=== PATIENT | female | born 1995 | race Caucasian/White ===

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

== ENCOUNTER → 2017-01-13 | Outpatient (CLI) | payer BC ==
[2017-01-13 17:25] LABS: GTGD 50 Grams
== END | disposition home or self-care (01) ==
LOC: C.LAB1850 15:23
PROVIDERS: ATTEND Obstetrics & Gynecology
DX: Z34.02 Encounter for supervision of normal first pregnancy, second trimester (principal); Z3A.00 Weeks of gestation of pregnancy not specified

== ENCOUNTER 2017-02-11 14:48 | Outpatient (CLI) | payer BC ==
[~2017-02-11] VITALS: Ht 157.5 cm; Wt 67.0 kg
[2017-02-11 15:44] VITALS: Ht 157.5 cm; Wt 67.0 kg
[2017-02-11 16:15] LABS: URINE APPEARANCE CLEAR (CLEAR); URINE BILIRUBIN NEG (NEG); URINE COLOR YELLOW; URINE EPITHELIAL CELL AUTO >30 /lpf (0-5); URINE NITRITE NEG (NEG); URINE SPECIFIC GRAVITY 1.009 (1.000-1.030); UROBILINOGEN NEG (NEG); ZZUR CULT IF INDIC CLEAN CATCH NO
[2017-02-11 16:22] LABS: MANUAL MICROSCOPIC REQUIRED? NO; REVIEW REQ? NO
== END 2017-02-11 16:35 | disposition home or self-care (01) ==
LOC: C.LD 14:48 → C.OPB 14:48
PROVIDERS: ATTEND Obstetrics & Gynecology
DX: O26.899 Other specified pregnancy related conditions, unspecified trimester (principal); N89.8 Other specified noninflammatory disorders of vagina; Z3A.00 Weeks of gestation of pregnancy not specified

== ENCOUNTER 2017-03-26 18:02 | Outpatient (CLI) | payer BC ==
[2017-03-26 19:03] LABS: URINE APPEARANCE CLEAR (CLEAR); URINE BILIRUBIN NEG (NEG); URINE COLOR YELLOW; URINE EPITHELIAL CELL AUTO >30 /lpf (0-5); URINE NITRITE NEG (NEG); URINE PH 6.5 (4.5-7.5); URINE SPECIFIC GRAVITY 1.026 (1.000-1.030); UROBILINOGEN NEG (NEG); ZZUR CULT IF INDIC CLEAN CATCH YES
[2017-03-26 19:11] LABS: MANUAL MICROSCOPIC REQUIRED? NO; REVIEW REQ? NO
[2017-03-26] MEDS ORDERED: ACET325T96 PO (19:48)
== END 2017-03-26 19:12 | disposition home or self-care (01) ==
LOC: C.OPB 18:02 → C.LD 18:02 → C.OPB 19:12
PROVIDERS: ATTEND Obstetrics & Gynecology
DX: O26.892 Other specified pregnancy related conditions, second trimester (principal); R10.11 Right upper quadrant pain; Z3A.26 26 weeks gestation of pregnancy

== ENCOUNTER 2017-03-26 19:22 | Emergency (ER) | payer BC ==
[~2017-03-26] VITALS: Ht 160 cm; Wt 69.0 kg
[2017-03-26 19:25] VITALS: TEMP 36.8; Ht 160 cm; Wt 69.0 kg
[2017-03-26] MEDS ORDERED: ALBUT/IPRATROP 3MG/0.5MG NEB 3 ML VIAL INH ONE (19:45)
[2017-03-26] MEDS ORDERED: ACET325T96 PO (19:48)
--- NOTE | 2017-03-26 20:23 | DIAGNOSTIC IMAGING REPORT ---
CHEST 2 VIEWS ROUTINE HISTORY: Cough. Fever. . COMPARISON: Chest 07/04/2016. FINDINGS: The lungs are clear. Cardiac silhouette is normal in size. No pleural effusions. No pneumothorax. IMPRESSION: No acute process. Electronically signed by: Rikki Mendiola M.D. 03/26/2017 8:21 PM Dictated Date/Time: 03/26/2017 8:20 PM
[2017-03-26 20:56] VITALS: BP 108/74; PULSE 114; O2SAT 98
--- NOTE | 2017-03-27 15:50 | EMERGENCY ROOM VISIT NOTE ---
History First contact with patient: 19:31 Chief Complaint: CONGESTION Stated Complaint: CHEST CONGESTION- 26WKS PREG Nursing Triage Summary: Pt c/o congestion and runny nose starting this AM. History of Present Illness The patient is a 21 year old female who presents to the Emergency Room with complaints of cough, wheezing, sinus congestion, and runny nose that is worsened over the past one day. The patient does have a history of asthma, but has not been using her inhaler. She is 26 weeks , and evidently was told by her E LEARNING DESIGNER not to use her inhaler as it is category C in . The patient has not had fever or chills. No distinct chest pain. She did have some abdominal cramping earlier today, and was seen just prior to arrival in the ER by labor and delivery here in the facility. She was felt to be stable from the standpoint. The patient does not have vaginal bleeding. She states that one of her friends has been sick with similar symptoms. She rates her discomfort a 4/10. Review of Systems More than 10 systems were reviewed and otherwise negative with the exception of history of present illness. Past Medical/Surgical History Medical Problems: (1) Abdominal cramping affecting , antepartum (2) Chemosis of right conjunctiva (3) Epigastric abdominal pain (4) Foreign body, eye (5) Influenza B (6) Irritation of right eye (7) ovarian cyst (8) Right otitis media (9) Vaginal bleeding in patient at less than 20 weeks gestation (10) Vaginal discharge during Family History Unknow due to adoption Social History Smoking Status: Never Smoker Alcohol Use: none Drug Use: none Marital Status: single Housing Status: lives with family Occupation Status: student Current/Historical Medications Scheduled Multivit/Min/Iron/Fol Ac/Pren ( Vitamin), 1 TAB PO QAM Scheduled PRN Acetaminophen Tab (Tylenol), 325 MG PO UD PRN for Pain or Fever Physical Exam Vital Signs Date Time Temp Pulse Resp B/P (MAP) Pulse Ox O2 Delivery O2 Flow Rate FiO2 03/26/17 20:56 114 18 108/74 98 03/26/17 19:28 97 Room Air 03/26/17 19:25 36.8 109 18 102/60 97 Room Air Physical Exam VITALS: Vitals are noted on the nurse's note and reviewed by myself. Vital signs stable. GENERAL: Well-developed, well-nourished, white female, who is in no acute distress and resting comfortably. Patient is cooperative with the examination. HEAD: Normocephalic atraumatic. EARS: External ear normal. External auditory canals clear, tympanic membranes pearly toure without erythema or effusion bilaterally. EYES: Pupils equal round and reactive to light and accommodation. Conjunctivae without injection, sclerae without icterus. Extraocular movements intact. NOSE: Patent, turbinates without inflammation or discharge. MOUTH: Mucous membranes moist. Tonsils are not enlarged. Pharynx without erythema, blood, or exudate. Uvula midline. Airway patent. NECK: Supple without nuchal rigidity. No lymphadenopathy. No thyromegaly. Cervical spine is nontender. HEART: Regular rate and rhythm without murmurs gallops or rubs. LUNGS: Scattered wheezing throughout but otherwise clear ABDOMEN: Positive normal bowel sounds x 4. Soft and consistent with Medical Decision & Procedures ER Provider Diagnostic Interpretation: CHEST 2 VIEWS ROUTINE HISTORY: Cough. Fever. . COMPARISON: Chest 07/04/2016. FINDINGS: The lungs are clear. Cardiac silhouette is normal in size. No pleural effusions. No pneumothorax. IMPRESSION: No acute process. Medications Administered Medications (Trade) Dose Ordered Sig/Main Route Start Time Stop Time Status Last Admin Dose Admin Albuterol/ Ipratropium (Duoneb) 3 ml NOW ONCE INH 03/26/17 19:45 03/26/17 19:46 DC 03/26/17 20:09 3 ML ED Course Physical exam and history were performed. Nursing notes, EMR, and Medication List were personally reviewed. Patient appears to have cough, runny nose, and URI symptoms for the past one day. The patient does not appear toxic on examination. She is without fever here in the department. She does have some very mild wheezing, but evidently has a history of asthma. This may be slightly flared up due to her symptoms today. I did elect to perform a chest x-ray and give her a DuoNeb. After the DuoNeb the patient had noted improvement of her symptoms. She did not have persistence of her cough. Her x-ray does not show evidence of acute pulmonary findings such as pneumonia. Overall the patient appears well for discharge home. I suspect her symptoms are viral in nature. She will be treated conservatively, and may use her inhaler for the next few days from home. Patient is to follow with her primary care physician and E LEARNING DESIGNER. She was otherwise invited back ER with any new, worsening, or concerning symptoms. The chart was completed utilizing [employer] Speech Voice Recognition Software. Grammatical errors, random word insertions, pronoun errors, and incomplete sentences are an occasional consequence of this system due to software limitations, ambient noise, and hardware issues. Any formal questions or concerns about the content, text, or information contained within the body of this dictation should be directly addressed to the provider for clarification. . Medical Decision Differential diagnosis: Etiologies such as viral syndrome, otitis, pharyngitis, pneumonia, influenza, meningitis, urinary tract infection, sepsis, bacteremia, as well as others were entertained. Impression Primary Impression: URI, acute Departure Information Dispostion Home / Self-Care Condition FAIR Forms HOME CARE DOCUMENTATION FORM, IMPORTANT VISIT INFORMATION Patient Instructions [facility] Additional Instructions You were seen and evaluated today on an emergency basis only. This is not a substitute for, or an effort to provide, complete comprehensive medical care. It is not possible to recognize and treat all injuries or illnesses in a single emergency department visit. For this reason it is recommended that you followup with your primary care physician next week for ongoing care and evaluation. You are welcome to return to the emergency department anytime with new, worsening, or concerning symptoms.
== END 2017-03-26 20:56 | disposition home or self-care (01) ==
LOC: C.EDB 19:23 → C.EDD 20:56
DX: O99.512 Diseases of the respiratory system complicating pregnancy, second trimester (principal); J06.9 Acute upper respiratory infection, unspecified; J45.909 Unspecified asthma, uncomplicated; Z3A.26 26 weeks gestation of pregnancy

== ENCOUNTER → 2017-04-07 | Outpatient (CLI) | payer BC ==
[~2017-04-07] MED LIST changes: +ACET325T96 PO
[2017-04-07 17:37] LABS: HEMOGLOBIN 11.6 g/dL (12.0-16.0)
== END | disposition home or self-care (01) ==
LOC: C.LAB1850 16:46
PROVIDERS: ATTEND Obstetrics & Gynecology
DX: Z34.03 Encounter for supervision of normal first pregnancy, third trimester (principal)

== ENCOUNTER 2017-04-15 03:01 | Outpatient (CLI) | payer BC ==
[~2017-04-15] VITALS: Ht 160 cm; Wt 72.6 kg
[2017-04-15 04:02] VITALS: Ht 160 cm; Wt 72.6 kg
[2017-04-15 04:03] LABS: BASO % 0.1 %; BASO ABS # 0.02 K/uL (0-0.2); EOS ABS # 0.14 K/uL (0-0.5); HEMATOCRIT 35.6 % (37-47); IG# 0.23 K/uL (0.00-0.02); LYMPH % 14.1 %; LYMPH ABS # 1.96 K/uL (1.2-3.4); MEAN CELL VOLUME 84.8 fL (80-100); MEAN CORPUSCULAR HEMOGLOBIN 28.6 pg (25-34); MEAN PLATELET VOLUME 9.2 fL (7.4-10.4); MONO % 6.2 %; MONO ABS # 0.86 K/uL (0.11-0.59); NEUT ABS # 10.73 K/uL (1.4-6.5); PLATELET COUNT 224 K/uL (130-400); RED CELL DISTRIBUTION WIDTH CV 12.9 % (11.5-14.5); RED CELL DISTRIBUTION WIDTH SD 39.2 fL (36.4-46.3); WHITE BLOOD COUNT 13.94 K/uL (4.8-10.8)
[2017-04-15 04:09] LABS: MEAN CORPUSCULAR HGB CONC 33.7 g/dl (32-36)
== END 2017-04-15 06:34 | disposition home or self-care (01) ==
LOC: C.LD 03:01 → C.OPB 03:01
PROVIDERS: ATTEND Obstetrics & Gynecology
DX: Z34.03 Encounter for supervision of normal first pregnancy, third trimester (principal); Z3A.29 29 weeks gestation of pregnancy; W10.9XXA Fall (on) (from) unspecified stairs and steps, initial encounter

== ENCOUNTER 2017-06-03 16:05 | Outpatient (CLI) | payer BC ==
[~2017-06-03] VITALS: Ht 160 cm; Wt 81.6 kg
[~2017-06-03 16:05] MED LIST changes: -FRCT/ PO
[2017-06-03 17:17] LABS: BASO % 0.3 %; BASO ABS # 0.03 K/uL (0-0.2); EOS % 1.8 %; EOS ABS # 0.21 K/uL (0-0.5); HEMATOCRIT 35.6 % (37-47); HEMOGLOBIN 11.9 g/dL (12.0-16.0); IG# 0.16 K/uL (0.00-0.02); LYMPH % 18.3 %; LYMPH ABS # 2.15 K/uL (1.2-3.4); MEAN CELL VOLUME 84.6 fL (80-100); MEAN CORPUSCULAR HEMOGLOBIN 28.3 pg (25-34); MEAN PLATELET VOLUME 10.1 fL (7.4-10.4); MONO % 5.9 %; MONO ABS # 0.69 K/uL (0.11-0.59); NEUT % 72.3 %; NEUT ABS # 8.52 K/uL (1.4-6.5); PLATELET COUNT 200 K/uL (130-400); RED CELL DISTRIBUTION WIDTH CV 13.5 % (11.5-14.5); RED CELL DISTRIBUTION WIDTH SD 41.2 fL (36.4-46.3); WHITE BLOOD COUNT 11.76 K/uL (4.8-10.8)
[2017-06-03 17:32] LABS: MEAN CORPUSCULAR HGB CONC 33.4 g/dl (32-36)
[2017-06-03 17:46] LABS: ALKALINE PHOSPHATASE 142 U/L (45-117); ALT/SGPT 16 U/L (12-78); AST/SGOT 16 U/L (15-37); BLOOD UREA NITROGEN 6 mg/dl (7-18); CALCIUM 8.8 mg/dl (8.5-10.1); CARBON DIOXIDE 22 mmol/L (21-32); CREATININE 0.55 mg/dl (0.60-1.20); GLUCOSE 77 mg/dl (70-99); POTASSIUM 3.9 mmol/L (3.5-5.1); SODIUM 134 mmol/L (136-145); TOTAL PROTEIN 7.4 gm/dl (6.4-8.2)
[2017-06-03 18:59] VITALS: Ht 160 cm; Wt 81.6 kg
[2017-06-03] MEDS ORDERED: ACETAMINOPHEN/CODEINE 300/30MG TAB PO ONE (19:45)
== END 2017-06-03 20:11 | disposition home or self-care (01) ==
LOC: C.LD 16:05 → C.OPB 16:05
PROVIDERS: ATTEND Obstetrics & Gynecology
DX: O99.89 Other specified diseases and conditions complicating pregnancy, childbirth and the puerperium (principal); R51 Headache; Z3A.36 36 weeks gestation of pregnancy

== ENCOUNTER → 2017-06-03 | Outpatient (CLI) | payer BC ==
[~2017-06-03] MED LIST changes: +ACET-1693 PO; -ACET325T96 PO; +FRCT/ PO
== END | disposition home or self-care (01) ==
LOC: C.LABSPEC 17:34
PROVIDERS: ATTEND Obstetrics & Gynecology

== ENCOUNTER 2017-06-08 18:05 | Inpatient (IN) | payer BC ==
[~2017-06-08] VITALS: Ht 160 cm; Wt 83.2 kg
[2017-06-08 19:01] LABS: BASO % 0.2 %; BASO ABS # 0.02 K/uL (0-0.2); EOS % 1.6 %; EOS ABS # 0.18 K/uL (0-0.5); HEMATOCRIT 33.4 % (37-47); HEMOGLOBIN 11.3 g/dL (12.0-16.0); IG# 0.16 K/uL (0.00-0.02); LYMPH % 19.2 %; LYMPH ABS # 2.22 K/uL (1.2-3.4); MEAN CELL VOLUME 84.1 fL (80-100); MEAN CORPUSCULAR HEMOGLOBIN 28.5 pg (25-34); MEAN CORPUSCULAR HGB CONC 33.8 g/dl (32-36); MEAN PLATELET VOLUME 10.3 fL (7.4-10.4); MONO % 7.8 %; NEUT % 69.8 %; NEUT ABS # 8.09 K/uL (1.4-6.5); PLATELET COUNT 178 K/uL (130-400); RED CELL DISTRIBUTION WIDTH CV 13.9 % (11.5-14.5); RED CELL DISTRIBUTION WIDTH SD 42.3 fL (36.4-46.3); WHITE BLOOD COUNT 11.57 K/uL (4.8-10.8)
[2017-06-08 19:19] LABS: ALBUMIN 2.8 gm/dl (3.4-5.0); ALT/SGPT 18 U/L (12-78); BLOOD UREA NITROGEN 8 mg/dl (7-18); CARBON DIOXIDE 24 mmol/L (21-32); CREATININE 0.62 mg/dl (0.60-1.20); GLUCOSE 83 mg/dl (70-99); POTASSIUM 3.9 mmol/L (3.5-5.1); SODIUM 137 mmol/L (136-145)
[2017-06-08 19:22] LABS: ALKALINE PHOSPHATASE 143 U/L (45-117); AST/SGOT 19 U/L (15-37); TOTAL PROTEIN 7.2 gm/dl (6.4-8.2)
[2017-06-08] MEDS ORDERED: LACTATED RINGER'S 1000ML 1,000 ML IV PRN (20:04)
[2017-06-08] MEDS ORDERED: LACTATED RINGER'S 1000ML 500 ML IV PRN (20:04)
[2017-06-08] MEDS ORDERED: FRCT/ PO (20:09)
[2017-06-08 20:13] VITALS: Ht 160 cm; Wt 83.2 kg
[2017-06-08] MEDS ORDERED: OXYTOCIN 30 UNITS/500ML NSS IV PRN (20:15)
[2017-06-08] MEDS: LACTATED RINGER'S 1000ML 1,000 ML IV SCH (21:05)
[2017-06-09] MEDS: LACTATED RINGER'S 1000ML 1,000 ML IV SCH ×2 (04:40→14:39)
[2017-06-09] MEDS ORDERED: NURSING VERBAL MED ORDER ONE ×2 (05:45)
[2017-06-09 09:27] LABS: INR 0.9 (0.9-1.1); PTT PATIENT 24.3 SECONDS (21.0-31.0)
[2017-06-09] MEDS ORDERED: BUPIVACAINE 0.25% 30 ML VIAL ONE (11:49)
[2017-06-09] MEDS ORDERED: EpHEDrine SULFATE INJ 50 MG/ML AMP ONE (11:49)
[2017-06-09] MEDS ORDERED: FENTANYL CITRATE INJ 50 MCG/1 ML 2 ML VIAL ONE (11:50)
[2017-06-09] MEDS ORDERED: FENTANYL 2MCG/ML ROPIV 1.25MG/ML 100ML BAG EPI ONE (11:50)
[2017-06-09] MEDS ORDERED: LACTATED RINGER'S 1000ML 500 ML IV PRN (12:34)
[2017-06-09] MEDS ORDERED: NALOXONE HCL INJ 1 MG in SODIUM CHLORIDE 0.9% 1000ML 1,000 ML IV PRN ×4 (12:34)
[2017-06-09] MEDS ORDERED: NALOXONE HCL INJ 0.4 MG/1 ML VIAL/CARP IV PRN (12:45)
[2017-06-09] MEDS ORDERED: EpHEDrine SULFATE INJ 50 MG/ML AMP IV PRN (12:45)
[2017-06-09] MEDS ORDERED: PROMETHAZINE HCL INJ 25 MG in SODIUM CHLORIDE 0.9% 50ML 50 ML IV PRN (12:45)
[2017-06-09] MEDS ORDERED: ONDANSETRON INJ 2 MG/ML 2 ML VIAL IV PRN (12:45)
[2017-06-09] MEDS ORDERED: DiphenhydrAMINE HCL 50 MG/ML VIAL IV PRN (12:45)
[2017-06-09] MEDS ORDERED: NALBUPHINE HCL INJ 10 MG/ML AMP IV PRN (12:45)
[2017-06-09] MEDS ORDERED: FENTANYL 2MCG/ML ROPIV 1.25MG/ML 100ML BAG EPI PRN (12:45)
[2017-06-09] MEDS ORDERED: LANOLIN OINT EXT PRN (19:30)
[2017-06-09] MEDS ORDERED: SUPERCREAM 0.870 % 15GM JAR EXT PRN (19:30)
[2017-06-09] MEDS ORDERED: ACETAMINOPHEN/CODEINE 300/30MG TAB PO PRN ×2 (19:30)
[2017-06-09] MEDS ORDERED: BENZOCAINE 20% AER SPR 82.5 GM CAN EXT PRN (19:30)
[2017-06-09] MEDS ORDERED: OXYTOCIN 30 UNITS/500ML NSS IV PRN (19:30)
[2017-06-09] MEDS ORDERED: HYDROCORTISONE ACETATE 25 MG SUPP PR PRN (19:30)
[2017-06-09] MEDS ORDERED: DIPHTHERIA/TETANUS/PERTUSSIS 0.5 ML SYR/VIAL IM. ONE (19:30)
[2017-06-09] MEDS ORDERED: ACETAMINOPHEN 325 MG TAB PO PRN (19:30)
--- NOTE | 2017-06-09 20:47 | DELIVERY SUMMARY ---
DATE OF OPERATION: 06/09/2017 FINDINGS: Viable female with Apgars of 8 and 9, baby delivered over a midline second degree laceration with right periurethral laceration. Cord gases and cord blood samples obtained. Placenta delivered spontaneously. Lacerations repaired with 4-0 Vicryl in routine fashion. ESTIMATED BLOOD LOSS: 300 mL. LABOR NOTE: The patient is a 21-year-old 1, para 0 with an EDC of 06/30/2017, who was admitted at 37 week gestational age for term induction for gestational hypertension. The patient had been diagnosed with gestational hypertension this week with elevated blood pressure of 150/90 with normal preeclamptic labs. Because of the gestational hypertension at term, she was admitted for induction. Prior to the gestational hypertension developing in the third trimester, the patient had had an unremarkable course. Admission physical examination showed the patient with a blood pressure of 140-150/80-90, 2+ pitting edema, the cervix was 1 cm long, thick and high. Preeclamptic labs were within normal limits. blood work showed a blood type of A positive, antibody negative, rubella immune, hepatitis B negative, HIV negative. She had negative third trimester beta strep culture. The patient for cervical ripening had a Madrigal catheter inserted to the cervix which was then insufflated with 30 mL of sterile water. Pitocin was started at a low dose of 1 milliunit for approximately 8 hours before being increased per induction protocol. Approximately 10 hours after cervical Madrigal placement, it was removed, cervix was 3 cm dilated, 50% effaced and -2 station. Delivering physician assumed care for the patient at this point. She developed regular contraction pattern. Artificial rupture of membrane with clear fluid and intrauterine pressure catheter was placed. The patient became uncomfortable. Anesthesia was consulted and an epidural was placed. Over the next 8 hours, the patient progressed to full dilatation and began her second stage. She pushed for approximately 30 minutes delivering the viable female with description as above. Cord was clamped and cut. Cord blood samples obtained. Cord gas samples obtained. Placenta was delivered spontaneously. Inspection of the perineum showed a midline second degree laceration with a second degree right periurethral laceration. Both of these lacerations were repaired with 4-0 Vicryl. Estimated blood loss 300 mL. Sponge and needle count was correct. I attest to the content of the Intraoperative Record and any orders documented therein. Any exception s are noted below.
--- NOTE | 2017-06-09 21:37 | Anesthesia Procedure Note ---
Anesthesia Epidural Removal Nt Date & Time Jun 09, 2017 at 21:37 Vital Signs Pain Intensity: 7.0 Notes Mental Status: alert / awake / arousable, participated in evaluation Nausea / Vomiting: adequately controlled Pain: adequately controlled Airway Patency, RR, SpO2: stable & adequate BP & HR: stable & adequate Hydration State: stable & adequate Neuraxial Anesthesia: was administered Anesthetic Complications: no major complications apparent, pt satisfied with anesthetic care Epidural: removed without complications, with tip intact
[2017-06-09 22:00] VITALS: BP 133/93; PULSE 103; TEMP 36.6
[2017-06-09 23:45] VITALS: BP 142/87; PULSE 48; TEMP 36.8
[2017-06-09] MEDS: IBUPROFEN 600 MG TAB PO PRN (23:56)
[2017-06-10 03:40] VITALS: BP 139/79; PULSE 110; TEMP 36.8; O2SAT 98
[2017-06-10 04:15] VITALS: BP 134/87; PULSE 94; TEMP 36.6
[2017-06-10 06:30] LABS: HEMATOCRIT 30.4 % (37-47); HEMOGLOBIN 10.4 g/dL (12.0-16.0)
--- NOTE | 2017-06-10 06:59 | Progress Note ---
Subjective Jun 10, 2017. Subjective conversation w/ patient, physical exam Ambulation: ambulating normally Voiding: no voiding problems Passing Gas: Yes Diet Tolerance: Regular Diet Lochia: Moderate Feeding Type: Breast Feeding Pain: 3/10, improves with meds Comment: pt assessed at bedside this am; no acute events overnight Review of Systems Constitutional: + chills (on and off, thinks related to room temp), No fever, No sweats, No weight loss, No weakness, No fatigue, No problem reported Respiratory: No cough, No sputum, No wheezing, No shortness of breath, No dyspnea on exertion, No dyspnea at rest, No hemoptysis, No problem reported Cardiac: No chest pain, No orthopnea, No PND, No edema, No claudication, No palpitations, No problem reported Breast: No breast lump, No change in shape, No nipple discharge, No breast pain , No problem reported Abdomen: No pain, No nausea, No vomiting, No diarrhea, No constipation, No GI bleeding, No problem reported Female : + dysuria (improving), + vaginal discharge, No urinary frequency, No hematuria, No incontinence, No abnormal vaginal bleeding, No problem reported no headaches or calf pain reported Objective Vital Signs Date Time Temp Pulse Resp B/P (MAP) Pulse Ox O2 Delivery O2 Flow Rate FiO2 06/10/17 04:15 36.6 94 18 134/87 (103) Room Air 06/09/17 23:45 36.8 48 18 142/87 (105) Room Air 06/09/17 23:45 Room Air 06/09/17 22:00 36.6 103 18 133/93 (106) Room Air 06/09/17 22:00 Room Air Physical Exam General Appearance: WELL-APPEARING, WD/WN, NO APPARENT DISTRESS Respiratory/Chest: chest non-tender, lungs clear, normal breath sounds, no respiratory distress, no accessory muscle use Cardiovascular: regular rate, rhythm, no edema, no murmur Abdomen: normal bowel sounds, non tender, soft Fundus: Firm, Non-Tender, Relation to Umbilicus (2 below) Extremities: normal range of motion, non-tender, normal inspection, no calf tenderness, + pedal edema (1-2+ bilaterally) Laboratory Results Last 24 Hours Test 06/09/17 09:01 06/10/17 05:58 Prothrombin Time 9.4 SECONDS Prothromb Time International Ratio 0.9 Activated Partial Thromboplast Time 24.3 SECONDS Partial Thromboplastin Ratio 0.9 Hemoglobin 10.4 g/dL Hematocrit 30.4 % Medications Current Inpatient Medications Medications (Trade) Dose Ordered Sig/Main Route Start Time Stop Time Status Last Admin Dose Admin Lactated Ringer's 1,000 ml @ 125 mls/hr Q8H IV 06/08/17 20:04 06/10/17 20:03 06/09/17 14:39 125 MLS/HR Lactated Ringer's 1,000 ml @ 999 mls/hr Q1H1M PRN IV 06/08/17 20:04 07/08/17 20:03 Oxytocin (Pitocin IV) 30 units UD PRN IV 06/08/17 20:15 07/08/17 20:14 06/08/17 21:57 30 UNITS Lactated Ringer's 500 ml @ 999 mls/hr Q31M PRN IV 06/08/17 20:04 07/08/17 20:03 Ondansetron HCl (Zofran Inj) 4 mg Q6H PRN IV 06/09/17 12:45 06/10/17 12:44 Oxytocin (Pitocin IV) 30 units UD PRN IV 06/09/17 19:30 07/09/17 19:29 Benzocaine (Dermoplast Aero Spr) 1 appln PRN PRN EXT 06/09/17 19:30 07/09/17 19:29 Cocaine HCl (Supercream 0.870% Cr) BID PRN EXT 06/09/17 19:30 06/23/17 19:29 Hydrocortisone Acetate (Anusol Hc Supp) 25 mg BID PRN NH 06/09/17 19:30 07/09/17 19:29 Lanolin (Lanolin Oint) PRN PRN EXT 06/09/17 19:30 07/09/17 19:29 Prenat Multivit/ [place]/Iron/Folic Ac ( Vitamin Tab) 1 tab DAILY PO 06/10/17 08:00 07/10/17 07:59 Ibuprofen (Motrin Tab) 600 mg Q4H PRN PO 06/09/17 19:30 07/09/17 19:29 06/09/17 23:56 600 MG Acetaminophen (Tylenol Tab) 650 mg Q6H PRN PO 06/09/17 19:30 07/09/17 19:29 Acetaminophen/ Codeine Phosphate (Tylenol w/ Codeine #3 Tab) 1 tab Q4H PRN PO 06/09/17 19:30 07/09/17 19:29 Acetaminophen/ Codeine Phosphate (Tylenol w/ Codeine #3 Tab) 2 tab Q4H PRN PO 06/09/17 19:30 07/09/17 19:29 Bisacodyl (Dulcolax Tab) 5 mg 20 PO 06/10/17 20:00 06/10/17 20:01 Docusate Sodium (coLACE CAP) 100 mg BID PO 06/09/17 20:00 07/09/17 19:59 Ferrous Sulfate (Feosol Tab) 325 mg DAILY PO 06/10/17 08:00 07/10/17 07:59 Assessment and Plan Problem List Medical Problems: (1) 15371 Status: Acute (2) 37670 Status: Acute (3) Chemosis of right conjunctiva Status: Acute (4) Foot fracture, right Status: Acute (5) Foreign body, eye Status: Acute (6) Influenza Status: Acute (7) Irritation of right eye Status: Acute (8) Status: Acute (9) URI, acute Status: Acute (10) Vaginal bleeding Status: Acute (11) Vaginal bleeding in patient at less than 20 weeks gestation Status: Acute (12) Vaginal hematoma Status: Acute (13) Vomiting Status: Acute Post- Day#: 1 Continue Routine Care: 21 yo F , PPD 1 s/p induction with for gestational HTN Patient doing well clinically AVSS Hgb reviewed 11.3--10.4 Blood type A pos, GBS neg, rubella immune Routine care, encourage ambulation, breast feeding, first mom--education on breast feeding Pain control with Rx prn Resident Physician Supervision Note: I interviewed and examined the patient. Discussed with Dr. Horn and agree with findings and plan as documented in the note. Any exceptions or clarifications are listed here: Discussed delivery and finds with patient Documented By: Magan Price Resident Tracking Resident Involvement: Resident Care Provided Care Provided: OB Delivery
[2017-06-10 08:00] VITALS: BP 135/88; PULSE 99; TEMP 36.5
[2017-06-10] MEDS: DOCUSATE SODIUM 100 MG CAP PO SCH ×3 (09:01→19:53)
[2017-06-10] MEDS: FERROUS SULFATE 325 MG TAB PO SCH (09:02)
[2017-06-10] MEDS: PRENATAL VITAMIN TAB PO SCH (09:03)
[2017-06-10] MEDS: IBUPROFEN 600 MG TAB PO PRN ×2 (09:05→15:47)
[2017-06-10 12:08] VITALS: BP 136/91; PULSE 82; TEMP 36.4; O2SAT 99
[2017-06-10 15:40] VITALS: BP 139/79; PULSE 110; TEMP 36.8; O2SAT 98
[2017-06-10] MEDS ORDERED: BISACODYL 5 MG TABEC PO SCH (20:00)
[2017-06-11 00:30] VITALS: BP 126/85; PULSE 106; TEMP 36.7
[2017-06-11] MEDS: IBUPROFEN 600 MG TAB PO PRN ×2 (00:47→08:18)
--- NOTE | 2017-06-11 06:54 | Progress Note ---
Subjective Jun 11, 2017. Subjective conversation w/ patient, physical exam, chart review Ambulation: ambulating normally Voiding: no voiding problems Passing Gas: Yes Diet Tolerance: Regular Diet Lochia: Small Feeding Type: Breast Feeding Pain: much improved compared to yesterday, rated 2/10 Comment: Pt seen and examined at bedside today, no acute events overnight Review of Systems Constitutional: No fever, No chills Respiratory: No cough, No shortness of breath Cardiac: + edema, No chest pain Breast: + breast pain (sore breast from extended breast feeding yesterday) Abdomen: No pain, No nausea, No vomiting Female : + problem reported (dysuria last night but none today) No headache or calf tenderness reported Objective Vital Signs Date Time Temp Pulse Resp B/P (MAP) Pulse Ox O2 Delivery O2 Flow Rate FiO2 06/11/17 00:30 Room Air 06/11/17 00:30 36.7 106 18 126/85 (99) Room Air 06/10/17 15:40 36.8 110 20 139/79 (99) 98 Room Air 06/10/17 15:30 Room Air 06/10/17 12:08 36.4 82 20 136/91 (106) 99 Room Air 06/10/17 08:00 36.5 99 18 135/88 (104) Room Air 06/10/17 07:30 Room Air Physical Exam General Appearance: WELL-APPEARING, WD/WN, NO APPARENT DISTRESS Respiratory/Chest: chest non-tender, lungs clear, normal breath sounds Cardiovascular: regular rate, rhythm, no murmur Abdomen: normal bowel sounds, non tender, soft Fundus: Firm, Non-Tender, Relation to Umbilicus (2 cm below) Extremities: normal range of motion, non-tender, normal inspection, no calf tenderness, + pedal edema (2+ bilaterally) Laboratory Results Last Resulted 06/08/17 18:47 Red Blood Count 3.97, Mean Corpuscular Volume 84.1, Mean Corpuscular Hemoglobin 28.5, Mean Corpuscular Hemoglobin Concent 33.8, Mean Platelet Volume 10.3, Neutrophils (%) (Auto) 69.8, Lymphocytes (%) (Auto) 19.2, Monocytes (%) (Auto) 7.8, Eosinophils (%) (Auto) 1.6, Basophils (%) (Auto) 0.2, Neutrophils # (Auto) 8.09, Lymphocytes # (Auto) 2.22, Monocytes # (Auto) 0.90, Eosinophils # (Auto) 0.18, Basophils # (Auto) 0.02 06/10/17 05:58 Last Resulted 06/08/17 18:47 Medications Current Inpatient Medications Medications (Trade) Dose Ordered Sig/Main Route Start Time Stop Time Status Last Admin Dose Admin Lactated Ringer's 1,000 ml @ 999 mls/hr Q1H1M PRN IV 06/08/17 20:04 07/08/17 20:03 Oxytocin (Pitocin IV) 30 units UD PRN IV 06/08/17 20:15 07/08/17 20:14 06/08/17 21:57 30 UNITS Lactated Ringer's 500 ml @ 999 mls/hr Q31M PRN IV 06/08/17 20:04 07/08/17 20:03 Oxytocin (Pitocin IV) 30 units UD PRN IV 06/09/17 19:30 07/09/17 19:29 Benzocaine (Dermoplast Aero Spr) 1 appln PRN PRN EXT 06/09/17 19:30 07/09/17 19:29 Cocaine HCl (Supercream 0.870% Cr) BID PRN EXT 06/09/17 19:30 06/23/17 19:29 Hydrocortisone Acetate (Anusol Hc Supp) 25 mg BID PRN MT 06/09/17 19:30 07/09/17 19:29 Lanolin (Lanolin Oint) PRN PRN EXT 06/09/17 19:30 07/09/17 19:29 Prenat Multivit/ [place]/Iron/Folic Ac ( Vitamin Tab) 1 tab DAILY PO 06/10/17 08:00 07/10/17 07:59 06/10/17 09:03 1 TAB Ibuprofen (Motrin Tab) 600 mg Q4H PRN PO 06/09/17 19:30 07/09/17 19:29 06/11/17 00:47 600 MG Acetaminophen (Tylenol Tab) 650 mg Q6H PRN PO 06/09/17 19:30 07/09/17 19:29 Acetaminophen/ Codeine Phosphate (Tylenol w/ Codeine #3 Tab) 1 tab Q4H PRN PO 06/09/17 19:30 07/09/17 19:29 3/8/18 00:47 1 TAB Acetaminophen/ Codeine Phosphate (Tylenol w/ Codeine #3 Tab) 2 tab Q4H PRN PO 06/09/17 19:30 07/09/17 19:29 Docusate Sodium (coLACE CAP) 100 mg BID PO 06/09/17 20:00 07/09/17 19:59 06/10/17 09:01 100 MG Ferrous Sulfate (Feosol Tab) 325 mg DAILY PO 06/10/17 08:00 07/10/17 07:59 06/10/17 09:02 325 MG Assessment and Plan Problem List Medical Problems: (1) 81545 Status: Acute (2) 06241 Status: Acute (3) Chemosis of right conjunctiva Status: Acute (4) Foot fracture, right Status: Acute (5) Foreign body, eye Status: Acute (6) Influenza Status: Acute (7) Irritation of right eye Status: Acute (8) Status: Acute (9) URI, acute Status: Acute (10) Vaginal bleeding Status: Acute (11) Vaginal bleeding in patient at less than 20 weeks gestation Status: Acute (12) Vaginal hematoma Status: Acute (13) Vomiting Status: Acute Post- Day#: 2 Continue Routine Care: 21 yo F , PPD 2 s/p Pt doing well clinically, eager to get home Continue routine care Encourage ambulation, breast feeding, first mom education on breast feeding Pain contro with rx prn Discharge instructions reviewed Resident Physician Supervision Note: I was present with Dr. Horn during the history and exam. I discussed the case with the resident and agree with the findings and plan as documented in the note. Any exceptions or clarifications are listed here: PPD#2 doing well. Discharge instructions discussed. Followup 6w office. Documented By: Alma Palumbo Resident Tracking Resident Involvement: Resident Care Provided Care Provided: OB Delivery
--- NOTE | 2017-06-11 06:57 | Discharge Instructions ---
Discharge Instructions Date of Service Jun 11, 2017. Admission Reason for Admission: Blood Pressure Check Discharge Discharge Diagnosis / Problem: s/p Discharge Goals Goal(s): Routine recovery after delivery Medications Continue Dispensed Medications: supercream, dermaplast, tucks, lansinoh Activity Recommendations Activity Limitations: per Instructions/Follow-up section . Instructions / Follow-Up Instructions / Follow-Up ACTIVITY RECOMMENDATIONS: * Gradual return to full activity over the next 2-3 weeks. * No lifting - nothing heavier than baby over the next 2-3 weeks. * Do not engage in vigorous exercise, sexual activity or sports until cleared by your physician. * Do not drive or operate any motorized equipment until cleared by your physician. * You may shower/bathe daily. MEDICATIONS: For discomfort or pain, you may use Acetaminophen (Tylenol), Ibuprofen (Advil), or Naproxen (Aleve) following the package directions. For constipation you may use Colace following the package directions. BREAST CARE: If you are not breast feeding: * Wear a supportive bra 24 hours a day for one to two weeks. * Avoid stimulating your breasts and nipples as much as possible during the first few weeks after delivery. * When taking a shower, have the warm water hit your back, not breasts. * When your breasts feel full, apply ice packs. Usually three to four times a day helps ease the discomfort. * Take a mild pain medication (Tylenol / Motrin) when you are uncomfortable. If breast feeding: * Use breast milk to lubricate nipples. Lansinoh cream may be used for sore nipples. You do not need to remove cream prior to breast feeding. If using a different brand of cream, check the label for directions regarding removal of cream prior to nursing. * Wear a supportive bra. * If having problems with breasts or breast feeding, call a ent consultant or your health care provider. EPISIOTOMY CARE: After delivery, if you have an episiotomy (stitches), the following steps will ease discomfort and aid healing. * For the first 24 hours after delivery, place ice packs next to your episiotomy to help reduce swelling. * After the first 24 hour-period, sitz baths, either portable or in the tub, are suggested. A shower with a shower arm sprayed over the episiotomy may be comforting. * Stacey care should be done after each voiding and bowel movement. Squirt warm water from a plastic bottle over the perineum (region of the body between the anus and urinary opening) and pat dry. * Use Dermoplast to ease discomfort. Shake container. [place] directly over the episiotomy. Place a Tucks on a clean sanitary pad next to your episiotomy. SPECIAL CARE INSTRUCTIONS: When you are discharged from the hospital, it is important for you to follow the instructions listed below: * During the first week at home, you should be able to care for yourself and your baby. In addition, the usual light household activities are encouraged. * Limit your activities to the way you feel. Do not try to clean the house or move furniture. Be sensible. * If you actively engage in sports and have done so up until the time of your delivery, you may resume these activities as soon as you feel able. This may take up to one month or even longer. Use good judgment. * Continue to take your vitamins for at least six weeks after the of your baby. * Your diet need not be limited unless you were on a special diet before your delivery. Breast-feeding mothers need around 2500 calories per day and at least 64-80 ounces of fluid per day (8 to 10 glasses). * You should eat foods from the four major food groups. Crash diets or fad diets are to be avoided. Eating lean meats, fresh fruits and vegetables, low-fat dairy products, high fiber foods and a regular exercise program, will help you get back to your pre- weight without putting your health at risk. * Constipation is sometimes a problem after delivery. Take a mild laxative as needed. If breast feeding, Milk of Magnesia is acceptable to use. You may use a suppository or Fleets enema if no episiotomy. * A daily shower or tub bath is suggested. Be sure to thoroughly and gently dry the perineum. * A bloody vaginal discharge will usually continue until around four weeks post . A small amount of bleeding may continue for as long as six weeks. Vaginal discharge changes from the bright red bleeding after delivery to pink then brownish and finally yellowish-pink before becoming white and disappearing. * Bleeding may increase with activity. Your first period may come in 4-8 weeks. If you are breast feeding, your period may be delayed even longer. * Diaz (sex) can begin whenever both you and your partner feel comfortable and do not have any form of genital infection. It is recommended that you wait at least six weeks for internal and external healing to occur. If you have questions, please talk to your health care practitioner. A condom should be used to prevent infection and . * Foreplay, gentle intercourse and lubrication is very important the first several times to prevent pain. A water-based lubricant such as K-Y jelly or Astroglide may be used. * If you have RH negative blood and your baby is RH positive, you will receive RHOGAM by injection prior to discharge. The nurse will give you a card to keep with you that has the date and place that you received RHOGAM after delivery. * During your care, you had a Rubella screen done to check for the presence of rubella antibodies in your blood. If your test was negative, you will receive a Rubella vaccine prior to discharge. This vaccine may cause a fever, soreness at the injection site and flu-like symptoms. If these symptoms persist, notify your health care practitioner. is not advised for one month after a Rubella vaccine. * Verbalizes understanding of car seat law as reviewed with patient nursing. * Car Seat hand-out given and reviewed with patient by nursing. * Shaken baby information reviewed with patient by nursing. Call you doctor if: * Heavy bleeding (saturating several pads an hour) or passing clots the size of your fist. * A fever >101 degrees F (38.3 degrees C) on two occasions four hours apart and /or chills. * Unusual pain in the pelvic or vaginal areas. * "Baby Blues" lasting longer than two weeks. If you have any questions or concerns, call your health care practitioner at . FOLLOW UP VISIT: * Please call the office at to schedule a 6 week examination. It is important you keep this appointment. It is important for you to make arrangements for either yearly or twice yearly check-ups thereafter. Current Hospital Diet Patient's current hospital diet: Regular OB Diet Discharge Diet Recommended Diet: Regular OB Diet Pending Studies Studies pending at discharge: no Medical Emergencies . Who to Call and When: Medical Emergencies: If at any time you feel your situation is an emergency, please call 911 immediately. . Non-Emergent Contact Non-Emergency issues call your: Calibration Engineer . . "Provider Documentation" section prepared by Oriana Horn. .
[2017-06-11 07:15] VITALS: BP 122/81; PULSE 89; TEMP 36.5; O2SAT 98
[2017-06-11] MEDS: PRENATAL VITAMIN TAB PO SCH (08:18)
[2017-06-11] MEDS: DOCUSATE SODIUM 100 MG CAP PO SCH (08:18)
[2017-06-11] MEDS: FERROUS SULFATE 325 MG TAB PO SCH (08:18)
[2017-06-11 11:15] VITALS: BP_DIAS 81; PULSE 89; TEMP 36.5
== END 2017-06-11 11:15 | disposition home or self-care (01) | DRG 775 ==
LOC: C.LD 18:05 → C.OPB 18:05 → C.LD 20:07 → C.OPB 20:07 → C.OBG 06-09 22:01
PROVIDERS: ADMIT Obstetrics & Gynecology; ATTEND Obstetrics & Gynecology
DX: O13.4 Gestational [pregnancy-induced] hypertension without significant proteinuria, complicating childbirth (principal); O70.1 Second degree perineal laceration during delivery; Z3A.37 37 weeks gestation of pregnancy; Z37.0 Single live birth

== ENCOUNTER → 2017-11-27 | Outpatient (CLI) | payer BC, OTHER ==
[~2017-11-27] MED LIST changes: +FRCT/ PO
[2017-11-27 16:20] LABS: BASO % 0.4 %; BASO ABS # 0.02 K/uL (0-0.2); EOS % 3.4 %; EOS ABS # 0.18 K/uL (0-0.5); HEMATOCRIT 39.3 % (37-47); HEMOGLOBIN 12.7 g/dL (12.0-16.0); LYMPH % 35.2 %; LYMPH ABS # 1.84 K/uL (1.2-3.4); MEAN CELL VOLUME 84.5 fL (80-100); MEAN CORPUSCULAR HEMOGLOBIN 27.3 pg (25-34); MEAN CORPUSCULAR HGB CONC 32.3 g/dl (32-36); MEAN PLATELET VOLUME 9.9 fL (7.4-10.4); MONO % 7.3 %; MONO ABS # 0.38 K/uL (0.11-0.59); NEUT % 53.7 %; NEUT ABS # 2.81 K/uL (1.4-6.5); PLATELET COUNT 262 K/uL (130-400); RED CELL DISTRIBUTION WIDTH SD 43.1 fL (36.4-46.3); RETIC COUNT % 0.8 % (0.5-2.0); WHITE BLOOD COUNT 5.23 K/uL (4.8-10.8)
[2017-11-27 16:49] LABS: ALBUMIN 3.6 gm/dl (3.4-5.0); ALKALINE PHOSPHATASE 32 U/L (45-117); ALT/SGPT 25 U/L (12-78); AST/SGOT 12 U/L (15-37); BLOOD UREA NITROGEN 10 mg/dl (7-18); CALCIUM 8.6 mg/dl (8.5-10.1); CARBON DIOXIDE 24 mmol/L (21-32); CREATININE 0.66 mg/dl (0.60-1.20); GLUCOSE 70 mg/dl (70-99); POTASSIUM 4.3 mmol/L (3.5-5.1); SODIUM 138 mmol/L (136-145); TOTAL PROTEIN 7.6 gm/dl (6.4-8.2); TRANSFERRIN 315 mg/dl (200-360)
== END | disposition home or self-care (01) ==
LOC: C.LAB 13:25
DX: R53.83 Other fatigue (principal); R68.89 Other general symptoms and signs

== ENCOUNTER 2018-12-28 21:57 | Inpatient (IN) ==
[2018-12-28] MEDS ORDERED: SODIUM CHLORIDE 0.9% 1000ML 1,000 ML IV SCH (22:15)
[2018-12-28 22:31] LABS: Appearance Urine Clear (Clear); Bilirubin Urine Negative (Negative); Blood Urine Negative (Negative); Color Urine Yellow; Glucose Urine UA Negative (Negative); Ketones Urine Negative (Negative); Leukocyte Esterase Urine Negative (Negative); Nitrite Urine Negative (Negative); Protein Urine Negative (Negative); Urobilinogen Urine Negative (Negative); pH Urine 6.5 (4.5-7.5)
[2018-12-28 22:31] LABS: Basophils # (auto) 0.01 K/uL (0-0.2); Basophils % (auto) 0.1 %; Eosinophils # (auto) 0.12 K/uL (0-0.5); Eosinophils % (auto) 1.7 %; Hematocrit (blood only) 31.7 % (37-47); Hemoglobin 10.9 g/dL (12.0-16.0); Immature Granulocytes # (auto) 0.02 K/uL (0.00-0.02); Immature Granulocytes % (auto) 0.3 %; Lymphocytes # (auto) 0.91 K/uL (1.2-3.4); Lymphocytes % (auto) 12.7 %; Mean Corpuscular Hgb Conc 34.4 g/dL (32-36); Mean Corpuscular Volume 84.3 fL (80-100); Mean Platelet Volume 8.9 fL (7.4-10.4); Monocytes # (auto) 0.37 K/uL (0.11-0.59); Monocytes % (auto) 5.2 %; Neutrophils # (auto) 5.71 K/uL (1.4-6.5); Platelet Count 160 K/uL (130-400); RDW Coefficient of Variation 12.6 % (11.5-14.5); RDW Standard Deviation 38.9 fL (36.4-46.3); Red Blood Count 3.76 M/uL (4.2-5.4); White Blood Count 7.14 K/uL (4.8-10.8)
[2018-12-28 22:48] LABS: Alanine Aminotransferase 13 U/L (12-78); Albumin Level 3.6 gm/dl (3.4-5.0); Aspartate Aminotransferase 12 U/L (15-37); BUN Creatinine Ratio 10.5 (10-20); Blood Urea Nitrogen 5 mg/dl (7-18); Calcium 8.9 mg/dl (8.5-10.1); Carbon Dioxide 22 mmol/L (21-32); Chloride 106 mmol/L (98-107); Creatinine Clr Calc Pharmacy 180.8 ml/min; Est GFR (African American) > 150.0; Est GFR (Non-African American) 137.5; Glucose 87 mg/dl (70-99); Potassium 3.3 mmol/L (3.5-5.1); Sodium 137 mmol/L (136-145)
[2018-12-28 22:53] LABS: Amphetamines+Metham, Urine Neg (Neg); Barbiturates, Urine Neg (Neg); Benzodiazepine, Urine Neg (Neg); Cocaine, Urine Neg (Neg); MDMA (Ecstacy), Urine Neg (Neg); Methadone, Urine Neg (Neg); Opiate, Urine Neg (Neg); Phencyclidine, Urine Neg (Neg)
[2018-12-28 22:56] LABS: Albumin Globulin Ratio 1.1 (0.9-2); Alkaline Phosphatase 32 U/L (45-117); Bilirubin,Total 0.2 mg/dl (0.2-1); Creatine Kinase 68 U/L (26-192); Globulin 3.3 gm/dl (2.5-4.0); Phosphorus 2.6 mg/dl (2.5-4.9); Total Protein 6.9 gm/dl (6.4-8.2)
[2018-12-29] MEDS ORDERED: ONDANSETRON INJ 2 MG/ML 2 ML VIAL IV STA (00:04)
[2018-12-29] MEDS ORDERED: ACETAMINOPHEN 1,000 MG/100 ML VIAL IV STA (00:04)
[2018-12-29] MEDS ORDERED: SODIUM CHLORIDE 0.9% 1000ML 1,000 ML IV ONE (00:22)
--- NOTE | 2018-12-29 00:29 | Emergency Department Note ---
History of Present Illness General Chief complaint: Seizure Stated complaint: SEIZURE, BACK PAIN, TINGLING IN ARM Time Seen by Provider: 12/28/18 21:59 History of Present Illness Maximum Pain Intensity: 6 This 23 yo presents to the ER complaining of seizure with back pain and abdominal cramping Location: Generalized Quality: Achy Severity: Moderate Duration: Tonight Timing: Patient had a seizure tonight per the family member Context: EMS was summoned as the patient had a possible seizure Modifying factors: better with nothing; worse with nothing Patient states 2 to 3 years ago she had a seizure at a full work-up with unclear etiology. They thought was related to her headache medication. Patient states her heart rates normally 110s 120s. Patient states she went to bed and next thing she knew she felt confused and her boyfriend told her that she had a seizure. Patient complains of a headache and back pain and abdominal cramping. Patient states she did a lot of cleaning today. Patient denies chest pain, dyspnea, vaginal bleeding, fever, chills, alcohol or drug use. She has a history of anemia and gets iron transfusions. Home Medications Home Medications Medication Instructions Recorded Confirmed Type [id number] 1 tab PO DAILY 11/18/18 12/28/18 History ondansetron HCl 4 mg tablet 4 mg PO Q6H PRN #20 tab 11/18/18 12/28/18 Rx acetaminophen [Tylenol] 650 mg PO QID PRN 12/28/18 12/28/18 History Allergies Allergy/AdvReac Type Severity Reaction Status Date / Time No Known Allergies Allergy Verified 12/28/18 22:57 Past Med/Surg History Medical History Adopted Gestational hypertension Varicella vaccine Yeast infection Surgical History S/P wisdom tooth extraction Social History Preferred Language: Montenegrin Communication Ability: Effective 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 Beliefs That Will Affect Care: None marital status: marital status details: Abran Vargas (26) [phone] Current Living Situation: Significant Other Current Living Situation Comment: 2 dogs, cat- pt not changing cat litter current occupational status: unemployed 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 Other Information That Helps Us Care for You: No Feels Safe at Home: Yes Safety Concerns: Feels Safe At This Time Smoking Status: Never smoker Hx Alcohol Use: No Hx Substance Use: No Review of Systems All systems reviewed & are unremarkable except as noted in HPI & below Physical Exam Vital Signs Vital Signs - 24 hr 12/28/18 21:57 12/28/18 23:07 12/29/18 00:33 Temperature 37.2 C Temperature Source Oral Sepsis Recent Fever Within 48 Hours No Sepsis New/Unexplained Change in Mental Status No Sepsis Action Taken by Nursing No Action Required Pulse Rate 135 H Pulse Rate [Apical] 123 H 116 H Respiratory Rate 20 19 25 H Respiratory Depth Normal Blood Pressure 130/74 Blood Pressure [Left Arm] 119/60 130/85 Blood Pressure Mean 92 Blood Pressure Mean [Left Arm] 79 100 Pulse Oximetry 99 98 98 Oxygen Delivery Method Room Air Room Air Room Air 12/29/18 01:06 Temperature 38.9 C H Temperature Source Oral Sepsis Recent Fever Within 48 Hours Sepsis New/Unexplained Change in Mental Status Sepsis Action Taken by Nursing Pulse Rate Pulse Rate [Apical] 134 H Respiratory Rate 28 H Respiratory Depth Blood Pressure Blood Pressure [Left Arm] 121/69 Blood Pressure Mean Blood Pressure Mean [Left Arm] 86 Pulse Oximetry 98 Oxygen Delivery Method Room Air VITALS: Vitals are noted on the nurse's note and reviewed by myself. Vital signs tachycardic. GENERAL: Anxious appearing female, in no acute distress, nondiaphoretic, well- developed well-nourished. SKIN: The skin was without rashes, erythema, edema, or bruising. There is no tenting of the skin. Capillary reflex less than 2 seconds. HEAD: Normocephalic atraumatic. EARS: External auditory canals clear, tympanic membranes pearly toure without erythema or effusion bilaterally. EYES: Pupils equal round and reactive to light and accommodation. Conjunctivae without injection, sclerae without icterus. Extraocular movements intact. NOSE: Patent, turbinates without inflammation or discharge. No sinus tenderness. MOUTH: Mucous membranes moist. Pharynx without erythema or exudate. Uvula midline. Airway patent. Tongue does not deviate. NECK: Supple without nuchal rigidity. No lymphadenopathy. No thyromegaly. Cervical spine is nontender. No JVD. HEART: Regular rate and rhythm without murmurs gallops or rubs. LUNGS: Clear to auscultation bilaterally without wheezes, rales or rhonchi. No retractions or accessory muscle use. ABDOMEN: Positive bowel sounds x 4. Normal tympanic percussion. Soft, minimally tender suprapubic region, without masses or organomegaly. Beckman sign negative. No guarding or rebound tenderness. No CVA tenderness MUSCULOSKELETAL: No muscle atrophy, erythema, or edema noted. No thoracic or lumbar tenderness. NEURO: Patient was alert and oriented to person place and time. Normal sensation to light and sharp touch. No focal neurological deficits. Cranial nerves II through XII grossly intact. No pronator drift. Cerebellar exam intact Course Administered Medications Sodium Chloride (Nss 1000ml) 1,000 mls @ 125 mls/hr IV .Q8H LYNDSEY Stop: 12/29/18 18:44 Last Admin: 12/29/18 03:23 Dose: 125 mls/hr Documented by: [id number] Discontinued Medications Diphenhydramine HCl (Benadryl) 25 mg IV NOW STA Stop: 12/29/18 03:24 Last Admin: 12/29/18 03:33 Dose: 25 mg Documented by: [id number] Sodium Chloride (Nss 1000ml) 1,000 mls @ 999 mls/hr IV .Q1H1M LYNDSEY Stop: 12/28/18 23:15 Last Infusion: 12/29/18 00:19 Dose: 0 mls/hr Documented by: [id number] Admin: 12/28/18 23:08 Dose: 999 mls/hr Documented by: [id number] Acetaminophen (Ofirmev) 1,000 mg in 100 mls @ 400 mls/hr IV NOW STA Stop: 12/29/18 00:18 Last Infusion: 12/29/18 00:33 Dose: 0 mls/hr Documented by: [id number] Admin: 12/29/18 00:17 Dose: 400 mls/hr Documented by: [id number] Sodium Chloride (Nss 1000ml) 1,000 mls @ 999 mls/hr IV .Q1H1M ONE Stop: 12/29/18 01:22 Last Infusion: 12/29/18 01:36 Dose: 0 mls/hr Documented by: [id number] Admin: 12/29/18 00:28 Dose: 999 mls/hr Documented by: [id number] Morphine Sulfate (Morphine Sulfate) 4 mg IV NOW STA Stop: 12/29/18 01:00 Last Admin: 12/29/18 01:11 Dose: 4 mg Documented by: [id number] Ondansetron HCl (Zofran) 4 mg IV NOW STA Stop: 12/29/18 00:05 Last Admin: 12/29/18 00:16 Dose: 4 mg Documented by: [id number] Medical Decision Making Medical Records Attestation: I reviewed the patient's medical records. Home Medications Current Medication List: was personally reviewed by nj Laboratory Data Attestation: I reviewed the patient's lab results. Result diagrams: 12/28/18 22:12/28/18 22: Lab Results 12/28/18 12/28/18 12/28/18 Range/Units 22:18 22:19 22:19 WBC 7.14 (4.8-10.8) K/uL RBC 3.76 L (4.2-5.4) M/uL Hgb 10.9 L (12.0-16.0) g/dL Hct 31.7 L (37-47) % MCV 84.3 (80-100) fL MCH 29.0 (25-34) pg MCHC 34.4 (32-36) g/dL RDW Std Deviation 38.9 (36.4-46.3) fL RDW Coeff of Jorge 12.6 (11.5-14.5) % Plt Count 160 (130-400) K/uL MPV 8.9 (7.4-10.4) fL Immature Gran % (Auto) 0.3 % Neut % (Auto) 80.0 % Lymph % (Auto) 12.7 % [place] % (Auto) 5.2 % Eos % (Auto) 1.7 % Baso % (Auto) 0.1 % Immature Gran # (Auto) 0.02 (0.00-0.02) K/uL Neut # (Auto) 5.71 (1.4-6.5) K/uL Lymph # (Auto) 0.91 L (1.2-3.4) K/uL [place] # (Auto) 0.37 (0.11-0.59) K/uL Eos # (Auto) 0.12 (0-0.5) K/uL Baso # (Auto) 0.01 (0-0.2) K/uL Sodium 137 (136-145) mmol/L Potassium 3.3 L (3.5-5.1) mmol/L Chloride 106 (98-107) mmol/L Carbon Dioxide 22 (21-32) mmol/L Anion Gap 9.0 (3-11) BUN 5 L (7-18) mg/dl Creatinine 0.51 L (0.6-1.2) mg/dl Est Cr Clr Drug Dosing 180.8 ml/min Est GFR ( Amer) > 150.0 Est GFR (Non-Af Amer) 137.5 BUN/Creatinine Ratio 10.5 (10-20) Glucose 87 (70-99) mg/dl Calcium 8.9 (8.5-10.1) mg/dl Phosphorus 2.6 (2.5-4.9) mg/dl Magnesium 2.0 (1.8-2.4) mg/dl Total Bilirubin 0.2 (0.2-1) mg/dl AST 12 L (15-37) U/L ALT 13 (12-78) U/L Alkaline Phosphatase 32 L (45-117) U/L Total Creatine Kinase 68 (26-192) U/L Total Protein 6.9 (6.4-8.2) gm/dl Albumin 3.6 (3.4-5.0) gm/dl Globulin 3.3 (2.5-4.0) gm/dl Albumin/Globulin Ratio 1.1 (0.9-2) Urine Color Yellow Urine Appearance Clear (Clear) Urine pH 6.5 (4.5-7.5) Ur Specific [place]ham 1.010 (1.000-1.030) Urine Protein Negative (Negative) Urine Glucose (UA) Negative (Negative) Urine Ketones Negative (Negative) Urine Blood Negative (Negative) Urine Nitrite Negative (Negative) Urine Bilirubin Negative (Negative) Urine Urobilinogen Negative (Negative) Ur Leukocyte Esterase Negative (Negative) Urine Opiates Screen (Neg) Ur Methadone, Qual (Neg) Urine Barbiturates (Neg) Ur Phencyclidine (PCP) (Neg) U Amphetamin/Meth Scrn (Neg) MDMA (Ecstasy) Screen (Neg) U Benzodiazepines Scrn (Neg) Ur Cocaine Metabolite (Neg) U Marijuana (THC) Screen (Neg) Influenza Type A Ag (Neg) Influenza Type B Ag (Neg) 12/28/18 12/29/18 Range/Units 22:19 01:46 WBC (4.8-10.8) K/uL RBC (4.2-5.4) M/uL Hgb (12.0-16.0) g/dL Hct (37-47) % MCV (80-100) fL MCH (25-34) pg MCHC (32-36) g/dL RDW Std Deviation (36.4-46.3) fL RDW Coeff of Jorge (11.5-14.5) % Plt Count (130-400) K/uL MPV (7.4-10.4) fL Immature Gran % (Auto) % Neut % (Auto) % Lymph % (Auto) % [place] % (Auto) % Eos % (Auto) % Baso % (Auto) % Immature Gran # (Auto) (0.00-0.02) K/uL Neut # (Auto) (1.4-6.5) K/uL Lymph # (Auto) (1.2-3.4) K/uL [place] # (Auto) (0.11-0.59) K/uL Eos # (Auto) (0-0.5) K/uL Baso # (Auto) (0-0.2) K/uL Sodium (136-145) mmol/L Potassium (3.5-5.1) mmol/L Chloride (98-107) mmol/L Carbon Dioxide (21-32) mmol/L Anion Gap (3-11) BUN (7-18) mg/dl Creatinine (0.6-1.2) mg/dl Est Cr Clr Drug Dosing ml/min Est GFR ( Amer) Est GFR (Non-Af Amer) BUN/Creatinine Ratio (10-20) Glucose (70-99) mg/dl Calcium (8.5-10.1) mg/dl Phosphorus (2.5-4.9) mg/dl Magnesium (1.8-2.4) mg/dl Total Bilirubin (0.2-1) mg/dl AST (15-37) U/L ALT (12-78) U/L Alkaline Phosphatase (45-117) U/L Total Creatine Kinase (26-192) U/L Total Protein (6.4-8.2) gm/dl Albumin (3.4-5.0) gm/dl Globulin (2.5-4.0) gm/dl Albumin/Globulin Ratio (0.9-2) Urine Color Urine Appearance (Clear) Urine pH (4.5-7.5) Ur Specific [place] (1.000-1.030) Urine Protein (Negative) Urine Glucose (UA) (Negative) Urine Ketones (Negative) Urine Blood (Negative) Urine Nitrite (Negative) Urine Bilirubin (Negative) Urine Urobilinogen (Negative) Ur Leukocyte Esterase (Negative) Urine Opiates Screen Neg (Neg) Ur Methadone, Qual Neg (Neg) Urine Barbiturates Neg (Neg) Ur Phencyclidine (PCP) Neg (Neg) U Amphetamin/Meth Scrn Neg (Neg) MDMA (Ecstasy) Screen Neg (Neg) U Benzodiazepines Scrn Neg (Neg) Ur Cocaine Metabolite Neg (Neg) U Marijuana (THC) Screen Neg (Neg) Influenza Type A Ag Neg for Influ A (Neg) Influenza Type B Ag Neg for Influ B (Neg) Imaging Data Attestation: I personally reviewed and interpreted this imaging study as follows: MDM Narrative Prior records/ancillary studies reviewed. Patient placed in seizure precautions immediately upon arrival. Nursing notes reviewed. Additional history obtained from family The patient's history was concerning for a possible seizure. Differential diagnosis: Etiologies such as infection, hypoglycemia, electrolyte abnormalities, cardiac sources, intracerebral event, trauma, toxicologic, neurologic, as well as others were entertained. Physical examination: As above. No signs of trauma. ER treatment provided: IV fluids, Tylenol, Zofran On reassessment the patient felt better. Diagnostics interpretation by me: ECG: Normal sinus, normal intervals, no acute ST-T changes. Impression sinus tachycardia interpreted by myself. Patient's heart rate went up to the 150s and repeat EKG was done and shows sinus tach. I think arrhythmia is unlikely. EKG shows normal sinus rhythm with no interval abnormalities such as QT prolongation or WPW. There are no findings to suggest Brugada syndrome. Cardiac monitoring in the emergency department reveals no t achycardic or bradycardic dysrhythmia. Hypertrophic cardiomyopathy was considered but there are no clear historical elements pointing toward this. EKG is not suggestive. The QRS voltage is not extremely large and there are no suggestive Q waves. The labs revealed mild anemia, hypokalemia, stable LFTs. Negative urine. Negative drug screen Imaging studies: CT HEAD: Comparison August 2015 MRI No acute intracranial findings Radiologist: Tre Lebron M.D. OB 2nd TRIMESTER: No priors IUP. EGA by CRL 12w6d. FHR: 191 bpm . Anterior, low-lying placenta. No measurements of cervix provided but cervix appears closed. Right ovary unremarkable. Blood flow seen to the right ovary. Left adnexa is obscured by bowel. Left ovary not visualized. Radiologist: Tre Lebron M.D. Consultation: A consultation was placed with the neurologist, Dr. Dunaway. The case was discussed and diagnostics were reviewed. He recommends EEG and observation to medicine. He does not want to start the patient on antibiotics. He states that the patient has another seizure that we should transfer to a tertiary facility I spoke with Dr. Price from OB about the patient's case and does not believe the seizure is from that and recommends further evaluation.. I consulted medicine and Dr. Chapman will evaluate the patient. Case was reviewed. She will evaluate the patient for possible admission. Exam and history seem to assist with possible seizure. Patient had a seizure before. While in the ER, the patient did spike a fever. Urine is negative. Flu swab was added. Medicine was informed of the fever. She was already given Tylenol. Patient and family agreeable treatment plan of admission. The pt informed about the findings as listed above. All questions were answered and pleased with the treatment. Case reviewed with my attending The chart was completed utilizing [employer] Speech voice recognition software. Grammatical errors, random word insertions, pronoun errors, and incomplete sentences are an occassional consequence of this system due to software limitations, ambient noise, and hardware issues. Any formal questions or concerns about the content, text, or information contained within the body of this dictation should be directly addressed to the physician mobile unit assistant for clarification. Impression & Plan Episode of shaking, Fever Discharge Plan Visit Data *Final* Discharge Date/Time: 12/29/18 02:15 Chief Complaint: Seizure Stated Complaint: SEIZURE, BACK PAIN, TINGLING IN ARM ED Provider: Drew Figueredo ED Midlevel Provider: Olga Sherman Discharge Problem: Episode of shaking, Fever Patient Disposition: Admitted As Inpatient Condition: Good Discharge Instructions Interventions: ED Discharge Assessment Last Done: 12/29/18 02:15
[2018-12-29] MEDS ORDERED: MoRPHine SULFATE 4 MG/ML 1 ML CARP\\VIAL IV STA (00:59)
--- NOTE | 2018-12-29 01:52 | History & Physical Report ---
Date of Service December 29, 2018 Assessment & Plan (1) Observed seizure-like activity: Patient is a 23yo F currently at 13 wks GA, PMH gestational HTN, Anemia, admitted for seizure like activity, tachycardia, and fever. Seizure-like activity -EEG in AM -Neuro consult appreciated -Possibly related to viral illness Fever/tachycardia -Tylenol prn -mIVF x 2L -Will check TSH with AM labs -Consider echo for EF evaluation should tachycardia persist -On review of prev records patient does run an elevated HR of 90-110s GAVIN -Monitor labs -Cont multivitamin -Low threshold to consult OB if any issues suspected with fetus/should any PV bleeding occur, etc -Cont daily multivitamin H/O GestHTN -Pt takes daily ASA for prevention Code: full DVTP: SCDs Dispo: med tele (2) Fever: (3) Iron deficiency anemia: (4) : (5) History of gestational hypertension: History of Present Illness Chief Complaint: Seizure-like activity Primary Care Provider: Jas Vo Jr, DO Patient is a 23yo F currently at 13 wks GA, PMH gestational HTN, Anemia, who presents today after experiencing seizure-like activity witnessed by her partner. Patient notes earlier today she was laboring/cleaning around the house, and felt in her normal state of health when she suddenly felt a sensation that she was getting ill (body aches, head/eyes felt 'off'). She laid down to take a nap, and during her nap her partner noticed a 10-15 second burst of "mouth chomping and upper extremity shaking" which resolved on its own. Patient notes when she woke up she had a severe headache, was coughing/choking, had pain down her lower back, and was confused for several minutes. She did not bite her tongue or become incontinent of urine. She denies vaginal bleeding but does endorse some generalized abdominal discomfort which she states she has been getting once every few days this . Of note, patient has a history of seizures 2-3 years ago, which was attributed to amitriptyline. She states an EEG was performed at that time which was normal. Partner notes that the seizure activity tonight was similar to that which she had at that time. Gets regular iron transfusions for her anemia, lastly 6-8 weeks ago. Notes her resting HR is about 110s. In the ER, she was given tylenol and morphine for her headache and a liter NSS bolus. Her vitals were notable for sinus tachycardia. CT head was negative, and USS was normal. Labs were obtained and revealed H&H of 10.9/31.7, no leukocytosis, K+ of 3.3; normal mag and normal phos. UA clean, UDS neg. After the tylenol, she spiked a temperature in the ER. A flu swab was obtained and was negative. OB was called and this was deemed not obstetric-related. Neurology was called and they recommend an EEG in the morning. Allergies Allergy/AdvReac Type Severity Reaction Status Date / Time No Known Allergies Allergy Verified 12/28/18 22:57 Home Medications Home Medications Medication Instructions Recorded Confirmed Type [id number] oil 1 tab PO DAILY 11/18/18 12/28/18 History ondansetron HCl 4 mg tablet 4 mg PO Q6H PRN #20 tab 11/18/18 12/28/18 Rx acetaminophen [Tylenol] 650 mg PO QID PRN 12/28/18 12/28/18 History Past Med/Surg History Medical History Adopted Gestational hypertension Varicella vaccine Yeast infection Surgical History S/P wisdom tooth extraction Social History Preferred Language: Indonesian Communication Ability: Effective Hotel Engineer Required: No Beliefs That Will Affect Care: None marital status: marital status details: Abran Vargas (28) [phone] Current Living Situation: Significant Other Current Living Situation Comment: 2 dogs, cat- pt not changing cat litter current occupational status: unemployed 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 Other Information That Helps Us Care for You: No Feels Safe at Home: Yes Safety Concerns: Feels Safe At This Time Smoking Status: Never smoker Hx Alcohol Use: No Hx Substance Use: No Review of Systems Review of Systems: All systems reviewed & are unremarkable except as noted in HPI & below Constitutional: + body aches Respiratory: no cough and no dyspnea Cardiovascular: + lightheadedness; no chest pain and no radiating jaw, neck or arm pain Gastrointestinal: + abdominal pain; no nausea and no vomiting Musculoskeletal: + myalgia; no neck pain, no joint pain and no stiffness Integumentary: no rash Neurologic: + seizure-like activity Physical Exam Constitutional: WD/WN, vitals as above cooperative; not ill appearing and not in distress Eyes: PERRL, conjunctivae normal, anicteric sclerae ENMT: external ear and nose normal, oropharynx normal Neck: normal visual inspection Respiratory: normal respiratory effort Cardiovascular: Rate/Rhythm: regular rhythm and + tachycardic Extremities: + edema (trace bilaterally) Gastrointestinal (Abdomen): Inspection/Auscultation: abdomen normal to inspection Percussion/Palpation: + abdomen tender (diffusely with deep palpation) Musculoskeletal: Spine: no pain with cervical ROM and no cervical spinal tenderness Skin: no rashes, warm and dry Neurologic: patellar DTR's 2+ bilat, sensation intact and PERRL, EOMI, accommodation nl, no face palsy, no dysarthria Psychiatric: A+Ox3, euthymic affect Results & Data Vital Signs (Past 12 Hours) Vital Signs Temp Pulse Pulse Resp BP BP Pulse Ox 12/29/18 01:06 102.0 F H 134 H 28 H 121/69 98 12/29/18 00:33 116 H 25 H 130/85 98 12/28/18 23:07 123 H 19 119/60 98 12/28/18 21:57 99.0 F 135 H 20 130/74 99 Laboratory Results 12/29/18 12/28/18 12/28/18 Range/Units 01:46 22:19 22:19 WBC (4.8-10.8) K/uL RBC (4.2-5.4) M/uL Hgb (12.0-16.0) g/dL Hct (37-47) % MCV (80-100) fL MCH (25-34) pg MCHC (32-36) g/dL RDW Std Deviation (36.4-46.3) fL RDW Coeff of Jorge (11.5-14.5) % Plt Count (130-400) K/uL MPV (7.4-10.4) fL Immature Gran % (Auto) % Neut % (Auto) % Lymph % (Auto) % [place] % (Auto) % Eos % (Auto) % Baso % (Auto) % Immature Gran # (Auto) (0.00-0.02) K/uL Neut # (Auto) (1.4-6.5) K/uL Lymph # (Auto) (1.2-3.4) K/uL [place] # (Auto) (0.11-0.59) K/uL Eos # (Auto) (0-0.5) K/uL Baso # (Auto) (0-0.2) K/uL Sodium 137 (136-145) mmol/L Potassium 3.3 L (3.5-5.1) mmol/L Chloride 106 (98-107) mmol/L Carbon Dioxide 22 (21-32) mmol/L Anion Gap 9.0 (3-11) BUN 5 L (7-18) mg/dl Creatinine 0.51 L (0.6-1.2) mg/dl Est Cr Clr Drug Dosing 180.8 ml/min Est GFR ( Amer) > 150.0 Est GFR (Non-Af Amer) 137.5 BUN/Creatinine Ratio 10.5 (10-20) Glucose 87 (70-99) mg/dl Calcium 8.9 (8.5-10.1) mg/dl Phosphorus 2.6 (2.5-4.9) mg/dl Magnesium 2.0 (1.8-2.4) mg/dl Total Bilirubin 0.2 (0.2-1) mg/dl AST 12 L (15-37) U/L ALT 13 (12-78) U/L Alkaline Phosphatase 32 L (45-117) U/L Total Creatine Kinase 68 (26-192) U/L Total Protein 6.9 (6.4-8.2) gm/dl Albumin 3.6 (3.4-5.0) gm/dl Globulin 3.3 (2.5-4.0) gm/dl Albumin/Globulin Ratio 1.1 (0.9-2) Urine Color Urine Appearance (Clear) Urine pH (4.5-7.5) Ur Specific [place] (1.000-1.030) Urine Protein (Negative) Urine Glucose (UA) (Negative) Urine Ketones (Negative) Urine Blood (Negative) Urine Nitrite (Negative) Urine Bilirubin (Negative) Urine Urobilinogen (Negative) Ur Leukocyte Esterase (Negative) Urine Opiates Screen Neg (Neg) Ur Methadone, Qual Neg (Neg) Urine Barbiturates Neg (Neg) Ur Phencyclidine (PCP) Neg (Neg) U Amphetamin/Meth Scrn Neg (Neg) MDMA (Ecstasy) Screen Neg (Neg) U Benzodiazepines Scrn Neg (Neg) Ur Cocaine Metabolite Neg (Neg) U Marijuana (THC) Screen Neg (Neg) Influenza Type A Ag Neg for Influ A (Neg) Influenza Type B Ag Neg for Influ B (Neg) 12/28/18 12/28/18 Range/Units 22:19 22:18 WBC 7.14 (4.8-10.8) K/uL RBC 3.76 L (4.2-5.4) M/uL Hgb 10.9 L (12.0-16.0) g/dL Hct 31.7 L (37-47) % MCV 84.3 (80-100) fL MCH 29.0 (25-34) pg MCHC 34.4 (32-36) g/dL RDW Std Deviation 38.9 (36.4-46.3) fL RDW Coeff of Jorge 12.6 (11.5-14.5) % Plt Count 160 (130-400) K/uL MPV 8.9 (7.4-10.4) fL Immature Gran % (Auto) 0.3 % Neut % (Auto) 80.0 % Lymph % (Auto) 12.7 % [place] % (Auto) 5.2 % Eos % (Auto) 1.7 % Baso % (Auto) 0.1 % Immature Gran # (Auto) 0.02 (0.00-0.02) K/uL Neut # (Auto) 5.71 (1.4-6.5) K/uL Lymph # (Auto) 0.91 L (1.2-3.4) K/uL [place] # (Auto) 0.37 (0.11-0.59) K/uL Eos # (Auto) 0.12 (0-0.5) K/uL Baso # (Auto) 0.01 (0-0.2) K/uL Sodium (136-145) mmol/L Potassium (3.5-5.1) mmol/L Chloride (98-107) mmol/L Carbon Dioxide (21-32) mmol/L Anion Gap (3-11) BUN (7-18) mg/dl Creatinine (0.6-1.2) mg/dl Est Cr Clr Drug Dosing ml/min Est GFR ( Amer) Est GFR (Non-Af Amer) BUN/Creatinine Ratio (10-20) Glucose (70-99) mg/dl Calcium (8.5-10.1) mg/dl Phosphorus (2.5-4.9) mg/dl Magnesium (1.8-2.4) mg/dl Total Bilirubin (0.2-1) mg/dl AST (15-37) U/L ALT (12-78) U/L Alkaline Phosphatase (45-117) U/L Total Creatine Kinase (26-192) U/L Total Protein (6.4-8.2) gm/dl Albumin (3.4-5.0) gm/dl Globulin (2.5-4.0) gm/dl Albumin/Globulin Ratio (0.9-2) Urine Color Yellow Urine Appearance Clear (Clear) Urine pH 6.5 (4.5-7.5) Ur Specific [place] 1.010 (1.000-1.030) Urine Protein Negative (Negative) Urine Glucose (UA) Negative (Negative) Urine Ketones Negative (Negative) Urine Blood Negative (Negative) Urine Nitrite Negative (Negative) Urine Bilirubin Negative (Negative) Urine Urobilinogen Negative (Negative) Ur Leukocyte Esterase Negative (Negative) Urine Opiates Screen (Neg) Ur Methadone, Qual (Neg) Urine Barbiturates (Neg) Ur Phencyclidine (PCP) (Neg) U Amphetamin/Meth Scrn (Neg) MDMA (Ecstasy) Screen (Neg) U Benzodiazepines Scrn (Neg) Ur Cocaine Metabolite (Neg) U Marijuana (THC) Screen (Neg) Influenza Type A Ag (Neg) Influenza Type B Ag (Neg) Code Status & VTE Plan Code Status full VTE Prophylaxis Plan VTE Prophylaxis will be ordered: Yes Supervising Physician Co-Signing Physician Notes Patient seen and examined, chart reviewed, case discussed with Dr. Horn and I agree with her assessment and plan as documented above. Briefly, patient is a at 13 weeks presenting with febrile illness, possible seizure at home witnessed by . On exam she is febrile, tachycardic, mildly anxious in appearance Skin - intact HEENT - NC/AT, PERRL, EOMI, MMM, neck supple, no meningismus Heart - +S1/S2, regular, tachycardic, no m/r/g Lungs - CTA Abd - +BS, soft, NT/ND Ext - no edema Neuro - nonfocal Labs and images reviewed Assessment/Plan: 23yo C female at 13 weeks with febrile illness, possible seizure. Suspect viral illness. Documentation of similar episodes in OB notes from prior delivery when patient has body aches and twitching of her right hand. Do not suspect related complication at this time such as pre- eclampsia as patient is at 13 weeks, LFTs/urine WNL. -Admit to medical floor with telemetry -EEG in AM, Neurology consultation. Patient with history of seizure in the past thought to be secondary to Amitryptyline use. states that episode tonight was similar to her prior seizures - monitoring per protocol -Supportive care with IVF and anti-pyretics -If tachycardia persists would consider additional cardiac workup -Continue daily aspirin PG Care Time/CCT Total # of Minutes Spent Total Time Spent with Patient: Total time spent is greater than 50% in coordination of care (as documented) at patient's floor/unit and/or counseling patient: Resident Activity Tracking Resident Involvement: Resident Care Provided Care Provided: Adult Hospital Medicine
[2018-12-29] MEDS ORDERED: ONDANSETRON INJ 2 MG/ML 2 ML VIAL IV PRN (02:44)
[2018-12-29] MEDS ORDERED: SODIUM CHLORIDE 0.9% 1000ML 1,000 ML IV SCH (02:45)
[2018-12-29] MEDS ORDERED: DiphenhydrAMINE HCL 50 MG/ML VIAL IV STA (03:23)
[2018-12-29] MEDS: ACETAMINOPHEN 325 MG TAB PO PRN ×2 (04:09→18:35)
[2018-12-29] MEDS ORDERED: INFLUENZA VIRUS QUAD VACCINE 0.5 ML SYR IM ONE (05:15)
[2018-12-29] MEDS ORDERED: INFLUENZA ADMINISTRATION CHARGE ONE (05:15)
--- NOTE | 2018-12-29 06:35 | CT Scan Report ---
CT head/brain wo con CLINICAL HISTORY: 23 years-old Female with seizure. Acute seizure TECHNIQUE: Multiple axial CT images of the head were obtained without contrast. A dose lowering tech nique was utilized adhering to the principles of ALARA. CT DOSE: 537.48 mGy.cm COMPARISON: Brain MRI 08/13/2015. FINDINGS: No acute intracranial hemorrhage, midline shift, intracranial mass, hydrocephalus, territorial ischem ia or abnormal extra-axial collection. The calvarium is intact. Enlargement of the adenoid tonsils noted. The paranasal sinuses, mastoid air cells, and middle ear cavities are clear. IMPRESSION: No acute intracranial abnormality. The above report was generated using voice recognition software. It may contain grammatical, syntax o r spelling errors. Electronically signed by: Cyrus Romero M.D. 12/29/2018 6:33 AM
--- NOTE | 2018-12-29 07:01 | Ultrasound Report ---
US OB <= 14 weeks fetus HISTORY: 23 years-old Female pain, sz, 13 weeks pelvic pain with and seizure COMPARISON: None available TECHNIQUE: Multiple real-time sonographic images of the deep pelvic structures were obtained transabd ominally assessing grayscale appearance, color flow and M-mode analysis FINDINGS: Single living intrauterine gestation is noted, crown-rump length of 6.4 cm correlating with estimated gestational age of 12 weeks and 6 days. heart rate measured at 191 bpm. Placenta is anterior a nd low-lying. Cervix is closed. Right ovary appears unremarkable, 3.4 x 1.4 x 1.8 cm with arterial in flow documented. The left ovary is obscured by bowel gas. No significant free pelvic fluid identified . IMPRESSION: 1. Single living intrauterine gestation with estimated gestational age by crown-rump length of 12 wee ks and 6 days. 2. Closed cervix. 3. Low-lying placenta. The above report was generated using voice recognition software. It may contain grammatical, syntax o r spelling errors. Electronically signed by: Cyrus Romero M.D. 12/29/2018 7:00 AM
[2018-12-29 07:26] LABS: Eosinophils # (auto) 0.01 K/uL (0-0.5); Eosinophils % (auto) 0.2 %; Hematocrit (blood only) 30.6 % (37-47); Hemoglobin 10.4 g/dL (12.0-16.0); Immature Granulocytes # (auto) 0.01 K/uL (0.00-0.02); Immature Granulocytes % (auto) 0.2 %; Lymphocytes # (auto) 0.55 K/uL (1.2-3.4); Mean Corpuscular Volume 85.2 fL (80-100); Mean Platelet Volume 8.9 fL (7.4-10.4); Monocytes # (auto) 0.28 K/uL (0.11-0.59); Monocytes % (auto) 4.6 %; Neutrophils # (auto) 5.23 K/uL (1.4-6.5); Platelet Count 148 K/uL (130-400); RDW Coefficient of Variation 12.7 % (11.5-14.5); Red Blood Count 3.59 M/uL (4.2-5.4); White Blood Count 6.08 K/uL (4.8-10.8)
[2018-12-29 07:59] LABS: BUN Creatinine Ratio 7.6 (10-20); Blood Urea Nitrogen 4 mg/dl (7-18); Calcium 8.2 mg/dl (8.5-10.1); Carbon Dioxide 20 mmol/L (21-32); Chloride 109 mmol/L (98-107); Creatinine Clr Calc Pharmacy 155.4 ml/min; Est GFR (African American) > 150.0; Est GFR (Non-African American) 135.7; Glucose 103 mg/dl (70-99); Magnesium 1.8 mg/dl (1.8-2.4); Potassium 2.9 mmol/L (3.5-5.1); Sodium 137 mmol/L (136-145)
[2018-12-29 08:09] LABS: Thyroid Stimulating Hormone 0.306 uIu/ml (0.300-4.500)
[2018-12-29] MEDS ORDERED: MAGNESIUM OXIDE 400 MG TAB PO SCH (09:00)
[2018-12-29] MEDS ORDERED: [UNRECOGNIZED DRUG - OTHER] PO SCH (09:00)
[2018-12-29] MEDS ORDERED: LACTATED RINGER'S 1,000 ML IV ONE (09:50)
[2018-12-29 09:58] LABS: Partial Thromboplastin Time 27.4 Seconds (21.0-31.0); Prothrombin Time 10.4 Seconds (9.0-12.0)
[2018-12-29] MEDS ORDERED: LACTATED RINGER'S 1,000 ML IV SCH (10:00)
[2018-12-29] MEDS: ASPIRIN 81 MG ECTAB PO SCH (10:31)
[2018-12-29] MEDS: POTASSIUM CHLORIDE / WTR 10 MEQ/100 ML PLCT IV SCH ×4 (10:32→13:39)
--- NOTE | 2018-12-29 11:29 | Ultrasound Report ---
BILATERAL LOWER EXTREMITY VENOUS DOPPLER CLINICAL HISTORY: R calf circumf > L, concern DVT. . COMPARISON STUDY: No previous studies for comparison. TECHNIQUE: Sonography of the deep venous system of the bilateral lower extremities was performed. Co mpression and augmentation were evaluated. FINDINGS: The bilateral common femoral, superficial femoral and popliteal veins were compressible. A ugmentation was normal. Flow was shown within the deep calf vessels. IMPRESSION: No evidence of deep venous thrombus within the bilateral lower extremities. Electronically signed by: Raul Dale M.D. 12/29/2018 11:28 AM
--- NOTE | 2018-12-29 11:31 | Ultrasound Report ---
US appendix HISTORY: 23 years-old Female abd pain acute generalized abdominal pain COMPARISON: None available TECHNIQUE: Multiple real-time significant images of the abdominal right lower quadrant were obtained assessing grayscale appearance and color flow FINDINGS: Nonvisualization of the appendix. No free fluid, echogenic fat, hyperemia or hypoperistaltic bowel. N o adenopathy. IMPRESSION: Nonvisualization of the appendix. No secondary signs to suggest acute appendicitis. The above report was generated using voice recognition software. It may contain grammatical, syntax o r spelling errors. Electronically signed by: Cyrus Romero M.D. 12/29/2018 11:30 AM
[2018-12-29] MEDS: MAGNESIUM OXIDE 400 MG TAB PO SCH ×3 (11:33→18:35)
--- NOTE | 2018-12-29 12:24 | Ultrasound Report ---
ULTRASOUND LIMITED CLINICAL HISTORY: Generalized abdominal pain. Assess for heart rate. COMPARISON STUDY: ultrasound dated 12/28/2018. FINDINGS: Real-time, grayscale, and color Doppler sonography of the fetus and gravid uterus is perfor med. There is a single live intrauterine gestation with estimated heart rate of 190 bpm. The crown-ru mp length measures 6.23 cm, corresponding to an estimated age of 12 weeks 4 days. The placenta is ant erior and appears normal. The cervix is closed and measures 4.4 cm in length. The amniotic fluid volu me is grossly normal. IMPRESSION: There is a single live intrauterine gestation as above. Note that this does not constitut e a dedicated anatomic scan. Dictated: 12/29/2018 12:03 PM Transcribed: 12/29/2018 12:06 PM Rita [id number] [email or web address] Electronically signed by: Erik Ojeda M.D. 12/29/2018 12:23 PM
[2018-12-29 12:51] LABS: Lyme Ab IgG w/WB Rflx Negative (Negative); Lyme Ab IgM w/WB Rflx Negative (Negative)
--- NOTE | 2018-12-29 14:02 | Neurology Consultation ---
Date of Consultation December 29, 2018 Assessment & Plan (1) Observed seizure-like activity: Observed, very brief, seizure-like episode occurring during sleep yesterday, occurring in a 23-year-old female who is 13 weeks gestation, followed by brief postictal confusion, no associated tongue bite or incontinence. Patient has a history of similar episodes occurring a few years ago that were felt to be potentially related to a prescription for amitriptyline she had been taking at that time. She has a normal neurological examination, normal EEG, and normal CT of the head. She does have a persistent low-grade fever, tachycardia, and complains of some nonspecific flulike symptoms as well as a persistent headache. Although this patient likely has a lower threshold for seizures, I would not recommend starting an anticonvulsant at this point in time. However, if she were to have another convulsive episode I would recommend a loading dose of Keppra, 1000 mg IV followed by a maintenance dose of 500 mg twice daily. Continue with medical evaluation for occult infection although she may have a nonspecific viral syndrome. She does not have any signs or symptoms suggestive of meningitis or encephalitis. May continue with Tylenol for her headache. History of Present Illness Reason for Consultation: Seizure like activity Requesting Physician: Oriana Horn MD Attending Physician: Tran Blood MD History of Present Illness The patient is a 23-year-old female with a chief complaint of a seizure-like episode that awoke her from sleep last night. Her apparently observed a 10 to 15-second episode of chewing movements and upper extremity shaking which was followed by headache and confusion. There was no associated tongue bite or incontinence. The patient does report that she has been experiencing a fairly persistent headache for several months for which she has been taking Tylenol on a daily basis. She is currently 13 weeks gestation. She also complains of persistent flulike symptoms including fevers, and generalized body aches and pains and a feeling of generalized weakness with difficulty standing up and walking on her own. She denies any associated sensory loss or paresthesias in the limbs. Patient denies any vision loss, diplopia, change in speech or swallowing, or vertigo. Past medical history notable for several similar seizure-like episodes that occurred 2 to 3 years ago that were felt to be potentially related to amitriptyline she was taking at that time. The patient is adopted and is unable to provide any specifics regarding her family history. Allergies Allergy/AdvReac Type Severity Reaction Status Date / Time No Known Allergies Allergy Verified 12/28/18 22:57 Home Medications Home Medications Medication Instructions Recorded Confirmed Type [id number] oil 1 tab PO DAILY 11/18/18 12/28/18 History ondansetron HCl 4 mg tablet 4 mg PO Q6H PRN #20 tab 11/18/18 12/28/18 Rx acetaminophen [Tylenol] 650 mg PO QID PRN 12/28/18 12/28/18 History Patient History Medical History Adopted Gestational hypertension Varicella vaccine Yeast infection Surgical History S/P wisdom tooth extraction Social History Preferred Language: Malay Communication Ability: Effective International Travel Consultant Required: No Beliefs That Will Affect Care: None marital status: marital status details: Abran Vargas (26) [phone] Current Living Situation: Significant Other Current Living Situation Comment: 2 dogs, cat- pt not changing cat litter current occupational status: unemployed 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 Other Information That Helps Us Care for You: No Feels Safe at Home: Yes Safety Concerns: Feels Safe At This Time Smoking Status: Never smoker Hx Alcohol Use: No Hx Substance Use: No Review of Systems Constitutional: as per Subjective / HPI, + fever, + chills and + body aches Eyes: no blind spots and no diplopia Ear, Nose, Mouth, Throat: no ear pain, no tinnitus and no hearing loss Respiratory: no cough and no dyspnea Cardiovascular: no chest pain and no palpitations Gastrointestinal: no nausea and no vomiting Genitourinary: no dysuria and no urinary incontinence Musculoskeletal: + back pain and + body aches Integumentary: no rash and no lesions Neurologic: as per Subjective / HPI, + generalized weakness and + headache(s); no localized weakness, no loss of sensation, no paresthesia, no tremor(s), no abnormal movements, no dizziness, no abnormal speech, no confusion and no memory loss Psychiatric: no depression and no anxiety Hematologic / Lymphatic: no easy bleeding and no easy bruising Physical Exam Physical Exam: The patient is a well-developed, well-nourished adult female. She is alert and fully oriented. Recent and remote memory intact. Attention and concentration normal. Patient exhibits a normal spontaneous speech pattern as well as an age-appropriate fund of knowledge and normal comprehension of vocabulary. Visual brock full to confrontation. Visual acuity normal. Pupils equal round reactive to light and accommodation. Eye movements normal. There is no ptosis, nystagmus, or ophthalmoplegia. Facial sensation intact. There is no facial droop or facial weakness. Hearing intact. Palate elevates to midline. Shoulder shrug intact. Tongue protrudes to midline. Sensation intact to all modalities in all 4 limbs. Deep tendon reflexes are intact and symmetrical for the arms and legs proximally and distally and bilaterally. Achilles tendon reflexes intact bilaterally. Plantar responses downgoing bilaterally. There is no dysdiadochokinesia or dysmetria pwydbq-[id number] or vbwo-[id number] bilaterally. Ophthalmoscopic examination reveals normal-appearing optic disks and posterior segments. No papilledema or hemorrhages. Carotid pulses normal bilaterally, no bruits to auscultation. Gait and station cannot be tested due to patient complaint of generalized weakness. Patient exhibits normal strength proximally and distally for the arms and legs bilaterally. No foot or wrist drop. Muscle tone normal throughout. No atrophy. No abnormal movements observed. No nuchal rigidity. Results & Data Vital Signs (Past 12 Hours) Vital Signs Temp Pulse Pulse Pulse Resp BP BP 12/29/18 12:28 37.6 C H 120 H 18 99/62 L 12/29/18 09:53 120 H 12/29/18 07:48 37.9 C H 129 H 20 100/54 L 12/29/18 05:03 37.9 C H 12/29/18 04:11 38.3 C H 12/29/18 04:02 127 H 12/29/18 03:15 37.3 C 158 H 24 123/79 12/29/18 02:25 36.8 C 127 H 18 99/61 L 12/29/18 02:15 38.2 C H 136 H 14 114/69 Pulse Ox 12/29/18 12:28 98 12/29/18 09:53 12/29/18 07:48 98 12/29/18 05:03 12/29/18 04:11 12/29/18 04:02 12/29/18 03:15 96 12/29/18 02:25 100 12/29/18 02:15 98 Laboratory Results WBC 6.08, hemoglobin 10.4, hematocrit 30.6, platelet count 148, sodium 137, potassium 2.9, BUN 4, creatinine 0.53, glucose 103, calcium 8.2, magnesium 1.8, transaminases normal, TSH 0.306, urine toxicology screen negative, Lyme antibody screen negative Diagnostic Findings A CT of the head reveals no abnormalities. No hydrocephalus, hemorrhage, or other obvious pathologic process. I reviewed the images as well as the radiologist interpretation of this test. An EEG completed this morning reveals a normal 10 Hz background alpha rhythm. No focal slowing or epileptiform abnormalities. Electrocardiogram reveals sinus tachycardia, 143 bpm.
--- NOTE | 2018-12-29 14:06 | Electroencephalogram ---
EEG Procedure Note Date of Service December 29, 2018 Start / End Times Start Time: 6:23 AM End Time: 6:43 AM Referring Physician Oriana Horn MD History Seizure-like episode Home Medication List Home Medications Medication Instructions Recorded Confirmed Type [id number] oil 1 tab PO DAILY 11/18/18 12/28/18 History ondansetron HCl 4 mg tablet 4 mg PO Q6H PRN #20 tab 11/18/18 12/28/18 Rx acetaminophen [Tylenol] 650 mg PO QID PRN 12/28/18 12/28/18 History Inpatient Medication List Acetaminophen (Tylenol) 650 mg PO Q4H PRN PRN Reason: pain/fever Stop: 01/28/19 02:43 Last Admin: 12/29/18 04:09 Dose: 650 mg Documented by: [id number] Aspirin (Ecotrin Ectab) 81 mg PO QAM [facility] Stop: 01/28/19 08:59 Last Admin: 12/29/18 10:31 Dose: 81 mg Documented by: [id number] Lactated Ringer's (Lr) 1,000 mls @ 125 mls/hr IV .Q8H LYNDSEY Stop: 01/28/19 09:59 Last Admin: 12/29/18 11:29 Dose: 125 mls/hr Documented by: [id number] Magnesium Oxide (Mag-Ox) 400 mg PO QAM LYNDSEY Stop: 01/28/19 08:59 Last Admin: 12/29/18 11:28 Dose: Not Given Documented by: [id number] Magnesium Oxide (Mag-Ox) 400 mg PO Q4H LYNDSEY Stop: 12/29/18 18:31 Last Admin: 12/29/18 11:33 Dose: 400 mg Documented by: [id number] Ondansetron HCl (Zofran) 4 mg IV Q6H PRN PRN Reason: Nausea Stop: 01/28/19 02:43 Last Admin: 12/29/18 06:11 Dose: 4 mg Documented by: [id number] Discontinued Medications Diphenhydramine HCl (Benadryl) 25 mg IV NOW STA Stop: 12/29/18 03:24 Last Admin: 12/29/18 03:33 Dose: 25 mg Documented by: [id number] Sodium Chloride (Nss 1000ml) 1,000 mls @ 999 mls/hr IV .Q1H1M LYNDSEY Stop: 12/28/18 23:15 Last Infusion: 12/29/18 00:19 Dose: 0 mls/hr Documented by: [id number] Admin: 12/28/18 23:08 Dose: 999 mls/hr Documented by: [id number] Acetaminophen (Ofirmev) 1,000 mg in 100 mls @ 400 mls/hr IV NOW STA Stop: 12/29/18 00:18 Last Infusion: 12/29/18 00:33 Dose: 0 mls/hr Documented by: [id number] Admin: 12/29/18 00:17 Dose: 400 mls/hr Documented by: [id number] Sodium Chloride (Nss 1000ml) 1,000 mls @ 999 mls/hr IV .Q1H1M ONE Stop: 12/29/18 01:22 Last Infusion: 12/29/18 01:36 Dose: 0 mls/hr Documented by: [id number] Admin: 12/29/18 00:28 Dose: 999 mls/hr Documented by: [id number] Sodium Chloride (Nss 1000ml) 1,000 mls @ 125 mls/hr IV .Q8H LYNDSEY Stop: 12/29/18 18:44 Last Infusion: 12/29/18 11:23 Dose: 0 mls/hr Documented by: [id number] Admin: 12/29/18 03:23 Dose: 125 mls/hr Documented by: [id number] Potassium Chloride (K Kojo / Wtr) 10 meq in 100 mls @ 100 mls/hr IV Q1H LYNDSEY Stop: 12/29/18 13:14 Last Admin: 12/29/18 13:39 Dose: 100 mls/hr Documented by: [id number] Infusion: 12/29/18 13:39 Dose: 0 mls/hr Documented by: [id number] Admin: 12/29/18 12:39 Dose: 100 mls/hr Documented by: [id number] Infusion: 12/29/18 12:32 Dose: 100 mls/hr Documented by: [id number] Admin: 12/29/18 11:32 Dose: 100 mls/hr Documented by: [id number] Infusion: 12/29/18 11:32 Dose: 0 mls/hr Documented by: [id number] Infusion: 12/29/18 10:32 Dose: 0 mls/hr Documented by: [id number] Admin: 12/29/18 10:32 Dose: 100 mls/hr Documented by: [id number] Lactated Ringer's (Lr) 1,000 mls @ 999 mls/hr IV .Q1H1M ONE Stop: 12/29/18 10:50 Last Infusion: 12/29/18 11:33 Dose: 0 mls/hr Documented by: [id number] Admin: 12/29/18 10:32 Dose: 999 mls/hr Documented by: [id number] Morphine Sulfate (Morphine Sulfate) 4 mg IV NOW STA Stop: 12/29/18 01:00 Last Admin: 12/29/18 01:11 Dose: 4 mg Documented by: [id number] Ondansetron HCl (Zofran) 4 mg IV NOW STA Stop: 12/29/18 00:05 Last Admin: 12/29/18 00:16 Dose: 4 mg Documented by: [id number] Description This is a 21 electrode EEG with a single channel dedicated to limited EKG. The electrodes were placed in accordance with the International 10-20 system. There is a well-developed posterior dominant rhythm of 10 Hz which is symmetrically distributed and attenuates with eye opening. There is a normal anterior to posterior organization. Photic stimulation is unremarkable. Hyperventilation is not performed. There is IV drip artifact. There is no focal slowing. No epileptiform abnormalities appreciated. Interpretation This is a normal-appearing awake EEG revealing a normal background alpha rhythm. Clinical Correlation A normal EEG does not completely exclude a diagnosis of epilepsy or seizure disorder. Please see today's neurology consult for further details. [facility] EEG Procedure Codes Indication for Procedure (1) Observed seizure-like activity: Neurology Neurology: [id number] EEG include record awake & drowsy
--- NOTE | 2018-12-29 14:10 | Family Medicine Progress Note ---
Date of Service December 29, 2018 Assessment & Plan (1) Observed seizure-like activity: (2) Iron deficiency anemia: This is a 23-year-old G2, P1 female who presents at 13 weeks gestation with 10 seconds of observed seizure-like activity and fever and who was admitted for seizure-like activity, fever, and abdominal pain. Seizure-like activity 10 seconds, no incontinence/tongue biting. Urology consulted. EEG unremarkable. History of seizure while on amitriptyline, otherwise no seizures since medication discontinued Per neurology would not start antiepileptic medications at this time. If she were to have another observed seizure episode, would start Keppra CThead with no acute findings Abdominal pain with fever No leukocytosis No evidence of appendicitis on ultrasound Coags normal, ultrasound with closed cervix, low placenta, consistent with 12-week 6-day Suspect viral enteritis Zofran for nausea, NSS 125 while poor p.o. 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 Pharmacologic prophylaxis deferred 2/2 . Disposition: Improving clinically, observe overnight (3) Fever: (4) Episode of shaking: (5) History of gestational hypertension: (6) Supervision of normal intrauterine in multigravida: Supervising Physician Co-Signing Physician Notes Resident Physician Supervision Note: I independently interviewed and examined the patient and verified the li history and physical, reviewed labs and image studies, discussed the case with the resident Dr. Smith and agree with the findings and care plan. Subjective Patient is seen at the bedside this morning. She reports she continues to have low right and left sided cramps. She felt lightheaded this morning, and had a headache and fever which improved with Tylenol but returns when the Tylenol wears off. She reports the symptoms started last night, and she has not any illnesses in the past week or upper respiratory symptoms. She reports that she had her seizure episode at around 8 PM last night, and started feeling sick and achy around 7 PM. She had no urinary or bladder incontinence prior to this episode, and her tongue is not sore. Her neck and lower back have hurt since. She is continued to be nauseous throughout her , nausea worsened last night but is improved with Zofran. She is taken day Bryn in the past which does not work for her. She reports her legs have also felt tender throughout her . She reports that she is slightly tachycardic at baseline for her whole life, with her normal heart rate in the low 100s. Her is otherwise been uncomplicated, although she takes a daily aspirin due to her history of gestational hyper. She has been taking a vitamin daily and gets her care at [facility] [address] [employer]. She reports that she has a long-standing history of iron deficiency anemia which has not been responsive to oral iron supplementation in the past. She reports she gets regular IV iron infusions, generally when she is anemic she will get infusion once a week until her hemoglobin rises above 10. Her last IV iron infusion was 2 months ago. Update: Patient is seen and reevaluated in the afternoon. Her abdominal pain has improved, although she is grader tender bilaterally in the lower quadrants and midline. Her calf pain is improved and she is able to walk to the bathroom and flex her hips with mild pain in her abdomen, but greatly improved from prior. Her headache has remitted. She is hungry and not nauseous. No diarrhea or constipation. Review of Systems Review of Systems: review of systems negative except as noted in HPI. Physical Exam Physical Exam: General: A&Ox3. Appears anxious. Skin warm, dry. Cooperative. HEENT: Atraumatic, normocephalic.Pupils equal and reactive to light and accommodation. Extraocular movements intact. No visual field cuts. Visual acuity grossly intact. Neck flexion/extension/rotation/lateral bending causes diffuse achiness through her neck and upper mid back, but no nuchal rigidity is present. No photosensitivity. Pulm: CTAB A&P. -wheezes, -rales, -rhonchi. Symmetrical chest rise. No increase work of breathing. No respiratory distress. Cardiac: RRR, -mrg. Radial pulses intact and symmetrical. Abdominal: Bilateral lower quadrant tenderness, no flank pain, no CVA tenderness. Supraumbilical discomfort on palpation. Mild epigastric tenderness to palpation. Nonrigid. No rebound. Beckman's negative. Obturator sign not present. Extremities: Right calf approximately 1 cm larger than left calf. Mild tenderness in calves bilaterally. No excess warmth in right or left calf. Ankle dorsiflexion/plantarflexion intact with full range of motion and 5/5 strength. Sensation intact in distal extremities without deficit. Results & Data Vital Signs (Past 12 Hours) Vital Signs Temp Pulse Pulse Pulse Resp BP BP 12/29/18 12:28 37.6 C H 120 H 18 99/62 L 12/29/18 09:53 120 H 12/29/18 07:48 37.9 C H 129 H 20 100/54 L 12/29/18 05:03 37.9 C H 12/29/18 04:11 38.3 C H 12/29/18 04:02 127 H 12/29/18 03:15 37.3 C 158 H 24 123/79 12/29/18 02:25 36.8 C 127 H 18 99/61 L 12/29/18 02:15 38.2 C H 136 H 14 114/69 Pulse Ox 12/29/18 12:28 98 12/29/18 09:53 12/29/18 07:48 98 12/29/18 05:03 12/29/18 04:11 12/29/18 04:02 12/29/18 03:15 96 12/29/18 02:25 100 12/29/18 02:15 98 PG Care Time/CCT Total # of Minutes Spent Total Time Spent with Patient: Total time spent is greater than 50% in coordination of care (as documented) at patient's floor/unit and/or counseling patient: Resident Activity Tracking Resident Involvement: Resident Care Provided Care Provided: Adult Hospital Medicine
[2018-12-29 19:06] LABS: Hematocrit (blood only) 31.7 % (37-47); Hemoglobin 10.8 g/dL (12.0-16.0); Mean Corpuscular Hemoglobin 29.2 pg (25-34); Mean Corpuscular Hgb Conc 34.1 g/dL (32-36); Mean Corpuscular Volume 85.7 fL (80-100); Mean Platelet Volume 8.9 fL (7.4-10.4); Platelet Count 143 K/uL (130-400); RDW Standard Deviation 40.9 fL (36.4-46.3); White Blood Count 4.75 K/uL (4.8-10.8)
[2018-12-29 19:37] LABS: Basophils # (auto) 0.01 K/uL (0-0.2); Basophils % (auto) 0.2 %; Eosinophils # (auto) 0.01 K/uL (0-0.5); Eosinophils % (auto) 0.2 %; Immature Granulocytes # (auto) 0.01 K/uL (0.00-0.02); Immature Granulocytes % (auto) 0.2 %; Lymphocytes # (auto) 0.89 K/uL (1.2-3.4); Lymphocytes % (auto) 18.7 %; Monocytes # (auto) 0.44 K/uL (0.11-0.59); Monocytes % (auto) 9.3 %; Neutrophils # (auto) 3.39 K/uL (1.4-6.5); Neutrophils % (auto) 71.4 %
[2018-12-30] MEDS ORDERED: LACTATED RINGER'S 500 ML IV ONE (06:56)
[2018-12-30 07:08] LABS: BUN Creatinine Ratio 8.5 (10-20); Blood Urea Nitrogen 4 mg/dl (7-18); Calcium 8.3 mg/dl (8.5-10.1); Carbon Dioxide 25 mmol/L (21-32); Chloride 107 mmol/L (98-107); Creatinine Clr Calc Pharmacy 187.2 ml/min; Est GFR (African American) > 150.0; Est GFR (Non-African American) 144.3; Glucose 80 mg/dl (70-99); Potassium 3.9 mmol/L (3.5-5.1); Sodium 137 mmol/L (136-145)
[2018-12-30] MEDS: ASPIRIN 81 MG ECTAB PO SCH (08:18)
--- NOTE | 2018-12-30 11:38 | Discharge Summary ---
Date of Service December 30, 2018 Admission HPI Per Admitting Provider Patient is a 23yo F currently at 13 wks GA, PMH gestational HTN, Anemia, who presents today after experiencing seizure-like activity witnessed by her partner. Patient notes earlier today she was laboring/cleaning around the house, and felt in her normal state of health when she suddenly felt a sensation that she was getting ill (body aches, head/eyes felt 'off'). She laid down to take a nap, and during her nap her partner noticed a 10-15 second burst of "mouth chomping and upper extremity shaking" which resolved on its own. Patient notes when she woke up she had a severe headache, was coughing/choking, had pain down her lower back, and was confused for several minutes. She did not bite her tongue or become incontinent of urine. She denies vaginal bleeding but does endorse some generalized abdominal discomfort which she states she has been getting once every few days this . Of note, patient has a history of seizures 2-3 years ago, which was attributed to amitriptyline. She states an EEG was performed at that time which was normal. Partner notes that the seizure activity tonight was similar to that which she had at that time. Gets regular iron transfusions for her anemia, lastly 6-8 weeks ago. Notes her resting HR is about 110s. In the ER, she was given tylenol and morphine for her headache and a liter NSS bolus. Her vitals were notable for sinus tachycardia. CT head was negative, and USS was normal. Labs were obtained and revealed H&H of 10.9/31.7, no leukocytosis, K+ of 3.3; normal mag and normal phos. UA clean, UDS neg. After the tylenol, she spiked a temperature in the ER. A flu swab was obtained and was negative. OB was called and this was deemed not obstetric-related. Neurology was called and they recommend an EEG in the morning. Admission Exam Per Admitting Provider Constitutional: WD/WN, vitals as above cooperative; not ill appearing and not in distress Eyes: PERRL, conjunctivae normal, anicteric sclerae ENMT: external ear and nose normal, oropharynx normal Neck: normal visual inspection Respiratory: normal respiratory effort Cardiovascular: Rate/Rhythm: regular rhythm and + tachycardic Extremities: + edema (trace bilaterally) Gastrointestinal (Abdomen): Inspection/Auscultation: abdomen normal to inspection Percussion/Palpation: + abdomen tender (diffusely with deep palpation) Musculoskeletal: Spine: no pain with cervical ROM and no cervical spinal tenderness Skin: no rashes, warm and dry Neurologic: patellar DTR's 2+ bilat, sensation intact and PERRL, EOMI, accommodation nl, no face palsy, no dysarthria Psychiatric: A+Ox3, euthymic affect Principal Diagnosis Fever Abdominal pain Concern for seizure-like activity Discharge Exam General: A&Ox3. Appears anxious. Skin warm, dry. Cooperative. HEENT: Atraumatic, normocephalic.Pupils equal and reactive to light and accommodation. Extraocular movements intact. No visual field cuts. Visual acuity grossly intact. Neck flexion/extension/rotation/lateral bending causes diffuse achiness through her neck and upper mid back, but no nuchal rigidity is present. No photosensitivity. Pulm: CTAB A&P. -wheezes, -rales, -rhonchi. Symmetrical chest rise. No increase work of breathing. No respiratory distress. Cardiac: RRR, -mrg. Radial pulses intact and symmetrical. Abdominal: Nontender, no flank pain, no CVA tenderness. Nonrigid. No rebound. Beckman's negative. Obturator sign not present. Extremities: Right calf approximately 1 cm larger than left calf. No calf tenderness, warmth, or discoloration. Hip flexion, knee flexion/extension, ankle dorsiflexion/plantar flexion intact with full range of motion and 5/5 strength bilaterally. Discharge Data Allergies Allergy/AdvReac Type Severity Reaction Status Date / Time No Known Allergies Allergy Verified 12/28/18 22:57 Consultations 12/29/18 00:53 ED Decision to Admit Stat 12/29/18 02:44 Consult Neurology Routine Ordered Studies 12/28/18 22:02 CT head/brain wo con Stat 12/28/18 22:03 US OB <= 14 weeks fetus Urgent 12/29/18 08:55 US venous doppler LE BI Routine 12/29/18 10:35 US OB limited Urgent 12/29/18 10:50 US appendix Routine Hospital Course (1) Observed seizure-like activity: Nicol is a 23-year-old G2, P1 female who presented at 13 weeks gestation with 10 seconds episode of seizure-like activity and fever and who was admitted for seizure-like activity, fever, and 1 day of worsening abdominal pain. Seizure-like activity/Possible seizure On admission Nicol and her partner reported that she had about 10 seconds of shaking concerning for seizure-like activity without urinary or bowel incontinence, and without any tongue biting. She had a prior history of seizures while on amitriptyline, but had no seizures prior to starting amitriptyline and no seizures since it was discontinued more than a year ago. Her CT head showed no acute findings. EEG was unremarkable and did not show epileptiform activity. Case was discussed with neurology who did not recommend starting antiepileptic medications at this time. She did not have nuchal rigidity, photosensitivity, Kernig or Brudzinski sign, or other signs of meningismus. Lumbar puncture was not recommended. She did not have any repeat seizure-like activity during admission. If she were to have served seizure in the future, she would be a candidate for Keppra but this was not recommended to be initiated at this time. Abdominal pain with fever On Admission Nicol reported severe bilateral lower quadrant abdominal pain. She was febrile to 38.9 and had a downtrending, but persistent fever curve with Tylenol for 1 day. She was afebrile without Tylenol the next day. ultrasound showed a closed cervix, low placenta, and a fetus consistent with 12- week 6 days of and an intact heartbeat at 190 bpm. Appendix ultrasound was unable to visualize the appendix, but did not show any fat stranding, free fluid, or other signs suggestive of appendicitis. She was treated with Zofran for nausea and aggressive IV fluid maintenance. Coagulation panel was normal. Her pain improved with Tylenol, her nausea improved with Zofran, and she had resolution of her abdominal pain on day of discharge. She also developed respiratory symptoms as noted below on day of discharge, her fever was thought to be possible prodrome of viral respiratory illness. Blood cultures were negative at 24 hours at time of discharge. She did not have a leukocytosis during admission. Calf asymmetry Nicol had a R calf circumference which was 1cm larger than her left and mild calf tenderness on exam on admission. A venous Doppler was obtained, but showed no signs of DVT. Hypokalemia with borderline hypomagnesemia She was treated with oral magnesium repletion and IV potassium repletion, with normalization of her electrolytes. DVT prophylaxis: DVT prophylaxis was maintained with SCDs and early ambulation. Pharmacologic prophylaxis was deferred due to . (2) Fever: (3) Iron deficiency anemia: (4) URI, acute: (5) Supervision of normal intrauterine in multigravida: (6) History of gestational hypertension: (7) Episode of shaking: Total Time Total Time Spent Total Time Spent (In Minutes): 30 Discharge Plan Discharge Items Patient Disposition: Home - Self-Care Reason For Visit: SEIZURE, FEVER Discharge Diagnosis: Viral URI Possible seizure-like activity Condition on Discharge: Good Activity: Resume your previous activity Non-emergency contact: Primary Care Provider and Finishing Manager Call non-emergency contact if: you have any medication questions, your symptoms worsen, your pain is not controlled, your pain is worsening and your pain is concerning for you Follow-up/Referrals: Jas Vo Jr, [Primary Care Provider] - Diet: Regular Addtl Attending Provider Instructions: You are seen in the hospital following potential seizure-like activity and for sudden onset abdominal pain. Your evaluation by neurology and with an EEG did not show any signs of seizure activity. Your blood work, urinalysis, and other lab work did not show evidence of a bacterial infection. An ultrasound of your abdomen showed a normal with an intact heartbeat. You did not have any vaginal bleeding or discharge during admission. Your fevers resolved at time of discharge, and your blood pressure and heart rate were both within normal ranges following IV fluids. A ultrasound of your lower extremities did not show any signs of blood clots. CT scan of your head did not show any abnormalities. An ultrasound did not show any signs of appendicitis. You have not been started on any new medications. Please continue to take your vitamin, and you may continue to take ondansetron as needed for nausea. You should have a follow-up appointment scheduled with your primary care provider, Dr. Vo. An appointment is being scheduled with his office. You should hear from his office regarding this appointment within 24 to 48 hours. If you do not receive a call, or need to cancel/change your appointment, please call his office [phone]. Please call your FACTORER office within 24 hours of returning home to let them know you have been discharged from the hospital. They may wish to schedule a follow-up appointment with you. If you develop any new or worsening symptoms including fever, chills, sweats, worsening pain, worsening nausea/vomiting/inability to tolerate oral intake, chest pain, chest pressure, difficulty breathing, recurrent seizure activity, urinary/bowel incontinence, or other new or concerning symptoms please call your primary care provider, or call 911 for transport to an reevaluation in the emergency department. Pending Studies at Discharge: No Stand-Alone Forms: [facility] Medications and DC Order Prescriptions: Continued [id number] oil 1 tab PO DAILY RF: 0 ondansetron HCl [Zofran] 4 mg tablet 4 mg PO Q6H PRN (Reason: nausea and vomiting) Qty: 20 RF: 3 acetaminophen [Tylenol] 325 mg Tablet 650 mg PO QID PRN (Reason: Pain) RF: 0 Discharge Orders: Discharge Order (Routine); Ordered 12/30/18 Ordered By: Gabriel Smith Admission Data Admit Date/Time: 12/29/18 01:48 Attending Provider: Tran Blood Admit Provider: Oriana Horn Primary Care Provider: Jas Vo Jr Other Providers: Danilo Dunaway ; Gabriel Smith ; Griselda Chapman Other Interventions: Discharge Summary Assessment (RN) Last Done: 12/30/18 12:27 DC Date/Time DO NOT enter until pt leaves facility: 12/30/18 13:06 Supervising Physician Co-Signing Physician Notes Resident Physician Supervision Note: I independently interviewed and examined the patient and verified the li history and physical, reviewed labs and image studies, discussed the case with the resident Dr. Smith and agree with the findings and care plan. Resident Activity Tracking Resident Involvement: Resident Care Provided Care Provided: Adult Hospital Medicine
== END 2018-12-30 13:06 | disposition home or self-care (01) | DRG 832 ==
LOC: ED 21:57 → 2N 12-29 01:48 → SUATTDRO 12-29 01:48 → 2N 12-29 02:15

== ENCOUNTER 2019-05-09 04:26 | Inpatient (IN) ==
[2019-05-09] MEDS ORDERED: SODIUM CHLORIDE 0.9% 1000ML 1,000 ML IV ONE (04:41)
[2019-05-09 04:59] LABS: Hematocrit (blood only) 34.8 % (37-47); Hemoglobin 11.7 g/dL (12.0-16.0); Mean Corpuscular Hemoglobin 29.2 pg (25-34); Mean Corpuscular Hgb Conc 33.6 g/dL (32-36); Mean Corpuscular Volume 86.8 fL (80-100); Mean Platelet Volume 9.1 fL (7.4-10.4); Platelet Count 186 K/uL (130-400); RDW Coefficient of Variation 12.6 % (11.5-14.5); RDW Standard Deviation 40.5 fL (36.4-46.3); Red Blood Count 4.01 M/uL (4.2-5.4); White Blood Count 11.24 K/uL (4.8-10.8)
--- NOTE | 2019-05-09 04:59 | Emergency Department Note ---
History of Present Illness General Chief complaint: Seizure Stated complaint: SEIZURE, History of Present Illness Maximum Pain Intensity: 5 This 23-year-old 31-week female presents to the ER complaining of seizure-like activity Location: Generalized Quality: Aching Severity: Moderate Duration: Tonight Timing: Tonight Context: noticed his was having a seizure and brought her in Modifying factors: better with nothing; worse with nothing Patient was seen last year for similar episode. No clear etiology for possible seizure-like activity. states that she had generalized shaking for over a minute and then was postictal. Patient did have a fever last night. She took Tylenol just before coming here. She did receive the flu vaccine. This is her second . She is on aspirin for history of gestational hypertension. Patient complains of body aches with fever and chills. Patient denies chest pain, dyspnea, abdominal pain, vaginal itching or discharge, vaginal bleeding, neck stiffness, headache. Patient was not incontinent. Home Medications Home Medications Medication Instructions Recorded Confirmed Type aspirin 81 mg tablet,delayed 81 mg PO QAM 02/14/19 05/09/19 History release PNV [id number]-ferrous fumarate-FA 1 tab PO QAM 03/21/19 05/09/19 History [] Allergies Allergy/AdvReac Type Severity Reaction Status Date / Time No Known Allergies Allergy Verified 05/09/19 04:37 Past Med/Surg History Medical History 24 weeks gestation of 36 weeks gestation of Abdominal cramping affecting , antepartum Adopted Gestational hypertension Gestational hypertension Irregular menstrual cycle Ovarian cyst with 36 completed weeks gestation URI, acute (Inactive) Varicella vaccine Yeast infection Surgical History S/P wisdom tooth extraction Family History Other No significant family history Social History Preferred Language: Portuguese Communication Ability: Effective 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 Beliefs That Will Affect Care: None marital status: marital status details: Abran Vargas (26) [phone] Current Living Situation: Spouse and Family Current Living Situation Comment: 2 dogs, cat- pt not changing cat litter current occupational status: unemployed 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 Other Information That Helps Us Care for You: No Feels Safe at Home: Yes Safety Concerns: Feels Safe At This Time Smoking Status: Unknown if ever smoked Hx Alcohol Use: No Hx Substance Use: No Review of Systems A total of 10 systems reviewed and were otherwise negative Physical Exam Vital Signs Vital Signs - 24 hr 05/09/19 04:27 05/09/19 04:55 05/09/19 05:28 Temperature 37.8 C H Temperature Source Oral Pulse Rate 173 H Pulse Rate [Finger] 108 H 120 H Respiratory Rate 24 20 20 Respiratory Effort / Characteristics Non-Labored Spontaneous Respiratory Depth Normal Blood Pressure 102/61 Blood Pressure [Right Arm] 125/72 126/79 Blood Pressure Mean 74 Blood Pressure Mean [Right Arm] 89 94 Pulse Oximetry 97 98 97 Oxygen Delivery Method Room Air Room Air Sepsis Recent Fever Within 48 Hours Yes Sepsis Action Taken by Nursing No Action Required 05/09/19 05:49 05/09/19 06:21 05/09/19 07:21 Temperature 36.9 C Temperature Source Oral Pulse Rate Pulse Rate [Finger] 102 H 110 H 107 H Respiratory Rate 20 20 16 Respiratory Effort / Characteristics Non-Labored Respiratory Depth Normal Blood Pressure Blood Pressure [Right Arm] 117/77 117/71 123/80 Blood Pressure Mean Blood Pressure Mean [Right Arm] 90 86 94 Pulse Oximetry 97 98 98 Oxygen Delivery Method Room Air Room Air Sepsis Recent Fever Within 48 Hours Sepsis Action Taken by Nursing 05/09/19 09:11 05/09/19 09:58 05/09/19 10:17 Temperature Temperature Source Pulse Rate 116 H 125 H Pulse Rate [Finger] 106 H Respiratory Rate 16 18 Respiratory Effort / Characteristics Respiratory Depth Blood Pressure 127/85 118/67 Blood Pressure [Right Arm] 132/65 Blood Pressure Mean Blood Pressure Mean [Right Arm] 87 Pulse Oximetry 99 96 Oxygen Delivery Method Room Air Sepsis Recent Fever Within 48 Hours Sepsis Action Taken by Nursing 05/09/19 10:23 05/09/19 10:50 05/09/19 11:00 Temperature 38.0 C H 38.0 C H Temperature Source Pulse Rate 125 H 125 H Pulse Rate [Finger] Respiratory Rate 18 Respiratory Effort / Characteristics Respiratory Depth Blood Pressure 111/53 L 118/67 Blood Pressure [Right Arm] Blood Pressure Mean Blood Pressure Mean [Right Arm] Pulse Oximetry Oxygen Delivery Method Sepsis Recent Fever Within 48 Hours Sepsis Action Taken by Nursing VITALS: Vitals are noted on the nurse's note and reviewed by myself. Vital signs tachycardic and febrile. GENERAL: Pleasant anxious appearing female, in no acute distress, nondiaphoretic, well-developed well-nourished. SKIN: The skin was without rashes, erythema, edema, or bruising. There is no tenting of the skin. Capillary reflex less than 2 seconds. HEAD: Normocephalic atraumatic. EARS: External auditory canals clear, tympanic membranes pearly toure without erythema or effusion bilaterally. EYES: Pupils equal round and reactive to light and accommodation. Conjunctivae without injection, sclerae without icterus. Extraocular movements intact. NOSE: Patent, turbinates without inflammation or discharge. MOUTH: Mucous membranes mildly dry pharynx without erythema or exudate. Uvula midline. Airway patent. Tongue does not deviate. NECK: Supple without nuchal rigidity. No lymphadenopathy. No thyromegaly. Cervical spine is nontender. No JVD. HEART: Tachycardic rate and rhythm LUNGS: Clear to auscultation bilaterally without wheezes, rales or rhonchi. No retractions or accessory muscle use. ABDOMEN: Positive bowel sounds x 4. Normal tympanic percussion. Soft, 31 weeks , nontender, without masses or organomegaly. Beckman sign negative. No guarding or rebound tenderness. No CVA tenderness MUSCULOSKELETAL: No muscle atrophy, erythema, or edema noted. NEURO: Patient was alert and oriented to person place and time. Normal sensation to light and sharp touch. No focal neurological deficits. Course Administered Medications Acetaminophen (Tylenol) 650 mg PO Q4H PRN PRN Reason: Pain or Fever Stop: 06/08/19 13:06 Last Admin: 05/09/19 19:50 Dose: 650 mg Documented by: [id number] Aspirin (Ecotrin Ectab) [facility] Stop: 06/08/19 13:59 Last Admin: 05/09/19 15:32 Dose: 81 mg Documented by: [id number] Ceftriaxone Sodium 1,000 mg/ (Dextrose) 50 mls @ 100 mls/hr IV DAILY@1200 LYNDSEY; Protocol Stop: 05/14/19 12:29 Last Infusion: 02/03/20 15:32 Dose: 0 mls/hr Documented by: [id number] Admin: 05/09/19 14:54 Dose: 100 mls/hr Documented by: [id number] Levetiracetam (Keppra) 500 mg PO BID LYNDSEY Stop: 06/08/19 20:59 Last Admin: 05/09/19 20:50 Dose: 500 mg Documented by: [id number] Prenat Multivit/Thayer/Iron/Folic Ac ( Vitamin) 1 tab PO QAM LYNDSEY Stop: 06/08/19 13:59 Last Admin: 05/09/19 15:32 Dose: 1 tab Documented by: [id number] Discontinued Medications Acetaminophen (Tylenol) Confirm Administered Dose 650 mg .ROUTE .STK-MED ONE Stop: 05/09/19 11:17 Last Admin: 05/09/19 11:23 Dose: 650 mg Documented by: [id number] Sodium Chloride (Nss 1000ml) 1,000 mls @ 999 mls/hr IV .Q1H1M ONE Stop: 05/09/19 05:41 Last Infusion: 05/09/19 05:46 Dose: 0 mls/hr Documented by: [id number] Admin: 05/09/19 04:45 Dose: 999 mls/hr Documented by: [id number] Levetiracetam 1,000 mg/ (Dextrose) 110 mls @ 440 mls/hr IV NOW STA Stop: 05/09/19 06:03 Last Infusion: 05/09/19 06:21 Dose: 0 mls/hr Documented by: [id number] Admin: 05/09/19 06:05 Dose: 440 mls/hr Documented by: [id number] Medical Decision Making Medical Records Attestation: I reviewed the patient's medical records. Home Medications Current Medication List: was personally reviewed by me Laboratory Data Attestation: I reviewed the patient's lab results. Result diagrams: 05/09/19 04:40 05/09/19 04:40 Lab Results 05/09/19 05/09/19 05/09/19 Range/Units 04:40 04:40 04:40 WBC 11.24 H (4.8-10.8) K/uL RBC 4.01 L (4.2-5.4) M/uL Hgb 11.7 L (12.0-16.0) g/dL Hct 34.8 L (37-47) % MCV 86.8 (80-100) fL MCH 29.2 (25-34) pg MCHC 33.6 (32-36) g/dL RDW Std Deviation 40.5 (36.4-46.3) fL RDW Coeff of Jorge 12.6 (11.5-14.5) % Plt Count 186 (130-400) K/uL MPV 9.1 (7.4-10.4) fL Immature Gran % (Auto) 2.0 % Neut % (Auto) 86.5 % Lymph % (Auto) 6.5 % [place] % (Auto) 4.4 % Eos % (Auto) 0.4 % Baso % (Auto) 0.2 % Immature Gran # (Auto) 0.23 H (0.00-0.02) K/uL Neut # (Auto) 9.71 H (1.4-6.5) K/uL Lymph # (Auto) 0.73 L (1.2-3.4) K/uL [place] # (Auto) 0.50 (0.11-0.59) K/uL Eos # (Auto) 0.05 (0-0.5) K/uL Baso # (Auto) 0.02 (0-0.2) K/uL Sodium 136 (136-145) mmol/L Potassium 3.6 (3.5-5.1) mmol/L Chloride 106 (98-107) mmol/L Carbon Dioxide 22 (21-32) mmol/L Anion Gap 8.0 (3-11) BUN 6 L (7-18) mg/dl Creatinine 0.46 L (0.6-1.2) mg/dl Est Cr Clr Drug Dosing Not Reportable Est GFR ( Amer) > 150.0 Est GFR (Non-Af Amer) 142.2 BUN/Creatinine Ratio 12.0 (10-20) Glucose 87 (70-99) mg/dl Lactate 0.9 (0.4-2.0) mmol/L Calcium 8.6 (8.5-10.1) mg/dl Magnesium 1.8 (1.8-2.4) mg/dl Total Bilirubin 0.4 (0.2-1) mg/dl AST 16 (15-37) U/L ALT 19 (12-78) U/L Alkaline Phosphatase 73 (45-117) U/L Troponin I < 0.015 (0-0.045) ng/ml Total Protein 7.1 (6.4-8.2) gm/dl Albumin 3.0 L (3.4-5.0) gm/dl Globulin 4.1 H (2.5-4.0) gm/dl Albumin/Globulin Ratio 0.7 L (0.9-2) TSH 0.443 (0.300-4.500) uIu/ml Urine Color Urine Appearance (Clear) Urine pH (4.5-7.5) Ur Specific [place] (1.000-1.030) Urine Protein (Negative) Urine Glucose (UA) (Negative) Urine Ketones (Negative) Urine Blood (Negative) Urine Nitrite (Negative) Urine Bilirubin (Negative) Urine Urobilinogen (Negative) Ur Leukocyte Esterase (Negative) Urine WBC (Auto) (0-5) /hpf Urine RBC (Auto) (0-4) /hpf U Hyaline Cast (Auto) (0-5) /lpf U Epithel Cells (Auto) (0-5) /lpf Urine Bacteria (Auto) (Negative) Influenza Type A (PCR) (Neg) Influenza Type B (PCR) (Neg) 05/09/19 05/09/19 Range/Units 04:50 05:20 WBC (4.8-10.8) K/uL RBC (4.2-5.4) M/uL Hgb (12.0-16.0) g/dL Hct (37-47) % MCV (80-100) fL MCH (25-34) pg MCHC (32-36) g/dL RDW Std Deviation (36.4-46.3) fL RDW Coeff of Jorge (11.5-14.5) % Plt Count (130-400) K/uL MPV (7.4-10.4) fL Immature Gran % (Auto) % Neut % (Auto) % Lymph % (Auto) % [place] % (Auto) % Eos % (Auto) % Baso % (Auto) % Immature Gran # (Auto) (0.00-0.02) K/uL Neut # (Auto) (1.4-6.5) K/uL Lymph # (Auto) (1.2-3.4) K/uL [place] # (Auto) (0.11-0.59) K/uL Eos # (Auto) (0-0.5) K/uL Baso # (Auto) (0-0.2) K/uL Sodium (136-145) mmol/L Potassium (3.5-5.1) mmol/L Chloride (98-107) mmol/L Carbon Dioxide (21-32) mmol/L Anion Gap (3-11) BUN (7-18) mg/dl Creatinine (0.6-1.2) mg/dl Est Cr Clr Drug Dosing Est GFR ( Amer) Est GFR (Non-Af Amer) BUN/Creatinine Ratio (10-20) Glucose (70-99) mg/dl Lactate (0.4-2.0) mmol/L Calcium (8.5-10.1) mg/dl Magnesium (1.8-2.4) mg/dl Total Bilirubin (0.2-1) mg/dl AST (15-37) U/L ALT (12-78) U/L Alkaline Phosphatase (45-117) U/L Troponin I (0-0.045) ng/ml Total Protein (6.4-8.2) gm/dl Albumin (3.4-5.0) gm/dl Globulin (2.5-4.0) gm/dl Albumin/Globulin Ratio (0.9-2) TSH (0.300-4.500) uIu/ml Urine Color Yellow Urine Appearance Clear (Clear) Urine pH 7.0 (4.5-7.5) Ur Specific [place] 1.009 (1.000-1.030) Urine Protein Negative (Negative) Urine Glucose (UA) Negative (Negative) Urine Ketones Negative (Negative) Urine Blood Negative (Negative) Urine Nitrite Negative (Negative) Urine Bilirubin Negative (Negative) Urine Urobilinogen Negative (Negative) Ur Leukocyte Esterase 2+ H (Negative) Urine WBC (Auto) 10-30 H (0-5) /hpf Urine RBC (Auto) 0-4 (0-4) /hpf U Hyaline Cast (Auto) 0 (0-5) /lpf U Epithel Cells (Auto) >30 H (0-5) /lpf Urine Bacteria (Auto) 1+ H (Negative) Influenza Type A (PCR) Neg for Influ A (Neg) Influenza Type B (PCR) Neg for Influ B (Neg) Imaging Data Attestation: I personally reviewed and interpreted this imaging study as follows: MDM Narrative Prior records/ancillary studies reviewed. Patient placed in seizure precautions immediately upon arrival. Nursing notes reviewed. Additional history obtained from family The patient's history was concerning for a possible seizure. Differential diagnosis: Etiologies such as infection, hypoglycemia, electrolyte abnormalities, cardiac sources, intracerebral event, trauma, toxicologic, neurologic, as well as others were entertained. Physical examination: As above. No signs of trauma. ER treatment provided: An order was placed for continuous cardiac monitoring. The monitor shows a rate of 70-1 20 with a normal sinus rhythm. IV fluids, Keppra On reassessment the patient felt better. Diagnostics interpretation by me: ECG: Ordered for seizure EKG: Normal sinus, occasional PAC, no acute ST-T changes, rate of 111. Impression sinus tachycardia interpreted by myself I think arrhythmia is unlikely. EKG shows normal sinus rhythm with no interval abnormalities such as QT prolongation or WPW. There are no findings to suggest Brugada syndrome. Cardiac monitoring in the emergency department reveals no tachycardic or bradycardic dysrhythmia. Hypertrophic cardiomyopathy was considered but there are no clear historical elements pointing toward this. EKG is not suggestive. The QRS voltage is not extremely large and there are no suggestive Q waves. The labs revealed mild leukocytosis, mild anemia, normal platelets, normal LFTs, negative urine Consultation: A consultation was placed with the neurologist, Dr. Beavers. The case was discussed and diagnostics were reviewed. She recommends MRI and MRV of the brain without and loading dose of Keppra. She recommends medical admission I spoke to Dr. Abad and will evaluate the patient for admission. Case was discussed. Exam and history seem consistent with possible seizure. Medicine and neurology were consulted. Patient is agreeable to treatment plan of admission. Seizure form is filled out and patient was informed that she cannot drive until cleared by neurology in the state. The patient was counseled not to drive until cleared in follow-up and seizure precautions given. I gave my usual and customary discussion regarding these issues. 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 The pt informed about the findings as listed above. All questions were answered and pleased with the treatment. s, pronoun errors, and incomplete sentences are an occassional consequence of this system due to software limitations, ambient noise, and hardware issues. Any formal questions or concerns about the content, text, or information contained within the body of this dictation should be directly addressed to the physician product development assistant for clarification. Impression & Plan Observed seizure-like activity Discharge Plan Visit Data *Final* Discharge Date/Time: 05/09/19 09:58 Chief Complaint: Seizure Stated Complaint: SEIZURE, ED Provider: Adriana Márquez ED Midlevel Provider: Fabi Murillo Discharge Problem: Observed seizure-like activity Patient Disposition: Admitted As Inpatient Condition: Good Discharge Instructions Interventions: ED Discharge Assessment Last Done: 05/09/19 09:58
[2019-05-09 05:17] LABS: Alanine Aminotransferase 19 U/L (12-78); Aspartate Aminotransferase 16 U/L (15-37); Blood Urea Nitrogen 6 mg/dl (7-18); Calcium 8.6 mg/dl (8.5-10.1); Carbon Dioxide 22 mmol/L (21-32); Chloride 106 mmol/L (98-107); Est GFR (African American) > 150.0; Est GFR (Non-African American) 142.2; Glucose 87 mg/dl (70-99); Magnesium 1.8 mg/dl (1.8-2.4); Potassium 3.6 mmol/L (3.5-5.1); Sodium 136 mmol/L (136-145)
[2019-05-09 05:28] LABS: Albumin Globulin Ratio 0.7 (0.9-2); Alkaline Phosphatase 73 U/L (45-117); Bilirubin,Total 0.4 mg/dl (0.2-1); Globulin 4.1 gm/dl (2.5-4.0); Thyroid Stimulating Hormone 0.443 uIu/ml (0.300-4.500); Total Protein 7.1 gm/dl (6.4-8.2); Troponin I < 0.015 ng/ml (0-0.045)
[2019-05-09 05:31] LABS: Basophils # (auto) 0.02 K/uL (0-0.2); Basophils % (auto) 0.2 %; Eosinophils # (auto) 0.05 K/uL (0-0.5); Eosinophils % (auto) 0.4 %; Immature Granulocytes # (auto) 0.23 K/uL (0.00-0.02); Lymphocytes # (auto) 0.73 K/uL (1.2-3.4); Lymphocytes % (auto) 6.5 %; Monocytes % (auto) 4.4 %; Neutrophils # (auto) 9.71 K/uL (1.4-6.5); Neutrophils % (auto) 86.5 %
[2019-05-09 05:42] LABS: Appearance Urine Clear (Clear); Bacteria Urine Automated 1+ (Negative); Bilirubin Urine Negative (Negative); Blood Urine Negative (Negative); Cast Urine Automated 0 /lpf (0-5); Color Urine Yellow; Epithelial Cell Urine Auto >30 /lpf (0-5); Glucose Urine UA Negative (Negative); Ketones Urine Negative (Negative); Leukocyte Esterase Urine 2+ (Negative); Nitrite Urine Negative (Negative); Protein Urine Negative (Negative); RBC Urine Automated 0-4 /hpf (0-4); Specific Gravity Urine 1.009 (1.000-1.030); Urobilinogen Urine Negative (Negative)
[2019-05-09 05:44] LABS: Influenza A virus by PCR Neg for Influ A (Neg); Influenza B virus by PCR Neg for Influ B (Neg)
--- NOTE | 2019-05-09 07:00 | Magnetic Resonance Report ---
MR venography head wo con CLINICAL HISTORY: 23 years-old Female presenting with seizure. TECHNIQUE: MR venography (angiography) of the head was performed without the use of intravenous contr ast using 3-D [id number] technique. 3-D volumetric and/or maximum intensity projection (MIP) imag es were subsequently reconstructed for review. IV contrast: None. COMPARISON: Noncontrast CT head from 12/28/2018 and noncontrast MR brain from 08/13/2015. FINDINGS: Localizer images: Unremarkable. Superior sagittal sinus with normal flow related enhancement. No flow related enhancement in the righ t transverse and sigmoid sinus as well as the jugular bulb. There is trace if any appreciable flow re lated enhancement in the left transverse sinus, however, the left transverse sinus, left sigmoid sinu s, and left jugular bulb are congenitally diminutive as evidenced on prior CT head and prior MRI brai n. There is no T1 hyperintensity of the left transverse sinus to further suggest the presence of thro mbosis.. The left sigmoid sinus and left jugular bulb demonstrate some degree of flow related enhance ment. Grossly patent internal cerebral veins including the deep cerebral veins, basal veins of Jeffry, a nd vein of Asael. Straight sinus also patent. IMPRESSION: 1. 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 T his may in part account for the trace if any appreciable flow related enhancement in the left transve rse sinus. However, if there is a high clinical concern for dural venous sinus thrombosis, contrast-e nhanced CTV head is recommended as thrombosis cannot be excluded. The report will be called/faxed according to standard departmental protocol. ACT 112: Negative or not required by law. Electronically signed by: Gabriel Dorado M.D. 05/09/2019 6:59 AM
--- NOTE | 2019-05-09 07:15 | Magnetic Resonance Report ---
MRI OF THE BRAIN WITHOUT IV CONTRAST CLINICAL HISTORY: Seizure. COMPARISON STUDY: CT of the brain dated 12/28/2018. MRI of the brain dated 08/13/2015. TECHNIQUE: MRI of the brain was performed utilizing various T1 and T2-weighted sequences in the axial , sagittal, and coronal planes. IV contrast was not administered for this examination. FINDINGS: Brain parenchyma: The brain parenchyma is normal in appearance. There is no hemorrhage or mass effect . There is no restricted diffusion to suggest acute ischemia. Pantoja-white matter differentiation is pr eserved. No extra-axial fluid collection is seen. The cerebellar tonsils are normal in configuration. The hippocampi are normal and symmetric. Ventricles, sulci, and cisterns: Normal in configuration. Pituitary and sella: Unremarkable. Intracranial vasculature: Normal flow voids are maintained at the skull base. Orbits: The bony orbits are grossly intact. Orbital contents are normal in appearance. Sinuses and mastoids: There is trace mucosal thickening and a tiny retention cyst in the right maxill geovanni antrum. Trace mucosal thickening is also seen in the left frontal sinus and the ethmoid sinuses. The mastoid air cells are clear. Calvarium: Unremarkable. Cervical cord: Partially visualized cervical spinal cord is normal in morphology and signal intensity . Soft tissues: Prominence of the tonsils and adenoids is similar to previous. IMPRESSION: 1. No acute intracranial abnormality. 2. Prominence of the tonsils and adenoids is similar to previous. Correlation with direct visualizati on is recommended. ACT 112: Negative or not required by law. Electronically signed by: Erik Ojeda M.D. 05/09/2019 7:14 AM
--- NOTE | 2019-05-09 08:12 | Emergency Department Note ---
ED Visit Note This patient's case was signed out to me by Sendy Sherman PA-C at the end of her shift. At this time Sendy had already spoke with DIRECTOR EDUCATION as well as Dr. Dolly Maria neurology about the patient. Dr. Beavers recommended that the patient obtain MRI and MRA of the brain since she is 31 weeks . These were pending at the time I took over the patient's care. Medicine had already been consulted for admission. Dr. Farah came to evaluate the patient. She felt that the patient had hypertension and that she needed monitoring and that she should be admitted by [facility] EDUC[facility]. I reviewed the patient's MRA and MRI. MRI revealed no acute intracranial abnormality. MRA revealed a congenital diminutive left transverse and sigmoid dural venous sinus but they did not diagnose a dural venous sinus thrombosis. Radiology recommended if there was high clinical concern to obtain a CTV head for further evaluation. This information was relayed to medicine as well as [facility]. I consulted Dr. Bangura, DIRECTOR EDUCATION since Dr. Farah felt the patient should be admitted to [facility] for heart monitoring. She stated that when she evaluated the patient the patient was having contractions. Dr. Bangura was in agreement to accept the patient in [facility] for heart monitoring and further evaluation. The patient will then be admitted to medicine by Dr. Farah. DIAGNOSIS: Seizure-like activity /contractions TREATMENT PLAN: Patient is going to [facility] for monitoring and then will be admitted to medicine by Dr. Farah and neurology will be consulted. .
--- NOTE | 2019-05-09 09:02 | History & Physical Report ---
Date of Service May 09, 2019 Assessment & Plan (1) Observed seizure-like activity: Admit to Med/Surge on tele Seizure protocol Consult neurology Consult OBGYN Check labs daily CBC, CMP DVT ppx SCD-s and Teds Full code Present on Admission?: Yes (2) History of gestational hypertension: Continue monitoring BP Q4 hr. NST- monitoring per OBGYN Continue ASA 81 mg daily PO r/o labor per OBGYN Follow preeclampsia labs daily. Will monitor urine proteins Present on Admission?: Yes (3) Urinary tract infection affecting care of mother in second trimester, antepartum: Started empiraically Ceftriaxone 1 g IV daily Continue following Ucx and treat per sensitivity. Present on Admission?: Yes (4) Iron deficiency anemia: Continue PNV Monitor H/H. 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 Per the episode lasted for less then 1 min.He describes it as he whole body was shaking and she did not lose he urine or stool. Pt was not aware of the event. She reports a lots of abdominal pain, describing it as contractions that are irregular but occurred every 10 to 15 min since this morning.Contractions lasts about 2 min each.Pt denies leakage of fluids and vaginal bleeding or PEREZ. Pt reports borderline blood pressure , fatigue, nausea, swelling of the extremities. Pt last visit was with Dr. Perry on 04/28/2019 and since then she gained approximately 3 lbs.Her past medical history is significant for being on Topamax for seizure 4-5 years ago and then she was taken off of it. She did not have seizure like activity for 4-5 years. The last seizure like activity was in 12/2018 and she was observed in the hospital for it. Her EEG:There is a well-developed posterior dominant rhythm of 10 Hz which is symmetrically distributed and attenuates with eye opening. There is a normal anterior to posterior organization. Photic stimulation is unremarkable. Hyperventilation is not performed. There is IV drip artifact. There is no focal slowing. No epileptiform abnormalities appreciated.Interpretation:This is a normal-appearing awake EEG revealing a normal background alpha rhythm.Clinical Correlation:A normal EEG does not completely exclude a diagnosis of epilepsy or seizure disorder.Last night the admitting physician discussed the case with neurologist Dr.Kathleen Maria neurologist she recommended MRV of the brain which is grossly normal. 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 Dr. Maria did not recommend further CTV investigation since there is unlikely dural venous sinus thrombosis. Pt reports felling blue lately, being irritable and crying often. She denies any substance abuse. She is and looking forward to the expectant baby. She asked for help with her mood swings. She denies suicidal or homicidal ideations or plans. We discussed case with Dr. Perri LIANG and she did not feel that pt seizure activity is related this time to gestational HTN or preeclampsia. She recommended to admit pt to medicine for further management of the seizure like activity. Pt was given Keppra 1000 mg x 1. Labs are reviewed: WBC 11.24, Hgb 11.7, Hct 34.8, Plt 186, Na 136, K 3.6, BUN 6, Cr 0.46, GFR 142, Glu 82, Lactate 0.9, Ca 8.6, ASR 16, ALT 19,Alb 3. Urine positive for Leucocyte esterase and 10-30 WBC.The decision was made to [facility] on tele for seizure like activity and urinary tract infection. Allergies Allergy/AdvReac Type Severity Reaction Status Date / Time No Known Allergies Allergy Verified 05/09/19 04:37 Home Medications Home Medications Medication Instructions Recorded Confirmed Type aspirin 81 mg tablet,delayed 81 mg PO QAM 02/14/19 05/09/19 History release PNV cmb#95-ferrous fumarate-FA 1 tab PO QAM 03/21/19 05/09/19 History [] Past Med/Surg History Medical History 24 weeks gestation of 36 weeks gestation of Abdominal cramping affecting , antepartum Adopted Gestational hypertension Gestational hypertension Irregular menstrual cycle Ovarian cyst with 36 completed weeks gestation URI, acute (Inactive) Varicella vaccine Yeast infection Surgical History S/P wisdom tooth extraction Family History Other No significant family history Social History Preferred Language: [place] Communication Ability: Effective 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 Beliefs That Will Affect Care: None marital status: marital status details: Abran Vargas (26) [phone] Current Living Situation: Spouse and Family Current Living Situation Comment: 2 dogs, cat- pt not changing cat litter current occupational status: unemployed 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 Other Information That Helps Us Care for You: No Feels Safe at Home: Yes Safety Concerns: Feels Safe At This Time Smoking Status: Never smoker Do You Dip or Chew Tobacco: No ; Second Hand Exposure: No ; Tobacco Cessation Education Requested by Patient: No Hx Alcohol Use: No Hx Substance Use: No Review of Systems Review of Systems: All systems reviewed & are unremarkable except as noted in HPI & below Physical Exam Constitutional: WD/WN, vitals as above well developed Eyes: PERRL, conjunctivae normal, anicteric sclerae ENMT: external ear and nose normal, oropharynx normal Neck: trachea midline, no thyromegaly Respiratory: normal respiratory effort, lungs clear to auscultation Cardiovascular: Rate/Rhythm: + tachycardic Heart Sounds: normal S1 and normal S2 Vessels: dorsalis pedis pulses present Extremities: + pedal edema Gastrointestinal (Abdomen): normal bowel sounds, soft, nontender, no hepatosplenomegaly Musculoskeletal: no cyanosis or clubbing, extremities motor strength 5/5 Skin: no rashes, warm and dry Psychiatric: A+Ox3, euthymic affect Genitourinary: no vaginal lesions, no adnexal mass Manual OB Exam: + cervical dilation (LTC) OB Exam Monitor Tracing: + external FHT monitor used (reactive, no UCs seen) Lymphatic: no cervical or axillary lymphadenopathy Results & Data Vital Signs (Past 12 Hours) Vital Signs Temp Pulse Pulse Resp BP BP Pulse Ox 05/09/19 07:21 107 H 16 123/80 98 05/09/19 06:21 110 H 20 117/71 98 05/09/19 05:49 36.9 C 102 H 20 117/77 97 05/09/19 05:28 120 H 20 126/79 97 05/09/19 04:55 108 H 20 125/72 98 05/09/19 04:27 37.8 C H 173 H 24 102/61 97 Code Status & VTE Plan Code Status Full Code VTE Prophylaxis Plan VTE Prophylaxis will be ordered: Yes PG Care Time/CCT Total # of Minutes Spent Total Time Spent with Patient: Total time spent is greater than 50% in coordi nation of care (as documented) at patient's floor/unit and/or counseling patient: Coding Level of Care Code 79355 Initial Inpt Care Lvl 3 Diagnoses Observed seizure-like activity R56.9 History of gestational hypertension Z87.59 Urinary tract infection affecting care of mother in second trimester, antepartum O23.42 Iron deficiency anemia D50.9 ASCUS with positive high risk HPV cervical R87.610; R87.810 Depression affecting in second trimester, antepartum O99.342; F32.9
--- NOTE | 2019-05-09 11:09 | OB/GYN Consultation ---
Date of Consultation May 09, 2019 Assessment & Plan (1) History of gestational hypertension: From an obstetrical standpoint I do not believe the seizure is related to preeclampsia or eclampsia specifically her labs are all normal. The patient's blood pressure is completely normal as well. I reviewed all of her labs and her liver enzymes platelet count and creatinine are all normal I am unsure of the cause of her seizures at this stage we will obviously follow closely to ensure blood pressures are in the normal range will recommend daily nonstress tests and heart rate checks every shift Again at this stage I do not think it is related to preeclampsia or eclampsia but obviously will continue to follow along as this unfolds History of Present Illness Attending Physician: Claribel Steward MD, FACOG History of Present Illness Asked to consult on patient is at 31 weeks and 4 days this is her second she did have a prior complicated by preeclampsia without severe features. The patient is known to have a seizure early on in the apparently this happened around 12 weeks and was unwitnessed and recently last night she was found by her significant other to be shaking and he had thought she had had a seizure. The patiently is not seizing now and is oriented x3 she does not have a severe headache she does have a mild headache she has no visual scotomata and she has no right upper quadrant pain Her blood pressures in the office have been in normal range as they are at this time as well. Patient reports 4 years ago the patient also had a seizure she believes it was related to her medication Allergies Allergy/AdvReac Type Severity Reaction Status Date / Time No Known Allergies Allergy Verified 05/09/19 04:37 Home Medications Home Medications Medication Instructions Recorded Confirmed Type aspirin 81 mg tablet,delayed 81 mg PO QAM 02/14/19 05/09/19 History release PNV cmb#95-ferrous fumarate-FA 1 tab PO QAM 03/21/19 05/09/19 History [] Patient History Medical History 24 weeks gestation of 36 weeks gestation of Abdominal cramping affecting , antepartum Adopted Gestational hypertension Gestational hypertension Irregular menstrual cycle Ovarian cyst with 36 completed weeks gestation URI, acute (Inactive) Varicella vaccine Yeast infection Surgical History S/P wisdom tooth extraction Family History Other No significant family history Social History Preferred Language: Cameroonian Communication Ability: Effective 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 Beliefs That Will Affect Care: None marital status: marital status details: Abran Vargas (26) [phone] Current Living Situation: Spouse and Family Current Living Situation Comment: 2 dogs, cat- pt not changing cat litter current occupational status: unemployed 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 Other Information That Helps Us Care for You: No Feels Safe at Home: Yes Safety Concerns: Feels Safe At This Time Smoking Status: Never smoker Do You Dip or Chew Tobacco: No ; Second Hand Exposure: No ; Tobacco Cessation Education Requested by Patient: No Hx Alcohol Use: No Hx Substance Use: No Physical Exam Genitourinary: Manual OB Exam: + cervical dilation (LTC) OB Exam Monitor Tracing: + external FHT monitor used (reactive, no UCs seen) Results & Data Vital Signs (Past 12 Hours) Vital Signs Temp Pulse Pulse Resp BP BP Pulse Ox 05/09/19 10:50 125 H 111/53 L 05/09/19 10:17 125 H 118/67 05/09/19 09:58 116 H 18 127/85 96 05/09/19 09:11 106 H 16 132/65 99 05/09/19 07:21 107 H 16 123/80 98 05/09/19 06:21 110 H 20 117/71 98 05/09/19 05:49 98.4 F 102 H 20 117/77 97 05/09/19 05:28 120 H 20 126/79 97 05/09/19 04:55 108 H 20 125/72 98 05/09/19 04:27 100.0 F H 173 H 24 102/61 97 PG Care Time/CCT Total # of Minutes Spent Total Time Spent with Patient: Total time spent is greater than 50% in coordination of care (as documented) at patient's floor/unit and/or counseling patient: Coding Level of Care Code 94667 Inpt Consult Level 2 Diagnoses History of gestational hypertension Z87.59
[2019-05-09] MEDS ORDERED: ACETAMINOPHEN 325 MG TAB PO PRN (11:11)
[2019-05-09] MEDS ORDERED: ACETAMINOPHEN 325 MG TAB ONE (11:16)
--- NOTE | 2019-05-09 12:46 | Electrocardiogram Report ---
Test Reason : Blood Pressure : / mmHG Vent. Rate : 111 BPM Atrial Rate : 111 BPM P-R Int : 124 ms QRS Dur : 076 ms QT Int : 330 ms P-R-T Axes : 075 080 054 degrees QTc Int : 448 ms Poor data quality, interpretation may be adversely affected Sinus tachycardia with Premature atrial complexes Otherwise normal ECG When compared with ECG of 29-DEC-2018 00:45, Premature atrial complexes are now Present ST no longer depressed in Inferior leads T wave inversion no longer evident in Inferior leads Confirmed by Pranay Contreras ([id number]) on 05/09/2019 12:45:50 PM Referred By: REFERRED SELF Confirmed By:Pranay Contreras
[2019-05-09] MEDS ORDERED: MAGNESIUM HYDROXIDE SUSP 30 ML UDC PO PRN (13:07)
[2019-05-09] MEDS ORDERED: ALUMINUM/MAGNESIUM SUSP 30 ML UDC PO PRN (13:07)
[2019-05-09] MEDS: cefTRIAXone SODIUM 1,000 MG in DEXTROSE 5% 50 ML IV SCH (14:54)
[2019-05-09] MEDS: PRENATAL VITAMIN 1 TAB PO SCH (15:32)
[2019-05-09] MEDS: ASPIRIN 81 MG ECTAB PO SCH (15:32)
--- NOTE | 2019-05-09 15:50 | Neurology Consultation ---
Date of Consultation May 09, 2019 Assessment & Plan (1) Seizure disorder during : 1. continue keppra 500 mg BID for now 2. EEG- pending read 3. after would recommend MRI brain with and without 4. sed rate should be added to labs 5. UTI-started on antibiotics 6. OB follow up as scheduled 7. medical management per primary team follow up with neurology 4-6 weeks after discharge Dolly Gamboa PAC schedule (2) : as above (3) Depression affecting in second trimester, antepartum: as above Supervising Physician Co-Signing Physician Notes I have seen and discussed above patient with Dr Dolly Maria, neurology. Pt seen and examined. HX of several nocturnal sz 4 years ago while on amitriptyline. No AC prescribed. In Dec pt approx 13 weeks had a nocturnal sz associated with febrile illness. CT head EEG nml, pt not tx. This am while asleep had GTC sz activity lasting 1-2 min with post-ictal confusion. Pt has hx of headaches and candelario have been fairly persistent for several wks. Lightheadedness with standing. No visual disturbance. Pt not overtly hypertensive, no proteinuria.Pt has been ill with flu-like sx. Her child is ill with same. Exam notable for no nuchal rigidity, no papilledema, nml brock, motility, facial symm. Full strength, mildly brisk reflexes toes downgoing. Nocturnal genl sz. with prior hx, possibly decreased threshold related to febrile illness. MRV shows diminuative L sigmoid sinus, jugular bulb and transverse sinus. I assume this is congenital as pt has had prior sz x 4 years and no signs of venous sinus thrombosis. P. continue Keppra 500 mg bid, monitoring for -induced htn. MRI brain with contrast sometime electively in next few months. Will follow with you. MD Rhonda History of Present Illness Reason for Consultation: seizure Requesting Physician: Kristal Matthew MD Attending Physician: Kristal Matthew MD History of Present Illness Nicol is a 23 year old female who is at 32 weeks with some gestational HTN, ASCUS ULISSES 1 s/p colposcopy 02/2019, induced labor for gestational HTN at 37 weeks in who was brought to the ER by her after he witnessed her having seizure like activity this morning. The episode lasted for less then 1 min. Her whole body was shaking and she did not lose he urine or stool. She reports a lots of abdominal pain, describing it as contractions that are irregular but occurred every 10 to 15 min since this morning. Contractions lasts about 2 min each. She has borderline blood pressure , fatigue, nausea, swelling of the extremities. She had an appointment with Dr. Perry on 04/28/2019 and since then she gained approximately 3 lbs. S The last seizure event was 12/2018 and she was observed in the hospital for it. She has no history of seizure as a child but she was adopted and does not know much about her mother other than she was an IV drug user. She has had some depression during this . Her first was induced at 37 weeks due to preeclampsia and then had a hemorrhage which she bleed for 4-6 weeks. She was told this should be her last due to the high risk. denies CP, SOB, abdominal pain, one sided weakness, numbness, tingling, N, V, loss of bowel or bladder. Allergies Allergy/AdvReac Type Severity Reaction Status Date / Time No Known Allergies Allergy Verified 05/09/19 04:37 Home Medications Home Medications Medication Instructions Recorded Confirmed Type aspirin 81 mg tablet,delayed 81 mg PO QAM 02/14/19 05/09/19 History release PNV cmb#95-ferrous fumarate-FA 1 tab PO QAM 03/21/19 05/09/19 History [] Patient History Medical History 24 weeks gestation of 36 weeks gestation of Abdominal cramping affecting , antepartum Adopted Gestational hypertension Gestational hypertension Irregular menstrual cycle Ovarian cyst with 36 completed weeks gestation URI, acute (Inactive) Varicella vaccine Yeast infection Surgical History S/P wisdom tooth extraction Family History Other No significant family history Social History Preferred Language: Slovak Communication Ability: Effective 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 Beliefs That Will Affect Care: None marital status: marital status details: Abran Vargas (26) [phone] Current Living Situation: Spouse and Family Current Living Situation Comment: 2 dogs, cat- pt not changing cat litter current occupational status: unemployed 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 Other Information That Helps Us Care for You: No Feels Safe at Home: Yes Safety Concerns: Feels Safe At This Time Smoking Status: Unknown if ever smoked Hx Alcohol Use: No Hx Substance Use: No Results & Data Vital Signs (Past 12 Hours) Vital Signs Temp Pulse Pulse Resp BP BP Pulse Ox 05/09/19 15:28 112 H 05/09/19 11:00 38.0 C H 125 H 18 118/67 05/09/19 10:50 125 H 111/53 L 05/09/19 10:23 38.0 C H 05/09/19 10:17 125 H 118/67 05/09/19 09:58 116 H 18 127/85 96 05/09/19 09:11 106 H 16 132/65 99 05/09/19 07:21 107 H 16 123/80 98 05/09/19 06:21 110 H 20 117/71 98 05/09/19 05:49 36.9 C 102 H 20 117/77 97 05/09/19 05:28 120 H 20 126/79 97 05/09/19 04:55 108 H 20 125/72 98 05/09/19 04:27 37.8 C H 173 H 24 102/61 97 Laboratory Results Abnormal lab results 05/09/19 05/09/19 05/09/19 Range/Units 04:40 04:40 05:20 WBC 11.24 H (4.8-10.8) K/uL RBC 4.01 L (4.2-5.4) M/uL Hgb 11.7 L (12.0-16.0) g/dL Hct 34.8 L (37-47) % Immature Gran # (Auto) 0.23 H (0.00-0.02) K/uL Neut # (Auto) 9.71 H (1.4-6.5) K/uL Lymph # (Auto) 0.73 L (1.2-3.4) K/uL BUN 6 L (7-18) mg/dl Creatinine 0.46 L (0.6-1.2) mg/dl Albumin 3.0 L (3.4-5.0) gm/dl Globulin 4.1 H (2.5-4.0) gm/dl Albumin/Globulin Ratio 0.7 L (0.9-2) Ur Leukocyte Esterase 2+ H (Negative) Urine WBC (Auto) 10-30 H (0-5) /hpf U Epithel Cells (Auto) >30 H (0-5) /lpf Urine Bacteria (Auto) 1+ H (Negative) Diagnostic Findings MRV brain- Congenitally diminutive left transverse and sigmoid dural venous sinuses and left jugular bulb. This may in part account for the trace if any appreciable flow related enhancement in the left transverse sinus. However, if there is a high clinical concern for dural venous sinus thrombosis, contrast- enhanced CTV head is recommended as thrombosis cannot be excluded. MRI brain- No acute intracranial abnormality. Prominence of the tonsils and adenoids is similar to previous. Correlation with direct visualization is recommended.
--- NOTE | 2019-05-09 18:50 | Electroencephalogram ---
EEG Procedure Note Date of Service May 09, 2019 Start / End Times Start Time: 151 End Time: 221 Referring Physician Dolly Maria MD History Seizure during Home Medication List Home Medications Medication Instructions Recorded Confirmed Type aspirin 81 mg tablet,delayed 81 mg PO QAM 02/14/19 05/09/19 History release PNV cmb#95-ferrous fumarate-FA 1 tab PO QAM 03/21/19 05/09/19 History [] Inpatient Medication List Aspirin (Ecotrin Ectab) 81 mg PO QAM [facility] Stop: 06/08/19 13:59 Last Admin: 05/09/19 15:32 Dose: 81 mg Documented by: [id number] Ceftriaxone Sodium 1,000 mg/ (Dextrose) 50 mls @ 100 mls/hr IV DAILY@1200 LYNDSEY; Protocol Stop: 05/14/19 12:29 Last Infusion: 05/09/19 15:32 Dose: 0 mls/hr Documented by: [id number] Admin: 05/09/19 14:54 Dose: 100 mls/hr Documented by: [id number] Prenat Multivit/[place]/Iron/Folic Ac ( Vitamin) 1 tab PO QAM [facility] Stop: 06/08/19 13:59 Last Admin: 05/09/19 15:32 Dose: 1 tab Documented by: [id number] Discontinued Medications Acetaminophen (Tylenol) Confirm Administered Dose 650 mg .ROUTE .STK-MED ONE Stop: 05/09/19 11:17 Last Admin: 05/09/19 11:23 Dose: 650 mg Documented by: [id number] Sodium Chloride (Nss 1000ml) 1,000 mls @ 999 mls/hr IV .Q1H1M ONE Stop: 05/09/19 05:41 Last Infusion: 05/09/19 05:46 Dose: 0 mls/hr Documented by: [id number] Admin: 05/09/19 04:45 Dose: 999 mls/hr Documented by: [id number] Levetiracetam 1,000 mg/ (Dextrose) 110 mls @ 440 mls/hr IV NOW STA Stop: 05/09/19 06:03 Last Infusion: 05/09/19 06:21 Dose: 0 mls/hr Documented by: [id number] Admin: 05/09/19 06:05 Dose: 440 mls/hr Documented by: [id number] Description This is a 21 electrode EEG with a single channel dedicated to limited EKG. The electrodes were placed in accordance with the International 10-20 system.This EEG was done at the bedside recording is of reasonable technical quality but unfortunately video analysis of patient behavior movement was not obtained. Photic stimulation was performed. Drowsiness and light sleep were not recorded Findings conditions there is evidence for a prominent amount of generalized beta activity extending from the frontal to the central regions and occasionally posteriorly. Alpha rhythm is present posteriorly is up to 10 to 11 Hz maximum frequency is up to 20 V in amplitude and is bilaterally symmetrical. Relatively low amplitude mid upper frequency theta activity is seen in the central regions Photic stimulation provokes no significant abnormalities No time during the waking tracing is evidence for potentially epileptogenic activity Interpretation This EEG is essentially normal with the exception of slightly excessive amounts of theta activity which is nonspecific but occasionally could be associated with benzodiazepine use, thyrotoxicosis etc. of importance is the fact there is no evidence for ongoing focal or generalized encephalopathic changes no evidence for ongoing or potential epileptogenic activity Clinical Correlation This EEG is essentially normal with exception of excessive amounts of beta activity which is nonspecific and does not show evidence for encephalopathy or for potential epileptogenic activity but the absence of the latter does not exclude an underlying seizure disorder Gary Resendez MD
[2019-05-09] MEDS: ACETAMINOPHEN 325 MG TAB PO PRN (19:50)
[2019-05-09] MEDS: levETIRAcetam 500 MG TAB PO SCH (20:50)
[2019-05-09] MEDS ORDERED: SODIUM CHLORIDE 0.9% 1000ML 500 ML IV ONE (23:20)
[2019-05-10 07:07] LABS: Hematocrit (blood only) 33.2 % (37-47); Hemoglobin 11.4 g/dL (12.0-16.0); Mean Corpuscular Hemoglobin 29.4 pg (25-34); Mean Corpuscular Hgb Conc 34.3 g/dL (32-36); Mean Corpuscular Volume 85.6 fL (80-100); Mean Platelet Volume 8.9 fL (7.4-10.4); Platelet Count 190 K/uL (130-400); RDW Standard Deviation 40.6 fL (36.4-46.3); Red Blood Count 3.88 M/uL (4.2-5.4); White Blood Count 7.21 K/uL (4.8-10.8)
[2019-05-10 07:33] LABS: Basophils # (auto) 0.02 K/uL (0-0.2); Basophils % (auto) 0.3 %; Eosinophils # (auto) 0.07 K/uL (0-0.5); Immature Granulocytes % (auto) 2.8 %; Lymphocytes # (auto) 0.82 K/uL (1.2-3.4); Lymphocytes % (auto) 11.4 %; Monocytes # (auto) 0.52 K/uL (0.11-0.59); Monocytes % (auto) 7.2 %; Neutrophils # (auto) 5.58 K/uL (1.4-6.5); Neutrophils % (auto) 77.3 %
[2019-05-10 07:34] LABS: Alanine Aminotransferase 20 U/L (12-78); Albumin Level 2.7 gm/dl (3.4-5.0); Aspartate Aminotransferase 22 U/L (15-37); BUN Creatinine Ratio 11.2 (10-20); Blood Urea Nitrogen 5 mg/dl (7-18); Calcium 8.1 mg/dl (8.5-10.1); Carbon Dioxide 24 mmol/L (21-32); Chloride 106 mmol/L (98-107); Creatinine Clr Calc Pharmacy 188.1 ml/min; Est GFR (African American) > 150.0; Est GFR (Non-African American) 142.2; Glucose 82 mg/dl (70-99); Potassium 3.2 mmol/L (3.5-5.1); Sodium 136 mmol/L (136-145)
[2019-05-10 07:37] LABS: Albumin Globulin Ratio 0.7 (0.9-2); Alkaline Phosphatase 75 U/L (45-117); Bilirubin,Total 0.3 mg/dl (0.2-1); Globulin 4.1 gm/dl (2.5-4.0); Total Protein 6.8 gm/dl (6.4-8.2)
--- NOTE | 2019-05-10 07:39 | Obstetrical Progress Note ---
Date of Service May 10, 2019 Subjective patient has not had anymore seuzure like activity she states. labs and bp still normal no evidence of preeclampsia or eclampsia daily nst daily Results & Data Vital Signs (Past 12 Hours) Vital Signs Temp Pulse Pulse Resp BP Pulse Ox 05/10/19 04:13 98.6 F 100 H 18 99/62 L 93 05/10/19 00:36 96/62 L 05/10/19 00:00 108 H 05/09/19 23:33 98.4 F 108 H 16 89/54 L 96 05/09/19 19:47 99.0 F 132 H 18 115/73 97 PG Care Time/CCT Total # of Minutes Spent Total Time Spent with Patient: Total time spent is greater than 50% in coordination of care (as documented) at patient's floor/unit and/or counseling patient: Coding Level of Care Code 26832 Subseq Hosp Care Lvl 2
[2019-05-10] MEDS: ACETAMINOPHEN 325 MG TAB PO PRN ×2 (07:45→20:03)
[2019-05-10] MEDS: ONDANSETRON INJ 2 MG/ML 2 ML VIAL IV PRN (08:41)
--- NOTE | 2019-05-10 09:06 | Hospitalist Progress Note ---
Date of Service May 10, 2019 Assessment & Plan (1) Seizure disorder during : Continue admit to Med/Surge on tele Seizure protocol Appreciate neurology recommendations Continue keppra 500 mg BID for now EEG- no seizure focus after would recommend MRI brain with and without Added sed rate Follow-up with [facility] neurology Cornelia Ibarra MD who specializes in womens neurology Appreciate TRUST VAULT CUSTODIAN recommendations: No preeclampsia Appreciate psych recommendations: Patient is not recommended SSRI/S and RI to be initiated this time during the and because it can lower seizure threshold. Patient is agreeable for outpatient psychiatric evaluation and to further e valuate the role of medication. Patient will sign AMAN for her TRUST VAULT CUSTODIAN to provide coordination of care about these referrals are being made. Patient is safe to be discharged home denying active suicidal ideation hallucination or other signs of acute psychosis. There was no indication for inpatient psych admission this time Check labs daily CBC, CMP, ESR DVT ppx SCD-s and Teds Full code Present on Admission?: Yes (2) History of gestational hypertension: Continue monitoring BP Q4 hr. NST- monitoring per OBGYN Continue ASA 81 mg daily PO TRUST VAULT CUSTODIAN ruled out labor and preeclampsia (3) Urinary tract infection affecting care of mother in second trimester, antepartum: Continue empirically Ceftriaxone 1 g IV daily Continue following Ucx and treat per sensitivity. (4) Iron deficiency anemia: Continue PNV Monitor H/H. 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 No seizures overnight. Patient is stable. Patient reports feeling much better today. She denies vaginal bleeding or pooling. She reported regular kicks, no contractions. Patient denies fever, chills, chest pain, shortness of breath, abdominal pain, frequency, urgency. Review of Systems Review of Systems: All systems reviewed & are unremarkable except as noted in HPI & below Physical Exam Constitutional: WD/WN, vitals as above well developed Eyes: PERRL, conjunctivae normal, anicteric sclerae ENMT: external ear and nose normal, oropharynx normal Neck: trachea midline, no thyromegaly Respiratory: normal respiratory effort, lungs clear to auscultation Cardiovascular: Rate/Rhythm: + tachycardic Heart Sounds: normal S1 and normal S2 Vessels: dorsalis pedis pulses present Extremities: + pedal edema Gastrointestinal (Abdomen): normal bowel sounds, soft, nontender, no hepatosplenomegaly Abdomen for 32 weeks gestation height. Musculoskeletal: no cyanosis or clubbing, extremities motor strength 5/5 Skin: no rashes, warm and dry Psychiatric: A+Ox3, euthymic affect Orientation: alert, oriented x 3 and cooperative (and pleasant ) Apperance: appropriately dressed, appropriately groomed and appeared stated age Eye Contact: good eye contact Motor Behavior: no abnormal motor movements (observed while laying in bed) Speech: normal rate/rhythm/volume of speech Affect: euthymic affect (bright, interactive); + mood not congruent with affect (admits to "putting on a face" to hide depression/anxiety) Mood: + depressed mood and + anxious mood Thought Process: goal directed thought process, linear/logical thought process, clear/coherent thought process and thought association intact Thought Content: reality based without delusions; no hopelessness and no worthlessness Suicidal Thoughts: denies suicidal thoughts, denies suicidal plan and denies suicidal intent Homicidal Thoughts: denies homicidal thoughts Hallucinations: no auditory hallucinations and no visual hallucinations Cognition: remote memory grossly intact, attention grossly intact and language grossly intact Estimated Intelligence: consistent with education level Insight: + fair insight Judgement: + fair judgement Genitourinary: no vaginal lesions, no adnexal mass Manual OB Exam: + cervical dilation (LTC) OB Exam Monitor Tracing: + external FHT monitor used (reactive, no UCs seen) Lymphatic: no cervical or axillary lymphadenopathy Results & Data ([facility]) Vital Signs (Past 12 Hours) Vital Signs Temp Pulse Pulse Resp BP Pulse Ox 05/10/19 08:29 94 H 05/10/19 07:52 36.8 C 101 H 18 105/70 97 05/10/19 04:13 37 C 100 H 18 99/62 L 93 05/10/19 00:36 96/62 L 05/10/19 00:00 108 H 05/09/19 23:33 36.9 C 108 H 16 89/54 L 96 PG Care Time/CCT Total # of Minutes Spent Total Time Spent with Patient: Total time spent is greater than 50% in coordination of care (as documented) at patient's floor/unit and/or counseling patient: Coding Level of Care Code 20183 Subseq Hosp Care Lvl 3 Diagnoses Seizure disorder during O99.350; G40.909 History of gestational hypertension Z87.59 Urinary tract infection affecting care of mother in second trimester, antepartum O23.42 Iron deficiency anemia D50.9 ASCUS with positive high risk HPV cervical R87.610; R87.810 Depression affecting in second trimester, antepartum O99.342; F32.9 Z34.90
[2019-05-10] MEDS: levETIRAcetam 500 MG TAB PO SCH ×2 (09:14→20:03)
[2019-05-10] MEDS: ASPIRIN 81 MG ECTAB PO SCH (09:14)
[2019-05-10] MEDS: PRENATAL VITAMIN 1 TAB PO SCH (09:14)
[2019-05-10] MEDS: cefTRIAXone SODIUM 1,000 MG in DEXTROSE 5% 50 ML IV SCH (11:47)
--- NOTE | 2019-05-10 11:50 | Psychiatric Consultation ---
Date of Consultation May 10, 2019 Impression / Recommendations Impression Dr. Amarilis Locke was directly involved in review and discussion of the patient's case and participated in medical decision making regarding treatment recommendations. RECOMMENDATIONS: 05/10/2019 - Given recent seizure and added element of patient being 31-week , it is not recommended that SSRI/SNRI be initiated at this time. Antidepressant medications are associated with risk of lowering seizure threshold, therefore would suggest avoiding medication initiation until patient is more stable and further removed from seizure event. - Pt is agreeable with referral for outpatient psychiatric evaluation to further evaluate the role of medications; she is planning to consider her willingness for therapy further - Will ask patient to sign AMAN for her DESKIDDING MACHINE OPERATOR to provide coordination of care while these referrals are being made - Pt is able to contract for safety, is denying active SI, A/V hallucinations, or other acute psychosis - no indication for inpatient psychiat gillian admission at this time Risk Factors Assessment Do You Have Access To A Gun?: No Psych History Identifying Data 23-year-old female admitted medically on 05/09/2019 after experiencing seizure- like activity at home. Patient is currently 31 weeks with her second child. Patient has a history of intermittent seizures, most recently experiencing similar symptoms in 12/2018. Psychiatric consultation was requested to evaluate for "depression" and patient's reports of anxiety. Chief Complaint "Sickness-carlin, I'm feeling a lot better; mood-carlin not so much." History of Present Illness Nicol Vargas is a 23-year-old female admitted medically on 05/09/2019 after presenting to the ED for seizure-like activity. Patient has currently 31 weeks with her second child. It is reported that the episode was observed by the patient's , and lasted less than one minute. Pt admits to intermittent episodes of seizure activity, last occurring in 12/2018. Psych iatric consultation was requested to evaluate patient for "depression" with additional reports of anxiety symptoms. Pt is cooperative with psychiatric evaluation. She admits to worsening mood for the past week, stating "I was feeling really depressed. I had never had that before, ever." Pt states that she noticed increased tendency to isolate and was experiencing increased stress and "anger." She states that she was also experiencing crying spells which are unusual as well. Pt states that she had thoughts to "scratch myself", which are new as she denies history of self-harm behaviors or urges. Pt denies a specific trigger for these emotions, and denies history of mood changes during her first . She denies history of being on psychotropic medications, though does admit to participating in 3 therapy sessions about one year ago "for anger issues" (history of "punching lantigua and breaking things when I get upset"). Pt feels that therapy was not helpful for her, but also indicates that she was quickly able to learn other techniques to manage her frustration in a more productive way. She admits to a more significant history of anxiety, stating "I can't go anywhere by myself. I won't walk into the grocery store or the gas station if it is just me." Pt states that if she is forced into these situations she will "get super nervous, start like chewing my nails off." She admits the anxiety is reduced if she is accompanied by a support. Pt admits this level of anxiety is not new - "I've been that way probably since I moved out of my parents house when I was 20." Otherwise, she denies significant racing thoughts or worries under general circumstances. Pt denies history of psychiatric hospitalizations or suicide attempts. She denies suicidal ideation, but does admit to thoughts in the last week of "what did I do to deserve this?" She states that she receives support from her and a close female friend and she is able to verbalize an appropriate safety plan during our conversation. Pt is unsure if she is interested in outpatient therapy, but is agreeable with referral for further evaluation for possible medication management. We reviewed risk of lowering seizure threshold with initiation of an SSRI/SNRI, and patient was advised to consider medications once she has demonstrated stability for a period of time with regard to the seizure history. Pt was understanding of the concern presented, and admitted she would prefer to hold off on medications until she is further evaluated on an outpatient basis. She was agreeable with signing an AMAN for her DESKIDDING MACHINE OPERATOR office to allow for coordination of care while these services are being arranged. Pt denied other needs or concerns from our service at this time. Pt did complete a PHQ-9 Depression Screen - scoring a 14/27 indicating "minor depression" or "dysthymia." Highlighted concerns from the screening included difficulty falling/staying asleep, over eating, and trouble concentrating. Pt rated question #9 a 0/3 - indicating no suicidal ideation. Past Psychiatric History Previous Psych History: Reports history of therapy (3 sessions) in 2018/2018 for "anger issues", did not feel it was overly helpful. Pt denies formal psychiatric diagnoses or history of medication trials. Previous Psych Admissions: Denies Do You Have Access To A Gun?: No History of Previous Suicide Attempt: No Past Medication Trials: None Allergies Allergy/AdvReac Type Severity Reaction Status Date / Time No Known Allergies Allergy Verified 05/09/19 04:37 Home Medications Home Medications Medication Instructions Recorded Confirmed Type aspirin 81 mg tablet,delayed 81 mg PO QAM 02/14/19 05/09/19 History release PNV cmb#[id number]-ferrous fumarate-FA 1 tab PO QAM 03/21/19 05/09/19 History [] Family History Specific family history is unknown as patient is adopted. Substance Abuse History Pt denies all substance use; toxicology screen not preformed in the ED. Personal History Living Arrangements: Home (with ) Highest Grade Completed Comment: Pt states she was home schooled Employment Status: Unemployed Marital Status: (to Abran) Number Of Children: 1 daughter, almost 2 years old; 31-weeks with second child Beliefs That Will Affect Care: None History of Legal Problems: Denies Psychological Trauma History Comment: Denies Patient History Medical History 24 weeks gestation of 36 weeks gestation of Abdominal cramping affecting , antepartum Adopted Gestational hypertension Gestational hypertension Irregular menstrual cycle Ovarian cyst with 36 completed weeks gestation URI, acute (Inactive) Varicella vaccine Yeast infection Surgical History S/P wisdom tooth extraction Family History Other No significant family history Social History Preferred Language: Kinyarwanda Communication Ability: Effective Design Release Engineer Required: No Beliefs That Will Affect Care: None marital status: marital status details: Abran Vargas (26) [phone] Current Living Situation: Spouse and Family Current Living Situation Comment: 2 dogs, cat- pt not changing cat litter current occupational status: unemployed 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 Other Information That Helps Us Care for You: No Feels Safe at Home: Yes Safety Concerns: Feels Safe At This Time Smoking Status: Unknown if ever smoked Hx Alcohol Use: No Hx Substance Use: No Physical Exam Psychiatric: Orientation: alert, oriented x 3 and cooperative (and pleasant ) Apperance: appropriately dressed, appropriately groomed and appeared stated age Eye Contact: good eye contact Motor Behavior: no abnormal motor movements (observed while laying in bed) Speech: normal rate/rhythm/volume of speech Affect: euthymic affect (bright, interactive); + mood not congruent with affect (admits to "putting on a face" to hide depression/anxiety) Mood: + depressed mood and + anxious mood Thought Process: goal directed thought process, linear/logical thought process, clear/coherent thought process and thought association intact Thought Content: reality based without delusions; no hopelessness and no worthlessness Suicidal Thoughts: denies suicidal thoughts, denies suicidal plan and denies suicidal intent Admits to thoughts of "what did I do to deserve this?" but denies true active or passive suicidal ideation Homicidal Thoughts: denies homicidal thoughts Hallucinations: no auditory hallucinations and no visual hallucinations Cognition: remote memory grossly intact, attention grossly intact and language grossly intact Estimated Intelligence: consistent with education level Insight: + fair insight Judgement: + fair judgement Vital Signs (Past 24 Hours): Last Vital Signs Temp 36.8 C 05/10/19 07:52 Pulse 94 H 05/10/19 08:29 Resp 18 05/10/19 07:52 BP 105/70 05/10/19 07:52 Pulse Ox 97 05/10/19 07:52 Review of Systems Constitutional: denied Cardiovascular: denied Respiratory: denied Gastrointestinal: denied Neurological: denied Psychiatric: denies symptoms other than stated above Total of at least 10 systems reviewed, pertinent positives as above and in HPI. Results & Data (PSY) Medications Administered Acetaminophen (Tylenol) 650 mg PO Q4H PRN PRN Reason: Pain or Fever Stop: 06/08/19 13:06 Last Admin: 05/10/19 07:45 Dose: 650 mg Documented by: [id number] Admin: 05/09/19 19:50 Dose: 650 mg Documented by: [id number] Aspirin (Ecotrin Ectab) 81 mg PO QAM [facility] Stop: 06/08/19 13:59 Last Admin: 05/10/19 09:14 Dose: 81 mg Documented by: [id number] Admin: 05/09/19 15:32 Dose: 81 mg Documented by: [id number] Ceftriaxone Sodium 1,000 mg/ (Dextrose) 50 mls @ 100 mls/hr IV DAILY@1200 LYNDSEY; Protocol Stop: 05/14/19 12:29 Last Admin: 05/10/19 11:47 Dose: 100 mls/hr Documented by: [id number] Infusion: 05/09/19 15:32 Dose: 0 mls/hr Documented by: [id number] Admin: 05/09/19 14:54 Dose: 100 mls/hr Documented by: [id number] Levetiracetam (Keppra) 500 mg PO BID [facility] Stop: 06/08/19 20:59 Last Admin: 05/10/19 09:14 Dose: 500 mg Documented by: [id number] Admin: 05/09/19 20:50 Dose: 500 mg Documented by: [id number] Ondansetron HCl (Zofran) 4 mg IV Q6H PRN PRN Reason: Nausea Stop: 06/08/19 13:06 Last Admin: 05/10/19 08:41 Dose: 4 mg Documented by: [id number] Prenat Multivit/[place]/Iron/Folic Ac ( Vitamin) [facility] [place] [place] Stop: 06/08/19 13:59 Last Admin: 05/10/19 09:14 Dose: 1 tab Documented by: [id number] Admin: 05/09/19 15:32 Dose: 1 tab Documented by: [id number] Coding Level of Care Code 39276 [facility] Intl Hosp Care Lvl 2
[2019-05-10] MEDS ORDERED: POTASSIUM CHLORIDE 20 MEQ TABCR PO STA (13:20)
--- NOTE | 2019-05-10 17:17 | Neurology Progress Note ---
Date of Service May 10, 2019 Assessment & Plan (1) Seizure disorder during : 1. continue keppra 500 mg BID for now 2. EEG- no seizure focus 3. after would recommend MRI brain with and without 4. sed rate should be added to labs 5. UTI-started on antibiotics 6. OB follow up as scheduled 7. medical management per primary team after discharge should see [facility] neurology Cornelia Ibarra MD who specializes in womens neurology (2) : as above (3) Depression affecting in second trimester, antepartum: as above Supervising Physician Co-Signing Physician Notes I have seen and discussed above patient with Dr Dolly Maria, neurology. No further sz. pt reports lightheadedness with standing. Exam notable for no facial asym. Full strength no drift, nml cerebellar function. Rec checking orthostatic bp. Continue Keppra, would check level after 1 week to ensure therapeutic level. Rec PT to assess gait Subjective Nicol is a 23 year old female who is at 32 weeks with some gestational HTN, ASCUS ULISSES 1 s/p colposcopy 02/2019, induced labor for gestational HTN at 37 weeks in who was brought to the ER by her after he witnessed her having seizure like activity this morning. The episode lasted for less then 1 min. Her whole body was shaking and she did not lose he urine or stool. She reports a lots of abdominal pain, describing it as contractions that are irregular but occurred every 10 to 15 min since this morning. Contractions lasts about 2 min each. She has borderline blood pressure , fatigue, nausea, swelling of the extremities. She had an appointment with Dr. Perry on 04/28/2019 and since then she gained approximately 3 lbs. S The last seizure event was 12/2018 and she was observed in the hospital for it. She has no history of seizure as a child but she was adopted and does not know much about her mother other than she was an IV drug user. She has had some depression during this . Her first was induced at 37 weeks due to preeclampsia and then had a hemorrhage which she bleed for 4-6 weeks. She was told this should be her last due to the high risk. Today she was up getting a shower but her was helping her and she still fells very unsteady on her feet. She is not eating well and nutrition is adding supplements to her diet. She had diarrhea the past 2 days likely for antibiotic therapy and is now on probiotics. She still has the head in the back of her head but she has only used tylenol once today. She did have night sweats last night and a low grade fever. denies CP, SOB, abdominal pain, one sided weakness, numbness, tingling, N, V, loss of bowel or bladder. Physical Exam Physical Exam: Gen: alert NAD lungs normal respiratory effort CV RRR Results & Data Vital Signs (Past 12 Hours) Vital Signs Temp Pulse Pulse Resp BP Pulse Ox 05/10/19 15:34 104 H 05/10/19 15:00 110 H 20 105/70 98 05/10/19 12:35 18 05/10/19 11:54 36.4 C L 93 H 18 108/70 97 05/10/19 08:29 94 H 05/10/19 07:52 36.8 C 101 H 18 105/70 97 Laboratory Results Abnormal lab results 05/10/19 05/10/19 05/10/19 Range/Units 06:51 06:51 06:51 RBC 3.88 L (4.2-5.4) M/uL Hgb 11.4 L (12.0-16.0) g/dL Hct 33.2 L (37-47) % Immature Gran # (Auto) 0.20 H (0.00-0.02) K/uL Lymph # (Auto) 0.82 L (1.2-3.4) K/uL ESR 72 H (0-21) mm/hr Potassium 3.2 L (3.5-5.1) mmol/L BUN 5 L (7-18) mg/dl Creatinine 0.46 L (0.6-1.2) mg/dl Calcium 8.1 L (8.5-10.1) mg/dl Albumin 2.7 L (3.4-5.0) gm/dl Globulin 4.1 H (2.5-4.0) gm/dl Albumin/Globulin Ratio 0.7 L (0.9-2) Diagnostic Findings EEG- This EEG is essentially normal with exception of excessive amounts of beta activity which is nonspecific and does not show evidence for encephalopathy or for potential epileptogenic activity but the absence of the latter does not exclude an underlying seizure disorder
[2019-05-10] MEDS: LACTOBACILLUS ACIDOPHILUS (FLORANEX) TAB PO SCH (18:36)
[2019-05-10] MEDS ORDERED: LORazepam 1 MG/2 ML VIAL IV PRN (22:18)
--- NOTE | 2019-05-11 07:26 | Obstetrical Progress Note ---
Date of Service May 11, 2019 Assessment & Plan (1) Supervision of normal intrauterine in multigravida: - no seizure activity noted - NST's reactive - patient seen by psych for possible depression - pt declines depression medications - will continue to follw from OB standpoint Subjective 23o ; EDC 07/07/19 at 31 6/7 weeks GA, admitted to hospital service with seizure activity. PIH evaluation negative with BP 90/60 and normal labs. Pt states she is feeling better, no further seizure activity. Physical Exam Constitutional: WD/WN, vitals as above Cardiovascular: Extremities: no calf tenderness Gastrointestinal (Abdomen): Gravid: (+) FHT's, no palpable ctx's Results & Data Vital Signs (Past 12 Hours) Vital Signs Temp Pulse Pulse Resp BP Pulse Ox 05/11/19 07:16 97.5 F L 102 H 20 101/67 99 05/11/19 04:00 97.9 F 94 H 18 91/60 L 97 05/11/19 01:20 88 05/10/19 23:00 98.2 F 93 H 18 96/50 L 95 PG Care Time/CCT Total # of Minutes Spent Total Time Spent with Patient: Total time spent is greater than 50% in coordination of care (as documented) at patient's floor/unit and/or counseling patient: Coding Level of Care Code 03305 Subseq Hosp Care Lvl 1 Diagnoses Supervision of normal intrauterine in multigravida Z34.80
--- NOTE | 2019-05-11 07:29 | Hospitalist Progress Note ---
Date of Service May 11, 2019 Assessment & Plan (1) Seizure disorder during : Continue admit to Med/Surge on tele Seizure protocol Appreciate neurology recommendations Continue keppra 500 mg BID for now EEG- no seizure focus after would recommend MRI brain with and without Sedimentation rate elevated to 72, and repeated 59. Trended down. Follow-up with [facility] neurology Cornelia Ibarra MD who specializes in women's neurology Appreciate DIRECTOR GLOBAL recommendations: No preeclampsia Appreciate psych recommendations: Patient is not recommended SSRI/S and RI to be initiated this time during the and because it can lower seizure threshold. Patient is agreeable for outpatient psychiatric evaluation and to further evaluate the role of medication. Patient will sign AMAN for her DIRECTOR GLOBAL to provide coordination of care about these referrals are being made. Patient is safe to be discharged home denying active suicidal ideation hallucination or other signs of acute psychosis. There was no indication for inpatient psych admission this time Check labs daily CBC, CMP. Appreciate physical therapy recommendations: The physical therapy recommended discharge to acute rehab unless 24/7 family support is available. They determined that patient has orthostatic vitals, mobility defect, secondary to decreased static/dynamic standing balance. Require safety supervision during sit and standing transfer and use of AIR W and CGA during limited gait trial. Patient does not appear to be safe to return home without 24 /7 supervision. If patient discharged directly to her home her parents home recommended home-based physical therapy to a certain safety within the home environment. In the intervening 3-5 times a week inpatient physical therapy appears indicated to optimize safety ability. Patient also needs to purchase RW. Patient referred to [facility]. Also call patient adopted mother Estella in [phone] home number, and cell [phone] spoke to her about coming back to [place] as soon as possible to take care of Nicol and her toddler. She stated that she will try her best and call me back. Patient was agreeable with his [id number] staying in their house and watching over Nicol and toddler. DVT ppx SCD-s and Teds Full code (2) History of gestational hypertension: Continue monitoring BP Q4 hr. NST- monitoring per OBGYN Continue ASA 81 mg daily PO DIRECTOR GLOBAL ruled out labor and preeclampsia (3) Urinary tract infection affecting care of mother in second trimester, antepartum: Completed therapy with ceftriaxone IV for uncomplicated urinary tract infection. Continue following Ucx and treat per sensitivity. (4) Iron deficiency anemia: Continue PNV Monitor H/H. 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 No acute event overnight. Patient is afebrile. She reports no seizure since admission. Nonstress test is reactive and reassuring per DIRECTOR GLOBAL consult. Patient had this morning PT evaluation and community ambassador felt that patient is very unsafe to be discharged home due to her gait unsteadiness and risk of fall. Patient stated that she has toddler to take care off at home and her is working full-time as she herself feels unsteady on her feet. Her parents are in [place] and other family will be available always to assist her. Patient lives in a two-story dwelling with 2 entry steps and 16 steps in between the levels. The physical therapy recommended discharge to acute rehab unless 24/7 family support is available. They determined that patient has orthostatic vitals, mobility defect, secondary to decreased static/dynamic standing balance. Require safety supervision during sit and standing transfer and use of AIR W and CGA during limited gait trial. Patient does not appear to be safe to return home without 24 /7 supervision. If patient discharged directly to her home her parents home recommended home-based physical therapy to a certain safety within the home environment. In the intervening 3-5 times a week inpatient physical therapy appears indicated to optimize safety ability. Patient also needs to purchase RW. Review of Systems Review of Systems: All systems reviewed & are unremarkable except as noted in HPI & below Physical Exam Constitutional: WD/WN, vitals as above well developed Eyes: PERRL, conjunctivae normal, anicteric sclerae ENMT: external ear and nose normal, oropharynx normal Neck: trachea midline, no thyromegaly Respiratory: normal respiratory effort, lungs clear to auscultation Cardiovascular: Rate/Rhythm: + tachycardic Heart Sounds: normal S1 and normal S2 Vessels: dorsalis pedis pulses present Extremities: + pedal edema Gastrointestinal (Abdomen): normal bowel sounds, soft, nontender, no hepatosplenomegaly Musculoskeletal: no cyanosis or clubbing, extremities motor strength 5/5 Skin: no rashes, warm and dry Psychiatric: A+Ox3, euthymic affect Orientation: alert, oriented x 3 and cooperative (and pleasant ) Apperance: appropriately dressed, appropriately groomed and appeared stated age Eye Contact: good eye contact Motor Behavior: no abnormal motor movements (observed while laying in bed) Speech: normal rate/rhythm/volume of speech Affect: euthymic affect (bright, interactive); + mood not congruent with affect (admits to "putting on a face" to hide depression/anxiety) Mood: + depressed mood and + anxious mood Thought Process: goal directed thought process, linear/logical thought process, clear/coherent thought process and thought association intact Thought Content: reality based without delusions; no hopelessness and no worthlessness Suicidal Thoughts: denies suicidal thoughts, denies suicidal plan and denies suicidal intent Homicidal Thoughts: denies homicidal thoughts Hallucinations: no auditory hallucinations and no visual hallucinations Cognition: remote memory grossly intact, attention grossly intact and language grossly intact Estimated Intelligence: consistent with education level Insight: + fair insight Judgement: + fair judgement Genitourinary: no vaginal lesions, no adnexal mass Manual OB Exam: + cervical dilation (LTC) OB Exam Monitor Tracing: + external FHT monitor used (reactive, no UCs seen) Lymphatic: no cervical or axillary lymphadenopathy Results & Data ([facility]) Vital Signs (Past 12 Hours) Vital Signs Temp Pulse Pulse Resp BP Pulse Ox 05/11/19 07:16 36.4 C L 102 H 20 101/67 99 05/11/19 04:00 36.6 C 94 H 18 91/60 L 97 05/11/19 01:20 88 05/10/19 23:00 36.8 C 93 H 18 96/50 L 95 PG Care Time/CCT Total # of Minutes Spent Total Time Spent with Patient: Total time spent is greater than 50% in coordination of care (as documented) at patient's floor/unit and/or counseling patient: Coding Level of Care Code 97018 Subseq Hosp Care Lvl 3 Diagnoses Seizure disorder during O99.350; G40.909 History of gestational hypertension Z87.59 Urinary tract infection affecting care of mother in second trimester, antepartum O23.42 Iron deficiency anemia D50.9 ASCUS with positive high risk HPV cervical R87.610; R87.810 Depression affecting in second trimester, antepartum O99.342; F32.9 Z34.90
[2019-05-11 07:48] LABS: Basophils # (auto) 0.01 K/uL (0-0.2); Basophils % (auto) 0.2 %; Eosinophils # (auto) 0.11 K/uL (0-0.5); Eosinophils % (auto) 1.9 %; Hematocrit (blood only) 33.9 % (37-47); Hemoglobin 11.4 g/dL (12.0-16.0); Immature Granulocytes # (auto) 0.22 K/uL (0.00-0.02); Immature Granulocytes % (auto) 3.7 %; Lymphocytes # (auto) 1.24 K/uL (1.2-3.4); Lymphocytes % (auto) 21.1 %; Mean Corpuscular Hemoglobin 29.5 pg (25-34); Mean Corpuscular Hgb Conc 33.6 g/dL (32-36); Mean Corpuscular Volume 87.8 fL (80-100); Monocytes # (auto) 0.54 K/uL (0.11-0.59); Monocytes % (auto) 9.2 %; Neutrophils # (auto) 3.77 K/uL (1.4-6.5); Neutrophils % (auto) 63.9 %; Platelet Count 162 K/uL (130-400); RDW Coefficient of Variation 13.1 % (11.5-14.5); RDW Standard Deviation 42.1 fL (36.4-46.3); Red Blood Count 3.86 M/uL (4.2-5.4); White Blood Count 5.89 K/uL (4.8-10.8)
[2019-05-11 08:36] LABS: Alanine Aminotransferase 20 U/L (12-78); Albumin Globulin Ratio 0.7 (0.9-2); Albumin Level 2.6 gm/dl (3.4-5.0); Alkaline Phosphatase 73 U/L (45-117); Aspartate Aminotransferase 28 U/L (15-37); BUN Creatinine Ratio 12.3 (10-20); Bilirubin,Total 0.2 mg/dl (0.2-1); Blood Urea Nitrogen 5 mg/dl (7-18); Calcium 8.8 mg/dl (8.5-10.1); Carbon Dioxide 23 mmol/L (21-32); Chloride 108 mmol/L (98-107); Creatinine Clr Calc Pharmacy 211.1 ml/min; Est GFR (African American) > 150.0; Est GFR (Non-African American) 147.7; Glucose 79 mg/dl (70-99); Potassium 3.9 mmol/L (3.5-5.1); Sodium 136 mmol/L (136-145); Total Protein 6.6 gm/dl (6.4-8.2)
[2019-05-11] MEDS: ONDANSETRON INJ 2 MG/ML 2 ML VIAL IV PRN (08:36)
[2019-05-11] MEDS: LACTOBACILLUS ACIDOPHILUS (FLORANEX) TAB PO SCH ×3 (09:20→17:29)
[2019-05-11] MEDS: ASPIRIN 81 MG ECTAB PO SCH (09:20)
[2019-05-11] MEDS: levETIRAcetam 500 MG TAB PO SCH ×2 (09:20→20:41)
[2019-05-11] MEDS: PRENATAL VITAMIN 1 TAB PO SCH (09:21)
[2019-05-11] MEDS: ACETAMINOPHEN 325 MG TAB PO PRN ×2 (10:18→21:17)
[2019-05-11] MEDS: cefTRIAXone SODIUM 1,000 MG in DEXTROSE 5% 50 ML IV SCH (12:16)
--- NOTE | 2019-05-11 15:50 | Communication Note ---
Date of Service: May 11, 2019 NST at 0900 this morning reactive.
--- NOTE | 2019-05-11 17:11 | Neurology Progress Note ---
Date of Service May 11, 2019 Assessment & Plan (1) Seizure disorder during : 1. continue keppra 500 mg BID for now 2. EEG- no seizure focus 3. after would recommend MRI brain with and without 4. sed rate should be added to labs 5. UTI-started on antibiotics 6. OB follow up as scheduled 7. medical management per primary team after discharge should see [facility] neurology Cornelia Ibarra MD who specializes in womens neurology will sign off for now will be available as needed (2) : as above (3) Depression affecting in second trimester, antepartum: as above Supervising Physician Co-Signing Physician Notes I have seen and discussed above patient with Dr Dolly Maria, neurology No further sz. Still feels lightheaded with standing> P rises 40 points with stand. Pt still feels unsteady on feet. No numbness, back pain.Exam in bed, full strength,nml reflexes, no sensory abn, no trucnk level FNF and HS neg.With gait testing pt gets lightheaded. Gait mildly wide-based Imp Sz, cont Keppra, check level in 1 week. Lightheadedness, likely orthostatic MD Rhonda Subjective Nicol is a 23 year old female who is at 32 weeks with some gestational HTN, ASCUS ULISSES 1 s/p colposcopy 02/2019, induced labor for gestational HTN at 37 weeks in who was brought to the ER by her after he witnessed her having seizure like activity this morning. The episode lasted for less then 1 min. Her whole body was shaking and she did not lose he urine or stool. She reports a lots of abdominal pain, describing it as contractions that are irregular but occurred every 10 to 15 min since this morning. Contractions lasts about 2 min each. She has borderline blood pressure , fatigue, nausea, swelling of the extremities. She had an appointment with Dr. Perry on 04/28/2019 and since then she gained approximately 3 lbs. S The last seizure event was 12/2018 and she was observed in the hospital for it. She has no history of seizure as a child but she was adopted and does not know much about her mother other than she was an IV drug user. She has had some depression during this . Her first was induced at 37 weeks due to preeclampsia and then had a hemorrhage which she bleed for 4-6 weeks. She was told this should be her last due to the high risk. Today she has been walking with phyical therapy today with a walker but still requiring assistance and was only walking to the door of the room and back. denies CP, SOB, abdominal pain, one sided weakness, numbness tingling, N, V, still not eating well. Physical Exam Physical Exam: Gen: alert NAD lungs normal respiratory effort CV RRR moving in bed without assistance strength bilaterally equal Results & Data Vital Signs (Past 12 Hours) Vital Signs Temp Pulse Pulse Resp BP Pulse Ox 05/11/19 15:32 36.6 C 98 H 20 136/75 98 05/11/19 15:21 98 H 05/11/19 09:27 106 H 05/11/19 07:16 36.4 C L 102 H 20 101/67 99
[2019-05-12] MEDS: ACETAMINOPHEN 325 MG TAB PO PRN ×2 (07:42→15:46)
[2019-05-12] MEDS: LACTOBACILLUS ACIDOPHILUS (FLORANEX) TAB PO SCH ×3 (07:43→16:01)
[2019-05-12] MEDS: levETIRAcetam 500 MG TAB PO SCH ×2 (07:43→20:58)
[2019-05-12] MEDS: ASPIRIN 81 MG ECTAB PO SCH (07:43)
[2019-05-12] MEDS: PRENATAL VITAMIN 1 TAB PO SCH (07:43)
[2019-05-12 08:28] LABS: Alanine Aminotransferase 25 U/L (12-78); Albumin Level 2.6 gm/dl (3.4-5.0); Aspartate Aminotransferase 31 U/L (15-37); BUN Creatinine Ratio 13.9 (10-20); Blood Urea Nitrogen 6 mg/dl (7-18); Calcium 8.6 mg/dl (8.5-10.1); Carbon Dioxide 24 mmol/L (21-32); Chloride 109 mmol/L (98-107); Creatinine Clr Calc Pharmacy 205.9 ml/min; Est GFR (African American) > 150.0; Est GFR (Non-African American) 146.5; Glucose 79 mg/dl (70-99); Potassium 3.9 mmol/L (3.5-5.1); Sodium 138 mmol/L (136-145)
[2019-05-12 08:31] LABS: Albumin Globulin Ratio 0.7 (0.9-2); Alkaline Phosphatase 72 U/L (45-117); Bilirubin,Total 0.2 mg/dl (0.2-1); Globulin 3.8 gm/dl (2.5-4.0); Total Protein 6.4 gm/dl (6.4-8.2)
[2019-05-12 08:42] LABS: Basophils # (auto) 0.02 K/uL (0-0.2); Basophils % (auto) 0.3 %; Eosinophils # (auto) 0.11 K/uL (0-0.5); Eosinophils % (auto) 1.8 %; Hematocrit (blood only) 33.5 % (37-47); Hemoglobin 11.2 g/dL (12.0-16.0); Immature Granulocytes # (auto) 0.11 K/uL (0.00-0.02); Immature Granulocytes % (auto) 1.8 %; Lymphocytes % (auto) 26.8 %; Mean Corpuscular Hemoglobin 29.4 pg (25-34); Mean Corpuscular Hgb Conc 33.4 g/dL (32-36); Mean Corpuscular Volume 87.9 fL (80-100); Mean Platelet Volume 9.5 fL (7.4-10.4); Monocytes # (auto) 0.67 K/uL (0.11-0.59); Monocytes % (auto) 11.2 %; Neutrophils # (auto) 3.46 K/uL (1.4-6.5); Neutrophils % (auto) 58.1 %; Platelet Count 182 K/uL (130-400); RDW Coefficient of Variation 13.2 % (11.5-14.5); RDW Standard Deviation 42.7 fL (36.4-46.3); Red Blood Count 3.81 M/uL (4.2-5.4); White Blood Count 5.97 K/uL (4.8-10.8)
[2019-05-12] MEDS: ONDANSETRON INJ 2 MG/ML 2 ML VIAL IV PRN (09:08)
[2019-05-12 14:23] LABS: Folate (Folic Acid) 8.54 ng/ml (>5.38)
--- NOTE | 2019-05-12 14:26 | Obstetrical Progress Note ---
Date of Service May 12, 2019 Assessment & Plan (1) Supervision of normal intrauterine in multigravida: (2) Observed seizure-like activity: pt made aware that i have not been made aware of her diagnosis or need for delivery at 36wks due to diagnosis. we will await further input from her primary service. as far as tubal ligation, i reviewed failure, ectopic , permanence, irreversibility, regret as risks. she would need to sign MA tubal papers prior to 30d before delivery. she is also made aware that not all providers here perform pp tubal so discussed interval tubal as well. if ultimately a decision is made for earlier delivery , she will need to be offered betamethasone. again will need to await communication directly from her neurologist in regards to their dx subsequent to which as her ob providers will need to discuss plan of care. Subjective went to visit with patient to let her know i saw her normal nst today. there were about 8 people in room visiting her. i told her that her nst was normal. she proceeded to tell me that she was going to be delivered at 36wks because her doctors feel her seizures are due to the . she asks about tubal ligation . she does have a form of government insurance. she does not want further childbearing due to her current complications. she did not report ob complaints. Physical Exam Genitourinary: OB Exam Monitor Tracing: + category I (NST reactive. ) Results & Data Vital Signs (Past 12 Hours) Vital Signs Temp Pulse Pulse Resp BP Pulse Ox 05/12/19 08:00 97.3 F L 83 88 18 109/67 98 05/12/19 02:59 98.1 F 99 H 18 109/68 96 PG Care Time/CCT Total # of Minutes Spent Total Time Spent with Patient: Total time spent is greater than 50% in coordination of care (as documented) at patient's floor/unit and/or counseling patient: Coding Level of Care Code None Diagnoses Supervision of normal intrauterine in multigravida Z34.80 Observed seizure-like activity R56.9
--- NOTE | 2019-05-12 15:28 | Billing Data ---
Date of Service May 12, 2019 Coding Level of Care Code 36248 Subseq Hosp Care Lvl 2 Comment NST billing, dx 32wks gestation and observed seizure like activity
--- NOTE | 2019-05-12 15:59 | Hospitalist Progress Note ---
Date of Service May 12, 2019 Assessment & Plan (1) Seizure disorder during : Continue admit to Med/Surge on tele Seizure protocol Appreciate neurology recommendations Continue keppra 500 mg BID for now EEG- no seizure focus after would recommend MRI brain with and without Sedimentation rate elevated to 72, and repeated 59. Trended down. Follow-up with [facility] neurology Cornelia Ibarra MD who specializes in women's neurology Appreciate PIT TANNER recommendations: No preeclampsia Appreciate psych recommendations: Patient is not recommended SSRI/S and RI to be initiated this time during the and because it can lower seizure threshold. Patient is agreeable for outpatient psychiatric evaluation and to further evaluate the role of medication. Patient will sign AMAN for her PIT TANNER to provide coordination of care about these referrals are being made. Patient is safe to be discharged home denying active suicidal ideation hallucination or other signs of acute psychosis. There was no indication for inpatient psych admission this time Check labs daily CBC, CMP. Appreciate physical therapy recommendations: PT/OT recommended discharge to acute rehab unless 24/7 family support is available. They determined that patient has orthostatic vitals, mobility d efect, secondary to decreased static/dynamic standing balance. Require safety supervision during sit and standing transfer and use of AIR W and CGA during limited gait trial. Patient does not appear to be safe to return home without 24 /7 supervision. If patient discharged directly to her home her parents home recommended home-based physical therapy to a certain safety within the home environment. In the intervening 3-5 times a week inpatient physical therapy appears indicated to optimize safety ability. Patient also needs to purchase RW. Patient referred to [facility]. Also call patient adopted mother [facility] in [phone] home number, and cell [phone] spoke to her about coming back to [place] as soon as possible to take care of Nicol and her toddler. Mother will be available on 05/22 to stay with pt 24/7. Patient was agreeable with his [id number] staying in their house and watching over Nicol and toddler. DVT ppx SCD-s and Teds Full code (2) History of gestational hypertension: Continue monitoring BP Q4 hr. NST- monitoring neg Continue ASA 81 mg daily PO PIT TANNER ruled out labor and preeclampsia (3) Urinary tract infection affecting care of mother in second trimester, antepartum: ceftriaxone IV for UTI Continue following Ucx and treat per sensitivity. (4) Iron deficiency anemia: Continue PNV Monitor H/H. (5) ASCUS with positive high risk HPV cervical: Follow up as per ASCUS high risk HPV managed per OBGYN (6) Depression affecting in second trimester, antepartum: as above (7) : as above Subjective Pt states she is still off balance with ambulation. She had an episode of n/v this AM. She states that she had issues with this early in her , but not since about 12 weeks. She has no appetite. She feels she is fatiguing far more easily than prior. Per , pt had a "fainting spell" last night in which she sudden stopped talking, dropped her water, and urinated on herself. He said there was no seizure activity and this only lasted about 5 seconds. Pt states her mother will be home from [place] on 05/22, but until that time there is no possibility of 24/7 care. Pt denies fever, SOB, chest pain, abd pain, n/v/c/d, LE pain or swelling. She states the baby is at the same level of activity he has been recently. Review of Systems Review of Systems: Pertinent positives and negatives reviewed in HPI--all others negative Physical Exam Constitutional: WD/WN, vitals as above Eyes: normal visual brock by confrontation and + anicteric sclerae Neck: normal visual inspection and trachea midline Respiratory: normal respiratory effort, lungs clear to auscultation Cardiovascular: Rate/Rhythm: regular rate and regular rhythm Gastrointestinal (Abdomen): Inspection/Auscultation: + abdomen distended (c/w ) Percussion/Palpation: abdomen soft; abdomen nontender Musculoskeletal: Head/Neck/Chest: normocephalic and head atraumatic negative for edema, peripheral pulses intact Skin: no rashes, warm and dry Neurologic: awake; not confused Speech / Cognition: normal speech Psychiatric: A+Ox3, euthymic affect Results & Data ([facility]) Vital Signs (Past 12 Hours) Vital Signs Temp Pulse Pulse Resp BP Pulse Ox 05/12/19 15:50 36.7 C 107 H 20 115/70 96 05/12/19 08:00 36.3 C L 83 88 18 109/67 98 PG Care Time/CCT Total # of Minutes Spent Total Time Spent with Patient: Total time spent is greater than 50% in coordination of care (as documented) at patient's floor/unit and/or counseling patient: Coding Level of Care Code 18110 Subseq Hosp Care Lvl 3 Diagnoses Seizure disorder during O99.350; G40.909 History of gestational hypertension Z87.59 Urinary tract infection affecting care of mother in second trimester, antepartum O23.42 Iron deficiency anemia D50.9 ASCUS with positive high risk HPV cervical R87.610; R87.810 Depression affecting in second trimester, antepartum O99.342; F32.9 Z34.90
--- NOTE | 2019-05-12 20:24 | Progress Note ---
DATE: 05/12/2019 SUBJECTIVE: I am seeing the patient in followup of several nocturnal seizures, which occurred while lying in bed. The patient has a history of seizure late in 2018 and several years ago. Keppra was started. Reviewing hospitalist note indicates that the said the patient had a brief spell while standing where she suddenly stopped talking, dropped her water and urinated on herself, no seizure activity, lasted 5 seconds. I had been in the room earlier this evening and they did not tell me about this episode, although I suspect it was more syncopal or presyncopal than seizure. The patient says she is doing well. She is a little bit irritable on the Keppra. Unclear if that is new. She still feels highly off balance with walking. She has been able to eat and drink some more. I had obtained some labs including B12, folate, thyroid function, which were normal. A thiamine level was ordered. OBJECTIVE: Exam reveals her to be awake and alert. Affect appropriate. There is normal extraocular motility, facial symmetry. There is symmetric strength, normal reflexes. Downgoing toes. [id number]-[id number] and [id number] are normal. There is intact vibration sense in all 4 extremities. I did not attempt to ambulate the patient. IMPRESSION AND PLAN: This patient has a history of seizure several years ago, one seizure in December and several nocturnal seizures in the last several days prior to admission. Although EEG is normal, we have elected to treat with anticonvulsants. MRI of the brain unremarkable. 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 The patient will need to be monitored for irritability, which can occur on Keppra. I believe her difficulty with gait stems from significant orthostasis. I see no evidence on her sitting exam of any disorder of strengths, any disorder of pyramidal, extrapyramidal, cerebellar, or sensory exam. A thiamine level will be drawn in the morning. We will sign off at present. The patient has a preexisting appointment with [facility] on 05/22 per the patient. They have seen her in the hospital in the past and that is not unreasonable followup given that one of their providers specializes in women's neurology. We will sign off at present.
[2019-05-13] MEDS: ONDANSETRON INJ 2 MG/ML 2 ML VIAL IV PRN ×2 (04:28→13:34)
[2019-05-13] MEDS: ACETAMINOPHEN 325 MG TAB PO PRN (05:35)
[2019-05-13 07:12] LABS: Basophils # (auto) 0.02 K/uL (0-0.2); Basophils % (auto) 0.2 %; Eosinophils # (auto) 0.12 K/uL (0-0.5); Eosinophils % (auto) 1.1 %; Hematocrit (blood only) 32.8 % (37-47); Hemoglobin 11.1 g/dL (12.0-16.0); Immature Granulocytes # (auto) 0.08 K/uL (0.00-0.02); Immature Granulocytes % (auto) 0.7 %; Lymphocytes # (auto) 1.67 K/uL (1.2-3.4); Lymphocytes % (auto) 15.6 %; Mean Corpuscular Hemoglobin 29.2 pg (25-34); Mean Corpuscular Hgb Conc 33.8 g/dL (32-36); Mean Corpuscular Volume 86.3 fL (80-100); Mean Platelet Volume 8.7 fL (7.4-10.4); Monocytes # (auto) 0.65 K/uL (0.11-0.59); Monocytes % (auto) 6.1 %; Neutrophils # (auto) 8.15 K/uL (1.4-6.5); Neutrophils % (auto) 76.3 %; Platelet Count 188 K/uL (130-400); RDW Standard Deviation 41.3 fL (36.4-46.3); White Blood Count 10.69 K/uL (4.8-10.8)
[2019-05-13 07:44] LABS: Alanine Aminotransferase 29 U/L (12-78); Albumin Level 2.6 gm/dl (3.4-5.0); Aspartate Aminotransferase 31 U/L (15-37); BUN Creatinine Ratio 12.1 (10-20); Blood Urea Nitrogen 5 mg/dl (7-18); Calcium 8.5 mg/dl (8.5-10.1); Carbon Dioxide 24 mmol/L (21-32); Chloride 109 mmol/L (98-107); Creatinine Clr Calc Pharmacy 207.4 ml/min; Est GFR (African American) > 150.0; Est GFR (Non-African American) 146.5; Glucose 77 mg/dl (70-99); Potassium 3.7 mmol/L (3.5-5.1); Sodium 138 mmol/L (136-145)
[2019-05-13 07:47] LABS: Albumin Globulin Ratio 0.7 (0.9-2); Alkaline Phosphatase 71 U/L (45-117); Bilirubin,Total 0.3 mg/dl (0.2-1); Globulin 3.9 gm/dl (2.5-4.0); Total Protein 6.5 gm/dl (6.4-8.2)
[2019-05-13] MEDS: LACTOBACILLUS ACIDOPHILUS (FLORANEX) TAB PO SCH ×3 (07:51→16:37)
[2019-05-13] MEDS: PRENATAL VITAMIN 1 TAB PO SCH (07:51)
[2019-05-13] MEDS: levETIRAcetam 500 MG TAB PO SCH (07:51)
[2019-05-13] MEDS: ASPIRIN 81 MG ECTAB PO SCH (07:51)
--- NOTE | 2019-05-13 08:42 | Internal Medicine Consult Note ---
Date of Consultation May 13, 2019 Assessment & Plan (1) Encounter for rehabilitation evaluation: Her seizure history and treatment is well within our expertise. Regarding her ; it is unusual to have a gravid patient. It appears that no particular additional treatment or care is required at this time for her . I am comfortable regarding the potential medical complications of and will be vigilant for them. Given the close availability of appropriate OB care, I do not see her current status a contraindication for transfer to our rehab hospital [facility] in [place]. History of Present Illness Reason for Consultation: Patient recommend for rehab care. Several medical issues triggered a more intensive evaluation of her situation before safe tr [facility]. Attending Physician: Grace Chen DO History of Present Illness She is in her third trimester of . The baby is due in July. She has an underlying seizure disorder. Neurology complete evaluation noted and current Rx tolerated. As a result of her seizures and current status she finds herself weak and unstable. Some element of orthostatic hypotension noted. No complications from the current noted. Allergies Allergy/AdvReac Type Severity Reaction Status Date / Time No Known Allergies Allergy Verified 05/09/19 04:37 Home Medications Home Medications Medication Instructions Recorded Confirmed Type aspirin 81 mg tablet,delayed 81 mg PO QAM 02/14/19 05/09/19 History release PNV cmb#95-ferrous fumarate-FA 1 tab PO QAM 03/21/19 05/09/19 History [] Patient History Medical History 24 weeks gestation of 36 weeks gestation of Abdominal cramping affecting , antepartum Adopted Gestational hypertension Gestational hypertension Irregular menstrual cycle Ovarian cyst with 36 completed weeks gestation URI, acute (Inactive) Varicella vaccine Yeast infection Surgical History S/P wisdom tooth extraction Family History Other No significant family history Social History Preferred Language: Angolan Communication Ability: Effective Architectural Model Maker Required: No Beliefs That Will Affect Care: None marital status: marital status details: Abran Vargas (26) [phone] Current Living Situation: Spouse and Family Current Living Situation Comment: 2 dogs, cat- pt not changing cat litter current occupational status: unemployed 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 Physical Exam Physical Exam: no acute distress HEENT--no target Cardio--compensated Pulmonary--comfortable GI--no acute target Musculo--no new issues Neuro--awake/alert/interactive/appropriate Results & Data Vital Signs (Past 12 Hours) Vital Signs Temp Pulse Pulse Resp BP Pulse Ox 05/13/19 07:20 36.6 C 87 16 100/65 98 05/13/19 04:16 36.5 C 88 18 119/64 98 05/13/19 00:57 87 05/12/19 23:10 36.4 C L 75 16 111/71 97
--- NOTE | 2019-05-13 15:28 | Hospitalist Progress Note ---
Date of Service May 13, 2019 Assessment & Plan (1) Seizure disorder during : Continue admit to Med/Surge on tele Seizure protocol Appreciate neurology recommendations Continue keppra 500 mg BID for now--?? seizure activity on 05/13 with new reported sx c/w possible keppra side effects Neuro to be called for repeat eval EEG- no seizure focus after would recommend MRI brain with and without Sedimentation rate elevated to 72, and repeated 59. Trended down. Follow-up with [facility] neurology Cornelia Ibarra MD who specializes in women's neurology Appreciate BATCH HEAT TREAT OPERATOR recommendations: No preeclampsia Appreciate psych recommendations: Patient is not recommended SSRI/S and RI to be initiated this time during the and because it can lower seizure threshold. Patient is agreeable for outpatient psychiatric evaluation and to further evaluate the role of medication. Patient will sign AMAN for her BATCH HEAT TREAT OPERATOR to provide coordination of care about these referrals are being made. Patient is safe to be discharged home denying active suicidal ideation hallucination or other signs of acute psychosis. There was no indication for inpatient psych admission this time Check labs daily CBC, CMP. Appreciate physical therapy recommendations: PT/OT recommended discharge to acute rehab unless 24/ family support is available. They determined that patient has orthostatic vitals, mobility defect, secondary to decreased static/dynamic standing balance. Require safety supervision during sit and standing transfer and use of AIR W and CGA during limited gait trial. Patient does not appear to be safe to return home without 24 / supervision. If patient discharged directly to her home her parents home recommended home-based physical therapy to a certain safety within the home environment. In the intervening 3-5 times a week inpatient physical therapy appears indicated to optimize safety ability. Patient also needs to purchase RW. Patient referred to [facility]. Also call patient adopted mother Estella in [phone] home number, and cell [phone] spoke to her about coming back to [place] as soon as possible to take care of Nicol and her toddler. Mother will be available on 05/22 to stay with pt 24/7. Patient was agreeable with his [id number] staying in their house and watching over Nicol and toddler. DVT ppx SCD-s and Teds Full code (2) History of gestational hypertension: Continue monitoring BP Q4 hr. NST- monitoring neg Continue ASA 81 mg daily PO BATCH HEAT TREAT OPERATOR ruled out labor and preeclampsia (3) Urinary tract infection affecting care of mother in second trimester, antepartum: ceftriaxone IV for UTI Continue following Ucx and treat per sensitivity. (4) Iron deficiency anemia: Continue PNV Monitor H/H. 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 Her had left for work and this was unwitnessed. She states she woke at 4a with n -> emesis x1. She was given zofran and had another episode of emesis x1 after that. She continued to feel unwell and could not fall back to sleep. She does not remember falling asleep, but states she woke up feeling very achy and with a stiff neck and headache and could tell that she had bit her tongue. No bleeding noted. She states that this how she felt on Thursday with her seizure. No abn monitor strips per nursing. As the day has progressed, she notes that she is feeling increasingly irritable. She is seeing black dots in her periphery, which is also new today. She also has tingling in her feet. She continues to feel off balance with ambulation. Appetite is still poor, but she did tolerate PO today Pt states she has felt like she has a yeast infection over the last several days. She states that she has had them in the past and this is similar. She has used monistat with good results. Pt also notes that she had sudden appearance of R AC redness and itching. She states that she does not generally have sensitivity to fabrics or changes in detergents, soaps, etc. Pt denies fever, SOB, chest pain, abd pain, c/d, LE pain or swelling. She states the baby is at the same level of activity he has been recently. Review of Systems Review of Systems: Pertinent positives and negatives reviewed in HPI--all others negative Physical Exam Constitutional: WD/WN, vitals as above Eyes: normal visual brock by confrontation and + anicteric sclerae Neck: normal visual inspection and trachea midline Respiratory: normal respiratory effort, lungs clear to auscultation Cardiovascular: Rate/Rhythm: regular rate and regular rhythm Gastrointestinal (Abdomen): Inspection/Auscultation: + abdomen distended (c/w ) Percussion/Palpation: abdomen soft; abdomen nontender Musculoskeletal: Head/Neck/Chest: normocephalic and head atraumatic Skin: + rash (R AC with slightly raised, red rash c/w contact dermatitis) Trauma: no evidence of skin trauma Neurologic: awake; not confused Speech / Cognition: normal speech Psychiatric: A+Ox3, euthymic affect Results & Data ([facility]) Vital Signs (Past 12 Hours) Vital Signs Temp Pulse Pulse Resp BP Pulse Ox 05/13/19 15:07 105 H 05/13/19 14:46 16 05/13/19 11:43 36.8 C 99 H 16 103/66 97 05/13/19 07:20 36.6 C 87 16 100/65 98 05/13/19 04:16 36.5 C 88 18 119/64 98 PG Care Time/CCT Total # of Minutes Spent Total Time Spent with Patient: Total time spent is greater than 50% in coordination of care (as documented) at patient's floor/unit and/or counseling patient: Coding Level of Care Code 53256 Subseq Hosp Care Lvl 3 Diagnoses Seizure disorder during O99.350; G40.909 History of gestational hypertension Z87.59 Urinary tract infection affecting care of mother in second trimester, antepartum O23.42 Iron deficiency anemia D50.9 ASCUS with positive high risk HPV cervical R87.610; R87.810 Depression affecting in second trimester, antepartum O99.342; F32.9 Z34.90 Vaginal yeast infection B37.3 Rash R21
[2019-05-13] MEDS ORDERED: levETIRAcetam 500 MG TAB PO ONE (16:00)
--- NOTE | 2019-05-13 16:17 | Communication Note ---
Date of Service: May 13, 2019 Nicol had another seizure this morning preceded by malaise headache and then manifested by generalized clonic activity and some lacerations of her buccal mucosa but with very little post ictal state or least a minor when compared to her prior event this past Thursday She continues to have some dystaxia and is difficult to tell whether this is the effects of the seizure that she had which was apparently fairly dramatic with a more protracted post ictal state or whether Keppra may be contributing to this although the dose is very low at 500 mg twice a day On exam she is really quite pleasant cooperative alert almost jovial at times I really do not see much on motor examination other than very minor unsteadiness of gait which is pretty nonspecific But normal her imaging studies have been normal but she has harmed herself during these events so I am suspicious that they are indeed truly epileptic rather than nonconvulsive and in this setting I think we are obligated to treat until proven otherwise particularly in the setting of in the third trimester We did converse with Dr. Ibarra who will be assuming her care and she is rec ommended that we move the Keppra up to 750 mg twice a day which was my impulse and that we start Lamictal very slowly at 25 mg daily and increase it by 25 mg increments every week On that I recommended she be held here for another day until she is again seizure-free and then if stable to be [facility] therapy for gait training etc. after that her care will be assumed by Dr. Ibarra of the [facility] neurology group I will make a visit with her tomorrow at some point in the day Gary Resendez MD
[2019-05-13] MEDS: DiphenhydrAMINE 2%/ZINC 0.1% CREAM 28GM TUBE EXT PRN ×2 (16:38→23:32)
--- NOTE | 2019-05-13 17:03 | Obstetrical Progress Note ---
Date of Service May 13, 2019 Subjective Visited with patient earlier this afternoon, but was called to a delivery and unable to document until now. Nonstress test was reactive. I discussed these results with patient - baby is looking good. She was tearful during my visit, telling me that she had another seizure this morning, unwitnessed. She has been recommended to go to rehabilitation, maybe tomorrow, as she has unsteady gait. She feels like this is a result of Keppra side effects. She tells me that she believes the seizures are all related to the , and that "my body just does not tolerate being ." Results & Data Vital Signs (Past 12 Hours) Vital Signs Temp Pulse Pulse Resp BP Pulse Ox 05/13/19 15:45 36.8 C 97 H 16 109/72 97 05/13/19 15:07 105 H 05/13/19 14:46 16 05/13/19 11:43 36.8 C 99 H 16 103/66 97 05/13/19 07:20 36.6 C 87 16 100/65 98 PG Care Time/CCT Total # of Minutes Spent Total Time Spent with Patient: Total time spent is greater than 50% in coordination of care (as documented) at patient's floor/unit and/or counseling patient: Coding
--- NOTE | 2019-05-13 17:28 | Obstetrical Progress Note ---
Date of Service May 13, 2019 Subjective Visited with patient earlier this afternoon, but was called to a delivery and unable to document until now. Nonstress test was reactive. I discussed these results with patient - baby is looking good. She was tearful during my visit, telling me that she had another seizure this morning, unwitnessed. She has been recommended to go to rehabilitation, maybe tomorrow, as she has unsteady gait. She feels like this is a result of Keppra side effects. She tells me that she believes the seizures are all related to the , and that "my body just does not tolerate being ." She had been told by another doctor that she would probably need to be delivered at 34 or 36 weeks, but she was not told why. I discussed that a decision about early delivery would likely come from maternal medicine subspecialist, but that I do not see indications to seek early delivery at this time. I think this may have been a discussion that she had upon initial presentation to the hospital, prior to workup ruling out preeclampsia. It seems that there is not a clear diagnosis at this point in time beyond seizure disorder, as her imaging has been normal. She has been reporting yeast infection, as she often gets yeast infections after antibiotics. She has Monistat 7 ordered by primary team, I agree that this is a good idea and is safe in . Recommend that if she is unable to ambulate, use EPC cuffs while in bed. She asked me about ambulation vs bedrest - and from an obstetric standpoint ambulation would be preferable (i.e. there is no obstetric need for bedrest), but we also discussed her safety in light of the recent seizure activity and gait disturbance - would not recommend ambulation without assistance and would only suggest this if ok with primary team and neurology. In the meantime, she is agreeable to EPC cuffs to reduce clot risk. I discussed with her that we will continue to follow along with her care as consult during her hospital stay. Plan is to continue nonstress test daily. Once she is discharged, if she goes to a rehab facility, she will need to be seen in our office every 2 weeks until 36w and then weekly thereafter. Results & Data Vital Signs (Past 12 Hours) Vital Signs Temp Pulse Pulse Resp BP Pulse Ox 05/13/19 15:45 36.8 C 97 H 16 109/72 97 05/13/19 15:07 105 H 05/13/19 14:46 16 05/13/19 11:43 36.8 C 99 H 16 103/66 97 05/13/19 07:20 36.6 C 87 16 100/65 98 PG Care Time/CCT Total # of Minutes Spent Total Time Spent with Patient: Total time spent is greater than 50% in coordination of care (as documented) at patient's floor/unit and/or counseling patient: Coding Level of Care Code 19972 Inpt Consult Level 1
[2019-05-13] MEDS ORDERED: MICONAZOLE NITRATE-7 (100 MG EA SUPP) BOX PV SCH (21:00)
[2019-05-13] MEDS: levETIRAcetam 250 MG TAB PO SCH (21:27)
[2019-05-14] MEDS: ONDANSETRON INJ 2 MG/ML 2 ML VIAL IV PRN (06:00)
[2019-05-14] MEDS: PRENATAL VITAMIN 1 TAB PO SCH (08:28)
[2019-05-14] MEDS: LACTOBACILLUS ACIDOPHILUS (FLORANEX) TAB PO SCH ×2 (08:28→11:07)
[2019-05-14] MEDS: ASPIRIN 81 MG ECTAB PO SCH (08:29)
[2019-05-14] MEDS: levETIRAcetam 250 MG TAB PO SCH (08:30)
[2019-05-14] MEDS: DiphenhydrAMINE 2%/ZINC 0.1% CREAM 28GM TUBE EXT PRN (08:31)
[2019-05-14 08:36] LABS: Hematocrit (blood only) 33.3 % (37-47); Mean Corpuscular Hemoglobin 28.9 pg (25-34); Mean Corpuscular Volume 87.4 fL (80-100); Mean Platelet Volume 8.9 fL (7.4-10.4); Platelet Count 171 K/uL (130-400); RDW Coefficient of Variation 12.9 % (11.5-14.5); RDW Standard Deviation 41.7 fL (36.4-46.3); Red Blood Count 3.81 M/uL (4.2-5.4); White Blood Count 10.15 K/uL (4.8-10.8)
[2019-05-14] MEDS ORDERED: lamoTRIgine 25 MG TAB PO SCH (09:00)
[2019-05-14 09:07] LABS: Alanine Aminotransferase 25 U/L (12-78); Albumin Level 2.7 gm/dl (3.4-5.0); Aspartate Aminotransferase 21 U/L (15-37); BUN Creatinine Ratio 11.7 (10-20); Blood Urea Nitrogen 5 mg/dl (7-18); Calcium 8.6 mg/dl (8.5-10.1); Carbon Dioxide 24 mmol/L (21-32); Chloride 108 mmol/L (98-107); Est GFR (African American) > 150.0; Est GFR (Non-African American) 144.3; Glucose 95 mg/dl (70-99); Potassium 3.4 mmol/L (3.5-5.1); Sodium 137 mmol/L (136-145)
[2019-05-14 09:09] LABS: Albumin Globulin Ratio 0.7 (0.9-2); Alkaline Phosphatase 77 U/L (45-117); Bilirubin,Total 0.3 mg/dl (0.2-1); Globulin 3.9 gm/dl (2.5-4.0); Total Protein 6.6 gm/dl (6.4-8.2)
[2019-05-14 09:12] LABS: Basophils # (auto) 0.02 K/uL (0-0.2); Basophils % (auto) 0.2 %; Immature Granulocytes # (auto) 0.09 K/uL (0.00-0.02); Immature Granulocytes % (auto) 0.9 %; Lymphocytes # (auto) 1.98 K/uL (1.2-3.4); Lymphocytes % (auto) 19.5 %; Monocytes # (auto) 0.58 K/uL (0.11-0.59); Monocytes % (auto) 5.7 %; Neutrophils # (auto) 7.28 K/uL (1.4-6.5); Neutrophils % (auto) 71.7 %
--- NOTE | 2019-05-14 11:14 | Discharge Summary ---
Date of Service May 14, 2019 Admission HPI Per Admitting Provider The patient is 23 y/o female at 31 w 4/d and with PMhx of gestational HTN, ASCUS ULISSES 1 s/p colposcopy 02/2019, induced labor for gestational HTN at 37 weeks in who was brought to the ER by her after he witnessed her having seizure like activity this morning. Per the episode lasted for less then 1 min.He describes it as he whole body was shaking and she did not lose he urine or stool. Pt was not aware of the event. She reports a lots of abdominal pain, describing it as contractions that are irregular but occurred every 10 to 15 min since this morning.Contractions lasts about 2 min each.Pt denies leakage of fluids and vaginal bleeding or PEREZ. Pt reports borderline blood pressure , fatigue, nausea, swelling of the extremities. Pt last visit was with Dr. Perry on 04/28/2019 and since then she gained approximately 3 lbs.Her past medical history is significant for being on Topamax for seizure 4-5 years ago and then she was taken off of it. She did not have seizure like activity for 4-5 years. The last seizure like activity was in 12/2018 and she was observed in the hospital for it. Her EEG:There is a well-developed posterior dominant rhythm of 10 Hz which is symmetrically distributed and attenuates with eye opening. There is a normal anterior to posterior organization. Photic stimulation is unremarkable. Hyperventilation is not performed. There is IV drip artifact. There is no focal slowing. No epileptiform abnormalities appreciated.Interpretation:This is a normal-appearing awake EEG revealing a normal background alpha rhythm.Clinical Correlation:A normal EEG does not completely exclude a diagnosis of epilepsy or seizure disorder.Last night the admitting physician discussed the case with neurologist Dr.Kathleen Maria neurologist she recommended MRV of the brain which is grossly normal. 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 Dr. Maria did not recommend further CTV investigation since there is unlikely dural venous sinus thrombosis. Pt reports felling blue lately, being irritable and crying often. She denies any substance abuse. She is and looking forward to the expectant baby. She asked for help with her mood swings. She denies suicidal or homicidal ideations or plans. We discussed case with Dr. Perri LIANG and she did not feel that pt seizure activity is related this time to gestational HTN or preeclampsia. She recommended to admit pt to medicine for further management of the seizure like activity. Pt was given Keppra 1000 mg x 1. Labs are reviewed: WBC 11.24, Hgb 11.7, Hct 34.8, Plt 186, Na 136, K 3.6, BUN 6, Cr 0.46, GFR 142, Glu 82, Lactate 0.9, Ca 8.6, ASR 16, ALT 19,Alb 3. Urine positive for Leucocyte esterase and 10-30 WBC.The decision was made to admit pt to [facility] on tele for seizure like activity and urinary tract infection. Principal Diagnosis Pt has had no new seizure activity since yesterday medical referral coordinator. She feels overall better today. She ate better. She feels less irritable. The black spots in her peripheral vision are less today. No n/v. Pt denies fever, SOB, chest pain, abd pain, c/d, LE pain or swelling. Baby has been active. She continues to have vaginal irritation c/w her usual yeast infections. She has only had one dose of monistat thus far and states she generally does not have relief with the first dose only. Discharge Exam Constitutional WD/WN, vitals as above Eyes normal visual brock by confrontation and + anicteric sclerae Neck normal visual inspection and trachea midline Respiratory normal respiratory effort, lungs clear to auscultation Cardiovascular Rate/Rhythm: regular rate and regular rhythm Gastrointestinal (Abdomen) Inspection/Auscultation: + abdomen distended (c/w ) Percussion/Palpation: abdomen soft; abdomen nontender Musculoskeletal Head/Neck/Chest: normocephalic and head atraumatic Skin no rashes, warm and dry + rash (R AC with slightly raised, red rash c/w contact dermatitis) Trauma: no evidence of skin trauma Neurologic awake; not confused Speech / Cognition: normal speech Psychiatric A+Ox3, euthymic affect Discharge Data Allergies Allergy/AdvReac Type Severity Reaction Status Date / Time No Known Allergies Allergy Verified 05/09/19 04:37 Consultations 05/09/19 05:55 ED Decision to Admit Stat 05/09/19 13:07 Consult Neurology Routine Consult Obstetrics Routine Consult Psychiatry Routine Ordered Studies 05/09/19 05:48 MR brain wo con Stat 05/09/19 05:54 MR venography head wo con Stat Hospital Course (1) Seizure disorder during : Appreciate neurology recommendations Reported breakthrough seizure on keppra 500 mg BID on 27 early AM -> keppra 750mg BID + lamictal 25mg QD with no overnight seizure activity EEG- no seizure focus No hx of seizures prior to this week Recs for MRI brain with and without contrast after delivery Sedimentation rate elevated to 72, and repeated 59 Follow-up with [facility] neurology Cornelia Ibarra MD who specializes in women's neurology Appreciate PHARMACY COORDINATOR recommendations: No preeclampsia Appreciate psych recommendations: Patient is not recommended SSRI/S and RI to be initiated this time during the and because it can lower seizure threshold. Patient is agreeable for outpatient psychiatric evaluation and to further evaluate the role of medication. Patient will sign AMAN for her PHARMACY COORDINATOR to provide coordination of care about these referrals are being made. Patient is safe to be discharged home denying active suicidal ideation hallucination or other signs of acute psychosis. There was no indication for inpatient psych admission this time Appreciate physical therapy recommendations: PT/OT recommended discharge to acute rehab unless 24/7 family support is availab le. They determined that patient has orthostatic vitals, mobility defect, secondary to decreased static/dynamic standing balance. Requires safety supervision during sit and standing transfer and use of AIR W and CGA during limited gait trial. Patient does not appear to be safe to return home without 24 /7 supervision. If patient discharged directly to her home her parents home recommended home-based physical therapy to a certain safety within the home environment. In the intervening 3-5 times a week inpatient physical therapy appears indicated to optimize safety ability. Patient also needs to purchase RW. Patient referred to [facility]. Also call patient adopted mother Estella in [phone] home number, and cell [phone] spoke to her about coming back to [place] as soon as possible to take care of Nicol and her toddler. Mother will be available on 05/22 to stay with pt 24/7. Patient was agreeable with his [id number] staying in their house and watching over Nicol and toddler. (2) History of gestational hypertension: NST- monitoring neg Continue ASA 81 mg daily PO PHARMACY COORDINATOR ruled out labor and preeclampsia Plans for Q2week f/u, change to Q1week at 36 weeks (3) Urinary tract infection affecting care of mother in second trimester, antepartum: Concern on admission and started on ceftriaxone IV for UTI Urine cx neg, abx d/c (4) Iron deficiency anemia: Continue PNV Hb 11.1 (5) ASCUS with positive high risk HPV cervical: Follow up as per ASCUS high risk HPV managed per OBGYN (6) Depression affecting in second trimester, antepartum: as above (7) : as above (8) Vaginal yeast infection: hx of same with good resolution using monistat, started 05/13 (9) Rash: benadryl cream c/w contact dermatitis Total Time Total Time Spent Total Time Spent (In Minutes): >30 Total Time Includes: Examination of the Patient, Discharge Planning, Medication Reconciliation, Communication With Other Providers and Other Discharge Plan Discharge Items Patient Disposition: Transfer Inpatient Rehab Fac Reason For Visit: SEIZURE LIKE ACTIVITY Discharge Diagnosis: Seizure Condition on Discharge: Good Activity: As commented below Activity Comment: As instructed upon leaving rehab facility Non-emergency contact: Care Nurse Rn and Neurologist Call non-emergency contact if: you have any medication questions and your symptoms worsen Follow-up/Referrals: Magan Price Jr, MD, FACOG [Physician] - 05/12/19 10:40 am (Please, follow up at [facility] OB & INSTRUMENT CALIBRATOR Office on May 12 at 10:40 am. *If you need to change this appointment, call the office at [phone].) Cornelia Ibarra MD [Physician] - 05/18/19 9:45 am (Please, follow up at [facility] Neurology Office with Dr. Ibarra on ThursdayMay 18 at 9:45 am. *The office is located at [address] in [place]. If you need to change this appointment, call the office at [phone].) Jas Vo Jr, DO [Primary Care Provider] - Diet: Regular Addtl Attending Provider Instructions: You should be seen by your PHARMACY COORDINATOR every 2 weeks until 36 weeks and at that point they will see you weekly Addtl Rail Equipment Operator Provider Instructions: Patient will need a visit in the ob office at around 34 weeks which is around 2/20 . Have asked the patient to call the office on Thursday to arrange. Have counseled the patient about labor precautions, movement counts as needed. Call the office at [phone] Hernandez Pending Studies at Discharge: No Stand-Alone Forms: My [facility] Skilled Items Patient informed of condition?: Yes DNR: No Discharge Level of Care: Acute rehab Communicable Disease: No Discharge Prognosis: Improving Lines: None Urinary Catheter: No Medications and DC Order Prescriptions: New levetiracetam [Keppra] 250 mg Tablet 750 mg PO BID Qty: 60 RF: 0 miconazole nitrate [Miconazole 7] 100 mg Suppository 1 supp vaginal HS Qty: 6 RF: 0 lamotrigine [Lamictal] 25 mg Tablet 25 mg PO QAM Qty: 30 RF: 0 Lactobacillus acidoph-L.bulgar [Floranex] 1 million cell Tablet 4 tab PO TIDM 30 Days Qty: 120 RF: 0 Continued aspirin [Adult Low Dose Aspirin] 81 mg tablet,delayed release (DR/EC) 81 mg PO QAM RF: 0 PNV cmb#[id number]-ferrous fumarate-FA [] 28 mg iron- 800 mcg Tablet 1 tab PO QAM RF: 0 Discharge Orders: Discharge Order (Routine); Ordered 05/14/19 Ordered By: Grace Chen Admission Data Admit Date/Time: 05/09/19 13:07 Attending Provider: Grace Chen Admit Provider: Kristal Matthew Primary Care Provider: Jas oV Jr Other Providers: Keanu Abad ; Dolly Maria ; Claribel Steward ; Aleida Reyes ; [facility] Other Interventions: Discharge Summary Assessment (RN) Last Done: 05/14/19 11:19 PSY Interdisciplinary Discharge Planning Last Done: 05/12/19 14:32 DC Date/Time DO NOT enter until pt leaves facility: 05/14/19 12:28 Coding Level of Care Code D/C Day Management >30 mins Diagnoses Seizure disorder during O99.350; G40.909 History of gestational hypertension Z87.59 Urinary tract infection affecting care of mother in second trimester, antepartum O23.42 Iron deficiency anemia D50.9 ASCUS with positive high risk HPV cervical R87.610; R87.810 Depression affecting in second trimester, antepartum O99.342; F32.9 Z34.90 Vaginal yeast infection B37.3 Rash R21
--- NOTE | 2019-05-14 11:40 | Communication Note ---
Date of Service: May 14, 2019 I saw Nicol today and she looks well although this morning apparently while trying to ambulate to the bathroom using a walker she was significantly dysta xic. In bed however she has normal eye movements clear speech no titubation of the head or hands no cerebellar tremor and no issues on [id number]-en-racs testing this seems to be a selective issue for gait not clear as to its causation but hopefully will little time following her last seizure and some rehabilitation she will get to her neuro baseline I hate to attribute this to the Keppra but historically unfortunately the symptoms started as soon as we gave her the Keppra but also in the post seizure state so there may be a mixed picture and she certainly not sedated or demonstrating any other manifestations of Keppra toxicity Dr. Ibarra who will be assuming her care has recommended that she start slowly up on the Lamictal 25 mg a day for a week then twice a day and will be seeing her in follow-up after she is released from [facility] where she apparently is going today. Until the Lamictal level gets reasonable and she demonstrates tolerance of the drug we are going to keep her on the Keppra 750 mg twice a day unless she clearly develops more significant side effects At this point then she has been free of any seizure activity for 24 hours has had a loading dose of Keppra is now on her next dose increment of 750 twice a day which theoretically should be sufficient and I think it is safe for her to be transferred to [facility]. We can always be consulted by telephone if she has another seizure-like event down after or alternatively she can be sent back to our emergency room reloaded with Keppra and either admitted for observation or sent back to [facility] depending on everyone's comfort level Gary Resendez MD
--- NOTE | 2019-05-14 11:44 | Obstetrical Progress Note ---
Date of Service May 14, 2019 Assessment & Plan (1) Seizure disorder during : Plan for transfer to rehab facility. f/u in 2 weeks in the office. Discussed poncho precautions and movement counts if needed. Management of seizures per neuro. Again, do not believe the seizures are consistent with preeclampsia given normal pressures and labs under observation. Currently no identified reason for an early delivery at 36 weeks. (2) History of gestational hypertension: Should continue low dose asa until delivery for prevention. Subjective Patient feels well today. Notes she is being transferred to rehab facility. Is not tearful today. Notes good fm. no lof/vb. no contractions. Had reactive nst just a bit ago that I reviewed. Notes she has started lamictal in addition to her Keppra. She notes they are going to try to wean off Keppa if possible as she feels she is having alot of side effects from it. Physical Exam Constitutional: WD/WN, vitals as above Gastrointestinal (Abdomen): soft, gravid, nt Psychiatric: A+Ox3, euthymic affect Genitourinary: reactive nst, no contractions. Results & Data Vital Signs (Past 12 Hours) Vital Signs Temp Pulse Pulse Resp BP Pulse Ox 05/14/19 11:19 36.5 C 89 16 103/66 98 05/14/19 07:27 36.5 C 89 16 103/66 98 05/14/19 07:20 79 05/14/19 05:01 36.5 C 100 H 18 103/65 97 05/14/19 00:53 86 PG Care Time/CCT Total # of Minutes Spent Total Time Spent with Patient: Total time spent is greater than 50% in coordination of care (as documented) at patient's floor/unit and/or counseling patient: Coding Level of Care Code 39721 Inpt Consult Level 1 Diagnoses Seizure disorder during O99.350; G40.909 History of gestational hypertension Z87.59
[2019-05-28] MEDS ORDERED: lamoTRIgine 25 MG TAB PO SCH (21:00)
== END 2019-05-14 12:28 | DRG 833 ==
LOC: ED 04:26 → 2W 09:58 → EDSTATUS 10:16 → 4S2 10:16 → 2W 13:07 → SUATTDRO 13:07 → EDSTATUS 13:10

== ENCOUNTER 2019-06-28 17:08 | Inpatient (IN) ==
[2019-06-28] MEDS ORDERED: OXYTOCIN 30 UNITS/500 ML BAG IV PRN ×2 (18:16→18:29)
[2019-06-28 18:33] LABS: Basophils # (auto) 0.01 K/uL (0-0.2); Basophils % (auto) 0.1 %; Eosinophils # (auto) 0.03 K/uL (0-0.5); Eosinophils % (auto) 0.3 %; Hematocrit (blood only) 34.6 % (37-47); Hemoglobin 11.6 g/dL (12.0-16.0); Immature Granulocytes # (auto) 0.17 K/uL (0.00-0.02); Immature Granulocytes % (auto) 1.5 %; Lymphocytes # (auto) 1.76 K/uL (1.2-3.4); Lymphocytes % (auto) 15.9 %; Mean Corpuscular Hemoglobin 29.5 pg (25-34); Mean Platelet Volume 10.9 fL (7.4-10.4); Monocytes # (auto) 0.79 K/uL (0.11-0.59); Monocytes % (auto) 7.2 %; Neutrophils # (auto) 8.28 K/uL (1.4-6.5); Platelet Count 139 K/uL (130-400); RDW Coefficient of Variation 13.5 % (11.5-14.5); RDW Standard Deviation 43.3 fL (36.4-46.3); Red Blood Count 3.93 M/uL (4.2-5.4); White Blood Count 11.04 K/uL (4.8-10.8)
[2019-06-28 18:43] LABS: Mean Corpuscular Hgb Conc 33.5 g/dL (32-36)
--- NOTE | 2019-06-28 18:49 | History & Physical Report ---
Date of Service June 28, 2019 Assessment & Plan (1) Observed seizure-like activity: 23yo at 38.5 weeks GA. gHTN. No s/s of severe PIH. Discussed gHTN an recommendation for delivery after 37 weeks. Patient agreeable to IOL. 1. Fetus: Cat 1 2: Labor: Will start induction with oxytocin and will AROM at next check. 3. Vitals: Mild range BPs. 4. GBS: Resulted as group A strep positive. It is not clear if this is a typo so will plan for presumptive positive and will treat. 5. Seizure disorder: PLAN ([facility] - DR REDDY): have lamictal level checked (trough level) 24-48 hours . If therapeutic, discontinue keppra and continue lamictal at that dose. If subtherapeutic, will continue with uptitration as already planned and continue keppra 750mg bid. If supratherapeutic, will need dose decreased and recommend inpatient neurology consult (I am happy to come see her inpatient on the labor fabian). (2) Supervision of normal intrauterine in multigravida: (3) Gestational HTN: History of Present Illness Primary Care Provider: Jas Vo Jr, DO 23yo at 38.5 weeks GA. Presents for LOF and contractions. Denies VB. Good FM. Patient was noted to have elevated mild range BPs on admission with mild range BP in clinic last week. Patient meets criteria for gHTN. Denies PIH symptoms. complicated by Seizure disorder an is on Lamictal/Keppra. Patient is seen by neurology. Prior complicated by gHTN. Allergies Allergy/AdvReac Type Severity Reaction Status Date / Time No Known Allergies Allergy Verified 06/23/19 07:21 Home Medications Home Medications Medication Instructions Recorded Confirmed Type aspirin 81 mg tablet,delayed 81 mg PO QAM 02/14/19 06/28/19 History release PNV cmb#95-ferrous fumarate-FA 1 tab PO QAM 03/21/19 06/28/19 History [] levetiracetam 250 mg tablet 750 mg PO BID 30 Days #180 tab 06/17/19 06/28/19 Rx lamotrigine [Lamictal] 75 mg PO QAM 06/28/19 06/28/19 History lamotrigine [Lamictal] 100 mg PO QPM 06/28/19 06/28/19 History magnesium 400 mg PO DAILY 06/28/19 06/28/19 History Patient History Social History Preferred Language: Japanese Communication Ability: Effective Dental Hygiene Teacher Required: No Beliefs That Will Affect Care: None marital status: marital status details: Abran Vargas (26) [phone] Current Living Situation: Parent Current Living Situation Comment: has to live with parents due to seizure disorder at this time. 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 Feels Safe at Home: Yes Safety Concerns: Feels Safe At This Time Smoking Status: Never smoker Second Hand Exposure: No ; Hx Alcohol Use: No Hx Substance Use: No Physical Exam Gastrointestinal (Abdomen): Percussion/Palpation: abdomen soft; abdomen nontender, no guarding and abdomen not rigid Neurologic: 3+ DTRs bilateral LE Genitourinary: OB Exam Abdomen: + vertex Manual OB Exam: + cervical dilation 2 cm, + cervical effacement 50%, + station -2 and + amniotic fluid (Intact) OB Exam Monitor Tracing: + external FHT monitor used, + external uterine monitor used, + category I and + normal FHT variability; no category III, no early decelerations present, no late decelerations present and no variable decelerations Results & Data Vital Signs (Past 12 Hours) Vital Signs Temp Pulse Resp BP 06/28/19 18:10 93 H 128/93 06/28/19 17:57 93 H 134/80 06/28/19 17:51 100 H 141/97 H 06/28/19 17:14 36.9 C 91 H 16 143/86 H 06/28/19 17:11 36.9 C 18 Coding Level of Care Code None Diagnoses Observed seizure-like activity R56.9 Supervision of normal intrauterine in multigravida Z34.80 Gestational HTN O13.9
[2019-06-28] MEDS: LACTATED RINGER'S 1,000 ML IV PRN (18:58)
[2019-06-28] MEDS ORDERED: PENICILLIN G POTASSIUM 6 MU in DEXTROSE 5% 250 ML IV ONE (19:00)
[2019-06-28 19:01] LABS: Alanine Aminotransferase 22 U/L (12-78); Aspartate Aminotransferase 19 U/L (15-37); Creatinine Clr Calc Pharmacy 163.2 ml/min; Est GFR (African American) > 150.0; Est GFR (Non-African American) 134.9
[2019-06-28 19:41] LABS: Creatinine Urine Random 22.5 mg/dl; Protein Creatinine Ratio Urine 0.3 (0-0.2)
[2019-06-28] MEDS: levETIRAcetam 250 MG TAB PO SCH (21:03)
[2019-06-28] MEDS: lamoTRIgine 100 MG TAB PO SCH (21:03)
[2019-06-28] MEDS: PENICILLIN G POTASSIUM 3 MU in DEXTROSE 5% 100 ML IV PRN (23:26)
[2019-06-28] MEDS ORDERED: Nursing to Pharmacy Communication ONE (23:58)
--- NOTE | 2019-06-29 00:04 | Labor Progress Brief Note ---
Date of Service June 29, 2019 Subjective Reason For Note: Routine Evaluation Assessment & Plan (1) Observed seizure-like activity: 23yo at 38.5 weeks GA. gHTN. No s/s of severe PIH. Discussed gHTN an recommendation for delivery after 37 weeks. Patient agreeable to IOL. 1. Fetus: Cat 1 2: Labor: Continue oxytocin and will AROM at next check. 3. Vitals: Mild range BPs. 4. GBS: Resulted as group A strep positive. It is not clear if this is a typo so will plan for presumptive positive and will treat. 5. Seizure disorder: PLAN ([facility] - DR REDDY): have lamictal level checked (trough level) 24-48 hours . If therapeutic, discontinue keppra and continue lamictal at that dose. If subtherapeutic, will continue with uptitration as already planned and continue keppra 750mg bid. If supratherapeutic, will need dose decreased and recommend inpatient neurology consult (I am happy to come see her inpatient on the labor fabian). (2) Supervision of normal intrauterine in multigravida: (3) Gestational HTN: Physical Exam Genitourinary: OB Exam Abdomen: + vertex Manual OB Exam: + cervical dilation 2 cm, + cervical effacement 50%, + station -2 and + amniotic fluid (SROM) clear OB Exam Monitor Tracing: + external FHT monitor used, + external uterine monitor used, + category I and + normal FHT variability Results & Data Vital Signs (Past 12 Hours) Vital Signs Temp Pulse Resp BP 06/28/19 23:34 90 123/76 06/28/19 23:03 36.8 C 86 18 131/79 06/28/19 22:35 88 113/69 06/28/19 22:06 86 16 131/82 06/28/19 22:00 36.8 C 06/28/19 21:34 90 18 113/63 06/28/19 20:52 102 H 138/63 06/28/19 20:21 91 H 118/71 06/28/19 20:20 18 06/28/19 20:08 100 H 119/71 06/28/19 19:53 96 H 122/81 06/28/19 19:37 88 134/78 03/24/20 19:08 36.9 C 99 H 18 127/85 06/28/19 18:52 103 H 151/69 H 06/28/19 18:37 97 H 133/73 06/28/19 18:10 93 H 128/93 06/28/19 17:57 93 H 134/80 06/28/19 17:51 100 H 141/97 H 06/28/19 17:14 36.9 C 91 H 16 143/86 H 06/28/19 17:11 36.9 C 18 Coding Level of Care Code None Diagnoses Observed seizure-like activity R56.9 Supervision of normal intrauterine in multigravida Z34.80 Gestational HTN O13.9
[2019-06-29] MEDS ORDERED: BUPIVACAINE 0.25% 30 ML VIAL ONE (00:43)
[2019-06-29] MEDS ORDERED: ePHEDrine sulfate 50 MG/ML AMP ONE (00:43)
[2019-06-29] MEDS ORDERED: fentaNYL citrate 100 MCG/2 ML VIAL ONE (00:44)
[2019-06-29] MEDS ORDERED: fentaNYL 2MCG/ML ROPIV 1.25MG/ML 100 ML BAG EPI ONE (00:44)
[2019-06-29] MEDS ORDERED: NALOXONE HCL 1 MG in SODIUM CHLORIDE 0.9% 1000ML 1,000 ML IV PRN (00:58)
[2019-06-29] MEDS ORDERED: fentaNYL 2MCG/ML ROPIV 1.25MG/ML 100 ML BAG EPI PRN (00:58)
[2019-06-29] MEDS ORDERED: DiphenhydrAMINE HCL 50 MG/ML VIAL IV PRN (00:58)
[2019-06-29] MEDS ORDERED: ePHEDrine sulfate 50 MG/ML AMP IV PRN (00:58)
[2019-06-29] MEDS ORDERED: NALOXONE HCL 0.4 MG/1 ML VIAL/CARP IV PRN (00:58)
[2019-06-29] MEDS ORDERED: ONDANSETRON INJ 2 MG/ML 2 ML VIAL IV PRN (00:58)
[2019-06-29] MEDS ORDERED: NALBUPHINE HCL INJ 10 MG/ML AMP IV PRN (00:58)
--- NOTE | 2019-06-29 01:04 | Anesthesiology Consultation ---
Date of Service June 29, 2019 Assessment & Plan Chart Review Chart Review: Patient NOT seen in Pre Admission Testing and Acceptable Risk for Labor Epidural Consults Requested none ASA ASA3 Proposed Anesthesia Anesthesia Type: Labor Epidural and CSE Risk / Benefits Reviewed With: PT / POA / Parent / Guardian, Accepts Plan and Informed Consent Obtained History Height/Weight Height: 5 ft 2 in Weight: 81.647 kg Allergies Allergy/AdvReac Type Severity Reaction Status Date / Time No Known Allergies Allergy Verified 06/23/19 07:21 Medications Home Medications Medication Instructions Recorded Confirmed Last Taken aspirin 81 mg tablet,delayed 81 mg PO QAM 02/14/19 06/28/19 06/28/19 09:30 release PNV cmb#95-ferrous fumarate-FA 1 tab PO QAM 03/21/19 06/28/19 06/28/19 09:30 [] levetiracetam 250 mg tablet 750 mg PO BID 30 Days #180 tab 06/17/19 06/28/19 06/28/19 09:30 lamotrigine [Lamictal] 75 mg PO QAM 06/28/19 06/28/19 06/28/19 09:30 lamotrigine [Lamictal] 100 mg PO QPM 06/28/19 06/28/19 06/27/19 20:00 magnesium 400 mg PO DAILY 06/28/19 06/28/19 06/28/19 09:30 Active Medications Generic Name Dose Route Start Last Admin Trade Name Freq PRN Reason Stop Dose Admin Lactated Ringer's 1,000 mls @ 125 mls/hr 06/28/19 18:16 06/29/19 00:40 Lr IV 06/30/19 18:15 999 mls/hr .Q8H PRN Infusion L&D Protocol Protocol Oxytocin 30 units in 500 mls @ 20 mls/hr 06/28/19 18:29 06/29/19 00:17 Pitocin IV 06/30/19 18:28 1.2 units/hr .Q24H PRN 20 mls/hr Labor Induction/Augmentation Titration Protocol 1.2 UNITS/HR Penicillin G Potassium 3 mu/ 106 mls @ 100 mls/hr 06/28/19 18:49 06/29/19 00:40 Dextrose IV 07/08/19 18:48 Infused Q4H PRN Infusion Give until delivery Lamotrigine 100 mg 06/28/19 21:00 06/28/19 21:03 Lamictal PO 07/28/19 20:59 100 mg QPM LYNDSEY Administration Levetiracetam 750 mg 06/28/19 21:00 06/28/19 21:03 Keppra PO 07/28/19 20:59 750 mg BID LYNDSEY Administration NPO Date Last Intake of Fluids: 06/29/19 Time Last Intake of Fluids: 00:30 Date Last Intake of Solids: 06/28/19 Time Last Intake of Solids: 15:00 Past Medical History Medical History 24 weeks gestation of 36 weeks gestation of Abdominal cramping affecting , antepartum 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 Last seizure at 30 weeks. Was hospitalized for 1 week and went to rehab afterward URI, acute (Inactive) Urinary tract infection affecting care of mother in second trimester, antepartum Varicella vaccine Yeast infection Exercise / Class Metabolic Activity II 4-5 Yardwork/Stairs/Walk up hill Past Family History Family History Other No significant family history Past Surgical History Surgical History History of colposcopy ULISSES 1 S/P wisdom tooth extraction Past Anesthesia History No Hx of Anesthesia Complications and No Family Hx of Anesthesia Complications History of PONV No Hx of PONV and No Hx of Motion Sickness Social History Smoking Status: Never smoker Hx Alcohol Use: No Hx Substance Use: No substance use type: does not use Review of Systems no chest pain or sob Physical Exam Vital Signs Last Vital Signs Temp 36.8 C 06/28/19 23:03 Pulse 100 H 06/29/19 01:02 Resp 18 06/28/19 23:03 BP 123/73 06/29/19 00:32 Pulse Ox 99 06/29/19 01:02 ENMT Mouth: no TMJ abnormality Thyromental Distance: > or= 3.5 Finger Breadths Mallampati Class: II Neck normal visual inspection Respiratory normal respiratory effort Auscultation: lungs clear to auscultation bilaterally Cardiovascular Rate/Rhythm: regular rate and regular rhythm Musculoskeletal Spine: normal cervical ROM Neurologic moves all extremities Psychiatric Orientation: alert and oriented x 3 Testing Laboratory Results 06/28/19 18:15 06/28/19 18:15 Blood Type Cancelled 06/28/19 18:57 Antibody Screen Cancelled 06/28/19 18:57
[2019-06-29] MEDS: LACTATED RINGER'S 1,000 ML IV PRN (01:27)
[2019-06-29] MEDS: PENICILLIN G POTASSIUM 3 MU in DEXTROSE 5% 100 ML IV PRN (03:20)
[2019-06-29] MEDS ORDERED: bisacodyL 10 MG SUPP PR PRN (04:50)
[2019-06-29] MEDS ORDERED: DIPHTHERIA/TETANUS/PERTUSSIS 0.5 ML SYR/VIAL IM ONE (04:50)
[2019-06-29] MEDS ORDERED: SUPERCREAM 0.870% 15 GM JAR EXT PRN (04:50)
[2019-06-29] MEDS ORDERED: OXYTOCIN 30 UNITS/500 ML BAG IV PRN (04:50)
[2019-06-29] MEDS ORDERED: HYDROCORTISONE ACETATE 25 MG SUPP PR PRN (04:50)
[2019-06-29] MEDS ORDERED: BENZOCAINE 20% AER SPR 82.5 GM CAN EXT PRN (04:50)
[2019-06-29] MEDS ORDERED: ACETAMINOPHEN 325 MG TAB PO PRN (04:50)
--- NOTE | 2019-06-29 06:56 | Delivery Summary ---
DATE OF OPERATION: 06/28/2019 PROCEDURE: Normal spontaneous vaginal delivery first degree and periurethral laceration repair. SURGEON: Jordy De Oliveira MD PREOPERATIVE DIAGNOSES: 1. Single intrauterine at 38 weeks 6 days gestational age. 2. Gestational hypertension. 3. Seizure disorder. POSTOPERATIVE DIAGNOSES: 1. Single intrauterine at 38 weeks 6 days gestational age. 2. Gestational hypertension. 3. Seizure disorder. 4. Status post delivery. ESTIMATED BLOOD LOSS: 200 mL. DRAINS: None. FLUIDS: Continuous lactated ringer. URINE OUTPUT: Not measured. COMPLICATIONS: None. FINDINGS: Viable male infant with weight pending, Apgars of 8 and 9 at 1 and 5 minutes respectively. DESCRIPTION OF PROCEDURE: The patient progressed to 10 cm dilated, 100% effaced, +2 station, pushed over intact perineum with epidural anesthesia and delivered a viable male infant, weight and Apgars as noted above. The patient pushed over 1 contraction for delivery of the head, body, and shoulders quickly followed. Head of the delivered in CLARIBEL position, rest to left transverse. No nuchal cord was noted. Body and shoulders quickly followed. was noted to be vigorous soon after delivery and 1-minute delayed cord clamping was initiated. Cord was then double clamped and cut. Baby remained on maternal abdomen as it was noted to be vigorous. Attention was then turned to deliver the placenta, which was delivered intact, 3-vessel cord, gentle cord traction. On inspection of perineum, vagina, and cervix, there was noted to be a first degree perineal and a right periurethral laceration repair. The perineal laceration repaired with 3-0 Vicryl in a traditional crown stitch. The periurethral laceration was repaired with 3-0 Vicryl interrupted stitch. Needle, sponge and instrument counts were correct at the completion of the case with mother and stable in the immediate post-delivery. I attest to the content of the Intraoperative Record and any orders documented therein. Any exception s are noted below.
[2019-06-29] MEDS: PRENATAL VITAMIN 1 TAB PO SCH (08:28)
[2019-06-29] MEDS: MAGNESIUM OXIDE 400 MG TAB PO SCH (08:28)
[2019-06-29] MEDS: levETIRAcetam 250 MG TAB PO SCH ×2 (08:28→21:05)
[2019-06-29] MEDS: DOCUSATE SODIUM 100 MG CAP PO SCH ×2 (08:28→21:06)
--- NOTE | 2019-06-29 08:28 | Anesthesia Procedure Note ---
Date of Service June 29, 2019 Anesthesia Post Epidural Note Vital Signs Vital Signs: Temp Pulse Resp BP Pulse Ox 37.0 C 103 H 20 121/62 94 06/29/19 07:05 06/29/19 07:50 06/29/19 07:05 06/29/19 07:50 06/29/19 05:07 Notes Mental Status: alert / awake / arousable and participated in evaluation Nausea / Vomiting: adequately controlled Pain: adequately controlled Airway Patency, RR, SpO2: stable & adequate BP & HR: stable & adequate Hydration State: stable & adequate Neuraxial Anesthesia: was administered and sensory block is resolving Anesthetic Complications: no major complications apparent Epidural: Removed without complications and With tip intact
[2019-06-29] MEDS ORDERED: lamoTRIgine 25 MG TAB PO SCH (09:00)
[2019-06-29] MEDS: IBUPROFEN 600 MG TAB PO PRN ×2 (18:10→23:11)
[2019-06-29] MEDS: lamoTRIgine 100 MG TAB PO SCH (21:05)
[2019-06-30 06:47] LABS: Hematocrit (blood only) 29.2 % (37-47); Hemoglobin 9.6 g/dL (12.0-16.0)
--- NOTE | 2019-06-30 07:08 | Obstetrical Progress Note ---
Date of Service June 30, 2019 Assessment & Plan (1) Seizure disorder during : PPD#1 Neuro consult for management of seizure meds. Cont current care Subjective Ambulation: ambulating normally Voiding: no voiding problems Passing Gas:: Yes Diet Tolerance:: regular diet Lochia:: Small Current Pain Level(1-10): 0 Physical Exam Constitutional WD/WN, vitals as above Respiratory normal respiratory effort, lungs clear to auscultation Cardiovascular RRR, no murmur, no edema Gastrointestinal (Abdomen) normal bowel sounds, soft, nontender, no hepatosplenomegaly Results & Data Vital Signs (Past 12 Hours) Vital Signs Temp Pulse Resp BP Pulse Ox 06/30/19 03:25 99.0 F 152 H 18 123/78 06/29/19 23:05 98.2 F 118 H 16 132/78 06/29/19 19:50 98.4 F 115 H 16 124/79 98
--- NOTE | 2019-06-30 08:13 | Neurology Consultation ---
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, account for trace flow L transverse sinus CT head 12/28/18: negative EEG 12/29/18: normal-appearing awake EEG revealing a normal background alpha rhyth Currently on Keppra 750mg BID and Lamictal 75mg QAM and Lamictal 100mg QPM Will continue Keppra 750mg BID and switch to Lamictal 100mg BID Lamital Level Pending Plan: if lamictal level therapeutic will decrease keppra dose to 500mg BID x 1 week then 250mg BID x 1 week then stop and continue Lamictal 100mg BID; if level subtherapeutic will uptitrate Lamictal to 150mg BID and continue Keppra 750mg BID; if level supratherapeutic will down titrate Lamictal depending on level Follow up with neurology in 4-[address] Ibarra's note: plan for [facility] EMU evaluation for spell classification to determine if she will need medications Migraine headaches w/ot aura Continue magnesium 400mg daily Tylenol as needed for headaches History of Anemia Pt mildly tachycardic Hgb this AM 9.6 down from 11.6 on 06/27 Likely secondary to intrapartum hemorrhage Continue iron supplement Gestational hypertension - improved BP wnl this AM (3) History of gestational hypertension: (4) Status post normal vaginal delivery: Supervising Physician Co-Signing Physician Notes I have reviewed and completely agree with the written neurologic history and physical examination, as well as the impression and plan of of the resident Gem Soto MD. I have personally discussed the past and current medical history with the patient, as well as performed a complete neurologic examination on the patient at bedside. Is a 23-year-old followed by Dr. Ibarra for epilepsy and migraines. She had multiple seizures throughout her most recently May 09. She was put on Keppra and later Lamictal and currently takes Keppra 750 milligrams twice a day as well as Lamictal 75 milligrams in the morning and 100 milligrams at night. She has had no seizures since May 09. She believes that Keppra gives her some side effects but she tolerates Lamictal well. May 09, an EEG was unremarkable during the wakeful state. MRI of the brain and MRV were largely unremarkable as well. Patient has a past medical history of some seizures while on amitriptyline back in 2016. An MRI an EEG at that time was unremarkable also. Recently, her seizures have been during sleep. She will get stiffening of the arms, her eyes and head will roll back, and she might bite the inside of her cheek. She is unresponsive for 15 to 60 seconds and afterwards has a headache. Patient gets migraine headaches in the past. Prior to getting they wer e almost every day. She has tried and failed topiramate and amitriptyline. Recently during her she has been doing very well. Patient delivered her 2nd child June 27 and has done well. She has had no seizures or headache. A Lamictal level from this morning is pending. Blood pressure had been elevated during but is 123/78 this morning. She has some mild anemia. On neurologic examination, she is right handed and is awake and alert with normal speech and mentation. She has no confusion and is fully oriented. Extraocular eye muscles are intact without nystagmus. There is no facial droop. Tongue is midline. Pupils are 4 millimeters bilaterally and reactive to light. Neck is supple. Coordination is normal in the arms and there is no drift or ataxia. There are no tremors or abnormal involuntary movements. Motor strength is 5/5 in all major muscle groups in arms and legs both proximally distally with good tone. Reflexes are 1/4 in all 4 limbs. Gait is narrow based and stable with good turns. Sensory examination is normal limbs bilaterally. Impression: 1. Epilepsy controlled with current doses of levetiracetam and lamotrigine. 2. Migraine headaches, currently controlled. 3. Two days with some mild anemia. Recommendations: 1. Lamotrigine 100 milligrams twice daily. Lamotrigine level from this morning is pending (but that is on a dose of 75 milligrams in the morning and 100 milligrams at night). 2. Continue levetiracetam 750 milligrams twice daily for now. 3. Follow-up with Dr. Ibarra including making recommendations after Lamictal level comes back. See Dr. Soto's Impression/plan for furhter details. Kofi Hastings MD History of Present Illness Reason for Consultation: Seizure Disorder During Requesting Physician: Dr. Steward Attending Physician: Dr. Hastings History of Present Illness 23yoF with hx of seizure disorder, migraine headaches without aura, gestational HTN, iron deficiency anemia, recent child day 2 (). Neurology consulted for management of seizure medications. History of possible seizure like activity 2-3 years ago while patient was on amitriptyline for sleep and headaches. It was attributed to being on amitriptyline. Diagnosed with seizure disorder during most recent following first seizure episode in 12/2018 at 13 wks gestation. She had a brief 15-20 sec episode during her sleep evidenced by her as chewing movements and upper extremity shaking followed by postictal confusion and headache. Dr. Dunaway evaluated pt following seizure episode and thought possibly viral given pt also had fever, tachycardia, flu like symptoms and headache and she was not started on medications. Her EEG and CT head were reassuring. She subsequently had another longer episode at 30 wks gestation in 05/2019 also occurred during her sleep. She was noted to have bite cheek, stiffness in her arms and headache. The episode lasted for about a minute. She had gait disturbance afterwards as she had difficulty moving her lower extremities especially her left lower extremity which improved s/p 1 week of rehab. She had a normal MRI and was st arted on Lamictal in addition to Keppra by Dr. Ibarra. She was induced at 38.5wks gestation due to trace proteinuria and gestational HTN (BP noted to be in 140s/90s). No concern for pre-eclampsia. Pt had reassuring lab work. This AM pt reports no further seizure episodes since 30 weeks gestation. She feels well aside from persistent tachycardia which she has had during her as well and post mild abdominal cramps, and low back pain s/p epidural. Her bleeding is mild. She denied any headache, dizziness, weakness, chest pain, shortness of breath even on exertion, nausea, vomiting. Her baby is healthy. She is ready to be discharged home today from OB stand point. Fhx: Pt was adopted. Per Dr. Ibarra's note: mother with hx of IVDA during ; biological sister also has seizures Allergies Allergy/AdvReac Type Severity Reaction Status Date / Time No Known Allergies Allergy Verified 06/23/19 07:21 Home Medications Home Medications Medication Instructions Recorded Confirmed Type aspirin 81 mg tablet,delayed 81 mg PO QAM 02/14/19 06/28/19 History release PNV cmb#95-ferrous fumarate-FA 1 tab PO QAM 03/21/19 06/28/19 History [] levetiracetam 250 mg tablet 750 mg PO BID 30 Days #180 tab 06/17/19 06/28/19 Rx lamotrigine [Lamictal] 75 mg PO QAM 06/28/19 06/28/19 History lamotrigine [Lamictal] 100 mg PO QPM 06/28/19 06/28/19 History magnesium 400 mg PO DAILY 06/28/19 06/28/19 History lamotrigine 100 mg PO BID #60 tab 06/30/19 Rx Patient History Medical History 24 weeks gestation of 36 weeks gestation of Abdominal cramping affecting , antepartum Adopted ASCUS with positive high risk HPV Gestational hypertension Gestational hypertension Irregular menstrual cycle Ovarian cyst with 36 completed weeks gestation Seizure seizures began at 13 weeks of and has had several through . Last seizure at 30 weeks. 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 Feels Safe at Home: Yes Smoking Status: Never smoker Second Hand Exposure: No ; Hx Alcohol Use: No Hx Substance Use: No Review of Systems Review of Systems: As per HPI Physical Exam Physical Exam: General: In NAD Neuro: A&O x 4, CN 2-12 intact, strength 5/5 bilateral upper and lower extremities, sensation intact bilateral upper and lower extremities, DTR bilateral knees 2+, gait normal Pulm: CTAB equal breath sounds bilaterally CV: RRR, no m/r/g Abdomen:+BS, no TTP in all quadrants LE: no LE edema, no calf TTP Results & Data Vital Signs (Past 12 Hours) Vital Signs Temp Pulse Resp BP 06/30/19 03:25 37.2 C 152 H 18 123/78 06/29/19 23:05 36.8 C 118 H 16 132/78 Laboratory Results Abnormal lab results 06/30/19 Range/Units 06:32 Hgb 9.6 L (12.0-16.0) g/dL Hct 29.2 L (37-47) % Resident Activity Tracking Resident Involvement: Resident Care Provided Care Provided: Adult Hospital Medicine
[2019-06-30] MEDS: MAGNESIUM OXIDE 400 MG TAB PO SCH (08:25)
[2019-06-30] MEDS: levETIRAcetam 250 MG TAB PO SCH (08:25)
[2019-06-30] MEDS: DOCUSATE SODIUM 100 MG CAP PO SCH (08:25)
[2019-06-30] MEDS: PRENATAL VITAMIN 1 TAB PO SCH (08:25)
[2019-06-30] MEDS ORDERED: lamoTRIgine 100 MG TAB PO SCH (09:15)
--- NOTE | 2019-06-30 09:56 | Obstetrical Progress Note ---
Date of Service June 30, 2019 Assessment & Plan (1) Status post normal vaginal delivery: Doing well. Would like d/c this evening. d/c instructions reviewed. (2) Seizure disorder during : lamictal 100mg bid, keppra 750mg bid, neuro will f/u on levels drawn today. Has f/u appt with kasia. Subjective Ambulation: ambulating normally Voiding: no voiding problems Passing Gas:: Yes Diet Tolerance:: regular diet Lochia:: Small Feeding Type:: breast feeding feeling great, has seen neurology and plan in place. Physical Exam Constitutional WD/WN, vitals as above Psychiatric A+Ox3, euthymic affect Results & Data Vital Signs (Past 12 Hours) Vital Signs Temp Pulse Resp BP 06/30/19 03:25 37.2 C 152 H 18 123/78 06/29/19 23:05 36.8 C 118 H 16 132/78
[2019-06-30] MEDS: IBUPROFEN 600 MG TAB PO PRN (13:38)
[2019-06-30] MEDS ORDERED: bisacodyL 5 MG TABEC PO SCH (20:00)
== END 2019-06-30 19:10 | disposition home or self-care (01) | DRG 806 ==
LOC: OPB 17:08 → 4S1 17:10 → 4S2 06-29 09:02

== ENCOUNTER 2020-07-15 18:53 | Inpatient (IN) ==
[2020-07-15] MEDS ORDERED: LORazepam 1 MG/2 ML VIAL IV STA ×2 (19:03→20:41)
[2020-07-15] MEDS ORDERED: LORazepam 2 MG/4 ML VIAL ONE (19:06)
[2020-07-15 19:15] LABS: Basophils # (auto) 0.03 K/uL (0-0.2); Basophils % (auto) 0.3 %; Eosinophils # (auto) 0.45 K/uL (0-0.5); Eosinophils % (auto) 5.2 %; Hematocrit (blood only) 40.1 % (37-47); Immature Granulocytes # (auto) 0.03 K/uL (0.00-0.02); Immature Granulocytes % (auto) 0.3 %; Lymphocytes # (auto) 2.51 K/uL (1.2-3.4); Lymphocytes % (auto) 28.9 %; Mean Corpuscular Hemoglobin 28.6 pg (25-34); Mean Corpuscular Hgb Conc 32.4 g/dL (32-36); Mean Corpuscular Volume 88.1 fL (80-100); Mean Platelet Volume 8.7 fL (7.4-10.4); Monocytes # (auto) 0.53 K/uL (0.11-0.59); Monocytes % (auto) 6.1 %; Neutrophils # (auto) 5.15 K/uL (1.4-6.5); Neutrophils % (auto) 59.2 %; Platelet Count 228 K/uL (130-400); RDW Coefficient of Variation 12.6 % (11.5-14.5); RDW Standard Deviation 40.4 fL (36.4-46.3); Red Blood Count 4.55 M/uL (4.2-5.4)
[2020-07-15] MEDS ORDERED: SODIUM CHLORIDE 0.9% 1000ML 1,000 ML IV SCH (19:15)
[2020-07-15 19:22] LABS: iSTAT Creatinine 0.8 mg/dl (0.6-1.3); iSTAT Hemoglobin 13.3 g/dl (12.0-16.0); iSTAT Ionized Calcium 1.25 mmol/l (1.12-1.32); iSTAT Potassium 4.1 mmol/L (3.3-5.0)
[2020-07-15] MEDS ORDERED: ACETAMINOPHEN 1,000 MG/100 ML VIAL IV STA (19:26)
--- NOTE | 2020-07-15 19:32 | CT Scan Report ---
CT OF THE HEAD WITHOUT CONTRAST CLINICAL HISTORY: fall, seizure COMPARISON STUDY: Head CT July 11, 2020. CT DOSE: 537.48 mGy.cm TECHNIQUE: Helical axial images of the head were obtained without IV contrast. Automated exposure con trol was utilized for the study. A dose lowering technique was utilized adhering to the principles o f ALARA. FINDINGS: No acute intracranial hemorrhage, midline shift or mass effect is present. The ventricular system is unremarkable. The basal cisterns are patent. No extra-axial collections are present. There are no findings to suggest acute dural sinus thrombosis or acute territorial infarct. No significant calvarial abnormalities are present. Visualized portions of the sinuses and mastoid air cells are liliana ar. IMPRESSION: 1. No acute intracranial findings. 2. No calvarial fracture. ACT 112: Negative or not required by law. Electronically signed by: Raul Dale M.D. 07/15/2020 7:30 PM
--- NOTE | 2020-07-15 19:33 | CT Scan Report ---
CT OF THE CERVICAL SPINE WITHOUT CONTRAST CLINICAL HISTORY: fall COMPARISON STUDY: CT of the cervical spine March 09, 2020. TECHNIQUE: Helical axial images of the cervical spine were obtained without IV contrast. Sagittal a nd coronal reconstructions were viewed. Automated exposure control was utilized for the study. A do se lowering technique was utilized adhering to the principles of ALARA. FINDINGS: Straightening of the normal cervical lordosis is again noted. Vertebral body heights are ma intained. No acute cervical spine fracture or subluxation is present. There is no prevertebral edema. Facet joints are intact. IMPRESSION: No acute cervical spine fracture or subluxation. ACT 112: Negative or not required by law. Electronically signed by: Raul Dale M.D. 07/15/2020 7:32 PM
[2020-07-15 19:35] LABS: Albumin Level 4.3 gm/dl (3.4-5.0); BUN Creatinine Ratio 17.6 (10-20); Calcium 9.3 mg/dl (8.5-10.1); Creatinine Clr Calc Pharmacy 124.2 ml/min; Est GFR (African American) 129.1; Est GFR (Non-African American) 111.3; Magnesium 2.3 mg/dl (1.8-2.4); Pregnancy Test, Serum Negative (Negative)
[2020-07-15 19:38] LABS: Albumin Globulin Ratio 1.2 (0.9-2); Bilirubin,Total 0.2 mg/dl (0.2-1); Globulin 3.6 gm/dl (2.5-4.0); Total Protein 7.9 gm/dl (6.4-8.2)
[2020-07-15 19:55] LABS: Appearance Urine Clear (Clear); Bilirubin Urine Negative (Negative); Blood Urine Negative (Negative); Color Urine Yellow; Glucose Urine UA Negative (Negative); Ketones Urine Negative (Negative); Leukocyte Esterase Urine Negative (Negative); Nitrite Urine Negative (Negative); Protein Urine Negative (Negative); Specific Gravity Urine 1.012 (1.000-1.030); Urobilinogen Urine Negative (Negative); pH Urine 7.5 (4.5-7.5)
[2020-07-15 20:15] LABS: Amphetamines+Metham, Urine Neg (Neg); Barbiturates, Urine Neg (Neg); Benzodiazepine, Urine Neg (Neg); Cocaine, Urine Neg (Neg); MDMA (Ecstacy), Urine Neg (Neg); Methadone, Urine Neg (Neg); Opiate, Urine Neg (Neg); Phencyclidine, Urine Neg (Neg)
[2020-07-15] MEDS ORDERED: KETOROLAC TROMETHAMINE 15 MG/ML VIAL IV ONE (20:29)
[2020-07-15] MEDS ORDERED: lamoTRIgine 100 MG TAB PO ONE (20:30)
--- NOTE | 2020-07-15 20:30 | Emergency Department Note ---
ED Provider Note Provider: Maxx Ibarra MD DATE OF SERVICE: 07/15/2020 CHIEF COMPLAINT: Seizures, fall HISTORY OF PRESENT ILLNESS: Patient is a 24-year-old female past medical history including iron deficiency anemia, migraines, and seizure disorder presenting with her today after a seizure event earlier today. Evidently as they were arriving in the ER parking lot patient stood to get out of the vehicle and had a brief generalized seizure event and fell to the ground striking her head. Immediately brought to room A1. Patient somewhat tense but no rhythmic shaking appreciated and she is nonverbal initially. After approximately a minute the patient does open her eyes and make eye contact but does not speak initially. Patient's provides majority of the history stating this afternoon about an hour prior to arrival patient had a brief less than 5-minute generalized seizure event. They were on their way here for further evaluation when the second event happened in the parking lot. Reports over the past week there is been several different events at home. Was seen in the emergency department this past for similar and discharged home. Patient reportedly has been taking her Lamictal. states he gave the patient little bit of her as needed Ativan last night when she had a spell and this helped with things. He also states the patient only takes her Abilify and Zoloft nightly. Patient later awakes here in the ER and has no recollection of what happened. She is unsure where she is at and thinks it is 2016. She does not know who her is aware that she has children. Does not remember recent visit here to the ER or other recent events. Patient was able to ambulate to the bedside commode however and was complaining of some head and neck and upper back discomfort. Patient has been does state that the patient seems to be having more episodes when there is increased stress and there is some stress at home with their 2 young children. REVIEW OF SYSTEMS: A total of 10 review of systems was obtained and negative except as stated above in the HPI. PAST MEDICAL HISTORY: As noted above MEDICATIONS: Reviewed home medications with the patient's , this currently includes Lamictal which states that the patient has been taking. SOCIAL HISTORY: lives at home with and 2 children. PHYSICAL EXAM: GENERAL: Patient with eyes closed lying on the stretcher not responding to verbal or painful stimuli initially. Head: normocephalic and atraumatic without any bleeding appreciated or significant swelling EYES: No injection, discharge or icterus. PERRL without significant gaze deviation appreciated. NECK: Trachea midline. Supple. ENT: Mucous membranes pink and moist. LUNGS: Airway patent. No retractions. Breath sounds clear HEART: Regular rate and rhythm. No chest wall tenderness ABDOMEN: Soft and non-tender, without guarding or rebound SKIN: Acyanotic, warm, dry, without rashes EXTREMITIES: Without swelling, tenderness or deformity NEUROLOGICAL: Initially her unresponsive to verbal or painful stimuli. No clonus appreciated. Later patient awakes follows commands and moves all extremities. Does have limitations regarding recent memory and thinks it is 2016. EK bpm sinus tachycardia. No PVC or PAC. No acute ST segment elevation or depression. QTC 455. CONTINUOUS CARDIAC MONITORING: was ordered and showed a heart rate of 80s to 110s bpm in normal sinus rhythm and sinus tachycardia GCS initially 3 but very quickly becomes 15. Patient's laboratory studies and imaging reviewed. Differential includes Infection, dehydration, metabolic abnormality, hypo/hyperglycemia, electrolyte disturbance, anemia, hypoxia, cardiac sources, intracerebral event, toxicologic, neurologic, as well as other pathologies. IMPRESSION/MEDICAL DECISION MAKING: Patient Etelvina presents possible seizure-like activity with a fall. CT head and cervical spine completed without acute traumatic injury noted. Chest x-ray without significant finding. Given some Ativan here although unclear if this was truly seizures no gaze preference or tonic-clonic motion noted. She quickly awakens and does not seem to have much of a postictal fatigue although si gnificant memory issues/amnesia presents itself. Evidently some history of this. Basic labs are complete without significant cytosis or electrolyte abnormality noted. No hypoglycemia. Negative . No evidence of UTI. Prior Covid in March recent positive test last week but negative Covid testing today. Patient does not appear meningitic and again is afebrile. Discussed with neurology on-call. They recommended additional dose of Lamictal for total of 600mg this evening and resuming [address] Hastings did not recommend additional AED be started. Patient's states she has had bad reactions to Keppra before and states they would not want this medication again. Given the multiple episodes, fall, and the current memory issues, neurology was in agreement the patient's not safe to go home. Patient had several brief episodes of blank stares here and I did give her a little bit additional Ativan. Patient complained of some pain in her head and was given some Tylenol and Toradol here as well as some pain in the upper back region. Doubt significant acute traumatic injury and chest x-ray without acute thoracic injury appreciated. Again was able to stand and utilize the bedside commode while here and was inquiring about food. Patient still not remembering her who is at bedside. Lamotrigine send out level pending. DIAGNOSIS: Fall, observed seizure-like activity, amnesia DISPOSITION: Hospitalist will evaluate Patient was agreeable with this plan. Impression & Plan Fall, Observed seizure-like activity, Amnesia Past Med/Surg History Medical History (Updated 07/16/20 @ 01:47 by Maxx Ibarra M.D.) Anemia CURRENT IRON TRANSFUSIONS Borderline high blood pressure PT REPORTS BLOOD PRESSURE RUNS ON HIGHER SIDE/NO MEDS Exercise-induced asthma Gestational hypertension HX OF History of anesthesia reaction WITH WISDOM TEETH: AGE 13-14 YR - HIGH FEVER AND VOMITING AFTER - NO FURTHER DETAILS, UNKNOWN FAMILY HX - PT ADOPTED Rapid heart beat PT REPORTS HEART RATE RUNS ON HIGHER SIDE / NO MEDS Seizure disorder during seizures began at 13 weeks of and had several through . Last seizure at 30 weeks. Was hospitalized for 1 week and went to rehab afterward for loss of movement on L side, ambulatory dysfunction. Brain MRI showed no evidence of CVA, symptoms of unknown etiology. Stable on lamictal. Surgical History History of colposcopy ULISSES 1 S/P wisdom tooth extraction Family History Other Adopted Family history unknown Social History Smoking Status: Never smoker Second Hand Exposure: No; Do You Dip or Chew Tobacco: No; Tobacco Cessation Education Requested by Patient: No Hx Alcohol Use: No Hx Substance Use: No Preferred Language: Mosotho Communication Ability: Effective Aboriginal Ceremonial Celebrant Required: No Beliefs That Will Affect Care: None marital status: marital status details: Abran Vargas (26) [phone] Current Living Situation: Other Current Living Situation Comment: has to live with parents due to seizure disorder at this time. 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 How many Children do You have: 1 Other Information That Helps Us Care for You: No Feels Safe at Home: Yes Assistive Devices: None Results & Data (ED) Vital Signs Vital Signs - 24 hr 07/15/20 18:56 07/15/20 19:00 07/15/20 19:01 Temperature Source Oral Pulse Rate 120 H 115 H 113 H Pulse Rate from SpO2 Sensor 118 H 113 H Pulse Rhythm Regular Pulse Strength Normal Respiratory Rate 18 Respiratory Effort / Characteristics Non-Labored Spontaneous Respiratory Depth Normal Respiratory Pattern Regular Blood Pressure 141/70 H 141/70 H Blood Pressure Mean 93 93 Blood Pressure Position Lying Pulse Oximetry 100 100 98 Oxygen Delivery Method Room Air Sepsis Recent Fever Within 48 Hours No Sepsis New/Unexplained Change in Mental Status No Sepsis Action Taken by Nursing No Action Required 07/15/20 19:22 07/15/20 19:30 07/15/20 20:00 Temperature Source Pulse Rate 83 85 95 H Pulse Rate from SpO2 Sensor 83 85 95 H Pulse Rhythm Pulse Strength Respiratory Rate 20 20 20 Respiratory Effort / Characteristics Respiratory Depth Respiratory Pattern Blood Pressure 142/74 H 138/77 120/75 Blood Pressure Mean 96 97 90 Blood Pressure Position Pulse Oximetry 97 97 98 Oxygen Delivery Method Sepsis Recent Fever Within 48 Hours Sepsis New/Unexplained Change in Mental Status Sepsis Action Taken by Nursing 07/15/20 20:15 07/15/20 20:30 07/15/20 20:45 Temperature Source Pulse Rate 95 H 92 H 100 H Pulse Rate from SpO2 Sensor 97 H 92 H 100 H Pulse Rhythm Pulse Strength Respiratory Rate 22 20 20 Respiratory Effort / Characteristics Respiratory Depth Respiratory Pattern Blood Pressure 137/79 133/81 132/85 Blood Pressure Mean 98 98 100 Blood Pressure Position Pulse Oximetry 98 96 97 Oxygen Delivery Method Sepsis Recent Fever Within 48 Hours Sepsis New/Unexplained Change in Mental Status Sepsis Action Taken by Nursing 07/15/20 21:00 07/15/20 21:15 07/15/20 21:30 Temperature Source Pulse Rate 88 98 H 94 H Pulse Rate from SpO2 Sensor 89 94 H Pulse Rhythm Pulse Strength Respiratory Rate 20 22 14 Respiratory Effort / Characteristics Respiratory Depth Respiratory Pattern Blood Pressure 131/80 124/77 Blood Pressure Mean 97 92 Blood Pressure Position Pulse Oximetry 96 96 Oxygen Delivery Method Sepsis Recent Fever Within 48 Hours Sepsis New/Unexplained Change in Mental Status Sepsis Action Taken by Nursing 07/15/20 21:34 07/15/20 22:00 07/15/20 22:30 Temperature Source Pulse Rate 102 H 87 89 Pulse Rate from SpO2 Sensor 102 H 89 89 Pulse Rhythm Pulse Strength Respiratory Rate 24 22 19 Respiratory Effort / Characteristics Respiratory Depth Respiratory Pattern Blood Pressure 123/84 122/76 116/68 Blood Pressure Mean 97 91 84 Blood Pressure Position Pulse Oximetry 97 98 97 Oxygen Delivery Method Sepsis Recent Fever Within 48 Hours Sepsis New/Unexplained Change in Mental Status Sepsis Action Taken by Nursing Laboratory Data Result diagrams: 07/15/20 19:00 07/15/20 19:00 Lab Results 07/15/20 07/15/20 07/15/20 Range/Units 19:00 19:00 19:00 WBC 8.70 (4.8-10.8) K/uL RBC 4.55 (4.2-5.4) M/uL Hgb 13.0 (12.0-16.0) g/dL POC Hgb (12.0-16.0) g/dl Hct 40.1 (37-47) % POC Hct (37-47) % MCV 88.1 (80-100) fL MCH 28.6 (25-34) pg MCHC 32.4 (32-36) g/dL RDW Std Deviation 40.4 (36.4-46.3) fL RDW Coeff of Jorge 12.6 (11.5-14.5) % Plt Count 228 (130-400) K/uL MPV 8.7 (7.4-10.4) fL Immature Gran % (Auto) 0.3 % Neut % (Auto) 59.2 % Lymph % (Auto) 28.9 % [place] % (Auto) 6.1 % Eos % (Auto) 5.2 % Baso % (Auto) 0.3 % Neut # (Auto) 5.15 (1.4-6.5) K/uL Lymph # (Auto) 2.51 (1.2-3.4) K/uL [place] # (Auto) 0.53 (0.11-0.59) K/uL Eos # (Auto) 0.45 (0-0.5) K/uL Baso # (Auto) 0.03 (0-0.2) K/uL Immature Gran # (Auto) 0.03 H (0.00-0.02) K/uL POC Sodium (135-144) mmol/L Sodium 139 (136-145) mmol/L POC Potassium (3.3-5.0) mmol/L Potassium 4.0 (3.5-5.1) mmol/L POC Chloride (101-112) mmol/L Chloride 104 (98-107) mmol/L Carbon Dioxide 30 (21-32) mmol/L POC Total CO2 (24-31) mmol/L Anion Gap 5.0 (3-11) POC Anion Gap (16-25) mmol/L POC BUN (7-18) mg/dl BUN 13 (7-18) mg/dl Creatinine 0.76 (0.6-1.2) mg/dl POC Creatinine (0.6-1.3) mg/dl Est Cr Clr Drug Dosing 124.2 ml/min Est GFR ( Amer) 129.1 Est GFR (Non-Af Amer) 111.3 BUN/Creatinine Ratio 17.6 (10-20) Glucose 95 (70-99) mg/dl POC Glucose (other) (70-99) mg/dl Lactate (0.4-2.0) mmol/L Calcium 9.3 (8.5-10.1) mg/dl POC Ioniz Calcium Kaur (1.12-1.32) mmol/l Magnesium 2.3 (1.8-2.4) mg/dl Total Bilirubin 0.2 (0.2-1) mg/dl AST 16 (15-37) U/L ALT 41 (12-78) U/L Alkaline Phosphatase 60 (45-117) U/L Total Protein 7.9 (6.4-8.2) gm/dl Albumin 4.3 (3.4-5.0) gm/dl Globulin 3.6 (2.5-4.0) gm/dl Albumin/Globulin Ratio 1.2 (0.9-2) Prolactin 11.27 ng/ml HCG, Qual (Negative) Urine Color Urine Appearance (Clear) Urine pH (4.5-7.5) Ur Specific [place] (1.000-1.030) Urine Protein (Negative) Urine Glucose (UA) (Negative) Urine Ketones (Negative) Urine Blood (Negative) Urine Nitrite (Negative) Urine Bilirubin (Negative) Urine Urobilinogen (Negative) Ur Leukocyte Esterase (Negative) Urine Opiates Screen (Neg) Ur Methadone, Qual (Neg) Urine Barbiturates (Neg) Ur Phencyclidine (PCP) (Neg) U Amphetamin/Meth Scrn (Neg) MDMA (Ecstasy) Screen (Neg) U Benzodiazepines Scrn (Neg) Ur Cocaine Metabolite (Neg) U Marijuana (THC) Screen (Neg) COVID-19 Eval Order SARS-CoV-2 (PCR) (Negative) Influenza Type A (PCR) (Neg) Influenza Type B (PCR) (Neg) RSV (RT-PCR) (Neg) 07/15/20 07/15/20 07/15/20 Range/Units 19:00 19:09 19:50 WBC (4.8-10.8) K/uL RBC (4.2-5.4) M/uL Hgb (12.0-16.0) g/dL POC Hgb 13.3 (12.0-16.0) g/dl Hct (37-47) % POC Hct 39 (37-47) % MCV (80-100) fL MCH (25-34) pg MCHC (32-36) g/dL RDW Std Deviation (36.4-46.3) fL RDW Coeff of Jorge (11.5-14.5) % Plt Count (130-400) K/uL MPV (7.4-10.4) fL Immature Gran % (Auto) % Neut % (Auto) % Lymph % (Auto) % [place] % (Auto) % Eos % (Auto) % Baso % (Auto) % Neut # (Auto) (1.4-6.5) K/uL Lymph # (Auto) (1.2-3.4) K/uL [place] # (Auto) (0.11-0.59) K/uL Eos # (Auto) (0-0.5) K/uL Baso # (Auto) (0-0.2) K/uL Immature Gran # (Auto) (0.00-0.02) K/uL POC Sodium 138 (135-144) mmol/L Sodium (136-145) mmol/L POC Potassium 4.1 (3.3-5.0) mmol/L Potassium (3.5-5.1) mmol/L POC Chloride 100 L (101-112) mmol/L Chloride (98-107) mmol/L Carbon Dioxide (21-32) mmol/L POC Total CO2 31 (24-31) mmol/L Anion Gap (3-11) POC Anion Gap 13.0 L (16-25) mmol/L POC BUN 13 (7-18) mg/dl BUN (7-18) mg/dl Creatinine (0.6-1.2) mg/dl POC Creatinine 0.8 (0.6-1.3) mg/dl Est Cr Clr Drug Dosing ml/min Est GFR ( Amer) Est GFR (Non-Af Amer) BUN/Creatinine Ratio (10-20) Glucose (70-99) mg/dl POC Glucose (other) 96 (70-99) mg/dl Lactate (0.4-2.0) mmol/L Calcium (8.5-10.1) mg/dl POC Ioniz Calcium Kaur 1.25 (1.12-1.32) mmol/l Magnesium (1.8-2.4) mg/dl Total Bilirubin (0.2-1) mg/dl AST (15-37) U/L ALT (12-78) U/L Alkaline Phosphatase (45-117) U/L Total Protein (6.4-8.2) gm/dl Albumin (3.4-5.0) gm/dl Globulin (2.5-4.0) gm/dl Albumin/Globulin Ratio (0.9-2) Prolactin ng/ml HCG, Qual Negative (Negative) Urine Color Yellow Urine Appearance Clear (Clear) Urine pH 7.5 (4.5-7.5) Ur Specific [place] 1.012 (1.000-1.030) Urine Protein Negative (Negative) Urine Glucose (UA) Negative (Negative) Urine Ketones Negative (Negative) Urine Blood Negative (Negative) Urine Nitrite Negative (Negative) Urine Bilirubin Negative (Negative) Urine Urobilinogen Negative (Negative) Ur Leukocyte Esterase Negative (Negative) Urine Opiates Screen (Neg) Ur Methadone, Qual (Neg) Urine Barbiturates (Neg) Ur Phencyclidine (PCP) (Neg) U Amphetamin/Meth Scrn (Neg) MDMA (Ecstasy) Screen (Neg) U Benzodiazepines Scrn (Neg) Ur Cocaine Metabolite (Neg) U Marijuana (THC) Screen (Neg) COVID-19 Eval Order SARS-CoV-2 (PCR) (Negative) Influenza Type A (PCR) (Neg) Influenza Type B (PCR) (Neg) RSV (RT-PCR) (Neg) 07/15/20 07/15/20 07/15/20 Range/Units 19:50 20:45 20:45 WBC (4.8-10.8) K/uL RBC (4.2-5.4) M/uL Hgb (12.0-16.0) g/dL POC Hgb (12.0-16.0) g/dl Hct (37-47) % POC Hct (37-47) % MCV (80-100) fL MCH (25-34) pg MCHC (32-36) g/dL RDW Std Deviation (36.4-46.3) fL RDW Coeff of Jorge (11.5-14.5) % Plt Count (130-400) K/uL MPV (7.4-10.4) fL Immature Gran % (Auto) % Neut % (Auto) % Lymph % (Auto) % [place] % (Auto) % Eos % (Auto) % Baso % (Auto) % Neut # (Auto) (1.4-6.5) K/uL Lymph # (Auto) (1.2-3.4) K/uL [place] # (Auto) (0.11-0.59) K/uL Eos # (Auto) (0-0.5) K/uL Baso # (Auto) (0-0.2) K/uL Immature Gran # (Auto) (0.00-0.02) K/uL POC Sodium (135-144) mmol/L Sodium (136-145) mmol/L POC Potassium (3.3-5.0) mmol/L Potassium (3.5-5.1) mmol/L POC Chloride (101-112) mmol/L Chloride (98-107) mmol/L Carbon Dioxide (21-32) mmol/L POC Total CO2 (24-31) mmol/L Anion Gap (3-11) POC Anion Gap (16-25) mmol/L POC BUN (7-18) mg/dl BUN (7-18) mg/dl Creatinine (0.6-1.2) mg/dl POC Creatinine (0.6-1.3) mg/dl Est Cr Clr Drug Dosing ml/min Est GFR ( Amer) Est GFR (Non-Af Amer) BUN/Creatinine Ratio (10-20) Glucose (70-99) mg/dl POC Glucose (other) (70-99) mg/dl Lactate (0.4-2.0) mmol/L Calcium (8.5-10.1) mg/dl POC Ioniz Calcium Kaur (1.12-1.32) mmol/l Magnesium (1.8-2.4) mg/dl Total Bilirubin (0.2-1) mg/dl AST (15-37) U/L ALT (12-78) U/L Alkaline Phosphatase (45-117) U/L Total Protein (6.4-8.2) gm/dl Albumin (3.4-5.0) gm/dl Globulin (2.5-4.0) gm/dl Albumin/Globulin Ratio (0.9-2) Prolactin ng/ml HCG, Qual (Negative) Urine Color Urine Appearance (Clear) Urine pH (4.5-7.5) Ur Specific [place] (1.000-1.030) Urine Protein (Negative) Urine Glucose (UA) (Negative) Urine Ketones (Negative) Urine Blood (Negative) Urine Nitrite (Negative) Urine Bilirubin (Negative) Urine Urobilinogen (Negative) Ur Leukocyte Esterase (Negative) Urine Opiates Screen Neg (Neg) Ur Methadone, Qual Neg (Neg) Urine Barbiturates Neg (Neg) Ur Phencyclidine (PCP) Neg (Neg) U Amphetamin/Meth Scrn Neg (Neg) MDMA (Ecstasy) Screen Neg (Neg) U Benzodiazepines Scrn Neg (Neg) Ur Cocaine Metabolite Neg (Neg) U Marijuana (THC) Screen Neg (Neg) COVID-19 Eval Order CovFluRsv at [facility] SARS-CoV-2 (PCR) NEGATIVE (Negative) Influenza Type A (PCR) Negative (Neg) Influenza Type B (PCR) Negative (Neg) RSV (RT-PCR) Negative (Neg) 07/15/20 Range/Units 20:55 WBC (4.8-10.8) K/uL RBC (4.2-5.4) M/uL Hgb (12.0-16.0) g/dL POC Hgb (12.0-16.0) g/dl Hct (37-47) % POC Hct (37-47) % MCV (80-100) fL MCH (25-34) pg MCHC (32-36) g/dL RDW Std Deviation (36.4-46.3) fL RDW Coeff of Jorge (11.5-14.5) % Plt Count (130-400) K/uL MPV (7.4-10.4) fL Immature Gran % (Auto) % Neut % (Auto) % Lymph % (Auto) % [place] % (Auto) % Eos % (Auto) % Baso % (Auto) % Neut # (Auto) (1.4-6.5) K/uL Lymph # (Auto) (1.2-3.4) K/uL [place] # (Auto) (0.11-0.59) K/uL Eos # (Auto) (0-0.5) K/uL Baso # (Auto) (0-0.2) K/uL Immature Gran # (Auto) (0.00-0.02) K/uL POC Sodium (135-144) mmol/L Sodium (136-145) mmol/L POC Potassium (3.3-5.0) mmol/L Potassium (3.5-5.1) mmol/L POC Chloride (101-112) mmol/L Chloride (98-107) mmol/L Carbon Dioxide (21-32) mmol/L POC Total CO2 (24-31) mmol/L Anion Gap (3-11) POC Anion Gap (16-25) mmol/L POC BUN (7-18) mg/dl BUN (7-18) mg/dl Creatinine (0.6-1.2) mg/dl POC Creatinine (0.6-1.3) mg/dl Est Cr Clr Drug Dosing ml/min Est GFR ( Amer) Est GFR (Non-Af Amer) BUN/Creatinine Ratio (10-20) Glucose (70-99) mg/dl POC Glucose (other) (70-99) mg/dl Lactate 0.9 (0.4-2.0) mmol/L Calcium (8.5-10.1) mg/dl POC Ioniz Calcium Kaur (1.12-1.32) mmol/l Magnesium (1.8-2.4) mg/dl Total Bilirubin (0.2-1) mg/dl AST (15-37) U/L ALT (12-78) U/L Alkaline Phosphatase (45-117) U/L Total Protein (6.4-8.2) gm/dl Albumin (3.4-5.0) gm/dl Globulin (2.5-4.0) gm/dl Albumin/Globulin Ratio (0.9-2) Prolactin ng/ml HCG, Qual (Negative) Urine Color Urine Appearance (Clear) Urine pH (4.5-7.5) Ur Specific [place] (1.000-1.030) Urine Protein (Negative) Urine Glucose (UA) (Negative) Urine Ketones (Negative) Urine Blood (Negative) Urine Nitrite (Negative) Urine Bilirubin (Negative) Urine Urobilinogen (Negative) Ur Leukocyte Esterase (Negative) Urine Opiates Screen (Neg) Ur Methadone, Qual (Neg) Urine Barbiturates (Neg) Ur Phencyclidine (PCP) (Neg) U Amphetamin/Meth Scrn (Neg) MDMA (Ecstasy) Screen (Neg) U Benzodiazepines Scrn (Neg) Ur Cocaine Metabolite (Neg) U Marijuana (THC) Screen (Neg) COVID-19 Eval Order SARS-CoV-2 (PCR) (Negative) Influenza Type A (PCR) (Neg) Influenza Type B (PCR) (Neg) RSV (RT-PCR) (Neg) Administered Medications Discontinued Medications Sodium Chloride (Nss 1000ml) 1,000 mls @ 999 mls/hr IV .[id number] Stop: 07/15/20 20:15 Last Infusion: 07/15/20 19:45 Dose: 0 mls/hr Documented by: [id number] Admin: 07/15/20 19:06 Dose: 999 mls/hr Documented by: [id number] Lorazepam (Ativan) 1 mg in 2 mls @ 2 mls/min IV NOW STA Stop: 07/15/20 19:04 Last Admin: 07/15/20 19:08 Dose: 2 mls/min Documented by: [id number] Acetaminophen (Ofirmev) 1,000 mg in 100 mls @ 400 mls/hr IV NOW STA Stop: 07/15/20 19:40 Last Infusion: 07/15/20 19:44 Dose: 0 mls/hr Documented by: [id number] Admin: 07/15/20 19:32 Dose: 400 mls/hr Documented by: [id number] Lorazepam (Ativan) 1 mg in 2 mls @ 2 mls/min IV NOW STA Stop: 07/15/20 20:42 Last Admin: 07/15/20 20:44 Dose: 2 mls/min Documented by: [id number] Ketorolac Tromethamine (Ketorolac Tromethamine 15 Mg/Ml Vial) 10 mg IV NOW ONE Stop: 07/15/20 20:30 Last Admin: 07/15/20 20:55 Dose: 10 mg Documented by: [id number] Lamotrigine (Lamotrigine 100 Mg Tab) 600 mg PO ONCE ONE Stop: 07/15/20 20:31 Last Admin: 07/15/20 21:01 Dose: 600 mg Documented by: [id number] Lorazepam (Lorazepam 2 Mg/4 Ml Vial) Confirm Administered Dose 2 mg .ROUTE .STK- MED ONE Stop: 07/15/20 19:07 Last Admin: 07/15/20 19:29 Dose: Not Given Documented by: [id number] Imaging Data Radiologist's Impression: Head CT 07/15/20 19:03 CT OF THE HEAD WITHOUT CONTRAST CLINICAL HISTORY: fall, seizure COMPARISON STUDY: Head CT July 11, 2020. CT DOSE: 537.48 mGy.cm TECHNIQUE: Helical axial images of the head were obtained without IV contrast. Automated exposure control was utilized for the study. A dose lowering technique was utilized adhering to the principles of ALARA. FINDINGS: No acute intracranial hemorrhage, midline shift or mass effect is present. The ventricular system is unremarkable. The basal cisterns are patent. No extra-axial collections are present. There are no findings to suggest acute dural sinus thrombosis or acute territorial infarct. No significant calvarial ab normalities are present. Visualized portions of the sinuses and mastoid air cells are clear. IMPRESSION: 1. No acute intracranial findings. 2. No calvarial fracture. ACT 112: Negative or not required by law. Electronically signed by: Raul Dale M.D. 07/15/2020 7:[address] 07/15/20 19:14 CT OF THE CERVICAL SPINE WITHOUT CONTRAST CLINICAL HISTORY: fall COMPARISON STUDY: CT of the cervical spine March 09, 2020. TECHNIQUE: Helical axial images of the cervical spine were obtained without IV contrast. Sagittal and coronal reconstructions were viewed. Automated exposure control was utilized for the study. A dose lowering technique was utilized adhering to the principles of ALARA. FINDINGS: Straightening of the normal cervical lordosis is again noted. Vertebral body heights are maintained. No acute cervical spine fracture or subluxation is present. There is no prevertebral edema. Facet joints are intact. IMPRESSION: No acute cervical spine fracture or subluxation. ACT 112: Negative or not required by law. Electronically signed by: Raul Dale M.D. 07/15/2020 7:32 PM Discharge Plan Visit Data Chief Complaint: Unresponsive Stated Complaint: SEIZURES-FELL ED Provider: Maxx Ibarra Discharge Problem: Fall, Observed seizure-like activity, Amnesia Patient Disposition: Admitted As Inpatient Discharge Instructions Interventions: ED Discharge Assessment Last Done: 07/16/20 00:12 Discharge Problem: Fall Qualifiers: Encounter type: initial encounter Qualified Code(s): W19.XXXA - Unspecified fall, initial encounter
[2020-07-15 21:45] LABS: Influenza A virus by PCR Negative (Neg); Influenza B virus by PCR Negative (Neg); RSV by PCR Negative (Neg); SARS CoV2 RNA(COVID-19) InHosp NEGATIVE (Negative)
--- NOTE | 2020-07-15 22:56 | History & Physical Report ---
Date of Service July 15, 2020 Assessment & Plan Admission and Anticipated Discharge Date Admission Date: 24 yo F w/ pMHx. of gestational HTN, migraine with aura, depression, and COVID-19 infection in March, and Epilepsy with worsening of seizure like activity since potentially associated with decreased medication compliance prior to this; no signs of infection or other precipitating events with negative Tox. screen and no significant electrolyte abnormalities. - admit to med/surg tele - EEG ordered routine - Neurology consulted (Dr. Ibarra) - obtain records from Neurology at [facility] - HIM request routine ordered - f/u pending Lamotrigine level - Ativan 1 mg IV PRN for seizure Q10M up to 5mg available - Continue Lamotrigine at home dose, consider increasing dose vs. restarting Keppra Fall, likely 2/2 event - with no acute finding on CT head and neck - continue to monitor Migraine w/o aura; increased frequency - home Sumatriptan available Depression - continue home Abilify and Sertraline Anemia H&H stable at 13&40 - continue to monitor w/ AM CBC Patient endorses palpitations, unclear cause - monitor on tele COVID-19 infection in March with + test on 07/12 (potentially false +) and negative test today - has been vaccinated - NTD DVT: ambulation Diet: regular Code: full History of Present Illness Chief Complaint: increased seizure like activity Primary Care Provider: Jas Vo Jr, Nicol Vargas is here with her for increased seizure like activity since 07/12. She developed seizures in 2019 her first seizure was with her second child. She was not able to remember the recent or prior events/episodes so her provided the history. Her Neurologist is Dr. Ibarra, She was seen in April with the plan to decrease her dose of Keppra and for evaluation at [facility] through [facility] at EMU. Per she was stopped on Keppra and just on Lamotrigine since April and was not having any seizure like activity. Then on she came to the ER after she fainted. She woke up and then she was found again on her back and had seizure like activity including while on the ambulance. She was slow to come back and was not able to remember anything from the event. Thursday she had generalized seizure like activity in bed, went back to sleep and was "fine" the next day. Today she was at their parents house when she had 1-1.5 minutes of unresponsiveness. They decided to come to the hospital to get evaluated. They were in the parking lot of the ER when she had an unwitnessed fall while getting out of the car and was found on her back. It is not clear if she hit her head. There have been no recent changes in her medications over the last few weeks, but prior to she had been forgetting to take her morning dose of her Lamotrigine. ED course: given Ativan 1mg X2 and 2mg given Lamotrigine 600 mg Social: no tobacco use no ETOH use no recreational drug use Allergies Allergy/AdvReac Type Severity Reaction Status Date / Time PAIN MEDICINES AdvReac Unknown "I FLIP Uncoded 07/15/20 20:00 OUT, ANXIOUS AND CRYING" Home Medications Medication Instructions Recorded Confirmed Type Iron Transfusions 1 dose UD PRN 09/07/19 07/15/20 History aripiprazole 20 mg PO HS 03/09/20 07/15/20 History albuterol sulfate 2 puff INHALATION QID PRN 03/14/20 07/15/20 History lorazepam [Ativan] 0.5 - 1 mg PO Q6 PRN 03/14/20 07/15/20 History lamotrigine 150 mg tablet 300 mg PO BID 30 Days #120 tab 04/12/20 07/15/20 Rx sumatriptan succinate 25 mg tablet See Rx Instructions PO .COMPLEX #8 04/12/20 07/15/20 Rx tab sertraline 100 mg PO DAILY 07/11/20 07/15/20 History Past Med/Surg History Medical History (Updated 07/17/20 @ 12:14 by Minoo Bolanos MD) Anemia CURRENT IRON TRANSFUSIONS Borderline high blood pressure PT REPORTS BLOOD PRESSURE RUNS ON HIGHER SIDE/NO MEDS Exercise-induced asthma Gestational hypertension HX OF History of anesthesia reaction WITH WISDOM TEETH: AGE 13-14 YR - HIGH FEVER AND VOMITING AFTER - NO FURTHER DETAILS, UNKNOWN FAMILY HX - PT ADOPTED Rapid heart beat PT REPORTS HEART RATE RUNS ON HIGHER SIDE / NO MEDS Seizure disorder during seizures began at 13 weeks of and had several through . Last seizure at 30 weeks. Was hospitalized for 1 week and went to rehab afterward for loss of movement on L side, ambulatory dysfunction. Brain MRI showed no evidence of CVA, symptoms of unknown etiology. Stable on lamictal. 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 How many Children do You have: 1 Other Information That Helps Us Care for You: No Feels Safe at Home: Yes Assistive Devices: None Review of Systems Review of Systems: Constitutional: denies fevers, weight change admits nausea Head: admits LOC, worsening headaches, confusion and vision changes (admits difficulty reading) neurologic: denies focal weakness ENT: admits stuffiness (relates to seasonal allergies) denies sneezing, sore throat Cardiac: denies chest pain, admits palpitations Pulm.: denies cough, shortness of breath GI: denies diarrhea, constipation, abdominal pain Gu: denies urinary pain, increased frequency Physical Exam Constitutional: lying in bed, with bag in front of her, occasionally yawning Eyes: PERRL, conjunctivae normal, anicteric sclerae ENMT: external ear and nose normal, oropharynx normal Neck: normal visual inspection Respiratory: normal respiratory effort, lungs clear to auscultation Cardiovascular: RRR, no murmur, no edema Gastrointestinal (Abdomen): normal bowel sounds, slightly tender to palpation in the left upper and lower quadrant soft, no masses appreciated Musculoskeletal: Tender to palpation of the occiput, with no bruising or hematoma appreciated tender to palpation of the right paraspinal muscles, no pain on cervical spinal process Skin: no rashes, warm and dry Neurologic: + confused Speech / Cognition: normal speech Motor/Sensory: no tremor no facial palsy poor tracking able to hear better in R>L otherwise CN intact Psychiatric: Orientation: alert Eye Contact: + fair eye contact Affect: + depressed affect Thought Process: linear/logical thought process Results & Data Results & Data ([facility]) Vital Signs (Past 12 Hours) Vital Signs Pulse Resp BP Pulse Ox 07/15/20 21:34 102 H 24 123/84 97 07/15/20 21:30 94 H 14 96 07/15/20 21:15 98 H 22 124/77 07/15/20 21:00 88 20 131/80 96 07/15/20 20:45 100 H 20 132/85 97 07/15/20 20:30 92 H 20 133/81 96 07/15/20 20:15 95 H 22 137/79 98 07/15/20 20:00 95 H 20 120/75 98 07/15/20 19:30 85 20 138/77 97 07/15/20 19:22 83 20 142/74 H 97 07/15/20 19:01 113 H 98 07/15/20 19:00 115 H 18 141/70 H 100 07/15/20 18:56 120 H 141/70 H 100 CBC Results Results Complete Blood Count Results: RBC 4.58 M/uL (4.2-5.4) 07/16/20 WBC 7.70 K/uL (4.8-10.8) 07/16/20 Hgb 13.2 g/dL (12.0-16.0) 07/16/20 Hct 40.5 % (37-47) 07/16/20 Plt Count 208 K/uL (130-400) 07/16/20 Chemistry (BMP) Results BMP Results: Sodium 140 mmol/L (136-145) 07/17/20 Potassium 3.7 mmol/L (3.5-5.1) 07/17/20 Chloride 109 mmol/L (98-107) H 07/17/20 BUN 8 mg/dl (7-18) 07/17/20 Creatinine 0.64 mg/dl (0.6-1.2) 07/17/20 Glucose 110 mg/dl (70-99) H 07/17/20 Supervising Physician Co-Signing Physician Notes Attending addendum: I have physically seen this patient, have supervised the medical residents activities, and agree with the H&P unless as otherwise noted. Assessment and Plan: Seizure-like activity- Plan overnight per neurology Dr. Hastings covering for her neurologist Dr. Ibarra is to increase lamotrigine. EEG in a.m. MRI brain in a.m. Obtain [facility] neurology records Follow on med surge telemetry for possible arrhythmia as cause Depression- Continue home dosing of Abilify and sertraline No suggestion of serotonin syndrome Remaining orders and notations as noted Resident Activity Tracking Resident Involvement: Resident Care Provided Care Provided: Adult Hospital Medicine
[2020-07-16] MEDS ORDERED: POLYETHYLENE (MIRALAX) 17 GM PACK PO PRN (00:41)
[2020-07-16] MEDS ORDERED: SUMAtriptan succinate 25 MG TAB PO PRN (00:41)
[2020-07-16] MEDS ORDERED: ALBUTEROL HFA 8 GM INHALER INH PRN (00:41)
[2020-07-16] MEDS ORDERED: ONDANSETRON INJ 2 MG/ML 2 ML VIAL IV PRN (00:41)
[2020-07-16] MEDS ORDERED: SERTRALINE HCL 100 MG TABLET PO SCH ×2 (01:25→09:00)
[2020-07-16] MEDS: LORazepam 1 MG/2 ML VIAL IV PRN (05:33)
[2020-07-16] MEDS: ACETAMINOPHEN 325 MG TAB PO PRN ×3 (05:46→14:33)
[2020-07-16] MEDS: ARIPiprazole 10 MG TAB PO SCH (05:47)
[2020-07-16] MEDS ORDERED: Nursing to Pharmacy Communication SCH (06:00)
[2020-07-16] MEDS ORDERED: VANCOMYCIN CONSULT ACTIVE PRN (06:28)
[2020-07-16] MEDS ORDERED: cefTRIAXone SODIUM 2,000 MG in DEXTROSE 5% 50 ML IV SCH (06:30)
[2020-07-16] MEDS ORDERED: VANCOMYCIN HCL 1,250 MG in SODIUM CHLORIDE 0.9% 500 ML IV SCH (06:30)
[2020-07-16] MEDS ORDERED: VANCOMYCIN HCL 2,250 MG in SODIUM CHLORIDE 0.9% 500 ML IV STA (06:41)
[2020-07-16] MEDS ORDERED: CYCLOBENZAPRINE HCL 10 MG TAB PO STA ×2 (06:57→23:48)
[2020-07-16] MEDS ORDERED: CYCLOBENZAPRINE HCL 10 MG TAB PO ONE (07:00)
[2020-07-16] MEDS: DEXTROSE 5% IV SCH ×2 (07:13→13:54)
[2020-07-16] MEDS: ACYCLOVIR SOD IV SCH ×2 (07:13→13:54)
[2020-07-16] MEDS: dexAMETHasone 10 MG in SYRINGE 0 ML IV SCH ×2 (07:14→12:35)
--- NOTE | 2020-07-16 07:34 | XRay Report ---
XR chest 1V portable HISTORY: fall, seizure COMPARISON: Chest 03/09/2020. FINDINGS: The lungs are clear. Cardiac silhouette is normal in size. No pleural effusions. No pneumot horax. IMPRESSION: No acute process. ACT 112: Negative or not required by law. Electronically signed by: Rikki Mendiola M.D. 07/16/2020 7:33 AM
[2020-07-16] MEDS: lamoTRIgine 100 MG TAB PO SCH (08:31)
[2020-07-16 09:48] LABS: Basophils # (auto) 0.01 K/uL (0-0.2); Basophils % (auto) 0.1 %; Eosinophils # (auto) 0.22 K/uL (0-0.5); Eosinophils % (auto) 2.9 %; Hematocrit (blood only) 40.5 % (37-47); Hemoglobin 13.2 g/dL (12.0-16.0); Immature Granulocytes # (auto) 0.03 K/uL (0.00-0.02); Immature Granulocytes % (auto) 0.4 %; Lymphocytes # (auto) 1.14 K/uL (1.2-3.4); Lymphocytes % (auto) 14.8 %; Mean Corpuscular Hemoglobin 28.8 pg (25-34); Mean Corpuscular Hgb Conc 32.6 g/dL (32-36); Mean Corpuscular Volume 88.4 fL (80-100); Mean Platelet Volume 8.9 fL (7.4-10.4); Monocytes # (auto) 0.11 K/uL (0.11-0.59); Monocytes % (auto) 1.4 %; Neutrophils # (auto) 6.19 K/uL (1.4-6.5); Neutrophils % (auto) 80.4 %; Platelet Count 208 K/uL (130-400); RDW Coefficient of Variation 12.6 % (11.5-14.5); RDW Standard Deviation 40.1 fL (36.4-46.3); Red Blood Count 4.58 M/uL (4.2-5.4)
--- NOTE | 2020-07-16 10:10 | Pharmacy Report ---
Pharmacy Abx Initial Consult - Date of Service July 16, 2020 - Pharmacy Dosing Scope Date of Consult: 07/16/20 Consultation requested by: Dr. Montejo Pharmacy is consulted to initiate vancomycin IV dosing therapy, order appropriate labs and adjust drug dose/frequency. - Subjective The patient is a 24 year old F admitted on 07/15/20 22:44. - Objective Height: 5 ft 3 in Weight: 87.3 kg Vital Signs (Past 12hrs): Vital Signs Temp Pulse Pulse Resp BP BP Pulse Ox 07/16/20 09:38 104 H 07/16/20 08:26 36.4 C L 115 H 16 123/77 95 07/16/20 00:00 90 19 105/53 L 96 07/15/20 23:00 90 19 128/65 96 07/15/20 22:30 89 19 116/68 97 07/15/20 22:00 88 22 122/76 98 Lab Results (24hrs): Laboratory Tests (24 Hours) 07/16/20 07/15/20 07/15/20 09:39 19:00 19:00 WBC 7.70 8.70 Neut # (Auto) 6.19 5.15 Creatinine 0.76 Est Cr Clr Drug Dosing 124.2 Micro Results: 07/16/20 09:39 Aerobic Blood Culture - Pending Blood Anaerobic Blood Culture - Pending - Assessment & Plan Assessment 24 year old F ordered empiric vancomycin, ceftriaxone, and acyclovir for concern for bacterial meningitis. Patient has significantly neurologic history, including migraine with aura and epilepsy (recent worsening of seizure activity). Renal function intact, no overt leukocytosis, and patient afebrile. LP ordered, blood cultures ordered and pending. Empiric broad spectrum antibiotics appropriate at this time. Plan Vancomycin IV * Loading dose: 2250 mg (25 mg/kg) * Maintenance dose: 1500 mg IV (17 mg/kg) every 8 hours * Goal trough level for meningitis : 15 to 20 mcg/mL * Trough level ordered for 07/17/20 (prior to steady state in light of aggressive dosing) Ceftriaxone IV * 2 g IV q12h appropriate at this time given concern for meningitis Acyclovir IV * 525 mg (10 mg/kg based on IBW) IV q8h - appropriate Pharmacy will continue to follow and will adjust dose/frequency as necessary. Thank you.
[2020-07-16 10:32] LABS: Calcium 8.4 mg/dl (8.5-10.1); Creatinine Clr Calc Pharmacy 123.3 ml/min; Est GFR (African American) 131.1; Est GFR (Non-African American) 113.1; Potassium 4.1 mmol/L (3.5-5.1)
--- NOTE | 2020-07-16 11:48 | Fluoroscopy Report ---
FLUOROSCOPICALLY GUIDED LUMBAR PUNCTURE CLINICAL HISTORY: meningeal signs FLUOROSCOPY TIME: 0.3 minutes NUMBER OF FLUOROSCOPIC IMAGES: 2 PROCEDURE: The procedure, risks and benefits were discussed with the patient including the risk of s kelsi headache, bleeding and infection. The patient agreed to the procedure and informed written cons ent was obtained. The procedure was performed by Dr. Dale following a timeout. The right L4-L5 i nterlaminar space was targeted. Skin overlying the space was prepped and draped in sterile fashion an d local anesthesia was achieved with 1% lidocaine. Under intermittent fluoroscopic guidance, a 5 inch , 22-gauge spinal needle was directed into the thecal sac with immediate return of clear cerebrospina l fluid. A total of 8 cc of CSF was collected in 4 vials and sent to the laboratory as ordered. The n eedle was removed. The patient tolerated the procedure well and no immediate complications were evide nt. IMPRESSION: Successful fluoroscopically guided lumbar puncture with collection of 8 cc of clear cereb rospinal fluid which was sent to the laboratory for analysis as ordered. ACT 112: Negative or not required by law. Electronically signed by: Raul Dale M.D. 07/16/2020 11:46 AM
[2020-07-16 12:02] LABS: Appearance CSF Clear; CSF Count Tube # 3; CSF Xanthrochromic No xanthochromia; Color CSF Colorless; Red Blood Cell CSF (A) 0 /uL (0-); Red Blood Cell CSF (B) 0 /uL (0-); White Blood Cell CSF (B) 0 /uL (0-5)
[2020-07-16 12:03] LABS: White Blood Cell CSF (A) 0 /uL (0-5)
[2020-07-16 12:06] LABS: CSF Chemistry Tube # 1
[2020-07-16 12:08] LABS: CSF Glucose 61 mg/dl (40-70); Total Protein CSF 78.8 mg/dl (15-45)
--- NOTE | 2020-07-16 12:37 | Medical Student Progress Note ---
Date of Service July 16, 2020 Assessment & Plan (1) Epilepsy: Pt with pmhx of seizures, migraine with aura, iron deficiency anemia, depression, and Covid positive status in presenting with progressive seizure-like episodes with 2 distinct characteristics with new memory loss/amnesia. She had 2 within 24hrs period since last . No tongue biting, bowel/urinary incontinence, and afebrile. 1. Seizure-like episodes - 07/15 CT head with no intracranial findings - 07/16 labs: Lamcital level 3.7. U/A unremarkable. - Pt reports new memory loss after seizures suspect it is related..... - continue lamotrigine 300mg BID and lorazepam 1mg in 2ml PRN - oonsult neurology 2. Meningitic symptoms - Overnight, pt reports back and neck pain - need to r/o meningitis. Given empiric vancomycin, ceftriaxone, acyclovir, and dexamethasone - LP this AM, waiting results. - ordered HSV and Lyme PCR - awaiting blood culture - awaiting CSF culture and stain 3. Falls - 2 falls within 5 days. Had one last and one Thursday, both where she fell on her back. - b/l hip, back, and neck pain. Suspect MSK etiology given response to Tylenol and cyclobenzaprine and that in history, it was mentioned that pt typically has neck pain after seizure-like episodes. - 07/15 CT Cspine showing no fracture. - continue Tylenol 650mg PO 4. Migraine with aura - reports PEREZ with no photophobia, phonophobia, or N/V. Does have suboccipital tenderness - continue sumatriptan 25mg 5. Depression - continue home med of sertraline 100mg daily and apriprazole 20mg 6. Iron Deficiency Anemia - Hgb 13.2, MCV 88.4 (2) Fall: Encounter type: initial encounter Qualified Code(s): W19.XXXA - Unspecified fall, initial encounter (3) Amnesia: (4) Iron deficiency anemia: (5) Migraine without aura and responsive to treatment: Admission and Anticipated Discharge Date Admission Date: July 15, 2020 Supervising Attestation I personally examined the patient and verified all li points of history and exam, discussed case, and agree with decision making with Berta Goddard MS4 Subjective Pt with pmhx of seizures with 2 overnight seizure-like episodes, one at 00:00 with eye fixation and blank stare and another at 5:30 with full body shakes. Both lasted <5mins. No tongue biting or no bowel/bladder incontinence. She does drool during episodes. Previously, patient has had two types of seizures, one where she "faints" and one where she gets full body shakes. Last seizure-like episode was in April, none since then. They visited [facility] in April and had provoked seizure testing. They recommended that she be taken off Keppra and continue Lamcital. believes that stress contributory as she doesn't handle stress well. She is stay at home with 2 kids, age 1 and 3 years old. Lost one grandparent 1 month ago. She is always tired and needs 10-12hrs and can take a nap anytime. They were in [place] last week to buy a boat. Last when she had her first seizure-like episode, they were fishing that day. reports that pt's memory is 7 years behind. She is unable to recognize him, but occasionally will remember their kids. He reports that last night she had a dream that was an actual memory about their chickens. Today pt reports PEREZ with no photophobia or phonophobia, N/V. She has mid-sternal pain related to sternal rubs given overnight. Given Tylenol with relief. No chest pain. Pt has had 2 falls since last both where she fell on her back. She reports neck, hip, and back pain. She typically gets neck pain after a seizure-like episode. Review of Systems Constitutional: + body aches; no fever and no chills Respiratory: no cough, no dyspnea and no wheezing Cardiovascular: no chest pain Gastrointestinal: no abdominal pain Genitourinary: no dysuria Musculoskeletal: + back pain and + neck pain; no muscle weakness Integumentary: no rash Neurologic: + headache(s) Physical Exam Constitutional: cooperative Respiratory: normal respiratory effort, lungs clear to auscultation Cardiovascular: RRR, no murmur, no edema Skin: no rashes, warm and dry Neurologic: moves all extremities and awake (able to follow command) Speech / Cognition: normal speech Motor/Sensory: no tremor and no pronator drift Cranial Nerves: PERRL, normal accommodation and EOM intact bilaterally (dif ficulty tracking as she would occasionally close her eyes) Coordination: + abnormal [id number] test (missed nose 8/10 times bilaterally) and + abnormal rapid alternating movements (progressively worsen with more repitition); normal [id number] test Psychiatric: Orientation: alert; + not oriented to person, + not oriented to place (Scanned room for clues (white board and )) and + not oriented to time (Believe it is 2016.) She is nonchalant about memory loss. When b/l knee flexed in supine position, neck pain that was worse with R knee. Results & Data ([facility]) Vital Signs (Past 12 Hours) Vital Signs Temp Pulse Pulse Resp BP Pulse Ox 07/16/20 11:49 37.4 C 100 H 16 106/66 96 07/16/20 10:53 36.3 C L 88 16 111/77 93 07/16/20 10:20 36.4 C L 87 16 104/68 96 07/16/20 09:53 36.7 C 80 18 126/79 92 07/16/20 09:38 104 H 07/16/20 08:26 36.4 C L 115 H 16 123/77 95 Laboratory Results Abnormal lab results 07/15/20 07/15/20 07/16/20 Range/Units 19:00 19:09 01:00 Lymph # (Auto) (1.2-3.4) K/uL Immature Gran # (Auto) 0.03 H (0.00-0.02) K/uL POC Chloride 100 L (101-112) mmol/L Chloride (98-107) mmol/L POC Anion Gap 13.0 L (16-25) mmol/L Glucose (70-99) mg/dl POC Glucose 116 H (70-99) mg/dl Calcium (8.5-10.1) mg/dl CSF Total Protein (15-45) mg/dl 07/16/20 07/16/20 07/16/20 Range/Units 05:28 09:39 09:39 Lymph # (Auto) 1.14 L (1.2-3.4) K/uL Immature Gran # (Auto) 0.03 H (0.00-0.02) K/uL POC Chloride (101-112) mmol/L Chloride 109 H (98-107) mmol/L POC Anion Gap (16-25) mmol/L Glucose 135 H (70-99) mg/dl POC Glucose 103 H (70-99) mg/dl Calcium 8.4 L (8.5-10.1) mg/dl CSF Total Protein (15-45) mg/dl 07/16/20 Range/Units 11:27 Lymph # (Auto) (1.2-3.4) K/uL Immature Gran # (Auto) (0.00-0.02) K/uL POC Chloride (101-112) mmol/L Chloride (98-107) mmol/L POC Anion Gap (16-25) mmol/L Glucose (70-99) mg/dl POC Glucose (70-99) mg/dl Calcium (8.5-10.1) mg/dl CSF Total Protein 78.8 H (15-45) mg/dl
--- NOTE | 2020-07-16 13:02 | Hospitalist Progress Note ---
Date of Service July 16, 2020 Assessment & Plan (1) Epilepsy: 24 yo F with hx seizures during , multiple recent falls and seizure-like activity. 1. Seizure activity - possible discontinuation of keppra in April by [facility] neurology - lamictal 300 bid continued, loaded with lamictal 600 once given concern for skipping/missing doses. - EEG, neuro consult ordered - Lamictal level low at 3.9 on 07/12, repeated today - has had falls and head injuries in relation to seizure like activ ity/lightheadedness recently - CT head and neck negative for acute injury - memory clearly impaired, nonfocal but abnormal neuro exam. possibly secondary to postictal state vs. postconcussive disorder - ativan 1mg IV PRN for seizures lasting >2 min - seizure precautions 2. Concern for meningitis - started on acyclovir, ceftriaxone, vancomycin empirically, as well as dexamethasone 6 mg - LP ordered today: clear, colorless, increased protein, normal glucose, 3 cells, lyme antibodies pending, HSV PCR pending - urine tox pending 3. Migraines - sumatriptan 25 mg PO PRN for migraines 4. Mood Disorder? - unsure of diagnosis - on aripiprazole 20 QHS and sertraline 100 mg PO per home regimen DVT ppx: low risk, up ad mervin FEN/GI: regular diet Code Status: Full Code Dispo: Awaiting neuro consult/workup for treatment changes. Likely home at discharge. (2) Amnesia: (3) Fall: (4) Seizure disorder during : (5) Observed seizure-like activity: Admission and Anticipated Discharge Date Admission Date: July 15, 2020 Supervising Physician Co-Signing Physician Notes I personally examined the patient and verified all li points of history and exam, discussed case, and agree with decision making with Dr Bolanos. Still having memory loss. Remember some things but not others. Has to look at her arm tattoo to remember the names of her children, then is able to remember the ages. Notes that she likes being a mom because she knows they need her. She has social anxiety, although she notes that she feels safe when at home with her kids and safe with her . Had an episode lasting about a minute earlier, had about 5 minutes of postevent confusion. notes a lot of the time she can feel them coming on. Vitals noted, in general she is awake and alert pleasant no distress. Has a somewhat odd affect seeming to be easily confused by fairly simple topics, while other times able to converse fairly freely on certain topics. No distress. HEENT normocephalic atraumatic mucous membranes moist. Breathing unlabored no accessory muscle use good effort. Skin shows no rashes no pallor or icterus. Neuro shows no focal deficits. Seizure-like activityquestion nonepileptiform/psychogenic? Triggered by stress, has social anxiety and bipolar, has had more "conventional" panic attacks in the past, her pattern of memory loss seems incongruent with neurologic syndromes I am familiar with. Ongoing med management, supportive care. Would likely benefit from psychiatry and psychology for ongoing care as an outpatient, and we will try to facilitate this. Currently with her memory loss she does not appear to be safe at home. Otherwise as above. Subjective 24 yo F with hx seizures and medication noncompliance admitted for recurrent seizures. Overnight events: acute complaint of neck and low back pain, night resident concerned for Meningitis based on presentation, started on empiric antibiotics and steroids. This morning complaining of ongoing headache. Denies phono or photophobia. + Neck pain, + hip pain. Pain with flexion of neck, flexion of legs to chest. Diagnosed with seizures in 2019, started on lamotrigine and keppra. states that she was seen at [facility] in April and taken off Keppra at that time. May not have been taking the lamictal on schedule. Review of Systems Review of Systems: All systems reviewed & are unremarkable except as noted in Subjective Physical Exam Physical Exam: Constitutional: pleasant appearing female in bed Eyes: pupils equal and reactive bilaterally, no scleral icterus, EOMI Cardiac: RRR, no murmurs, gallops or rubs. Normal S1, S2 Pulm: CTA BL, no wheezes, rhonchi, crackles or rubs, moving air well throughout both lungs Neuro: - reflexes: 3+ hyperreflexic at knees bilaterally - inattention with ocular H exam - sensation intact in C5 - T1 and L4 - S1 dermatomes - strength 5/5 R > 4/5 L in lower and upper extremities - Cerebellar testing: normal heel to liu, difficulty with finger to nose, - Positive Kernig's and Brudinzski's test - Memory: unable to remember that month 4 is july, unable to recall name (read off arm band), able to recall at bedside, remembered his name with some prompting from him, improper recollection of living situation (doesn't remember kids or moving out of parents' house) Psych: juvenile affect Results & Data Results & Data ([facility]) Vital Signs (Past 12 Hours) Vital Signs Temp Pulse Pulse Resp BP Pulse Ox 07/16/20 11:49 37.4 C 100 H 16 106/66 96 07/16/20 10:53 36.3 C L 88 16 111/77 93 07/16/20 10:20 36.4 C L 87 16 104/68 96 07/16/20 09:53 36.7 C 80 18 126/79 92 07/16/20 09:38 104 H 07/16/20 08:26 36.4 C L 115 H 16 123/77 95 Laboratory Results WBC 7.70 K/uL (4.8-10.8) 07/16/20 09:39 RBC 4.58 M/uL (4.2-5.4) 07/16/20 09:39 Hgb 13.2 g/dL (12.0-16.0) 07/16/20 09:39 POC Hgb 13.3 g/dl (12.0-16.0) 07/15/20 19:09 Hct 40.5 % (37-47) 07/16/20 09:39 POC Hct 39 % (37-47) 07/15/20 19:09 MCV 88.4 fL (80-100) 07/16/20 09:39 MCH 28.8 pg (25-34) 07/16/20 09:39 MCHC 32.6 g/dL (32-36) 07/16/20 09:39 RDW Std Deviation 40.1 fL (36.4-46.3) 07/16/20 09:39 RDW Coeff of Jorge 12.6 % (11.5-14.5) 07/16/20 09:39 Plt Count 208 K/uL (130-400) 07/16/20 09:39 MPV 8.9 fL (7.4-10.4) 07/16/20 09:39 Immature Gran % (Auto) 0.4 % 07/16/20 09:39 Neut % (Auto) 80.4 % 07/16/20 09:39 Lymph % (Auto) 14.8 % 07/16/20 09:39 [place] % (Auto) 1.4 % 07/16/20 09:39 Eos % (Auto) 2.9 % 07/16/20 09:39 Baso % (Auto) 0.1 % 07/16/20 09:39 Neut # (Auto) 6.19 K/uL (1.4-6.5) 07/16/20 09:39 Lymph # (Auto) 1.14 K/uL (1.2-3.4) L 07/16/20 09:39 [place] # (Auto) 0.11 K/uL (0.11-0.59) 07/16/20 09:39 Eos # (Auto) 0.22 K/uL (0-0.5) 07/16/20 09:39 Baso # (Auto) 0.01 K/uL (0-0.2) 07/16/20 09:39 Immature Gran # (Auto) 0.03 K/uL (0.00-0.02) H 07/16/20 09:39 POC Sodium 138 mmol/L (135-144) 07/15/20 19:09 Sodium 139 mmol/L (136-145) 07/16/20 09:39 POC Potassium 4.1 mmol/L (3.3-5.0) 07/15/20 19:09 Potassium 4.1 mmol/L (3.5-5.1) 07/16/20 09:39 POC Chloride 100 mmol/L (101-112) L 07/15/20 19:09 Chloride 109 mmol/L (98-107) H 07/16/20 09:39 Carbon Dioxide 26 mmol/L (21-32) 07/16/20 09:39 POC Total CO2 31 mmol/L (24-31) 07/15/20 19:09 Anion Gap 5.0 (3-11) 07/16/20 09:39 POC Anion Gap 13.0 mmol/L (16-25) L 07/15/20 19:09 POC BUN 13 mg/dl (7-18) 07/15/20 19:09 BUN 10 mg/dl (7-18) 07/16/20 09:39 Creatinine 0.75 mg/dl (0.6-1.2) 07/16/20 09:39 POC Creatinine 0.8 mg/dl (0.6-1.3) 07/15/20 19:09 Est Cr Clr Drug Dosing 123.3 ml/min 07/16/20 09:39 Est GFR ( Amer) 131.1 07/16/20 09:39 Est GFR (Non-Af Amer) 113.1 07/16/20 09:39 BUN/Creatinine Ratio 13.0 (10-20) 07/16/20 09:39 Glucose 135 mg/dl (70-99) H 07/16/20 09:39 POC Glucose 103 mg/dl (70-99) H 07/16/20 05:28 POC Glucose (other) 96 mg/dl (70-99) 07/15/20 19:09 Lactate 0.9 mmol/L (0.4-2.0) 07/15/20 20:55 Calcium 8.4 mg/dl (8.5-10.1) L 07/16/20 09:39 POC Ioniz Calcium Kaur 1.25 mmol/l (1.12-1.32) 07/15/20 19:09 Magnesium 2.3 mg/dl (1.8-2.4) 07/15/20 19:00 Total Bilirubin 0.2 mg/dl (0.2-1) 07/15/20 19:00 AST 16 U/L (15-37) 07/15/20 19:00 ALT 41 U/L (12-78) 07/15/20 19:00 Alkaline Phosphatase 60 U/L (45-117) 07/15/20 19:00 Total Protein 7.9 gm/dl (6.4-8.2) 07/15/20 19:00 Albumin 4.3 gm/dl (3.4-5.0) 07/15/20 19:00 Globulin 3.6 gm/dl (2.5-4.0) 07/15/20 19:00 Albumin/Globulin Ratio 1.2 (0.9-2) 07/15/20 19:00 Prolactin 11.27 ng/ml 07/15/20 19:00 HCG, Qual Negative (Negative) 07/15/20 19:00 Urine Color Yellow 07/15/20 19:50 Urine Appearance Clear (Clear) 07/15/20 19:50 Urine pH 7.5 (4.5-7.5) 07/15/20 19:50 Ur Specific [place] 1.012 (1.000-1.030) 07/15/20 19:50 Urine Protein Negative (Negative) 07/15/20 19:50 Urine Glucose (UA) Negative (Negative) 07/15/20 19:50 Urine Ketones Negative (Negative) 07/15/20 19:50 Urine Blood Negative (Negative) 07/15/20 19:50 Urine Nitrite Negative (Negative) 07/15/20 19:50 Urine Bilirubin Negative (Negative) 07/15/20 19:50 Urine Urobilinogen Negative (Negative) 07/15/20 19:50 Ur Leukocyte Esterase Negative (Negative) 07/15/20 19:50 Fluid Comment 07/16/20 11:27 CSF Appearance Clear 07/16/20 11:27 CSF Color Colorless 07/16/20 11:27 Xanthrochromic No xanthochromia 07/16/20 11:27 CSF WBC 0 /uL (0-5) 07/16/20 11:27 CSF RBC 0 /uL (0-) 07/16/20 11:27 CSF Cell Count Tube # 3 07/16/20 11:27 CSF Chemistry Tube # 1 07/16/20 11:27 CSF Glucose 61 mg/dl (40-70) 07/16/20 11:27 CSF Total Protein 78.8 mg/dl (15-45) H 07/16/20 11:27 Urine Opiates Screen Neg (Neg) 07/15/20 19:50 Ur Methadone, Qual Neg (Neg) 07/15/20 19:50 Urine Barbiturates Neg (Neg) 07/15/20 19:50 Ur Phencyclidine (PCP) Neg (Neg) 07/15/20 19:50 U Amphetamin/Meth Scrn Neg (Neg) 07/15/20 19:50 MDMA (Ecstasy) Screen Neg (Neg) 07/15/20 19:50 U Benzodiazepines Scrn Neg (Neg) 07/15/20 19:50 Ur Cocaine Metabolite Neg (Neg) 07/15/20 19:50 U Marijuana (THC) Screen Neg (Neg) 07/15/20 19:50 COVID-19 Eval Order CovFluRsv at [facility] 07/15/20 20:45 SARS-CoV-2 (PCR) NEGATIVE (Negative) 07/15/20 20:45 Influenza Type A (PCR) Negative (Neg) 07/15/20 20:45 Influenza Type B (PCR) Negative (Neg) 07/15/20 20:45 RSV (RT-PCR) Negative (Neg) 07/15/20 20:45 CT Head wo con : negative Cervical Spine CT wo con: negative CXR: negative Resident Activity Tracking Resident Involvement: Resident Care Provided Care Provided: Adult Hospital Medicine (1) Fall Encounter type: initial encounter Qualified Code(s): W19.XXXA - Unspecified fall, initial encounter
[2020-07-16] MEDS ORDERED: VANCOMYCIN HCL 1,500 MG in SODIUM CHLORIDE 0.9% 500 ML IV SCH (15:00)
--- NOTE | 2020-07-16 16:14 | Neurology Consultation ---
Date of Consultation July 16, 2020 Assessment & Plan (1) Amnesia: (2) COVID-19: (3) Observed seizure-like activity: Nciol Vargas is a 24 yo woman with PMH of depression, h/o gHTN in prior , iron deficiency anemia, abnormal PAP, COVID x2 (most recent positive test on 07/12/20) and h/o seizures in the past who presents to [facility] after having 2 syncopal events with last event a/w GLF on presentation to the ED. # Observed seizure like activity: reports being seen in the EMU and told that she does not have an epileptic tendency, so keppra stopped. Kept on lamictal/ativan by PCP for mood - agree with AMAN from [facility] EMU for EMU summary - would also request records from Dr Vo about psychiatric medication changes - would continue lamictal 300mg bid for now for mood - EEG pending - would stop all antibiotics as CSF not c/f infection at all - would consider obtaining a TTE given recurrent syncope in setting of tachycardia # Migraine headaches: reports that this is one of her biggest issues currently - would give IVFs, Mg 1g q12h IV, toradol/zofran q8h scheduled x 3 doses - would restart home PO magnesium 400mg daily tomorrow AM for migraine prevention - can have a steroid cycle breaker on discharge to help with headaches (methylpred taper x6 days) vs zyprexa 2.5mg nightly x 5 days - she already has f/u with me in 2 weeks where we can discuss headaches further if still having them Thank you for this interesting consult. Plan of care discussed with primary team. Please call or text of questions. (4) Migraine without aura and responsive to treatment: History of Present Illness Attending Physician: Wilbert Sprague, DO History of Present Illness Nicol Vargas is a 24 yo woman with PMH of depression, h/o gHTN in prior , iron deficiency anemia, abnormal PAP, COVID x2 (most recent positive test on 07/12/20) and h/o seizures in the past who presents to [facility] after having 2 syncopal events with last event a/w GLF on presentation to the ED. In the ED, she was afebrile, BP 141/70, HR 120, RR 18, satting 100% on room air. Labs notable for WBC 8.7, hemoglobin 13, platelets 220, sodium 139, potassium 4, creatinine 0.76, glucose 95, calcium 9.3, LFTs within normal, prolactin 11.27 (within normal for age), UA no infection, hCG negative, lactate 0.9, UDS negative, repeat Covid negative. She was given Ativan 4 mg, Lamictal 600 mg, Tylenol and Toradol for headache, as well as IV fluids admitted for further work-up. Imaging was independently reviewed. CTH no hemorrhage or hypodensity. Blood culture NGTD. CSF Gram stain negative. Had LP performed today showed 0 WBC, 0 RBC, glucose 61, elevated protein 78.8 with viral PCR is pending. History obtained from . He reports that on , they were out fishing, then on her way home and fainted. LoC for a few seconds. This was followed by another fainting episode with no return to consciousness. He notes that she had 2 shaking events around the time that ambulance was called. Was given something for possible seizures and taken to local hospital. He notes that she has not remembered things well since then. Had a small seizure like event on Thursday, no events on Thursday and then another event of fainting fainting a/w generalized shaking yesterday (Thursday, 07/15). He reports that she had another event of fainting a/w shaking when they arrived here at [facility]. He reports that she was forgetting to take the morning doses several times last week. No recent infections or other medication changes. He does note that she has been having more migrainous type headaches recently and will use imitrex or tylenol as needed. Lamictal level low at 3.7 last week when checked. He notes that she went to the EMU at [facility] in 04/2020 and was noted to have no seizure tendency. Was taken off keppra and kept on lamictal (unclear if for mood or not as no notes currently available). He notes that her mood and fainting episodes actually improved after stopping the keppra. He reports that she has not had any fainting episodes since April 2020 in the EMU until last week. He does note that she had several minor fainting episodes while in the EMU that were captured. He notes that Dr Vo increased her lamictal for mood awhile ago. Not recently using the ativan much. He does endorse increased stress recently with 3 and 5 yo (notes that these events happen more frequently when she is stressed). She reports that she is having a lot of headaches, feels really tired, and that her heart is racing. Notes that she has been having nausea, responds to zofran well. Also concerned about memory issues that she is having, including forgetting names of her family. Seizure history: She currently has 1 type of spell (described in detail below). Her current medications include: lamictal 150mg bid. She has previously tried: topamax (for headaches, not currently on taking), keppra 750mg bid (stopped in EMU) Most recent EEG (05/09/2019): normal awake EEG (also had another one previously in the setting of the amitriptyline) Prior MRI brain: MRI/MRV from 05/09/2019, unremarkable (independently reviewed), no tumor, Chiari or hippocampal asymmetry noted. Prior EMU stay: No Seizure risk factors: Endorses: biological sister also has seizures (was just induced for gestational HTN at 35 wks), mother used IVDA during Denies: Not sure if , NICU stay, IEP or intellectual disability as a child, history of meningitis or encephalitis, recurrent TBI with loss of consciousness, history of febrile seizures, history of stroke or brain malformation, congenital epilepsy syndrome, history of drug or alcohol abuse Seizure description: 1) "seizures": Description: always from sleep, reports that she has stiffening of her arms, eyes rolled back, head tilted back, reports biting her cheek. Feels pain in neck after events and like she can't move around properly. Previous one lasted on 15-20seconds, more recent ones were about 1 minute in duration. No clear loss of bowel or bladder. Frequency: 3 total since this started (one in 12/2018, 2 in 05/2019) Any recent changes: no recent illnesses, fevers Triggers: no clear triggers Allergies Allergy/AdvReac Type Severity Reaction Status Date / Time PAIN MEDICINES AdvReac Unknown "I FLIP Uncoded 07/15/20 20:00 OUT, ANXIOUS AND CRYING" Home Medications Medication Instructions Recorded Confirmed Type Iron Transfusions 1 dose UD PRN 09/07/19 07/15/20 History aripiprazole 20 mg PO HS 12/04/20 04/11/21 History albuterol sulfate 2 puff INHALATION QID PRN 03/14/20 07/15/20 History lorazepam [Ativan] 0.5 - 1 mg PO Q6 PRN 03/14/20 07/15/20 History lamotrigine 150 mg tablet 300 mg PO BID 30 Days #120 tab 04/12/20 07/15/20 Rx sumatriptan succinate 25 mg tablet See Rx Instructions PO .COMPLEX #8 04/12/20 07/15/20 Rx tab sertraline 100 mg PO DAILY 07/11/20 07/15/20 History Patient History Medical History Anemia CURRENT IRON TRANSFUSIONS Borderline high blood pressure PT REPORTS BLOOD PRESSURE RUNS ON HIGHER SIDE/NO MEDS Exercise-induced asthma Gestational hypertension HX OF History of anesthesia reaction WITH WISDOM TEETH: AGE 13-14 YR - HIGH FEVER AND VOMITING AFTER - NO FURTHER DETAILS, UNKNOWN FAMILY HX - PT ADOPTED Rapid heart beat PT REPORTS HEART RATE RUNS ON HIGHER SIDE / NO MEDS Seizure disorder during seizures began at 13 weeks of and had several through . Last seizure at 30 weeks. Was hospitalized for 1 week and went to rehab afterward for loss of movement on L side, ambulatory dysfunction. Brain MRI showed no evidence of CVA, symptoms of unknown etiology. Stable on lamictal. Surgical History History of colposcopy ULISSES 1 S/P wisdom tooth extraction Family History Other Adopted Family history unknown Social History Smoking Status: Never smoker Second Hand Exposure: No; Do You Dip or Chew Tobacco: No; Tobacco Cessation Education Requested by Patient: No Hx Alcohol Use: No Hx Substance Use: No Preferred Language: Faroese Communication Ability: Effective Marketing Reporting Analyst Required: No Beliefs That Will Affect Care: None marital status: marital status details: Abran Vargas (26) [phone] Current Living Situation: Other Current Living Situation Comment: has to live with parents due to seizure disorder at this time. 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 Exam (Neuro) Physical Exam: General Exam: GEN: NAD, sitting in bed CV: tachycardic PULM: Nonlabored respirations on room air. Neuro Exam: MS: Awake and Alert. Oriented to person, place, and date. Speech fluent and appropriate without dysarthria or paraphasic errors. Language intact including naming, comprehension, repetition. Cognition and memory grossly intact. Attention intact. No neglect. CN: Hearing intact to conversation. MOTOR: All extremities antigravity Results & Data ([facility]) Vital Signs (Past 12 Hours) Vital Signs Temp Pulse Pulse Resp BP Pulse Ox 07/16/20 16:00 36.7 C 112 H 16 100/50 L 97 07/16/20 14:25 36.6 C 132 H 20 127/61 95 07/16/20 11:49 37.4 C 100 H 16 106/66 96 07/16/20 10:53 36.3 C L 88 16 111/77 93 07/16/20 10:20 36.4 C L 87 16 104/68 96 07/16/20 09:53 36.7 C 80 18 126/79 92 07/16/20 09:38 104 H 07/16/20 08:26 36.4 C L 115 H 16 123/77 95 PG Care Time/CCT Total # of Minutes Spent Total Time Spent with Patient: Total time spent is greater than 50% in coordination of care (as documented) at patient's floor/unit and/or counseling patient: 60 Coding Level of Care Code 63887 Inpt Consult Level 5 Diagnoses Amnesia R41.3 COVID-19 U07.1 Observed seizure-like activity R56.9 Migraine without aura and responsive to treatment G43.009
[2020-07-16] MEDS ORDERED: ONDANSETRON INJ 2 MG/ML 2 ML VIAL IV SCH (17:01)
[2020-07-16] MEDS ORDERED: SODIUM CHLORIDE 0.45 % 1,000 ML IV SCH (17:15)
[2020-07-16] MEDS: KETOROLAC TROMETHAMINE 15 MG/ML VIAL IV SCH (17:34)
[2020-07-16] MEDS: MAGNESIUM SULFATE / D5W 1 GM/100 ML BAG IV SCH (18:14)
--- NOTE | 2020-07-16 20:08 | Billing Data ---
Date of Service July 16, 2020 Coding Level of Care Code 99057 Subseq Hosp Care Lvl 3
[2020-07-16] MEDS ORDERED: LORazepam 1 MG TAB PO ONE (20:26)
--- NOTE | 2020-07-16 20:32 | Communication Note ---
Date of Service: July 16, 2020 Subjective: Nursing notified that patient was lactating and had questions. I went and evaluated the patient and she was anxious and had a headache. Patient continues to have trouble with senior care memory. Objective: She was tachycardic into the 130's, sweating and having trouble staying still or carrying on a conversation. - increased tone and hyper reflexive on exam A/P: Concern for Serotonin syndrome given patient is on Sumatriptan and Zofran. - PO Ativan ordered - continue to monitor , likely due to increased dose of Lamotrigine - discussed using warm compress due to uncomfortable engorged feeling
[2020-07-16] MEDS ORDERED: ARIPiprazole 10 MG TAB PO SCH (21:00)
[2020-07-16 23:16] LABS: Influenza A virus by PCR Negative (Neg); Influenza B virus by PCR Negative (Neg); RSV by PCR Negative (Neg); SARS CoV2 RNA(COVID-19) InHosp NEGATIVE (Negative)
[2020-07-17] MEDS: lamoTRIgine 100 MG TAB PO SCH ×3 (00:15→19:49)
[2020-07-17] MEDS: ACETAMINOPHEN 325 MG TAB PO PRN ×2 (00:15→22:32)
[2020-07-17] MEDS: ARIPiprazole 10 MG TAB PO SCH ×2 (00:15→19:48)
[2020-07-17] MEDS: LORazepam 1 MG/2 ML VIAL IV PRN ×2 (00:15→07:30)
[2020-07-17] MEDS: MELATONIN 3 MG TAB PO PRN ×2 (00:15→22:31)
[2020-07-17] MEDS: SERTRALINE HCL 100 MG TABLET PO SCH ×2 (00:15→20:24)
[2020-07-17] MEDS: KETOROLAC TROMETHAMINE 15 MG/ML VIAL IV SCH ×3 (01:41→16:30)
--- NOTE | 2020-07-17 05:34 | Electrocardiogram Report ---
Test Reason : Blood Pressure : / mmHG Vent. Rate : 116 BPM Atrial Rate : 116 BPM P-R Int : 144 ms QRS Dur : 076 ms QT Int : 328 ms P-R-T Axes : 068 069 042 degrees QTc Int : 455 ms Sinus tachycardia Otherwise normal ECG When compared with ECG of 11-JUL-2020 21:12, No significant change was found Confirmed by Chito Jackson ([id number]) on 07/18/2020 6:02:26 AM Referred By: REFERRED SELF Confirmed By:Chito Jackson
[2020-07-17] MEDS: MAGNESIUM SULFATE / D5W 1 GM/100 ML BAG IV SCH (06:29)
[2020-07-17] MEDS ORDERED: VANCOMYCIN TROUGH ONE (06:30)
--- NOTE | 2020-07-17 06:48 | Ultrasound Report ---
BILATERAL LOWER EXTREMITY VENOUS DOPPLER HISTORY: Acute pain and swelling of the lower extremities leg pain, tachycardia COMPARISON STUDY: Duplex venous Doppler study 12/29/2018. FINDINGS: Study is limited secondary to seizure like activity during the exam. There is normal compre ssibility, flow, and augmentation within the bilateral lower extremity deep venous systems. IMPRESSION: No DVT within the right or left lower extremity. ACT 112: Negative or not required by law. Electronically signed by: Cyrus Romero M.D. 07/17/2020 6:46 AM
--- NOTE | 2020-07-17 07:19 | Electrocardiogram Report ---
Test Reason : Blood Pressure : / mmHG Vent. Rate : 137 BPM Atrial Rate : 137 BPM P-R Int : 138 ms QRS Dur : 074 ms QT Int : 276 ms P-R-T Axes : 064 056 034 degrees QTc Int : 416 ms Sinus tachycardia Otherwise normal ECG When compared with ECG of 16-JUL-2020 05:31, No significant change was found Confirmed by Chiot Jackson ([id number]) on 07/18/2020 6:14:22 AM Referred By: REFERRED SELF Confirmed By:Chito Jackson
--- NOTE | 2020-07-17 07:21 | Electrocardiogram Report ---
Test Reason : Blood Pressure : / mmHG Vent. Rate : 123 BPM Atrial Rate : 123 BPM P-R Int : 150 ms QRS Dur : 080 ms QT Int : 312 ms P-R-T Axes : 060 059 037 degrees QTc Int : 446 ms Sinus tachycardia Nonspecific ST abnormality When compared with ECG of 11-JUL-2020 21:12, No significant change was found Confirmed by Chito Jackson ([id number]) on 07/17/2020 5:34:12 AM Also confirmed by Chito Jackson ([id number]), multimedia editor Gerald Edwards ([id number]) on 07/17/2020 7:19:33 AM Also confirmed by Chito Jackson ([id number]), multimedia editor Gerald Edwards ([id number]) on 07/17/2020 7:21:32 AM Referred By: REFERRED SELF Confirmed By:Chito Jackson
[2020-07-17 08:55] LABS: Albumin Level 3.7 gm/dl (3.4-5.0); BUN Creatinine Ratio 11.8 (10-20); Calcium 8.5 mg/dl (8.5-10.1); Creatinine Clr Calc Pharmacy 144.4 ml/min; Est GFR (African American) 146.8; Est GFR (Non-African American) 126.7; Potassium 3.7 mmol/L (3.5-5.1)
[2020-07-17 08:57] LABS: Albumin Globulin Ratio 1.3 (0.9-2); Bilirubin,Total 0.1 mg/dl (0.2-1); Globulin 2.9 gm/dl (2.5-4.0); Total Protein 6.6 gm/dl (6.4-8.2)
--- NOTE | 2020-07-17 09:59 | Medical Student Progress Note ---
Date of Service July 17, 2020 Assessment & Plan (1) Epilepsy: Pt with pmhx of seizures, migraine with aura, iron deficiency anemia, depression, and Covid positive status in presenting with progressive seizure-like episodes with new memory loss/amnesia. No tongue biting, bowel/urinary incontinence, and afebrile. 1. Seizure-like episodes - Suspect neurology vs psych etiology. DDx include postconcussion syndrome, psychogenic nonepileptic seizure, and conversion disorder - 07/15 CT head with no intracranial findings - 07/16 labs: Lamcital level 3.7. U/A unremarkable. - 07/18 MRI brain showing no intracranial abnormality - per neurology, continue lamotrigine 300mg BID. Tonight try olanzapine to help with PEREZ and sleep - Obtain records from [facility] to verify changes in medication from April 2. Migraine headaches - reports HAwith no photophobia, phonophobia, or N/V. Does have suboccipital tenderness - continue topiramate 25mg - refer above to neurology recommendation 5. Sinus Tachycardia - 07/17 EKG showing sinus tachycardia. HR increase to 160-170s when she has a seizure-like spell. Suspect related to pain from PEREZ and anxiety 3. Falls - 2 falls within 5 days. Had one last and one Thursday, both where she fell on her back. - b/l hip, back, and neck pain. Suspect MSK etiology given response to Tylenol and cyclobenzaprine and that in history, it was mentioned that pt typically has neck pain after seizure-like episodes. - 07/15 CT Cspine showing no fracture. - continue Tylenol 650mg PO 3. Meningitic symptoms, ruled out - Previously pt reports back and neck pain - HSV and Lyme PCR pending - Blood culture negative - CSF culture clear with only elevation in protein of 78.8 and stain with no growth. - Stopped vancomycin, ceftriaxone, acyclovir, and dexamethasone 6.Depression - continue home med of sertraline 100mg daily and apriprazole 20mg 7. Iron Deficiency Anemia - Hgb 13.2, MCV 88.4 (2) Fall: Encounter type: initial encounter Qualified Code(s): W19.XXXA - Unspecified fall, initial encounter (3) Amnesia: (4) Iron deficiency anemia: (5) Migraine without aura and responsive to treatment: Admission and Anticipated Discharge Date Admission Date: July 15, 2020 Supervising Attestation I personally examined the patient and verified all li points of history and exam, discussed case, and agree with decision making with Berta Goddard MS4 Subjective Overnight, pt was tachycardic in HR 170-180s with SOB and was rocking back and forth. reports multiple episode of fainting. Reports b/l PEREZ that starts in occipital and radiates over frontal head. Mid-sternal chest soreness which she correlates with sternal rubs that she received the nights before. She reports seeing bugs that are always there. She express desire to walk and get out of bed. In the afternoon, we received a nurse alert that pt was yelling that her head hurt. On arrival to room, pt was found sitting in the middle of bed with blanket over her head crying yelling that her head hurts. She had woken up from a nap when she felt a sharp pain radiating from occipital to frontal head. She wouldn't let anyone touch her head due to pain. Her HR was 150-160s and was diaphoretic. She reports that she is unable to tolerate Benadryl and that it wouldn't help with pain. First gave her Haloperidol 5mg and then Ativan 2mg. She fell asleep right afterwards and got bedside EKG showing sinus tachycardia. Her HR was 100-110s. Review of Systems Constitutional: no fever and no chills Cardiovascular: + chest pain and + palpitations Gastrointestinal: + nausea; no abdominal pain and no vomiting Neurologic: + headache(s) and + memory loss Psychiatric: + visual hallucinations (see bugs) Results & Data ([facility]) Vital Signs (Past 12 Hours) Vital Signs Temp Pulse Pulse Resp BP Pulse Ox 07/17/20 09:21 113 H 07/17/20 08:06 37 C 120 H 18 103/67 96 07/17/20 03:00 36.9 C 100 H 16 111/51 L 96 07/17/20 01:39 126 H 07/16/20 23:18 36.6 C 115 H 20 98/55 L 95
--- NOTE | 2020-07-17 09:59 | Hospitalist Progress Note ---
Date of Service July 17, 2020 Assessment & Plan (1) Epilepsy: 24 yo F with hx seizures during , multiple recent falls and seizure-like activity. 1. Seizure activity - possible discontinuation of keppra in April by [facility] neurology - lamictal 300 bid continued, loaded with lamictal 600 once given concern for skipping/missing doses. - EEG pending - appreciate neuro recommendations to continue lamictal for mood control - appears to be less likely intrinsic seizure disorder, MRI pending 2. Conversion Disorder - memory clearly impaired, nonfocal but abnormal neuro exam. possibly secondary to postconcussive disorder/conversion - LP normal but with increased protein, unlikely meningitic - urine tox negative 3. Hx bipolar disorder - per - aripiprazole 20 mg QHS, 100 mg Sertraline continued - avoid serotonergic agents - psychiatric consult placed, appreciate support in setting of "bugs and spiders" in visual field 3. Migraines - sumatriptan 25 mg PO PRN for migraines DVT ppx: low risk, up ad mervin FEN/GI: regular diet Code Status: Full Code Dispo: ongoing treatment and management (2) Amnesia: (3) Fall: (4) Seizure disorder during : (5) Observed seizure-like activity: (6) Conversion disorder: (7) Bipolar 2 disorder: Admission and Anticipated Discharge Date Admission Date: July 15, 2020 Supervising Physician Co-Signing Physician Notes I personally examined the patient and verified all li points of history and exam, discussed case, and agree with decision making with Dr Bolanos. Having an episode, rocking and screaming - haldol/ativan - callmed. EKG sinus tach no delta waves/etc. updated to the best of my ability. Vitals noted, in general she is as above, sinus tachycardia, rocking back and forth in bed and screamingthe notes that is fairly characteristic of her episodes at home although may be a bit worse, then she gets in a tripod-like position bringing her head into the bed, he notes that she does this quite a bit too, and then eventually the medications take effect and she falls asleep resting more peacefully. Seizure-like activityquestion nonepileptiform/psychogenic? Triggered by stress, has social anxiety and bipolar, has had more "conventional" panic attacks in the past, her pattern of memory loss seems incongruent with neurologic syndromes I am familiar with. Ongoing med management, supportive care. Will ask for psychiatric consult. Appreciate ongoing assistance with neurology, trying to get records from [facility] as well. Otherwise as above. Subjective still having memory problems this morning. describing bugs and spiders seen in periphery of visual field. Significant head pain causing screaming and crying, heart rate 170s-180s at the time. Required 5 mg haldol and 2 mg ativan with myself and multiple nurses at bedside for sedation and control of anxiety attack. Review of Systems Eyes: + photophobia Respiratory: no dyspnea and no pain on inspiration Cardiovascular: + palpitations; no chest pain and no edema Gastrointestinal: no abdominal pain, no nausea and no vomiting Neurologic: + headache(s) Physical Exam Physical Exam: Constitutional: agitated female in pain, covering head with pillow Eyes: pupils equal and reactive bilaterally, no scleral icterus, EOMI Cardiac: RRR, no murmurs, gallops or rubs. Normal S1, S2 Pulm: CTA BL, no wheezes, rhonchi, crackles or rubs, moving air well throughout both lungs Neuro: - reflexes: 3+ hyperreflexic at knees bilaterally - inattention with ocular H exam - sensation intact in C5 - T1 and L4 - S1 dermatomes - strength 5/5 R > 4/5 L in lower and upper extremities - Cerebellar testing: normal heel to liu, difficulty with finger to nose Psych: juvenile affect Results & Data Results & Data ([facility]) Vital Signs (Past 12 Hours) Vital Signs Temp Pulse Pulse Resp BP Pulse Ox 07/17/20 09:21 113 H 07/17/20 08:06 37 C 120 H 18 103/67 96 07/17/20 03:00 36.9 C 100 H 16 111/51 L 96 07/17/20 01:39 126 H 07/16/20 23:18 36.6 C 115 H 20 98/55 L 95 Resident Activity Tracking Resident Involvement: Resident Care Provided Care Provided: Adult Hospital Medicine (1) Fall Encounter type: initial encounter Qualified Code(s): W19.XXXA - Unspecified fall, initial encounter
[2020-07-17] MEDS ORDERED: METOPROLOL TARTRATE 1 MG/ML VIAL IV STA (10:23)
[2020-07-17] MEDS ORDERED: METOPROLOL TARTRATE 1 MG/ML VIAL IV ONE (10:24)
[2020-07-17] MEDS ORDERED: diphenhydrAMINE 50 MG/ML VIAL ONE (10:46)
[2020-07-17] MEDS ORDERED: HALOPERIDOL LACTATE 5 MG/ML 1 ML VIAL ONE (10:49)
[2020-07-17] MEDS ORDERED: HALOPERIDOL LACTATE 5 MG/ML 1 ML VIAL IV STA (10:52)
[2020-07-17] MEDS ORDERED: LORazepam 2 MG/4 ML VIAL ONE (10:57)
[2020-07-17] MEDS ORDERED: LORazepam 2 MG/4 ML VIAL IV STA (10:59)
[2020-07-17] MEDS ORDERED: HALOPERIDOL LACTATE 5 MG/ML 1 ML VIAL IM STA (11:02)
--- NOTE | 2020-07-17 11:26 | Psychiatric Consultation ---
Date of Consultation July 17, 2020 Impression / Recommendations Impression Dr. [Amarilis Locke] was directly involved in review and discussion of the patient's case and participated in medical decision making regarding treatment recommendations. RECOMMENDATIONS: 07/17/20 - Psychiatric consultation requested by our hospitalist team to evaluate patient for reported history of bipolar disorder, visual hallucinations, and pseudoseizures. Pt seen on our consult service in 05/2019 due to concern for depression (third trimester of ). No medications initiated at that time due to newly diagnosed seizure disorder - outpatient psychiatric treatment was recommended. - Patient was unable to participate in interview, so collateral was obtained from the patient's . Records indicate patient is currently prescribed aripiprazole 20mg and sertraline 100mg - followed by her PCP. states she had been diagnosed with bipolar disorder by her PCP, but there had been no recent acute concerns related to the patient's mood or anxiety. Would recommend continuing these medications at home dosage as medical work-up continues. - Would be very hesitant to dismiss this patient's symptoms as conversion disorder/PNES without thorough medical work-up. There are numerous symptoms that are not consistent with conversion disorder (amnesia, events not triggered by acute stress) and additional reports of recent head injuries and history of epilepsy are concerning. - Psychogenic nonepileptic seizures are a diagnosis of exclusion - given the patient's complex presentation, would very strongly suggest that a thorough medical work-up be completed to investigate patient's symptoms prior to assigning this diagnosis. Additionally, visually hallucinations are most often associated with an organic etiology, as opposed to a primary psychiatric condition. - Although a diagnosis of conversion disorder/PNES cannot be ruled out, it would require consistent long-term outpatient psychiatric follow-up with therapy and medication management to assist with reduction of anxiety and effective coping strategies. Regardless of this diagnosis, it does seem that patient could benefit from psychiatry and therapy referrals for ongoing outpatient follow-up. - Please reach out to our service with any additional questions or updates. We will continue to follow patient's case and offer support as appropriate. Psych History Identifying Data 24-year-old female admitted medically on 07/15/20 after presenting to the ED due to increased seizure-like activity. Psychiatric consultation was requested to evaluate patient with concern for possible pseudoseizures, visual hallucinations, and reported history of bipolar disorder diagnosis. History of Present Illness Nicol Vargas is a 24-year-old female admitted medically on 07/15/20 after presenting to the ED with increased incidents of seizure-like activity. Pt's rst reported seizure occurred in 2019 when with her second child. Our service was consulted at that time due to reported depression; however, antidepressant medications were not initiated at that time due to newly diagnosed seizure disorder (risk of lowering seizure threshold) and - but outpatient psychiatric treatment was suggested. PMH is significant for recent COVID-19 infection, seizure disorder, gestational hypertension, migraines, and recent falls/seizure-like activity. Neurology was consulted for increased seizure-like activity. Psychiatric is now being consulted for concern for pseudoseizures, visual hallucinations, and reported history of bipolar disorder diagnosis. Documentation suggests that patient had been seeing bugs and spiders this morning. Prior to attempted psychiatric assessment, the patient had been screaming with intense pain reported in head/neck. Heart rate reportedly increased to 180's. Pt was given haloperidol 5mg IV and lorazepam 2mg IV. Pt sedated as a result of this. During this provider's time in her room, the patient had primarily been sleeping soundly. Pt did softly verbalize a desire for "ice cream" as staff was reposit ioning her for transport to MRI. The patient herself if not able to provide reliable history at this time. Patient's was willing to answer questions related to patient's presentation as well as recent psychiatric history. With regard to psychiatric symptoms, the admits "she's always been a big ball of stress, that's nothing new. 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 She usually bottles it up during the day, and will cry a bit at night." He reports the patient struggled with depression during her with their now 1 year old son - initiation of sertraline by PCP was reportedly helpful for this and anxiety. Pt was also reportedly started on aripiprazole by her PCP for "her mood, I guess not a formal diagnosis, but bipolar disorder." describes the patient's mood as "0 to 100 super quick, she's always been like that." He does report that the patient's grandmother last month, but "she didn't seem unusually upset." He states that "everything was fine until ." states the patient had her first seizure-like episode on , where she hit her head on [place]. He states she had lost "7 or 8 years of memory", but returned to baseline shortly after the incident. She had another episode of this, but regained memory - prompting the ED visit. On 07/15 when presenting to the ED, the patient got out of the car and had another seizure-like event and again hit her head on the pavement. states "she lost 7-8 years again, but hasn't gotten it back. She don't know who I am." MRI was ordered for today, and patient was transported for imaging. was encouraged to reach out to our team with any concerns. Past Psychiatric History Current Psychiatric Diagnosis: per : "social anxiety, depression, bipolar disorder" Outpatient Services: None - outpatient therapy and psychiatry was recommended after 05/2019 psychiatric consultation by our service. Previous Psych Admissions: None History of Previous Suicide Attempt: No Past Medication Trials: Per hospital records: 1. Sertraline 2. Abilify 3. Lamotrigine - for seizures 4. Keppra - for seizures, worsened mood Allergies Allergy/AdvReac Type Severity Reaction Status Date / Time PAIN MEDICINES AdvReac Unknown "I FLIP Uncoded 07/15/20 20:00 OUT, ANXIOUS AND CRYING" Home Medications Medication Instructions Recorded Confirmed Type Iron Transfusions 1 dose UD PRN 09/07/19 07/15/20 History aripiprazole 20 mg PO HS 03/09/20 07/15/20 History albuterol sulfate 2 puff INHALATION QID PRN 03/14/20 07/15/20 History lorazepam [Ativan] 0.5 - 1 mg PO Q6 PRN 03/14/20 07/15/20 History lamotrigine 150 mg tablet 300 mg PO BID 30 Days #120 tab 04/12/20 07/15/20 Rx sumatriptan succinate 25 mg tablet See Rx Instructions PO .COMPLEX #8 04/12/20 07/15/20 Rx tab sertraline 100 mg PO DAILY 07/11/20 07/15/20 History Family History Pt is reportedly adopted. Substance Abuse History Denies significant alcohol or tobacco use. Denies use of illicit substances. Personal History Living Arrangements: Home Highest Grade Completed Comment: Reported she was homeschooled Marital Status: Number Of Children: 2 young children Beliefs That Will Affect Care: None History of Legal Problems: Denied Psychological Trauma History Comment: Denied Patient History Medical History (Updated 07/17/20 @ 12:14 by Minoo Bolanos MD) Anemia CURRENT IRON TRANSFUSIONS Borderline high blood pressure PT REPORTS BLOOD PRESSURE RUNS ON HIGHER SIDE/NO MEDS Exercise-induced asthma Gestational hypertension HX OF History of anesthesia reaction WITH WISDOM TEETH: AGE 13-14 YR - HIGH FEVER AND VOMITING AFTER - NO FURTHER DETAILS, UNKNOWN FAMILY HX - PT ADOPTED Rapid heart beat PT REPORTS HEART RATE RUNS ON HIGHER SIDE / NO MEDS Seizure disorder during seizures began at 13 weeks of and had several through . Last seizure at 30 weeks. Was hospitalized for 1 week and went to rehab afterward for loss of movement on L side, ambulatory dysfunction. Brain MRI showed no evidence of CVA, symptoms of unknown etiology. Stable on lamictal. Surgical History History of colposcopy ULISSES 1 S/P wisdom tooth extraction Family History Other Adopted Family history unknown Social History Smoking Status: Never smoker Second Hand Exposure: No; Do You Dip or Chew Tobacco: No; Tobacco Cessation Education Requested by Patient: No Hx Alcohol Use: No Hx Substance Use: No Preferred Language: Lebanese Communication Ability: Effective Ship Boss Required: No Beliefs That Will Affect Care: None marital status: marital status details: Abran Vargas (26) [phone] Current Living Situation: Other Current Living Situation Comment: has to live with parents due to seizure disorder at this time. 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 Pt is casually dressed in t-shirt, blanket covering lower portion of body. Hair is disheveled. Level of hygiene appears adequate. Eye Contact: + poor eye contact Motor Behavior: no abnormal motor movements Vital Signs (Past 24 Hours): Last Vital Signs Temp 37 C 07/17/20 08:06 Pulse 180 H 07/17/20 10:39 Resp 18 07/17/20 08:06 BP 130/73 07/17/20 10:39 Pulse Ox 96 07/17/20 08:06 Review of Systems Patient was sedated, unable to provide history. Did not verbalize any acute physical concerns. Results & Data ([facility]) Medications Administered Acetaminophen (Acetaminophen 325 Mg Tab) 650 mg PO Q4H PRN PRN Reason: pain/fever Stop: 08/15/20 00:40 Last Admin: 07/17/20 00:15 Dose: 650 mg Documented by: [id number] Admin: 07/16/20 14:33 Dose: 650 mg Documented by: [id number] Admin: 07/16/20 09:57 Dose: 650 mg Documented by: [id number] Admin: 07/16/20 05:46 Dose: 650 mg Documented by: [id number] Aripiprazole (Aripiprazole 10 Mg Tab) 20 mg PO HS LYNDSEY Stop: 08/15/20 01:24 Last Admin: 07/17/20 00:15 Dose: 20 mg Documented by: [id number] Admin: 07/16/20 05:47 Dose: 20 mg Documented by: [id number] Ketorolac Tromethamine (Ketorolac Tromethamine 15 Mg/Ml Vial) 15 mg IV Q8H LYNDSEY Stop: 07/21/20 16:59 Last Admin: 07/17/20 07:56 Dose: 15 mg Documented by: [id number] Admin: 07/17/20 01:41 Dose: Not Given Documented by: [id number] Admin: 07/16/20 17:34 Dose: 15 mg Documented by: [id number] Lamotrigine (Lamotrigine 100 Mg Tab) 300 mg PO BID LYNDSEY Stop: 08/15/20 08:59 Last Admin: 07/17/20 07:55 Dose: 300 mg Documented by: [id number] Admin: 07/17/20 00:15 Dose: 300 mg Documented by: [id number] Admin: 07/16/20 08:31 Dose: 300 mg Documented by: [id number] Melatonin (Melatonin 3 Mg Tab) 3 mg PO HS PRN PRN Reason: Sleep Stop: 08/15/20 20:24 Last Admin: 07/17/20 00:15 Dose: 3 mg Documented by: [id number] Ondansetron HCl (Ondansetron Inj 2 Mg/Ml 2 Ml Vial) 4 mg IV Q8H LYNDSEY Stop: 07/21/20 17:00 Last Admin: 07/16/20 17:34 Dose: 4 mg Documented by: [id number] Sertraline HCl (Sertraline Hcl 100 Mg Tablet) 100 mg PO HS LYNDSEY Stop: 08/15/20 20:59 Last Admin: 07/17/20 00:15 Dose: 100 mg Documented by: [id number] Sumatriptan Succinate (Sumatriptan Succinate 25 Mg Tab) 25 mg PO UD PRN PRN Reason: Migraine Headache Stop: 08/15/20 00:40 Last Admin: 07/16/20 05:49 Dose: 25 mg Documented by: [id number] Coding Level of Care Code 81377 U Intl Hosp Care Lvl 1
[2020-07-17] MEDS ORDERED: GADOBUTROL 65ML VIAL IV ONE (13:09)
--- NOTE | 2020-07-17 14:58 | Magnetic Resonance Report ---
MR BRAIN WO/W CON HISTORY: 24-year-old Female worsening seizures, hallucinations, acute seizure-like activity with mem ory loss and headache. COMPARISON: Head CT 07/15/2020, brain MRI 05/09/2019 TECHNIQUE: Multiplanar multisequence MRI of the brain was obtained both with and without the use of 8 .5 mL Gadavist utilizing seizure protocol. FINDINGS: Cupola Hoist Operator localizer images demonstrate no gross extracranial abnormality. There is no restricted diffusio n to suggest acute or subacute infarct. No acute intracranial hemorrhage, midline shift, abnormal ext ra-axial collection, hydrocephalus or intracranial mass. Mildly motion degraded exam. No significant T2/FLAIR signal abnormalities of the brain parenchyma. No acute seizure focus or pathologic blooming artifact. Mesial temporal lobes appear normal. No toure matter heterotopia or cortical dysplasia. Cere bral venous sinuses and major arterial flow voids are patent. Mastoid air cells, orbits and soft tiss ues are unremarkable. Mild mucosal thickening of the ethmoid air cells. Prominence of the adenoid ton sils without discrete mass identified. No abnormal enhancement. IMPRESSION: 1. No acute intracranial abnormality. 2. No abnormal enhancement. ACT 112: Negative or not required by law. The above report was generated using voice recognition software. It may contain grammatical, syntax o r spelling errors. Dictated: 07/17/2020 1:19 PM Transcribed: 07/17/2020 2:04 PM Glo [id number] [facility] Electronically signed by: Cyrus Romero M.D. 07/17/2020 2:56 PM
--- NOTE | 2020-07-17 15:15 | Electroencephalogram ---
EEG Procedure Note Date of Service July 17, 2020 Start / End Times Start Time: 10:25 End Time: 10:45 Referring Physician Manuel Montejo History possible seizure vs syncope Home Medication List Medication Instructions Recorded Confirmed Type Iron Transfusions 1 dose UD PRN 09/07/19 07/15/20 History aripiprazole 20 mg PO HS 03/09/20 07/15/20 History albuterol sulfate 2 puff INHALATION QID PRN 03/14/20 07/15/20 History lorazepam [Ativan] 0.5 - 1 mg PO Q6 PRN 03/14/20 07/15/20 History lamotrigine 150 mg tablet 300 mg PO BID 30 Days #120 tab 04/12/20 07/15/20 Rx sumatriptan succinate 25 mg tablet See Rx Instructions PO .COMPLEX #8 04/12/20 07/15/20 Rx tab sertraline 100 mg PO DAILY 07/11/20 07/15/20 History Inpatient Medication List Acetaminophen (Acetaminophen 325 Mg Tab) 650 mg PO Q4H PRN PRN Reason: pain/fever Stop: 08/15/20 00:40 Last Admin: 07/17/20 00:15 Dose: 650 mg Documented by: [id number] Admin: 07/16/20 14:33 Dose: 650 mg Documented by: [id number] Admin: 07/16/20 09:57 Dose: 650 mg Documented by: [id number] Admin: 07/16/20 05:46 Dose: 650 mg Documented by: [id number] Aripiprazole (Aripiprazole 10 Mg Tab) 20 mg PO HS [facility] Stop: 08/15/20 01:24 Last Admin: 07/17/20 00:15 Dose: 20 mg Documented by: [id number] Admin: 07/16/20 05:47 Dose: 20 mg Documented by: [id number] Ketorolac Tromethamine (Ketorolac Tromethamine 15 Mg/Ml Vial) 15 mg IV Q8H [facility] Stop: 07/21/20 16:59 Last Admin: 07/17/20 07:56 Dose: 15 mg Documented by: [id number] Admin: 07/17/20 01:41 Dose: Not Given Documented by: [id number] Admin: 07/16/20 17:34 Dose: 15 mg Documented by: [id number] Lamotrigine (Lamotrigine 100 Mg Tab) 300 mg PO BID [facility] Stop: 08/15/20 08:59 Last Admin: 07/17/20 07:55 Dose: 300 mg Documented by: [id number] Admin: 07/17/20 00:15 Dose: 300 mg Documented by: [id number] Admin: 07/16/20 08:31 Dose: 300 mg Documented by: [id number] Melatonin (Melatonin 3 Mg Tab) 3 mg PO HS PRN PRN Reason: Sleep Stop: 08/15/20 20:24 Last Admin: 07/17/20 00:15 Dose: 3 mg Documented by: [id number] Ondansetron HCl (Ondansetron Inj 2 Mg/Ml 2 Ml Vial) 4 mg IV Q8H [facility] Stop: 07/21/20 17:00 Last Admin: 07/16/20 17:34 Dose: 4 mg Documented by: [id number] Sertraline HCl (Sertraline Hcl 100 Mg Tablet) 100 mg PO HS [facility] Stop: 08/15/20 20:59 Last Admin: 07/17/20 00:15 Dose: 100 mg Documented by: [id number] Sumatriptan Succinate (Sumatriptan Succinate 25 Mg Tab) 25 mg PO UD PRN PRN Reason: Migraine Headache Stop: 08/15/20 00:40 Last Admin: 07/16/20 05:49 Dose: 25 mg Documented by: [id number] Discontinued Medications Cyclobenzaprine HCl (Cyclobenzaprine Hcl 10 Mg Tab) 10 mg PO NOW STA Stop: 07/16/20 06:58 Last Admin: 07/16/20 07:02 Dose: 10 mg Documented by: [id number] Cyclobenzaprine HCl (Cyclobenzaprine Hcl 10 Mg Tab) Confirm Administered Dose 10 mg PO .STK-MED ONE Stop: 07/16/20 07:01 Last Admin: 07/16/20 07:15 Dose: Not Given Documented by: [id number] Cyclobenzaprine HCl (Cyclobenzaprine Hcl 10 Mg Tab) 5 mg PO NOW STA Stop: 07/16/20 23:49 Last Admin: 07/17/20 00:15 Dose: 5 mg Documented by: [id number] Diphenhydramine HCl (Diphenhydramine 50 Mg/Ml Vial) Confirm Administered Dose 50 mg .ROUTE .STK-MED ONE Stop: 07/17/20 10:47 Last Admin: 07/17/20 10:51 Dose: Not Given Documented by: [id number] Gadobutrol (Gadobutrol 65ml Vial) 8.5 ml IV ONCE ONE Stop: 07/17/20 13:10 Last Admin: 07/17/20 13:10 Dose: 8.5 ml Documented by: [id number] Haloperidol Lactate (Haloperidol Lactate 5 Mg/Ml 1 Ml Vial) Confirm Administered Dose 5 mg .ROUTE .STK-MED ONE Stop: 07/17/20 10:50 Last Admin: 07/17/20 10:51 Dose: 5 mg Documented by: [id number] Haloperidol Lactate (Haloperidol Lactate 5 Mg/Ml 1 Ml Vial) 5 mg IV NOW STA Stop: 07/17/20 10:53 Last Admin: 07/17/20 11:14 Dose: Not Given Documented by: [id number] Haloperidol Lactate (Haloperidol Lactate 5 Mg/Ml 1 Ml Vial) 5 mg IM NOW STA Stop: 07/17/20 11:03 Last Admin: 07/17/20 11:12 Dose: Not Given Documented by: [id number] Sodium Chloride (Nss 1000ml) 1,000 mls @ 999 mls/hr IV .Q1H1M [facility] Stop: 07/15/20 20:15 Last Infusion: 07/15/20 19:45 Dose: 0 mls/hr Documented by: [id number] Admin: 07/15/20 19:06 Dose: 999 mls/hr Documented by: [id number] Lorazepam (Ativan) 1 mg in 2 mls @ 2 mls/min IV NOW STA Stop: 07/15/20 19:04 Last Admin: 07/15/20 19:08 Dose: 2 mls/min Documented by: [id number] Acetaminophen (Ofirmev) 1,000 mg in 100 mls @ 400 mls/hr IV NOW STA Stop: 07/15/20 19:40 Last Infusion: 07/15/20 19:44 Dose: 0 mls/hr Documented by: [id number] Admin: 07/15/20 19:32 Dose: 400 mls/hr Documented by: [id number] Lorazepam (Ativan) 1 mg in 2 mls @ 2 mls/min IV NOW STA Stop: 07/15/20 20:42 Last Admin: 07/15/20 20:44 Dose: 2 mls/min Documented by: [id number] Lorazepam (Ativan) 1 mg in 2 mls @ 0.5 mls/min IV Q10M PRN PRN Reason: seizure Q10M up to 5 mg Stop: 08/15/20 00:40 Last Admin: 07/17/20 07:30 Dose: 0.5 mls/min Documented by: [id number] Admin: 07/17/20 00:15 Dose: 0.5 mls/min Documented by: [id number] Admin: 07/16/20 05:33 Dose: 0.5 mls/min Documented by: [id number] Ceftriaxone Sodium 2,000 mg/ (Dextrose) 70 mls @ 100 mls/hr IV Q12H [facility]; Protocol Stop: 07/26/20 06:29 Last Infusion: 07/16/20 08:05 Dose: 0 mls/hr Documented by: [id number] Admin: 07/16/20 07:14 Dose: 100 mls/hr Documented by: [id number] Dexamethasone 10 mg/ Syringe 2.5 mls @ 1 mls/min IV Q6 [facility] Stop: 08/15/20 06:44 Last Admin: 07/16/20 12:35 Dose: 1 mls/min Documented by: [id number] Admin: 07/16/20 07:14 Dose: 1 mls/min Documented by: [id number] Acyclovir Sodium 525 mg/ (Dextrose) 110.5 mls @ 100 mls/hr IV Q8 [facility] Stop: 07/26/20 06:44 Last Infusion: 07/16/20 15:05 Dose: 0 mls/hr Documented by: [id number] Admin: 07/16/20 13:54 Dose: 100 mls/hr Documented by: [id number] Infusion: 07/16/20 08:20 Dose: 0 mls/hr Documented by: [id number] Admin: 07/16/20 07:13 Dose: 100 mls/hr Documented by: [id number] Vancomycin HCl 2,250 mg/ (Sodium Chloride) 545 mls @ 200 mls/hr IV NOW STA Stop: 07/16/20 09:24 Last Infusion: 07/16/20 10:15 Dose: 0 mls/hr Documented by: [id number] Admin: 07/16/20 07:14 Dose: 200 mls/hr Documented by: [id number] Vancomycin HCl 1,500 mg/ (Sodium Chloride) 530 mls @ 200 mls/hr IV Q8H [facility]; Protocol Stop: 07/26/20 14:59 Last Infusion: 07/16/20 17:15 Dose: 0 mls/hr Documented by: [id number] Admin: 07/16/20 15:27 Dose: 150 mls/hr Documented by: [id number] Magnesium Sulfate/Dextrose (Magnesium Sulfate / D5w) 1 gm in 100 mls @ 50 mls/hr IV Q12H [facility] Stop: 07/17/20 06:59 Last Infusion: 07/17/20 08:44 Dose: 0 mls/hr Documented by: [id number] Admin: 07/17/20 06:29 Dose: 50 mls/hr Documented by: [id number] Infusion: 07/16/20 20:17 Dose: 0 mls/hr Documented by: [id number] Admin: 07/16/20 18:14 Dose: 50 mls/hr Documented by: [id number] Sodium Chloride (1/2 Nss) 1,000 mls @ 100 mls/hr IV .Q10H [facility] Stop: 08/15/20 17:14 Last Infusion: 07/17/20 02:28 Dose: 0 mls/hr Documented by: [id number] Admin: 07/16/20 17:34 Dose: 100 mls/hr Documented by: [id number] Lorazepam (Ativan) 2 mg in 4 mls @ 4 mls/min IV NOW STA Stop: 07/17/20 11:00 Last Admin: 07/17/20 11:12 Dose: 4 mls/min Documented by: [id number] Ketorolac Tromethamine (Ketorolac Tromethamine 15 Mg/Ml Vial) 10 mg IV NOW ONE Stop: 07/15/20 20:30 Last Admin: 07/15/20 20:55 Dose: 10 mg Documented by: [id number] Lamotrigine (Lamotrigine 100 Mg Tab) 600 mg PO ONCE ONE Stop: 07/15/20 20:31 Last Admin: 07/15/20 21:01 Dose: 600 mg Documented by: [id number] Lorazepam (Lorazepam 2 Mg/4 Ml Vial) Confirm Administered Dose 2 mg .ROUTE .STK- MED ONE Stop: 07/15/20 19:07 Last Admin: 07/15/20 19:29 Dose: Not Given Documented by: [id number] Lorazepam (Lorazepam 1 Mg Tab) 1 mg PO ONE ONE Stop: 07/16/20 20:27 Last Admin: 07/17/20 00:15 Dose: 1 mg Documented by: [id number] Lorazepam (Lorazepam 2 Mg/4 Ml Vial) Confirm Administered Dose 2 mg .ROUTE .STK- MED ONE Stop: 07/17/20 10:58 Last Admin: 07/17/20 11:12 Dose: Not Given Documented by: [id number] Metoprolol Tartrate (Metoprolol Tartrate 1 Mg/Ml Vial) 5 mg IV NOW STA Stop: 07/17/20 10:24 Last Admin: 07/17/20 10:39 Dose: Not Given Documented by: [id number] Metoprolol Tartrate (Metoprolol Tartrate 1 Mg/Ml Vial) Confirm Administered Dose 5 mg IV .STK-MED ONE Stop: 07/17/20 10:25 Last Admin: 07/17/20 10:39 Dose: 5 mg Documented by: [id number] Ondansetron HCl (Ondansetron Inj 2 Mg/Ml 2 Ml Vial) 4 mg IV Q6H PRN PRN Reason: Nausea Stop: 08/15/20 00:40 Last Admin: 07/16/20 05:45 Dose: 4 mg Documented by: [id number] Sertraline HCl (Sertraline Hcl 100 Mg Tablet) 100 mg PO DAILY [facility] Stop: 08/15/20 01:24 Last Admin: 07/16/20 05:47 Dose: 100 mg Documented by: [id number] Description This is a 21 electrode EEG with a single channel dedicated to limited EKG. The electrodes were placed in accordance with the International 10-20 system. History: PNES, ?seizures Rx: lamictal 300mg bid, sertraline, ativan prn Start/Stop: 10:25am/10:45am Attending reading: Cornelia Ibarra EEG Description: EEG background: Background was symmetric alpha rhythm at the initial part of the recording, but she quickly fell asleep. No well formed posterior dominant rhythm was observed. The EEG is continuous. There is variability and reactivity present. Activation and reactivity: Photic stimulation performed without any abnormalities noted. No photic driving observed. Hyperventilation was not performed. Sleep: Patient was asleep for the majority of the record. Stages I and II of sleep were recorded with normal vertex waves and sleep spindles noted. Epileptiform discharges: No epileptiform discharges were observed. Rhythmic and periodic patterns: None Seizures: None Impression: This was a normal awake and asleep EEG. No seizures or epileptiform discharges were seen. Clinical correlation required. [facility] EEG Procedure Codes Indication for Procedure (1) Observed seizure-like activity: (2) Migraine without aura and responsive to treatment: Neurology Neurology: 30336 EEG include record awake & sleepy
--- NOTE | 2020-07-17 15:15 | XCELERA ---
[id number] \\[id number]_[id number]
--- NOTE | 2020-07-17 16:15 | Neurology Progress Note ---
Date of Service July 17, 2020 Assessment & Plan (1) Observed seizure-like activity: Nicol Vargas is a 24 yo woman with PMH of depression, h/o gHTN in prior , iron deficiency anemia, abnormal PAP, COVID x2 (most recent positive test on 07/12/20) and h/o seizures in the past who presents to [facility] after having 2 syncopal events with last event a/w GLF on presentation to the ED. # Observed seizure like activity: reports being seen in the EMU and told that she does not have an epileptic tendency, so keppra stopped. Kept on lamictal/ativan by PCP for mood - agree with AMAN from [facility] EMU for EMU summary - would also request records from Dr Vo about psychiatric medication changes - agree with psychiatry consult to see if it would be ok to minimize psychotropic medications/find best combination for her (would appreciate psych recs on possibly restarting topamax for headaches and mood) - would continue lamictal 300mg bid for now for mood - would consider obtaining a TTE given recurrent syncope in setting of tachycardia # Migraine headaches: reports that this is one of her biggest issues currently - would give IVFs, Mg 1g q12h IV, toradol/zofran q8h scheduled x 3 doses - restart home PO magnesium 400mg daily. Start topiramate 25mg nightly tonight with goal to slowly increase over the next few weeks - can have a steroid cycle breaker on discharge to help with headaches (methylpred taper x6 days) vs zyprexa 2.5mg nightly x 5 days - she already has f/u with me in 2 weeks where we can discuss headaches further if still having them Thank you for this interesting consult. Plan of care discussed with primary team. Please call or text of questions. (2) Migraine without aura and responsive to treatment: Admission and Anticipated Discharge Date Admission Date: July 15, 2020 Subjective Had severe headache overnight that was a/w several seizure like episodes. Reports that she is still having a mild headache and feels really tired on current medications. reports that she stopped the topamax awhile ago due to headaches getting better. Abilify was started due to mood swings and c/f possible bipolar disorder. Review of Systems Review of Systems: 10 point review of systems completed and negative except as in HPI. Results & Data ([facility]) Vital Signs (Past 12 Hours) Vital Signs Temp Pulse Pulse Resp BP BP Pulse Ox 07/17/20 15:32 102 H 07/17/20 15:04 36.9 C 108 H 16 100/63 94 07/17/20 10:39 180 H 130/73 07/17/20 09:21 113 H 07/17/20 08:06 37 C 120 H 18 103/67 96 Exam (Neuro) Physical Exam: General Exam: GEN: NAD, sitting in bed CV: tachycardic PULM: Nonlabored respirations on room air. Neuro Exam: MS: Awake and Alert. Oriented to person, place, and date. Speech fluent and appropriate without dysarthria or paraphasic errors. Language intact including naming, comprehension, repetition. Cognition and memory grossly intact. Attention intact. No neglect. CN: Hearing intact to conversation. MOTOR: All extremities antigravity PG Care Time/CCT Total # of Minutes Spent Total Time Spent with Patient: Total time spent is greater than 50% in coordination of care (as documented) at patient's floor/unit and/or counseling patient: Coding Level of Care Code 83374 Subseq Hosp Care Lvl 3 Diagnoses Observed seizure-like activity R56.9 Migraine without aura and responsive to treatment G43.009
--- NOTE | 2020-07-17 19:56 | Billing Data ---
Date of Service July 17, 2020 Coding Level of Care Code 07261 Subseq Hosp Care Lvl 3
[2020-07-17] MEDS: TOPIRAMATE 25 MG TAB PO SCH (20:24)
[2020-07-17] MEDS: OLANZAPINE 2.5 MG TAB PO SCH (20:24)
[2020-07-17] MEDS ORDERED: CYCLOBENZAPRINE HCL 10 MG TAB PO ONE (20:33)
[2020-07-17] MEDS ORDERED: ONDANSETRON INJ 2 MG/ML 2 ML VIAL IV PRN (20:55)
[2020-07-17] MEDS: CYCLOBENZAPRINE HCL 5 MG TAB PO SCH (21:06)
[2020-07-18] MEDS: KETOROLAC TROMETHAMINE 15 MG/ML VIAL IV SCH ×4 (02:12→17:51)
--- NOTE | 2020-07-18 05:44 | Billing Data ---
Date of Service July 18, 2020 Coding Level of Care Code 52482 Initial Inpt Care Lvl 2
--- NOTE | 2020-07-18 06:38 | Electrocardiogram Report ---
Test Reason : Blood Pressure : / mmHG Vent. Rate : 113 BPM Atrial Rate : 113 BPM P-R Int : 158 ms QRS Dur : 074 ms QT Int : 332 ms P-R-T Axes : 071 075 071 degrees QTc Int : 455 ms Sinus tachycardia Possible Left atrial enlargement Borderline ECG When compared with ECG of 16-JUL-2020 22:06, T wave amplitude has decreased in Lateral leads Confirmed by Chito Jackson ([id number]) on 07/18/2020 6:38:14 AM Referred By: REFERRED SELF Confirmed By:Chito Jackson
[2020-07-18] MEDS: lamoTRIgine 100 MG TAB PO SCH ×2 (07:59→20:02)
[2020-07-18] MEDS: MAGNESIUM OXIDE 400 MG TAB PO SCH (07:59)
[2020-07-18] MEDS: CYCLOBENZAPRINE HCL 5 MG TAB PO SCH (07:59)
--- NOTE | 2020-07-18 09:42 | Hospitalist Progress Note ---
Date of Service July 18, 2020 Assessment & Plan (1) Epilepsy: 24 yo F with hx seizures during , multiple recent falls and seizure-like activity. 1. Seizure activity - possible discontinuation of keppra in April by [facility] neurology - lamictal 300 bid continued, loaded with lamictal 600 once given concern for skipping/missing doses. - EEG pending - appreciate neuro recommendations to continue lamictal for mood control - appears to be less likely intrinsic seizure disorder, MRI pending 2. Conversion Disorder - memory clearly impaired, nonfocal but abnormal neuro exam. possibly secondary to postconcussive disorder/conversion - LP normal but with increased protein, unlikely meningitic - urine tox negative 3. Hx bipolar disorder - per - aripiprazole 20 mg QHS, 100 mg Sertraline continued - avoid serotonergic agents - psychiatric consult placed, appreciate support in setting of "bugs and spiders" in visual field 3. Migraines - sumatriptan 25 mg PO PRN for migraines DVT ppx: low risk, up ad mervin FEN/GI: regular diet Code Status: Full Code Dispo: ongoing treatment and management (2) Amnesia: (3) Fall: (4) Seizure disorder during : (5) Observed seizure-like activity: (6) Conversion disorder: (7) Bipolar 2 disorder: Admission and Anticipated Discharge Date Admission Date: July 15, 2020 Results & Data Results & Data ([facility]) Vital Signs (Past 12 Hours) Vital Signs Temp Pulse Pulse Resp BP Pulse Ox 07/18/20 09:12 81 07/18/20 02:12 90 07/17/20 22:37 36.8 C 127 H 18 98/61 L 97 07/17/20 22:20 106 H (1) Fall Encounter type: initial encounter Qualified Code(s): W19.XXXA - Unspecified fall, initial encounter
[2020-07-18] MEDS: ACETAMINOPHEN 325 MG TAB PO PRN ×2 (11:18→23:00)
[2020-07-18] MEDS ORDERED: BUTALBITAL/ACETAMIN/CAFFEINE TAB PO PRN (11:43)
--- NOTE | 2020-07-18 12:55 | Medical Student Progress Note ---
Date of Service July 18, 2020 Assessment & Plan (1) Epilepsy: Pt with pmhx of seizures, migraine with aura, iron deficiency anemia, depression, and Covid positive status in presenting with progressive seizure-like episodes with new memory loss/amnesia. No tongue biting, bowel/urinary incontinence, and afebrile. 1. Seizure-like episodes - Suspect neurology vs psych etiology. DDx include postconcussion syndrome, psychogenic nonepileptic seizure, and conversion disorder - 07/15 CT head with no intracranial findings - 07/16 labs: Lamcital level 3.7. U/A unremarkable. - 07/18 MRI brain showing no intracranial abnormality - per neurology, continue lamotrigine 300mg BID - Obtain records from [facility] to verify changes in medication from April 2. Migraine headaches - reports PEREZ with no photophobia, phonophobia, or N/V. Does have suboccipital tenderness - continue topiramate 25mg - refer above to neurology recommendation 5. Sinus Tachycardia - 07/17 EKG showing sinus tachycardia. HR increase to 160-170s when she has a seizure-like spell. Suspect related to pain from PEREZ and anxiety - Continue education about breathing techniques during spells 3. Falls - 2 falls within 5 days. Had one last and one Thursday, both where she fell on her back. - b/l hip, back, and neck pain. Suspect MSK etiology given response to Tylenol and cyclobenzaprine and that in history, it was mentioned that pt typically has neck pain after seizure-like episodes. - 07/15 CT Cspine showing no fracture. - continue Tylenol 650mg PO 6.Depression - continue home med of sertraline 100mg daily and apriprazole 20mg 7. Iron Deficiency Anemia - Hgb 13.2, MCV 88.4 (2) Fall: Encounter type: initial encounter Qualified Code(s): W19.XXXA - Unspecified fall, initial encounter (3) Amnesia: (4) Iron deficiency anemia: (5) Migraine without aura and responsive to treatment: Admission and Anticipated Discharge Date Admission Date: July 15, 2020 Supervising Attestation I personally examined the patient and verified all li points of history and exam, discussed case, and agree with decision making with Berta Goddard MS4. sleeping comfortably when i see her. due to stress being so high and finally getting rest --> and MS4 and R2 both noting patient doing better -- allowed to sleep vitals noted nad breathing unlabored no accessory muscles good effort Seizure-like activityquestion nonepileptiform/psychogenic? Triggered by stress, has social anxiety and bipolar, has had more "conventional" panic attacks in the past, her pattern of memory loss seems incongruent with neurologic syndromes I am familiar with. doing better today. ?maybe home in the next 1-2 days if she has enough supportive care/supervision for safety. continue current care for now. Subjective Last night, pt had 2 episodes of sharp/stabbing neck and back pain followed by hyperventilation. Tolerated olanzapine, toradol, and cyclobenzaprine well. Woke up this morning saying that she still has neck and back pain. Tried b/l subocciptal release and pt reports blurry vision afterwards and no change to pain. Unsure when last bowel movement was, but pt was given miralax. Pt reports memory getting worse and is now unable to recognize her mom when she was able to yesterday. Continues to see bugs. Review of Systems Cardiovascular: + chest pain and + palpitations Gastrointestinal: + nausea; no abdominal pain and no vomiting Musculoskeletal: + back pain and + neck pain; no muscle weakness Neurologic: + headache(s) and + memory loss Psychiatric: + visual hallucinations (see bugs) Physical Exam Constitutional: cooperative Respiratory: normal respiratory effort, lungs clear to auscultation Cardiovascular: RRR, no murmur, no edema Skin: no rashes, warm and dry Neurologic: moves all extremities and awake (able to follow command) Speech / Cognition: normal speech Motor/Sensory: no tremor and no pronator drift Cranial Nerves: PERRL, normal accommodation and EOM intact bilaterally (difficulty tracking as she would occasionally close her eyes) Coordination: + abnormal [id number] test and + abnormal rapid alternating movements (able to flip hands b/l, but slow); normal undi-po-[id number] test Psychiatric: Orientation: alert, oriented to person and oriented to place; + not oriented to time Results & Data ([facility]) Vital Signs (Past 12 Hours) Vital Signs Temp Pulse Pulse Resp BP Pulse Ox 07/18/20 11:49 36.5 C 114 H 20 114/71 96 07/18/20 10:27 37.5 C 116 H 16 107/61 94 07/18/20 09:12 81 07/18/20 02:12 90
[2020-07-18 16:51] LABS: HSV Type 1 DNA Not Detected (Not Detected); HSV Type 1&2 DNA Source CSF; HSV Type 2 DNA Not Detected (Not Detected)
--- NOTE | 2020-07-18 18:06 | Neurology Progress Note ---
Date of Service July 18, 2020 Assessment & Plan (1) Observed seizure-like activity: Nicol Vargas is a 24 yo woman with PMH of depression, h/o gHTN in prior , iron deficiency anemia, abnormal PAP, COVID x2 (most recent positive test on 07/12/20) and h/o seizures in the past who presents to [facility] after having 2 syncopal events with last event a/w GLF on presentation to the ED. # Observed seizure like activity: reports being seen in the EMU and told that she does not have an epileptic tendency, so keppra stopped. Kept on lamictal/ativan by PCP for mood - agree with AMAN from [facility] EMU for EMU summary - would also request records from Dr Vo about psychiatric medication changes - agree with psychiatry consult to see if it would be ok to minimize psychotropic medications/find best combination for her (would appreciate psych recs on possibly restarting topamax for headaches and mood, maybe stopping abilify to minimize polypharmacy given compliance difficulties) - would continue lamictal 300mg bid for now for mood; consider changing to lamotrigine XR 500mg daily tomorrow to make compliance better # Migraine headaches: reports that this is one of her biggest issues currently, now resolved - continue home PO magnesium 400mg daily and topiramate 25mg nightly tonight with goal to slowly increase over the next few weeks (can increase to 50mg nightly on 07/24, 75mg nightly on 07/31) - continue zyprexa 2.5mg nightly x 5 days (currently day 2 of 5, stop date 07/21) - she already has f/u with me in 2 weeks where we can discuss headaches further if still having them Thank you for this interesting consult. Plan of care discussed with primary team. Please call or text of questions. (2) Migraine without aura and responsive to treatment: Admission and Anticipated Discharge Date Admission Date: July 15, 2020 Subjective Continued to have one episode of pain overnight that caused her crunch over/fall over. Reports that she has been doing much better this afternoon and headache has resolved. MRI brain showed no tumor, stroke or other abnormality. Review of Systems Review of Systems: 10 point review of systems completed and negative except as in HPI. Results & Data ([facility]) Vital Signs (Past 12 Hours) Vital Signs Temp Pulse Pulse Resp BP Pulse Ox 07/18/20 16:01 36.8 C 104 H 18 116/72 98 07/18/20 15:00 103 H 07/18/20 11:49 36.5 C 114 H 20 114/71 96 07/18/20 10:27 37.5 C 116 H 16 107/61 94 07/18/20 09:12 81 Exam (Neuro) Physical Exam: General Exam: GEN: NAD, sitting in bed CV: tachycardic PULM: Nonlabored respirations on room air. Neuro Exam: MS: Awake and Alert. Oriented to person, place, and date. Speech fluent and appropriate without dysarthria or paraphasic errors. Language intact including naming, comprehension, repetition. Cognition and memory grossly intact. Attention intact. No neglect. CN: Hearing intact to conversation. MOTOR: All extremities antigravity PG Care Time/CCT Total # of Minutes Spent Total Time Spent with Patient: Total time spent is greater than 50% in coordination of care (as documented) at patient's floor/unit and/or counseling patient: Coding Level of Care Code 21460 Subseq Hosp Care Lvl 3 Diagnoses Observed seizure-like activity R56.9 Migraine without aura and responsive to treatment G43.009
--- NOTE | 2020-07-18 19:23 | Billing Data ---
Date of Service July 18, 2020 Coding Level of Care Code 64983 Subseq Hosp Care Lvl 2
[2020-07-18] MEDS: ARIPiprazole 10 MG TAB PO SCH (20:01)
[2020-07-18] MEDS: TOPIRAMATE 25 MG TAB PO SCH (20:03)
[2020-07-18] MEDS: SERTRALINE HCL 100 MG TABLET PO SCH (20:03)
[2020-07-18] MEDS: OLANZAPINE 2.5 MG TAB PO SCH (20:04)
[2020-07-18] MEDS: MELATONIN 3 MG TAB PO PRN (23:58)
[2020-07-19] MEDS: KETOROLAC TROMETHAMINE 15 MG/ML VIAL IV SCH ×2 (00:04→08:08)
[2020-07-19] MEDS: MAGNESIUM OXIDE 400 MG TAB PO SCH (08:07)
[2020-07-19] MEDS: CYCLOBENZAPRINE HCL 5 MG TAB PO SCH (08:09)
--- NOTE | 2020-07-19 08:11 | Discharge Summary ---
Date of Service July 19, 2020 Admission HPI Per Admitting Provider Nicol Vargas is here with her for increased seizure like activity since 07/12. She developed seizures in 2019 her first seizure was with her second child. She was not able to remember the recent or prior events/episodes so her provided the history. Her Neurologist is Dr. Ibarra, She was seen in April with the plan to decrease her dose of Keppra and for evaluation at [place] through [facility] at EMU. Per she was stopped on Keppra and just on Lamotrigine since April and was not having any seizure like activity. Then on she came to the ER after she fainted. She woke up and then she was found again on her back and had seizure like activity including while on the ambulance. She was slow to come back and was not able to remember anything from the event. Thursday she had generalized seizure like activity in bed, went back to sleep and was "fine" the next day. Today she was at their parents house when she had 1-1.5 minutes of unresponsiveness. They decided to come to the hospital to get evaluated. They were in the parking lot of the ER when she had an unwitnessed fall while getting out of the car and was found on her back. It is not clear if she hit her head. There have been no recent changes in her medications over the last few weeks, but prior to she had been forgetting to take her morning dose of her Lamotrigine. ED course: given Ativan 1mg X2 and 2mg given Lamotrigine 600 mg Social: no tobacco use no ETOH use no recreational drug use Admission Exam Per Admitting Provider Constitutional: lying in bed, with bag in front of her, occasionally yawning Eyes: PERRL, conjunctivae normal, anicteric sclerae ENMT: external ear and nose normal, oropharynx normal Neck: normal visual inspection Respiratory: normal respiratory effort, lungs clear to auscultation Cardiovascular: RRR, no murmur, no edema Gastrointestinal (Abdomen): normal bowel sounds, slightly tender to palpation in the left upper and lower quadrant soft, no masses appreciated Musculoskeletal: Tender to palpation of the occiput, with no bruising or hematoma appreciated tender to palpation of the right paraspinal muscles, no pain on cervical spinal process Skin: no rashes, warm and dry Neurologic: + confused Speech / Cognition: normal speech Motor/Sensory: no tremor no facial palsy poor tracking able to hear better in R>L otherwise CN intact Psychiatric: Orientation: alert Eye Contact: + fair eye contact Affect: + depressed affect Thought Process: linear/logical thought process Principal Diagnosis Nonepileptiform seizures, Anxiety, Complex Migraines Discharge Exam Constitutional: obese, in no apparent distress, sitting comfortably in bed. Eyes: EOMI, pupils equal and reactive bilaterally, no scleral icterus Cardiac: RRR, no murmurs, gallops or rubs. Normal S1, S2 Pulm: CTA BL, no wheezes, rhonchi, crackles or rubs, moving air well throughout both lungs Abd: soft, nontender, nondistended, normal bowel sounds, no rebound or guarding Extremities: 2+ peripheral pulses, no edema Neuro: no focal deficits, moving all 4 limbs, A&Ox3 Discharge Data Allergies Allergy/AdvReac Type Severity Reaction Status Date / Time PAIN MEDICINES AdvReac Unknown "I FLIP Uncoded 07/15/20 20:00 OUT, ANXIOUS AND CRYING" Consultations 07/15/20 21:36 ED Decision to Admit Stat 07/16/20 00:41 Consult Health Information Management Routine Consult Neurology Routine 07/17/20 09:36 Consult Psychiatry Routine 07/17/20 19:58 Consult Health Information Management Routine Ordered Studies 07/15/20 19:03 CT head/brain wo con Stat 07/15/20 19:14 CT cervical spine wo con Stat 07/16/20 06:19 FL lumbar puncture diagnostic Routine 07/16/20 22:06 US venous doppler LE BI Urgent 07/17/20 09:42 MR brain wo/w con Routine Hospital Course (1) Epilepsy: 24 yo F with hx seizures during , multiple recent falls and seizure-like activity. 1. Nonepileptiform Seizure activity - MRI, EEG, LP, lab work negative - EMU in [facility] ruled out epilepsy previously - Recommended changing lamictal 300 mg BID to lamictal ER 500 daily, but will require insurance pre-authorization. Discharged with 300 BID for now. 2. Complex Migraines - memory impairment with nonfocal neurologic exam. - possible additional component with post-concussive disorder. - in conjunction with mood disorder, appeared to cause the seizure-like episodes - urine tox negative - zyprexa 2.5 mg nightly x total of 5 days - discharged with sumatriptan and increasing doses of topamax 07/19 - 07/23: 25 mg topiramate at nighttime 07/24 - 07/30: 50 mg topiramate at nighttime 07/31 onward: 75 mg topiramate at nighttime - follow up with Dr. Ibarra in Neurology clinic in 2 weeks - discussed decreasing caffeine, stress management, massage therapy to balance out tension headaches/muscle tension alongside migraines - can consider referral to [facility] for headache relief exercises and stretching 3. Hx bipolar disorder - per - aripiprazole 20 mg QHS, 100 mg Sertraline continued - strongly recommend outpatient psychiatric and psychology care going forward All other chronic medical conditions managed per home regimens. (2) Amnesia: (3) Fall: (4) Seizure disorder during : (5) Observed seizure-like activity: (6) Conversion disorder: (7) Bipolar 2 disorder: Total Time Total Time Spent Total Time Spent (In Minutes): <30 Discharge Plan Discharge Items Patient Disposition: Home - Self-Care Reason For Visit: SEIZURE LIKE ACTIVITY Discharge Diagnosis: seizure like activity, migraine, bipolar disorder Activity: Resume your previous activity Non-emergency contact: Primary Care Provider and Psychiatrist Call non-emergency contact if: you have any medication questions and your symptoms worsen Follow-up/Referrals: Jas Vo Jr, DO [Primary Care Provider] - Amarilis Locke MD [Physician] - (Needs outpatient psychiatry and Psychology follow up) Diet: Heart Healthy Addtl Attending Provider Instructions: You were evaluated in the hospital for seizure like activity, and received a number of tests to evaluate if these were true seizures. Your MRI, EEG and blood work were all normal, showing that you do not have a seizure disorder. Most likely, a mix of stress and progressive headaches caused your brain to have a "panic attack" causing these abnormal movements. Your memory loss is likely related to the multiple head injuries you had and the unrelenting migraine, and should slowly improve as your pain is controlled. Below I've outlined what methods will be helpful to maintain your stress levels and pain at home to stop something like this from happening again. Mood Stability - outpatient psychiatry follow up for medical management of Bipolar Disorder - Your lamictal 300 mg twice a day was converted to 500 mg extended release to make it easier to take and manage your disease. - consider going to therapy in addition to the medical management to build relaxation techniques and ways to improve your mood and balance Stress Management - much of your stress manifests in your body as muscle tension in your neck and back. Massage therapy, anti-inflammatory therapy, warm compresses and regular stretches and exercise will help keep your muscles relaxed. Easy changes include fixing posture to sit up straight, consciously trying to relax your body during the day and not keep your muscles tight. Some patients also find benefit with doing yoga or pilates to help their muscles be more flexible and not as knotted up. Migraine Prevention - you will be taking 5 mg of zyprexa at bedtime for the next 3 days to finish out a total of 5 days of treatment - continue taking 400 mg of magnesium daily for migraine prevention. - You were started on topiramate 25mg at nighttime, and will need to slowly increase the dosing as follows: 07/19 - 07/23: 25 mg topiramate at nighttime 07/24 - 07/30: 50 mg topiramate at nighttime 07/31 onward: 75 mg topiramate at nighttime - We also restarted your Sumatriptan, to use if you feel like a migraine is starting. This medication works best as soon as you feel a migraine is coming, so that you can avoid having one. - You have an appointment with your neurologist Dr. Ibarra in 2 weeks to follow up on how your headache control is going Seizure Workup - Normal MRI - Normal Spinal Tap (elevated protein which is normal with stress and seizures) - Normal EEG - Normal labwork Pending Studies at Discharge: No Stand-Alone Forms: My [facility] Call Loop, Smoking Cessation Medications and DC Order Prescriptions: New topiramate 25 mg Tablet 25 mg PO QPM 45 Days Qty: 100 RF: 0 olanzapine 2.5 mg Tablet 2.5 mg PO HS 3 Days Qty: 3 RF: 0 magnesium oxide 400 mg (241.3 mg magnesium) Tablet 400 mg PO QAM 30 Days Qty: 30 RF: 0 melatonin 3 mg Tablet 3 mg PO HS PRN (Reason: sleep) Qty: 30 RF: 0 lamotrigine 250 mg tablet extended release 24hr 500 mg PO DAILY 30 Days Qty: 60 RF: 0 lamotrigine 150 mg tablet 300 mg PO BID 30 Days Qty: 120 RF: 0 Continued sumatriptan succinate 25 mg tablet See Rx Instructions PO .COMPLEX Qty: 8 RF: 5 aripiprazole 20 mg tablet 20 mg PO HS RF: 0 lorazepam [Ativan] 1 mg tablet 0.5 - 1 mg PO Q6 PRN (Reason: Anxiety) RF: 0 albuterol sulfate 90 mcg/actuation HFA aerosol inhaler 2 puff INHALATION QID PRN (Reason: Shortness Of Breath Or Wheezing) RF: 0 Iron Transfusions 1 dose UD PRN (Reason: ANEMIA) RF: 0 sertraline 100 mg tablet 100 mg PO DAILY RF: 0 Discontinued lamotrigine 150 mg tablet 300 mg PO BID 30 Days Qty: 120 RF: 2 Discharge Orders: Discharge Order (Routine); Ordered 07/19/20 Ordered By: Minoo Bolanos Admission Data Admit Date/Time: 07/15/20 22:44 Attending Provider: Wilbert Sprague Admit Provider: Manuel Montejo Primary Care Provider: Jas Vo Jr Other Providers: Augustine Sun ; Cornelia Ibarra ; Minoo Bolanos ; Amarilis Locke Other Interventions: Discharge Summary Assessment (RN) Last Done: 07/19/20 12:14 Supervising Physician Co-Signing Physician Notes I personally examined the patient and verified all li points of history and exam, discussed case, and agree with decision making with Dr Bolanos Feeling better and calmer. No episodes now for about 2 days. Feels safe to go home, memory coming back. She agrees not to drive until approved by physician, reiterates he had already told her no driving. They are understandably nervous about her going home, but both do feel safe overall. Vitals noted, in general she is awake and alert pleasant no distress. HEENT normocephalic atraumatic mucous membranes moist. Breathing unlabored no accessory muscle use good effort. Skin shows no rashes no pallor or icterus. Neuro shows no focal deficits. Seizure-like activityquestion nonepileptiform/psychogenic? Triggered by stress, has social anxiety and ?bipolar, has had more "conventional" panic attacks in the past, her pattern of memory loss seems incongruent with neurologic syndromes I am familiar with. For the last 2 days now doing overall much better. Safe to go home. Headachesmigraine and tension cycling off of each other. massaging her neck is helped considerably, medications by neurology have helped considerably. Safe for home. Outpatient follow-up. Otherwise as above Resident Activity Tracking Resident Involvement: Resident Care Provided Care Provided: Adult Hospital Medicine
[2020-07-19] MEDS ORDERED: lamoTRIgine 100 MG TAB PO SCH (09:00)
--- NOTE | 2020-07-19 19:02 | Billing Data ---
Date of Service July 19, 2020 Coding Level of Care Code D/C Day Management <30 mins
[2020-07-21 20:31] LABS: Lyme IgG Band Pattern CSF DNR; Lyme IgG CSF NO BANDS DETECTED; Lyme IgM Band Pattern CSF DNR; Lyme IgM CSF NO BANDS DETECTED
== END 2020-07-19 13:41 | disposition home or self-care (01) | DRG 101 ==
LOC: ED 18:53 → SUATTDRO 22:44 → 2W 22:44

== ENCOUNTER 2021-01-07 15:15 | Inpatient (IN) ==
[2021-01-07] MEDS ORDERED: OPTIRAY 320 125ml IV ONE (15:20)
--- NOTE | 2021-01-07 15:30 | CT Scan Report ---
CT OF THE HEAD WITHOUT CONTRAST CLINICAL HISTORY: Stroke Like Symptoms. Left-sided numbness and weakness. COMPARISON STUDY: Head CT July 15, 2020. MRI of the brain July 17, 2020. CT DOSE: 1078.05 mGy.cm TECHNIQUE: Helical axial images of the head were obtained without IV contrast. Automated exposure con trol was utilized for the study. A dose lowering technique was utilized adhering to the principles o f ALARA. FINDINGS: No acute intracranial hemorrhage, midline shift or mass effect is present. The ventricular system is unremarkable. The basal cisterns are patent. No extra-axial collections are present. There are no findings to suggest acute dural sinus thrombosis or acute territorial infarct. No significant calvarial abnormalities are present. There is minimal sinus mucosal thickening. Adenoids are enlarged . IMPRESSION: No acute intracranial findings. ACT 112: Negative or not required by law. Electronically signed by: Raul Dale M.D. 01/07/2021 3:28 PM
--- NOTE | 2021-01-07 15:40 | Emergency Department Note ---
History of Present Illness General Chief complaint: Stroke Alert Time Seen by Provider: 01/07/21 15:23 Source: patient and EMS Mode of arrival: EMS Limitations: physical limitation History of Present Illness Provider complaint: Stroke alert Onset (ago): hour(s) 2 This is a 25-year-old female brought in by EMS as a stroke alert due to concern for abrupt onset of left-sided weakness and trouble speaking at 2 PM today. Patient was apparently seated in her car when symptoms began. Patient is able to give some history although it is difficult for her to speak. She states she has had a prior stroke during a . Patient denies any known clotting disorders. States she is adopted so does not know any family history. She states she does not take any blood thinners. Patient denies any recent trauma or change in activity. States she was recently started on gabapentin for back p ain. She denies any recent illness or fevers. Patient states she suddenly became weak and could not use her left arm and left leg. Patient also states she has loss of vision in her left eye and a headache. She denies chance of . Per protocol take patient was taken emergently to CT by EMS. I was able to talk to the and bring him in from the waiting room. He states she fell last night and hit her head. He states she did lose consciousness briefly but otherwise felt well. He states other than the gabapentin there have been no changes in her medications. He states she does have a history of seizures as well as a prior episode of what they believed to have been a stroke for which he ended up in rehab to learn how to walk again. Pt seen during a time of high acuity and national emergency pandemic while wearing PPE. Home Medications Medication Instructions Recorded Confirmed Type Iron Transfusions 1 dose IV UD PRN 09/07/19 01/07/21 History albuterol sulfate 90 mcg/actuation 2 puff INHALATION QID PRN 03/14/20 01/07/21 History aerosol inhaler lorazepam 1 mg tablet (Ativan) 0.5 - 1 mg PO Q6 PRN 03/14/20 01/07/21 History ketorolac 10 mg tablet 10 mg PO TID PRN #12 tab 07/31/20 01/07/21 Rx melatonin 10 mg tablet 10 mg PO HS 07/31/20 01/07/21 History metoprolol succinate 25 mg 50 mg PO HS 07/31/20 01/07/21 History tablet,extended release 24 hr aripiprazole 30 mg tablet (Abilify) 30 mg PO HS 09/16/20 01/07/21 History lamotrigine 150 mg tablet 300 mg PO HS 09/16/20 01/07/21 History naratriptan 1 mg tablet 1 mg PO DIRECTED PRN 10/06/20 01/07/21 History omeprazole 40 mg capsule,delayed 40 mg PO QAM 10/06/20 01/07/21 History release escitalopram oxalate 20 mg tablet 20 mg PO DAILY 01/07/21 01/07/21 History levothyroxine 50 mcg tablet 50 mcg PO QAM 01/07/21 01/07/21 History topiramate 100 mg tablet 100 mg PO HS 01/07/21 01/07/21 History cyclobenzaprine 10 mg tablet 10 mg PO TID PRN #20 tab 01/09/21 Rx gabapentin 300 mg capsule 300 mg PO TID #90 cap 01/09/21 Rx Allergies Allergy/AdvReac Type Severity Reaction Status Date / Time No Known Allergies Allergy Verified 01/07/21 17:02 Past Med/Surg History Medical History Anemia CURRENT IRON TRANSFUSIONS Borderline high blood pressure PT REPORTS BLOOD PRESSURE RUNS ON HIGHER SIDE/NO MEDS Exercise-induced asthma Gestational hypertension HX OF History of anesthesia reaction WITH WISDOM TEETH: AGE 13-14 YR - HIGH FEVER AND VOMITING AFTER - NO FURTHER DETAILS, UNKNOWN FAMILY HX - PT ADOPTED Rapid heart beat PT REPORTS HEART RATE RUNS ON HIGHER SIDE / NO MEDS Seizure disorder during seizures began at 13 weeks of and had several through . Last seizure at 30 weeks. Was hospitalized for 1 week and went to rehab afterward for loss of movement on L side, ambulatory dysfunction. Brain MRI showed no evidence of CVA, symptoms of unknown etiology. Stable on lamictal. 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 How many Children do You have: 1 Feels Safe at Home: Yes Assistive Devices: None Review of Systems A total of 10 systems reviewed and were otherwise negative All systems reviewed & are unremarkable except as noted in HPI & below Physical Exam Vital Signs Vital Signs - 24 hr 01/07/21 15:21 01/07/21 15:31 01/07/21 15:45 Temperature Temperature Source Pulse Rate 100 H 92 H 99 H Pulse Rate [Apical] Respiratory Rate 13 20 20 Respiratory Effort / Characteristics Respiratory Depth Respiratory Pattern Blood Pressure 140/101 H 138/79 142/83 H Blood Pressure [Left Arm] Blood Pressure Mean 114 98 102 Blood Pressure Mean [Left Arm] Blood Pressure Position Pulse Oximetry 95 99 96 Oxygen Delivery Method Sepsis Recent Fever Within 48 Hours Sepsis New/Unexplained Change in Mental Status Sepsis Action Taken by Nursing 01/07/21 15:54 01/07/21 16:15 01/07/21 16:30 Temperature 36.9 C Temperature Source Oral Pulse Rate 86 104 H 99 H Pulse Rate [Apical] Respiratory Rate 16 20 14 Respiratory Effort / Characteristics Non-Labored Respiratory Depth Normal Respiratory Pattern Regular Blood Pressure 138/79 125/73 121/87 Blood Pressure [Left Arm] Blood Pressure Mean 98 90 98 Blood Pressure Mean [Left Arm] Blood Pressure Position Lying Pulse Oximetry 97 98 99 Oxygen Delivery Method Room Air Sepsis Recent Fever Within 48 Hours No Sepsis New/Unexplained Change in Mental Status No Sepsis Action Taken by Nursing No Action Required 01/07/21 17:00 01/07/21 17:15 01/07/21 17:30 Temperature 36.8 C 36.7 C 36.7 C Temperature Source Oral Oral Oral Pulse Rate Pulse Rate [Apical] 87 91 H 89 Respiratory Rate 18 18 18 Respiratory Effort / Characteristics Respiratory Depth Respiratory Pattern Blood Pressure Blood Pressure [Left Arm] 122/69 122/68 129/66 Blood Pressure Mean Blood Pressure Mean [Left Arm] 86 86 87 Blood Pressure Position Pulse Oximetry 99 99 98 Oxygen Delivery Method Room Air Room Air Room Air Sepsis Recent Fever Within 48 Hours Sepsis New/Unexplained Change in Mental Status Sepsis Action Taken by Nursing 01/07/21 17:45 01/07/21 18:00 01/07/21 18:15 Temperature 36.7 C 36.7 C 36.9 C Temperature Source Oral Oral Oral Pulse Rate Pulse Rate [Apical] 93 H 93 H 104 H Respiratory Rate 18 18 18 Respiratory Effort / Characteristics Respiratory Depth Respiratory Pattern Blood Pressure Blood Pressure [Left Arm] 128/57 L 113/84 120/72 Blood Pressure Mean Blood Pressure Mean [Left Arm] 80 93 88 Blood Pressure Position Pulse Oximetry 100 99 99 Oxygen Delivery Method Room Air Room Air Room Air Sepsis Recent Fever Within 48 Hours Sepsis New/Unexplained Change in Mental Status Sepsis Action Taken by Nursing 01/07/21 18:30 Temperature 36.7 C Temperature Source Temporal Artery Scan Pulse Rate Pulse Rate [Apical] 110 H Respiratory Rate 18 Respiratory Effort / Characteristics Respiratory Depth Respiratory Pattern Blood Pressure Blood Pressure [Left Arm] 133/86 Blood Pressure Mean Blood Pressure Mean [Left Arm] 101 Blood Pressure Position Pulse Oximetry 99 Oxygen Delivery Method Room Air Sepsis Recent Fever Within 48 Hours Sepsis New/Unexplained Change in Mental Status Sepsis Action Taken by Nursing GENERAL: alert, well appearing, well nourished, no distress, non-toxic EYE EXAM: normal conjunctiva, PERRL and EOM's grossly intact OROPHARYNX: no exudate, no erythema, lips, buccal mucosa, and tongue normal and mucous membranes are moist NECK: supple, no nuchal rigidity, no adenopathy, non-tender LUNGS: Clear to auscultation. Normal chest wall mechanics, no w/r/r HEART: no murmurs, S1 normal and S2 normal ABDOMEN: abdomen soft, non-tender, normo-active bowel sounds, no masses, no rebound or guarding. BACK: Back is symmetrical on inspection and there is no deformity, no midline tenderness, no CVA tenderness. SKIN: no rashes and no bruising UPPER EXTREMITIES: upper extremities are grossly normal. FROM, nml pulses b/l. LOWER EXTREMITIES: No pitting edema. FROM, nml pulses b/l. NEURO EXAM: Normal sensorium, cranial nerves II-XII grossly intact, no obvious facial droop, dysarthria noted, no effort against gravity with the left upper extremity and left lower extremity, no obvious limb ataxia. Gross sensation intact. Course Course 1538: Discussed with deepika neurology. They will evaluate. 1610: Discussed with Dr. Francis again. She feels symptoms are less likely to be from CVA, however pt still states cannot move LLE so she discussed tPA with her. 1615: Discussed again with patient at bedside. We discussed risk versus benefits of TPA. Patient does seem to be improving and both she and a cknowledge this. Patient would like to contact her parents to discuss options of treatment. 1638: Discussed with Tito again. She again talked with the patient, they would like to pursue tPA. 1752: Patient with clear speech, moving left upper extremity, minimal movement of left foot and ankle at this time but states she does feel improved. Vital signs stable. 1800: Case discussed [facility] hospitalist. Administered Medications Discontinued Medications Acetaminophen (Acetaminophen 325 Mg Tab) Confirm Administered Dose 650 mg .ROUTE .LivePerson-MED ONE Stop: 01/07/21 23:35 Last Admin: 01/07/21 23:36 Dose: 650 mg Documented by: [id number] Alteplase, Recombinant (Tpa For Stroke) 1 ea IV NOW STA; Protocol Stop: 01/07/21 16:41 Last Admin: 01/07/21 19:10 Dose: Not Given Documented by: [id number] Aripiprazole (Aripiprazole 15 Mg Tab) 30 mg PO HS LYNDSEY Stop: 02/06/21 20:59 Last Admin: 01/08/21 20:56 Dose: 30 mg Documented by: [id number] Admin: 01/07/21 23:11 Dose: 30 mg Documented by: [id number] Cyclobenzaprine HCl (Cyclobenzaprine Hcl 10 Mg Tab) 10 mg PO TID PRN PRN Reason: MUSCLE SPASMS Stop: 02/06/21 20:21 Last Admin: 01/08/21 20:55 Dose: 10 mg Documented by: [id number] Escitalopram Oxalate (Escitalopram Oxalate 10 Mg Tab) 10 mg PO DAILY LYNDSEY Stop: 02/07/21 08:59 Last Admin: 01/09/21 09:19 Dose: 10 mg Documented by: [id number] Admin: 01/08/21 08:17 Dose: 10 mg Documented by: [id number] Gabapentin (Gabapentin 300 Mg Cap) 300 mg PO TID [facility] Stop: 02/06/21 20:59 Last Admin: 01/09/21 09:19 Dose: 300 mg Documented by: [id number] Admin: 01/08/21 20:55 Dose: 300 mg Documented by: [id number] Admin: 01/08/21 15:06 Dose: 300 mg Documented by: [id number] Admin: 01/08/21 08:17 Dose: 300 mg Documented by: [id number] Admin: 01/07/21 23:12 Dose: 300 mg Documented by: [id number] Gadobutrol (Gadobutrol 65ml Vial) 9 ml IV ONCE ONE Stop: 01/08/21 14:14 Last Admin: 01/08/21 14:13 Dose: 9 ml Documented by: [id number] Sodium Chloride (Nss 1000ml) 1,000 mls @ 125 mls/hr IV .Q8H LYNDSEY Stop: 02/06/21 15:29 Last Infusion: 01/08/21 10:12 Dose: 0 mls/hr Documented by: [id number] Admin: 01/08/21 08:16 Dose: 125 mls/hr Documented by: [id number] Infusion: 01/08/21 08:16 Dose: 125 mls/hr Documented by: [id number] Admin: 01/08/21 04:09 Dose: 125 mls/hr Documented by: [id number] Infusion: 01/08/21 01:36 Dose: 125 mls/hr Documented by: [id number] Infusion: 01/08/21 00:15 Dose: 125 mls/hr Documented by: [id number] Infusion: 01/07/21 23:45 Dose: 0 mls/hr Documented by: [id number] Infusion: 01/07/21 23:00 Dose: 125 mls/hr Documented by: [id number] Infusion: 01/07/21 21:45 Dose: 0 mls/hr Documented by: [id number] Admin: 01/07/21 15:50 Dose: 125 mls/hr Documented by: [id number] Alteplase, Recombinant 8.6 mg/ (Syringe) 8.6 mls @ 8.6 mls/min IV ONCE ONE Stop: 01/07/21 16:51 Last Admin: 01/07/21 16:45 Dose: 8.6 mls/min Documented by: [id number] Cosigned by: [id number] Alteplase, Recombinant 77 mg/ (EMPTY BAG) 77 mls @ 77 mls/hr IV ONCE ONE Stop: 01/07/21 16:52 Last Infusion: 01/07/21 17:50 Dose: 0 mls/hr Documented by: [id number] Cosigned by: [id number] Admin: 01/07/21 16:50 Dose: 77 mls/hr Documented by: [id number] Cosigned by: [id number] Calcium Gluconate 1,000 mg/ (Sodium Chloride) 60 mls @ 240 mls/hr IV 2114 [facility] Stop: 01/07/21 21:29 Last Infusion: 01/07/21 23:19 Dose: 0 mls/hr Documented by: [id number] Admin: 01/07/21 23:04 Dose: 240 mls/hr Documented by: [id number] Ioversol (Optiray 320 125ml) 103 ml IV ONCE ONE Stop: 01/07/21 15:21 Last Admin: 01/07/21 15:20 Dose: 103 ml Documented by: [id number] Lamotrigine (Lamotrigine 100 Mg Tab) 300 mg PO [facility] Stop: 02/06/21 20:59 Last Admin: 01/08/21 20:57 Dose: 300 mg Documented by: [id number] Admin: 01/07/21 23:13 Dose: 300 mg Documented by: [id number] Levothyroxine Sodium (Levothyroxine Sodium 50 Mcg Tablet) [facility] Stop: 02/07/21 06:29 Last Admin: 01/09/21 05:46 Dose: 50 mcg Documented by: [id number] Admin: 01/08/21 04:55 Dose: 50 mcg Documented by: [id number] Lorazepam (Lorazepam 0.5 Mg Tab) 0.5 - 1 mg PO Q6H PRN PRN Reason: Anxiety Stop: 02/06/21 21:08 Last Admin: 01/08/21 13:43 Dose: 0.5 mg Documented by: [id number] Melatonin (Melatonin 3 Mg Tab) 9 mg PO HS PRN PRN Reason: Sleep Stop: 02/06/21 20:59 Last Admin: 01/07/21 23:11 Dose: 9 mg Documented by: [id number] Metoprolol Succinate (Metoprolol Succ 50mg Ext Rel Tab) 50 mg PO [facility] Stop: 02/06/21 20:59 Last Admin: 01/08/21 20:56 Dose: 50 mg Documented by: [id number] Admin: 01/07/21 23:16 Dose: 50 mg Documented by: [id number] Ondansetron HCl (Ondansetron 4 Mg Od Tab) 4 mg PO ONE ONE Stop: 01/07/21 23:20 Last Admin: 01/08/21 00:58 Dose: Not Given Documented by: [id number] Ondansetron HCl (Ondansetron 4 Mg Od Tab) Confirm Administered Dose 4 mg .ROUTE .STK-MED ONE Stop: 01/07/21 23:20 Last Admin: 01/07/21 23:20 Dose: 4 mg Documented by: [id number] Ondansetron HCl (Ondansetron Inj 2 Mg/Ml 2 Ml Vial) Confirm Administered Dose 4 mg .ROUTE .STK-MED ONE Stop: 01/08/21 19:44 Last Admin: 01/08/21 19:47 Dose: 4 mg Documented by: [id number] Oxycodone HCl (Oxycodone Hcl Ir 5 Mg Tab (Immediate Release)) 5 mg PO Q8H PRN PRN Reason: Pain Stop: 01/21/21 20:21 Last Admin: 01/09/21 08:00 Dose: 5 mg Documented by: [id number] Admin: 01/08/21 12:07 Dose: 5 mg Documented by: [id number] Pantoprazole Sodium (Pantoprazole 40 Mg Tab) 40 mg PO QAM [facility] Stop: 02/07/21 08:59 Last Admin: 01/09/21 09:18 Dose: 40 mg Documented by: [id number] Admin: 01/08/21 08:17 Dose: 40 mg Documented by: [id number] Topiramate (Topiramate 50 Mg Tab) 150 mg PO HS [facility] Stop: 02/06/21 20:59 Last Admin: 01/08/21 20:55 Dose: 150 mg Documented by: [id number] Admin: 01/07/21 23:13 Dose: 150 mg Documented by: [id number] Critical Care Time Critical Care Time: Yes Total Critical Care Time: 44 Critical care of 44 min performed to assess and manage high likelihood of life- threatening cva, involving labs and imaging performed with assessment to evaluate cva diagnosis with frequent reassessment. This time includes bedside time, treatment discussions with patient/family/consultants, documentation time and excludes procedure time. Medical Decision Making Differential Diagnosis Differential Diagnosis includes but is not limited to ischemic Stroke, hemorrhagic stroke, bells palsy, mass, neoplasm, migraine headache, seizure, subarachnoid hemorrhage, TIA, and transient global amnesia. Medical Records Attestation: I reviewed the patient's medical records. Home Medications Current Medication List: was personally reviewed by me Laboratory Data Attestation: I reviewed the patient's lab results. Result diagrams: 01/09/21 06:04 01/09/21 06:04 Lab Results 01/07/21 01/07/21 01/07/21 Range/Units 15:34 15:34 15:34 WBC 8.18 (4.8-10.8) K/uL RBC 4.25 (4.2-5.4) M/uL Hgb 11.9 L (12.0-16.0) g/dL Hct 37.1 (37-47) % MCV 87.3 (80-100) fL MCH 28.0 (25-34) pg MCHC 32.1 (32-36) g/dL RDW Std Deviation 43.9 (36.4-46.3) fL RDW Coeff of Jorge 13.7 (11.5-14.5) % Plt Count 232 (130-400) K/uL MPV 8.5 (7.4-10.4) fL Immature Gran % (Auto) 0.4 % Neut % (Auto) 64.5 % Lymph % (Auto) 22.9 % Jessamine % (Auto) 7.5 % Eos % (Auto) 4.2 % Baso % (Auto) 0.5 % Neut # (Auto) 5.29 (1.4-6.5) K/uL Lymph # (Auto) 1.87 (1.2-3.4) K/uL Jessamine # (Auto) 0.61 H (0.11-0.59) K/uL Eos # (Auto) 0.34 (0-0.5) K/uL Baso # (Auto) 0.04 (0-0.2) K/uL Immature Gran # (Auto) 0.03 H (0.00-0.02) K/uL PT 9.6 (9.0-12.0) Seconds INR 0.9 (0.9-1.1) APTT 25.6 (21.0-31.0) Seconds PTT Ratio 1.0 Sodium 137 (136-145) mmol/L Potassium 4.0 (3.5-5.1) mmol/L Chloride 107 (98-107) mmol/L Carbon Dioxide 24 (21-32) mmol/L Anion Gap 6.0 (3-11) BUN 10 (7-18) mg/dl Creatinine 0.82 (0.6-1.2) mg/dl Est Cr Clr Drug Dosing Not Reportable Est GFR ( Amer) 116.9 ml/min Est GFR (Non-Af Amer) 100.9 ml/min BUN/Creatinine Ratio 12.4 (10-20) Glucose 92 (70-99) mg/dl POC Glucose (70-99) mg/dl Calcium 8.3 L (8.5-10.1) mg/dl Magnesium 2.2 (1.8-2.4) mg/dl Total Bilirubin 0.1 L (0.2-1) mg/dl AST 14 L (15-37) U/L ALT 24 (12-78) U/L Alkaline Phosphatase 55 (45-117) U/L Troponin I < 0.015 (0-0.045) ng/ml Total Protein 6.8 (6.4-8.2) gm/dl Albumin 3.4 (3.4-5.0) gm/dl Globulin 3.4 (2.5-4.0) gm/dl Albumin/Globulin Ratio 1.0 (0.9-2) HCG, Qual (Negative) Salicylates (2.8-20) mg/dl Urine Opiates Screen (Neg) Ur Methadone, Qual (Neg) Acetaminophen (10-30) ug/ml Urine Barbiturates (Neg) Ur Phencyclidine (PCP) (Neg) U Amphetamin/Meth Scrn (Neg) MDMA (Ecstasy) Screen (Neg) U Benzodiazepines Scrn (Neg) Ur Cocaine Metabolite (Neg) U Marijuana (THC) Screen (Neg) COVID-19 Eval Order SARS-CoV-2, RNA, NAAT (NEGATIVE) Blood Type Antibody Screen 01/07/21 01/07/21 01/07/21 Range/Units 15:34 15:34 15:36 WBC (4.8-10.8) K/uL RBC (4.2-5.4) M/uL Hgb (12.0-16.0) g/dL Hct (37-47) % MCV (80-100) fL MCH (25-34) pg MCHC (32-36) g/dL RDW Std Deviation (36.4-46.3) fL RDW Coeff of Jorge (11.5-14.5) % Plt Count (130-400) K/uL MPV (7.4-10.4) fL Immature Gran % (Auto) % Neut % (Auto) % Lymph % (Auto) % Jessamine % (Auto) % Eos % (Auto) % Baso % (Auto) % Neut # (Auto) (1.4-6.5) K/uL Lymph # (Auto) (1.2-3.4) K/uL Jessamine # (Auto) (0.11-0.59) K/uL Eos # (Auto) (0-0.5) K/uL Baso # (Auto) (0-0.2) K/uL Immature Gran # (Auto) (0.00-0.02) K/uL PT (9.0-12.0) Seconds INR (0.9-1.1) APTT (21.0-31.0) Seconds PTT Ratio Sodium (136-145) mmol/L Potassium (3.5-5.1) mmol/L Chloride (98-107) mmol/L Carbon Dioxide (21-32) mmol/L Anion Gap (3-11) BUN (7-18) mg/dl Creatinine (0.6-1.2) mg/dl Est Cr Clr Drug Dosing Est GFR ( Amer) ml/min Est GFR (Non-Af Amer) ml/min BUN/Creatinine Ratio (10-20) Glucose (70-99) mg/dl POC Glucose 98 (70-99) mg/dl Calcium (8.5-10.1) mg/dl Magnesium (1.8-2.4) mg/dl Total Bilirubin (0.2-1) mg/dl AST (15-37) U/L ALT (12-78) U/L Alkaline Phosphatase (45-117) U/L Troponin I (0-0.045) ng/ml Total Protein (6.4-8.2) gm/dl Albumin (3.4-5.0) gm/dl Globulin (2.5-4.0) gm/dl Albumin/Globulin Ratio (0.9-2) HCG, Qual Negative (Negative) Salicylates < 1.7 L (2.8-20) mg/dl Urine Opiates Screen (Neg) Ur Methadone, Qual (Neg) Acetaminophen < 2 L (10-30) ug/ml Urine Barbiturates (Neg) Ur Phencyclidine (PCP) (Neg) U Amphetamin/Meth Scrn (Neg) MDMA (Ecstasy) Screen (Neg) U Benzodiazepines Scrn (Neg) Ur Cocaine Metabolite (Neg) U Marijuana (THC) Screen (Neg) COVID-19 Eval Order SARS-CoV-2, RNA, NAAT (NEGATIVE) Blood Type Antibody Screen 01/07/21 01/07/21 01/07/21 Range/Units 15:37 16:40 16:42 WBC (4.8-10.8) K/uL RBC (4.2-5.4) M/uL Hgb (12.0-16.0) g/dL Hct (37-47) % MCV (80-100) fL MCH (25-34) pg MCHC (32-36) g/dL RDW Std Deviation (36.4-46.3) fL RDW Coeff of Jorge (11.5-14.5) % Plt Count (130-400) K/uL MPV (7.4-10.4) fL Immature Gran % (Auto) % Neut % (Auto) % Lymph % (Auto) % Jessamine % (Auto) % Eos % (Auto) % Baso % (Auto) % Neut # (Auto) (1.4-6.5) K/uL Lymph # (Auto) (1.2-3.4) K/uL [place] # (Auto) (0.11-0.59) K/uL Eos # (Auto) (0-0.5) K/uL Baso # (Auto) (0-0.2) K/uL Immature Gran # (Auto) (0.00-0.02) K/uL PT (9.0-12.0) Seconds INR (0.9-1.1) APTT (21.0-31.0) Seconds PTT Ratio Sodium (136-145) mmol/L Potassium (3.5-5.1) mmol/L Chloride (98-107) mmol/L Carbon Dioxide (21-32) mmol/L Anion Gap (3-11) BUN (7-18) mg/dl Creatinine (0.6-1.2) mg/dl Est Cr Clr Drug Dosing Est GFR ( Amer) ml/min Est GFR (Non-Af Amer) ml/min BUN/Creatinine Ratio (10-20) Glucose (70-99) mg/dl POC Glucose (70-99) mg/dl Calcium (8.5-10.1) mg/dl Magnesium (1.8-2.4) mg/dl Total Bilirubin (0.2-1) mg/dl AST (15-37) U/L ALT (12-78) U/L Alkaline Phosphatase (45-117) U/L Troponin I (0-0.045) ng/ml Total Protein (6.4-8.2) gm/dl Albumin (3.4-5.0) gm/dl Globulin (2.5-4.0) gm/dl Albumin/Globulin Ratio (0.9-2) HCG, Qual (Negative) Salicylates (2.8-20) mg/dl Urine Opiates Screen Neg (Neg) Ur Methadone, Qual Neg (Neg) Acetaminophen (10-30) ug/ml Urine Barbiturates Neg (Neg) Ur Phencyclidine (PCP) Neg (Neg) U Amphetamin/Meth Scrn Neg (Neg) MDMA (Ecstasy) Screen Neg (Neg) U Benzodiazepines Scrn Neg (Neg) Ur Cocaine Metabolite Neg (Neg) U Marijuana (THC) Screen Neg (Neg) COVID-19 Eval Order Covid19 [facility] SARS-CoV-2, RNA, NAAT (NEGATIVE) Blood Type A Positive Antibody Screen NEGATIVE 01/07/21 Range/Units 16:42 WBC (4.8-10.8) K/uL RBC (4.2-5.4) M/uL Hgb (12.0-16.0) g/dL Hct (37-47) % MCV (80-100) fL MCH (25-34) pg MCHC (32-36) g/dL RDW Std Deviation (36.4-46.3) fL RDW Coeff of Jorge (11.5-14.5) % Plt Count (130-400) K/uL MPV (7.4-10.4) fL Immature Gran % (Auto) % Neut % (Auto) % Lymph % (Auto) % Jessamine % (Auto) % Eos % (Auto) % Baso % (Auto) % Neut # (Auto) (1.4-6.5) K/uL Lymph # (Auto) (1.2-3.4) K/uL Jess[place] # (Auto) (0.11-0.59) K/uL Eos # (Auto) (0-0.5) K/uL Baso # (Auto) (0-0.2) K/uL Immature Gran # (Auto) (0.00-0.02) K/uL PT (9.0-12.0) Seconds INR (0.9-1.1) APTT (21.0-31.0) Seconds PTT Ratio Sodium (136-145) mmol/L Potassium (3.5-5.1) mmol/L Chloride (98-107) mmol/L Carbon Dioxide (21-32) mmol/L Anion Gap (3-11) BUN (7-18) mg/dl Creatinine (0.6-1.2) mg/dl Est Cr Clr Drug Dosing Est GFR ( Amer) ml/min Est GFR (Non-Af Amer) ml/min BUN/Creatinine Ratio (10-20) Glucose (70-99) mg/dl POC Glucose (70-99) mg/dl Calcium (8.5-10.1) mg/dl Magnesium (1.8-2.4) mg/dl Total Bilirubin (0.2-1) mg/dl AST (15-37) U/L ALT (12-78) U/L Alkaline Phosphatase (45-117) U/L Troponin I (0-0.045) ng/ml Total Protein (6.4-8.2) gm/dl Albumin (3.4-5.0) gm/dl Globulin (2.5-4.0) gm/dl Albumin/Globulin Ratio (0.9-2) HCG, Qual (Negative) Salicylates (2.8-20) mg/dl Urine Opiates Screen (Neg) Ur Methadone, Qual (Neg) Acetaminophen (10-30) ug/ml Urine Barbiturates (Neg) Ur Phencyclidine (PCP) (Neg) U Amphetamin/Meth Scrn (Neg) MDMA (Ecstasy) Screen (Neg) U Benzodiazepines Scrn (Neg) Ur Cocaine Metabolite (Neg) U Marijuana (THC) Screen (Neg) COVID-19 Eval Order SARS-CoV-2, RNA, NAAT NEGATIVE (NEGATIVE) Blood Type Antibody Screen Imaging Data Radiologist's Impression: Head CT 01/07/21 15:15 CT OF THE HEAD WITHOUT CONTRAST CLINICAL HISTORY: Stroke Like Symptoms. Left-sided numbness and weakness. COMPARISON STUDY: Head CT July 15, 2020. MRI of the brain July 17, 2020. CT DOSE: 1078.05 mGy.cm TECHNIQUE: Helical axial images of the head were obtained without IV contrast. Automated exposure control was utilized for the study. A dose lowering technique was utilized adhering to the principles of ALARA. FINDINGS: No acute intracranial hemorrhage, midline shift or mass effect is present. The ventricular system is unremarkable. The basal cisterns are patent. No extra-axial collections are present. There are no findings to suggest acute dural sinus thrombosis or acute territorial infarct. No significant calvarial abnormalities are present. There is minimal sinus mucosal thickening. Adenoids are enlarged. IMPRESSION: No acute intracranial findings. ACT 112: Negative or not required by law. Electronically signed by: Raul Dale M.D. 01/07/2021 3:28 PM Head CTA 01/07/21 15:15 CT angio head w con, CT angio neck with con CLINICAL HISTORY: 25 years-old Female with Stroke Like Symptoms. Acute strokelike symptoms COMPARISON STUDY: Head CT of same day TECHNIQUE: Following the IV administration of 103 cc of Optiray, CT angiogram of the head and neck was performed from the aortic arch to the skull apex. Images are reviewed in the axial, sagittal, and coronal planes. 3-D MIPS images are created and assessed. IV contrast was administered without complication. All measurements were obtained according to NASCET criteria. A dose lowering technique was utilized adhering to the principles of ALARA. FINDINGS: Three-vessel morphology of the thoracic aortic arch. Patency of the innominate and imaged subclavian arteries. The common and internal carotid arteries are patent. The middle and anterior cerebral arteries are patent. Dominant left vertebral artery. The vertebral arteries are codominant and widely patent. No aneurysm, dissection, high-grade stenosis or arterial occlusion. The basilar and posterior cerebral arteries are patent. The cerebral venous sinuses are patent. There is no abnormal intracranial enhancement. The lung apices are clear. There is no pneumothorax. 10 mm hypodense left thyroi d nodule. Moderate enlargement of the adenoid tonsils with mild to moderate symmetric enlargement of the palatine tonsils. Patent airway. No acute fracture. IMPRESSION: 1. Unremarkable CTA of the head and neck. 2. Moderate adenoid with mild to moderate palatine tonsillar enlargement. Correlate clinically to exclude tonsillitis. ACT 112: Negative or not required by law. The above report was generated using voice recognition software. It may contain grammatical, syntax or spelling errors. Electronically signed by: Jordy Romero M.D. 01/07/2021 3:40 PM Neck CTA 01/07/21 15:15 CT angio head w con, CT angio neck with con CLINICAL HISTORY: 25 years-old Female with Stroke Like Symptoms. Acute strokelike symptoms COMPARISON STUDY: Head CT of same day TECHNIQUE: Following the IV administration of 103 cc of Optiray, CT angiogram of the head and neck was performed from the aortic arch to the skull apex. Images are reviewed in the axial, sagittal, and coronal planes. 3-D MIPS images are created and assessed. IV contrast was administered without complication. All measurements were obtained according to NASCET criteria. A dose lowering technique was utilized adhering to the principles of ALARA. FINDINGS: Three-vessel morphology of the thoracic aortic arch. Patency of the innominate and imaged subclavian arteries. The common and internal carotid arteries are patent. The middle and anterior cerebral arteries are patent. Dominant left vertebral artery. The vertebral arteries are codominant and widely patent. No aneurysm, dissection, high-grade stenosis or arterial occlusion. The basilar and posterior cerebral arteries are patent. The cerebral venous sinuses are patent. There is no abnormal intracranial enhancement. The lung apices are clear. There is no pneumothorax. 10 mm hypodense left thyroid nodule. Moderate enlargement of the adenoid tonsils with mild to moderate symmetric enlargement of the palatine tonsils. Patent airway. No acute fracture. IMPRESSION: 1. Unremarkable CTA of the head and neck. 2. Moderate adenoid with mild to moderate palatine tonsillar enlargement. Correlate clinically to exclude tonsillitis. ACT 112: Negative or not required by law. The above report was generated using voice recognition software. It may contain grammatical, syntax or spelling errors. Electronically signed by: Jordy Romero M.D. 01/07/2021 3:40 PM ECG Data Attestation: I personally reviewed and interpreted this ECG as follows: Indication: + weakness Rate (beats per minute): 84 Rhythm: + normal sinus ECG Intervals/blocks: + Normal QRS and + Normal QT ECG [place]: + Normal ECG ST segments: + Normal ST segments MDM Narrative This is a 25 yo who presents as a stroke alert from EMS due to sudden onset of left sided weakness and dysarthria. VS stable. Protocol initiated by staff and I quickly evaluated the patient and contacted [facility]. Patient with prior hx of conversion disorder and complex migraines, no risk factors for CVA. Family hx unknown as pt adopted. CT/CTA reassuring, labs reassuring. Extensive discussion regarding treatment options. Patient opted for tPA rosalind atment after extensive discussion with family which did delay initiation. VS stable throughout. Patient reevaluated and was improved following tPA. Discussed with hospitalist. An order was placed for continuous cardiac monitoring. The monitor shows a rate of __92_ with _normal sinus__ rhythm. Impression & Plan Left-sided weakness, Dysarthria, Visual changes, Stroke-like symptoms Discharge Plan Visit Data Chief Complaint: Stroke Alert Discharge Problem: Left-sided weakness, Dysarthria, Visual changes, Stroke-like symptoms Patient Disposition: Admitted As Inpatient Discharge Instructions Interventions: ED Discharge Assessment Last Done: 01/07/21 19:53
--- NOTE | 2021-01-07 15:41 | CT Scan Report ---
CT angio head w con, CT angio neck with con CLINICAL HISTORY: 25 years-old Female with Stroke Like Symptoms. Acute strokelike symptoms COMPARISON STUDY: Head CT of same day TECHNIQUE: Following the IV administration of 103 cc of Optiray, CT angiogram of the head and neck wa s performed from the aortic arch to the skull apex. Images are reviewed in the axial, sagittal, and c oronal planes. 3-D MIPS images are created and assessed. IV contrast was administered without complic ation. All measurements were obtained according to NASCET criteria. A dose lowering technique was uti lized adhering to the principles of ALARA. FINDINGS: Three-vessel morphology of the thoracic aortic arch. Patency of the innominate and imaged subclavian arteries. The common and internal carotid arteries are patent. The middle and anterior cerebral arter ies are patent. Dominant left vertebral artery. The vertebral arteries are codominant and widely choi nt. No aneurysm, dissection, high-grade stenosis or arterial occlusion. The basilar and posterior cer ebral arteries are patent. The cerebral venous sinuses are patent. There is no abnormal intracranial enhancement. The lung apices are clear. There is no pneumothorax. 10 mm hypodense left thyroid nodule. Moderate en largement of the adenoid tonsils with mild to moderate symmetric enlargement of the palatine tonsils. Patent airway. No acute fracture. IMPRESSION: 1. Unremarkable CTA of the head and neck. 2. Moderate adenoid with mild to moderate palatine tonsillar enlargement. Correlate clinically to exc lude tonsillitis. ACT 112: Negative or not required by law. The above report was generated using voice recognition software. It may contain grammatical, syntax o r spelling errors. Electronically signed by: Jordy Romero M.D. 01/07/2021 3:40 PM
[2021-01-07 15:47] LABS: Basophils # (auto) 0.04 K/uL (0-0.2); Basophils % (auto) 0.5 %; Eosinophils # (auto) 0.34 K/uL (0-0.5); Eosinophils % (auto) 4.2 %; Hematocrit (blood only) 37.1 % (37-47); Hemoglobin 11.9 g/dL (12.0-16.0); Immature Granulocytes # (auto) 0.03 K/uL (0.00-0.02); Immature Granulocytes % (auto) 0.4 %; Lymphocytes # (auto) 1.87 K/uL (1.2-3.4); Lymphocytes % (auto) 22.9 %; Mean Corpuscular Hgb Conc 32.1 g/dL (32-36); Mean Corpuscular Volume 87.3 fL (80-100); Mean Platelet Volume 8.5 fL (7.4-10.4); Monocytes # (auto) 0.61 K/uL (0.11-0.59); Monocytes % (auto) 7.5 %; Neutrophils # (auto) 5.29 K/uL (1.4-6.5); Neutrophils % (auto) 64.5 %; Platelet Count 232 K/uL (130-400); RDW Coefficient of Variation 13.7 % (11.5-14.5); RDW Standard Deviation 43.9 fL (36.4-46.3); Red Blood Count 4.25 M/uL (4.2-5.4); White Blood Count 8.18 K/uL (4.8-10.8)
[2021-01-07] MEDS: SODIUM CHLORIDE 0.9% 1000ML 1,000 ML IV SCH (15:50)
[2021-01-07 16:02] LABS: INR 0.9 (0.9-1.1); Partial Thromboplastin Time 25.6 Seconds (21.0-31.0); Prothrombin Time 9.6 Seconds (9.0-12.0)
[2021-01-07 16:10] LABS: Acetaminophen < 2 ug/ml (10-30); Salicylate < 1.7 mg/dl (2.8-20)
[2021-01-07 16:13] LABS: Alanine Aminotransferase 24 U/L (12-78); Albumin Level 3.4 gm/dl (3.4-5.0); Aspartate Aminotransferase 14 U/L (15-37); BUN Creatinine Ratio 12.4 (10-20); Blood Urea Nitrogen 10 mg/dl (7-18); Calcium 8.3 mg/dl (8.5-10.1); Carbon Dioxide 24 mmol/L (21-32); Chloride 107 mmol/L (98-107); Est GFR (African American) 116.9 ml/min; Est GFR (Non-African American) 100.9 ml/min; Glucose 92 mg/dl (70-99); Magnesium 2.2 mg/dl (1.8-2.4); Sodium 137 mmol/L (136-145)
[2021-01-07 16:21] LABS: Alkaline Phosphatase 55 U/L (45-117); Bilirubin,Total 0.1 mg/dl (0.2-1); Globulin 3.4 gm/dl (2.5-4.0); Total Protein 6.8 gm/dl (6.4-8.2); Troponin I < 0.015 ng/ml (0-0.045)
[2021-01-07] MEDS ORDERED: TPA for Stroke IV STA (16:40)
[2021-01-07] MEDS ORDERED: No Aspirin within 24 hrs of TPA for Stroke PO SCH (16:45)
[2021-01-07 16:48] LABS: Pregnancy Test, Serum Negative (Negative)
[2021-01-07] MEDS ORDERED: ALTEPLASE BOLUS IV ONE (16:50)
[2021-01-07] MEDS ORDERED: ALTEPLASE IV ONE (16:51)
[2021-01-07] MEDS ORDERED: RECOMBINANT IV ONE (16:51)
[2021-01-07] MEDS ORDERED: PRIMARY PLUMSET, PE LINED TUBING, 113 IN, NON-DEHP (2260-0500) IV ONE (16:51)
[2021-01-07 17:25] LABS: Amphetamines+Metham, Urine Neg (Neg); Barbiturates, Urine Neg (Neg); Benzodiazepine, Urine Neg (Neg); Cocaine, Urine Neg (Neg); MDMA (Ecstacy), Urine Neg (Neg); Methadone, Urine Neg (Neg); Opiate, Urine Neg (Neg); Phencyclidine, Urine Neg (Neg)
--- NOTE | 2021-01-07 18:06 | History & Physical Report ---
Date of Service January 07, 2021 Assessment & Plan (1) Stroke-like symptoms: Plan: 2pm this afternoon with left sided arm/leg weakness, visual changes and dysarthria Hx migraines ?complex migraine. Also with hx PNES and followed locally by Neurology with recent 5 day continuous EEG monitoring without seizure like activity by on Lamictal for hx bipolar Stroke alert called --> [place] [facility] [place] given TPA, monitor for bleeding (on end of her menses and increased bleeding reported --> if continues would repeat CBC this evening) Type/screen Report Writer consulted Neurology consult Telemetry monitoring NIHSS 4 (leg/vision) PT/OT evals Speech evals Swallow eval, advance diet to AHA if passes Lipid panel, A1c in AM Repeat imaging 24 hrs to assess for bleeding if needed? 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 Remains on lamictal 300mg by ONCE daily 300mg at night for her hx bipolar which she states has been well controlled Neuro on consult as above (7) Back pain: Plan: At baseline but with weakness +Straight leg raise MRI lumbar spine pending as above Ortho consult if needed (8) Hypertension: Plan: Chronic however patient and state patient take metoprolol 50mg at night rather than the complex directions in the system BP currently 127/68 Continue metoprolol Continue to monitor (9) Hypothyroidism: Plan: states on levothyroxine 25mg daily Will check TSH in AM (10) Bipolar 2 disorder: Plan: as well as anxiety, depression Follows locally with Ophelia Toussaint PA-C Continue on abilify 30mg (attempting in future to switch to alternative medication), lamictal 300mg HS, topamax 100mg HS D/c'd on sertaline recently and was started on lexapro which was continued Rec close f/u outpatient at discharge (11) GERD (gastroesophageal reflux disease): Plan: Continue PPI daily (12) Anxiety and depression: Plan: as above (13) COVID-19: Plan: in march 2020 repeat COVID 19 testing negative on admission (14) Iron deficiency anemia: Plan: Hx of and periodically receives transfusions Hgb 11.9 on admission, normocytic but on end of her period (expect worsening bleeding given TPA as above) (15) Conversion disorder: Plan: suspected given hx and above (16) Adopted: Plan: and as such no known hx of clotting disorders would rec f/u with her PCP for testing of these given reported similar episode during Plan: Admit to ICU given TPA administration History of Present Illness Chief Complaint: L sided weakness, dysarthria, vision changes, headache Primary Care Provider: Jas Vo Jr, DO 25 yo female with PMHx HTN, PNES, bipolar disorder, HTN, migraine with aura, depression, anxiety, had onset of left sided weakness/trouble speaking, then left leg/arm weakness followed by left eye visual loss and a headache starting around 2pm this afternoon. Stroke alert called in the field given known symptom onset and TPA administered at recommendations of Dr Francis. Reported prior stroke during but no source known and reported bilaterally leg weakness and needed to go to [facility] for a week to learn how to walk again. Denies any clotting disorders or known if lab panel drawn in past. No hx DVT. Is adopted and unsure of medical history. States chronic back pain and left leg pain/weakness and recently started on gabapentin for these symptoms and this symptom is the one most prominent still since the TPA. No hx kidney stones or urinary symptoms. Visual changes to her left eye improving and states only slightly blurry when before she was unable to see. Follows with Dr Ibarra but she is no longer here. Has been following locally with psychiatry, Ophelai Toussaint, and recently stopped the sertaline and started lexapro in past couple of months. Denied any prodromal syncope/lightheadedness. Also with hx thryoid nodule and recent biopsy without evidence of malignancy. Of note, currently on her period (at the end of the cycle) however after TPA has some increased bleeding. No fever, chills, chest pain, shortness of breath, abdominal pain, nausea, vomiting or dysuria. Had 5 day continuous EEG at [facility] earlier this year which did not show any seizure activity. Review of medication list with adjustments as outlined in assessment and plan. To be admitted by hospitalist service for stroke work-up/observation to ICU as she received TPA. ICU attending pathologist alerted. Prior COVMarch 2020. Has been vaccinated x 2 since that time. ER Course: Head CT no acute intracranial findings, Head/Neck CTA unremarkable. Alteplase recombinant administered. On NSS @ 125cc/hr. CBC unremarkable except low hgb 11.9 (on period) Chemistry panel acceptable, slightly low calcium 8.3 with normal albumin. Allergies Allergy/AdvReac Type Severity Reaction Status Date / Time No Known Allergies Allergy Verified 01/07/21 17:02 Home Medications Medication Instructions Recorded Confirmed Type Iron Transfusions 1 dose IV UD PRN 09/07/19 01/07/21 History albuterol sulfate 90 mcg/actuation 2 puff INHALATION QID PRN 03/14/20 01/07/21 History aerosol inhaler lorazepam 1 mg tablet (Ativan) 0.5 - 1 mg PO Q6 PRN 03/14/20 01/07/21 History ketorolac 10 mg tablet 10 mg PO TID PRN #12 tab 07/31/20 01/07/21 Rx melatonin 10 mg tablet 10 mg PO HS 07/31/20 01/07/21 History metoprolol succinate 25 mg 50 mg PO HS 07/31/20 01/07/21 History tablet,extended release 24 hr aripiprazole 30 mg tablet (Abilify) 30 mg PO HS 09/16/20 01/07/21 History lamotrigine 150 mg tablet 300 mg PO HS 09/16/20 01/07/21 History naratriptan 1 mg tablet 1 mg PO DIRECTED PRN 10/06/20 01/07/21 History omeprazole 40 mg capsule,delayed 40 mg PO QAM 10/06/20 01/07/21 History release escitalopram oxalate 20 mg tablet 20 mg PO DAILY 01/07/21 01/07/21 History levothyroxine 50 mcg tablet 50 mcg PO QAM 01/07/21 01/07/21 History topiramate 100 mg tablet 100 mg PO HS 01/07/21 01/07/21 History cyclobenzaprine 10 mg tablet 10 mg PO TID PRN #20 tab 01/09/21 Rx gabapentin 300 mg capsule 300 mg PO TID #90 cap 01/09/21 Rx Past Med/Surg History Medical History Anemia CURRENT IRON TRANSFUSIONS Borderline high blood pressure PT REPORTS BLOOD PRESSURE RUNS ON HIGHER SIDE/NO MEDS Exercise-induced asthma Gestational hypertension HX OF History of anesthesia reaction WITH WISDOM TEETH: AGE 13-14 YR - HIGH FEVER AND VOMITING AFTER - NO FURTHER DETAILS, UNKNOWN FAMILY HX - PT ADOPTED Rapid heart beat PT REPORTS HEART RATE RUNS ON HIGHER SIDE / NO MEDS Seizure disorder during seizures began at 13 weeks of and had several through . [place] [facility] seizure at 30 weeks. Was hospitalized for 1 week and went to rehab afterward for loss of movement on L side, ambulatory dysfunction. Brain MRI showed no evidence of CVA, symptoms of unknown etiology. Stable on lamictal. Surgical History History of colposcopy ULISSES 1 S/P wisdom tooth extraction Family History Other Adopted Family history unknown Social History Smoking Status: Never smoker Second Hand Exposure: No; Hx Alcohol Use: Yes Alcohol type: beer Hx Substance Use: No Preferred Language: Serbian Communication Ability: Effective Pin Cleaner Required: No Beliefs That Will Affect Care: None marital status: marital status details: Abran Vargas (26) [phone] Current Living Situation: Spouse Current Living Situation Comment: has to live with parents due to seizure disorder at this time. 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 How many Children do You have: 1 Feels Safe at Home: Yes Assistive Devices: None Review of Systems Review of Systems: All systems reviewed & are unremarkable except as noted in HPI & below Physical Exam Physical Exam: Constitutional: WD/WN, vitals as above cooperative and comfortable; no acute distress Eyes: PERRL and normal accommodation Neck: normal visual inspection and trachea midline; no tracheal deviation Respiratory: normal respiratory effort, lungs clear to auscultation Cardiovascular: RRR, no murmur, no edema Gastrointestinal (Abdomen): normal bowel sounds, soft, nontender, no hepatosplenomegaly Psychiatric: A+Ox3, euthymic affect Lymphatic: no cervical or axillary lymphadenopathy Constitutional: WD/WN, vitals as above cooperative and comfortable; no acute distress Eyes: normal visual brock by confrontation (slightly decreased L lateral field), + anicteric sclerae, PERRL and normal accommodation ENMT: slightly dry mm Neck: normal visual inspection and trachea midline; no tracheal deviation Respiratory: normal respiratory effort, lungs clear to auscultation Cardiovascular: RRR, no murmur, no edema Gastrointestinal (Abdomen): normal bowel sounds, soft, nontender, no hepatosplenomegaly Musculoskeletal: lumbar spine tender to palpation decreased strength LLE with dorsiflexion/plantar flexion but able to be taken through ROM with reported increased pain to left/lower back strength equal b/l UE Skin: warm, dry Neurologic: patellar DTR's 2+ bilat, sensation intact and PERRL, EOMI, accommodation nl, no face palsy, no dysarthria moves all extremities (except LLE) and awake Speech / Cognition: + abnormal speech Motor/Sensory: no tremor, no pronator drift and no asterixis Cranial Nerves: PERRL, normal accommodation, EOM intact bilaterally, normal facial strength, tongue midline, normal hearing, able to rotate head bilaterally, able to elevate shoulders bilaterally, no nystagmus and symmetric palate elevation Gait: no ataxic gait (not assessed) Coordination: + abnormal [id number] test (on the left); normal aghgty-ld-unrh test, normal Romberg test and normal rapid alternating movements Psychiatric: A+Ox3, euthymic affect Lymphatic: no cervical or axillary lymphadenopathy Results & Data Results & Data ([facility]) Vital Signs (Past 12 Hours) Vital Signs Temp Pulse Pulse Resp BP BP Pulse Ox 01/07/21 18:00 36.7 C 93 H 18 113/84 99 01/07/21 17:45 36.7 C 93 H 18 128/57 L 100 01/07/21 17:30 36.7 C 89 18 129/66 98 01/07/21 17:15 36.7 C 91 H 18 122/68 99 01/07/21 17:00 36.8 C 87 18 122/69 99 01/07/21 16:30 99 H 14 121/87 99 01/07/21 16:15 104 H 20 125/73 98 01/07/21 15:54 36.9 C 86 16 138/79 97 01/07/21 15:45 99 H 20 142/83 H 96 01/07/21 15:31 92 H 20 138/79 99 01/07/21 15:21 100 H 13 140/101 H 95 Laboratory Results 01/07/21 01/07/21 01/07/21 Range/Units 16:42 16:42 16:40 WBC (4.8-10.8) K/uL RBC (4.2-5.4) M/uL Hgb (12.0-16.0) g/dL Hct (37-47) % MCV (80-100) fL MCH (25-34) pg MCHC (32-36) g/dL RDW Std Deviation (36.4-46.3) fL RDW Coeff of Jorge (11.5-14.5) % Plt Count (130-400) K/uL MPV (7.4-10.4) fL Immature Gran % (Auto) % Neut % (Auto) % Lymph % (Auto) % Tillman % (Auto) % Eos % (Auto) % Baso % (Auto) % Neut # (Auto) (1.4-6.5) K/uL Lymph # (Auto) (1.2-3.4) K/uL Tillman # (Auto) (0.11-0.59) K/uL Eos # (Auto) (0-0.5) K/uL Baso # (Auto) (0-0.2) K/uL Immature Gran # (Auto) (0.00-0.02) K/uL PT (9.0-12.0) Seconds INR (0.9-1.1) APTT (21.0-31.0) Seconds PTT Ratio Sodium (136-145) mmol/L Potassium (3.5-5.1) mmol/L Chloride (98-107) mmol/L Carbon Dioxide (21-32) mmol/L Anion Gap (3-11) BUN (7-18) mg/dl Creatinine (0.6-1.2) mg/dl Est Cr Clr Drug Dosing Est GFR ( Amer) ml/min Est GFR (Non-Af Amer) ml/min BUN/Creatinine Ratio (10-20) Glucose (70-99) mg/dl POC Glucose (70-99) mg/dl Calcium (8.5-10.1) mg/dl Magnesium (1.8-2.4) mg/dl Total Bilirubin (0.2-1) mg/dl AST (15-37) U/L ALT (12-78) U/L Alkaline Phosphatase (45-117) U/L Troponin I (0-0.045) ng/ml Total Protein (6.4-8.2) gm/dl Albumin (3.4-5.0) gm/dl Globulin (2.5-4.0) gm/dl Albumin/Globulin Ratio (0.9-2) HCG, Qual (Negative) Salicylates (2.8-20) mg/dl Urine Opiates Screen Neg (Neg) Ur Methadone, Qual Neg (Neg) Acetaminophen (10-30) ug/ml Urine Barbiturates Neg (Neg) Ur Phencyclidine (PCP) Neg (Neg) U Amphetamin/Meth Scrn Neg (Neg) MDMA (Ecstasy) Screen Neg (Neg) U Benzodiazepines Scrn Neg (Neg) Ur Cocaine Metabolite Neg (Neg) U Marijuana (THC) Screen Neg (Neg) COVID-19 [facility] SARS-CoV-2, RNA, NAAT NEGATIVE (NEGATIVE) Blood Type Antibody Screen 01/07/21 01/07/21 01/07/21 Range/Units 15:37 15:36 15:34 WBC (4.8-10.8) K/uL RBC (4.2-5.4) M/uL Hgb (12.0-16.0) g/dL Hct (37-47) % MCV (80-100) fL MCH (25-34) pg MCHC (32-36) g/dL RDW Std Deviation (36.4-46.3) fL RDW Coeff of Jorge (11.5-14.5) % Plt Count (130-400) K/uL MPV (7.4-10.4) fL Immature Gran % (Auto) % Neut % (Auto) % Lymph % (Auto) % Tillman % (Auto) % Eos % (Auto) % Baso % (Auto) % Neut # (Auto) (1.4-6.5) K/uL Lymph # (Auto) (1.2-3.4) K/uL Tillman # (Auto) (0.11-0.59) K/uL Eos # (Auto) (0-0.5) K/uL Baso # (Auto) (0-0.2) K/uL Immature Gran # (Auto) (0.00-0.02) K/uL PT (9.0-12.0) Seconds INR (0.9-1.1) APTT (21.0-31.0) Seconds PTT Ratio Sodium (136-145) mmol/L Potassium (3.5-5.1) mmol/L Chloride (98-107) mmol/L Carbon Dioxide (21-32) mmol/L Anion Gap (3-11) BUN (7-18) mg/dl Creatinine (0.6-1.2) mg/dl Est Cr Clr Drug Dosing Est GFR ( Amer) ml/min Est GFR (Non-Af Amer) ml/min BUN/Creatinine Ratio (10-20) Glucose (70-99) mg/dl POC Glucose 98 (70-99) mg/dl Calcium (8.5-10.1) mg/dl Magnesium (1.8-2.4) mg/dl Total Bilirubin (0.2-1) mg/dl AST (15-37) U/L ALT (12-78) U/L Alkaline Phosphatase (45-117) U/L Troponin I (0-0.045) ng/ml Total Protein (6.4-8.2) gm/dl Albumin (3.4-5.0) gm/dl Globulin (2.5-4.0) gm/dl Albumin/Globulin Ratio (0.9-2) HCG, Qual (Negative) Salicylates < 1.7 L (2.8-20) mg/dl Urine Opiates Screen (Neg) Ur Methadone, Qual (Neg) Acetaminophen < 2 L (10-30) ug/ml Urine Barbiturates (Neg) Ur Phencyclidine (PCP) (Neg) U Amphetamin/Meth Scrn (Neg) MDMA (Ecstasy) Screen (Neg) U Benzodiazepines Scrn (Neg) Ur Cocaine Metabolite (Neg) U Marijuana (THC) Screen (Neg) COVID-19 Eval Order SARS-CoV-2, RNA, NAAT (NEGATIVE) Blood Type Pending Antibody Screen Pending 01/07/21 01/07/21 01/07/21 Range/Units 15:34 15:34 15:34 WBC (4.8-10.8) K/uL RBC (4.2-5.4) M/uL Hgb (12.0-16.0) g/dL Hct (37-47) % MCV (80-100) fL MCH (25-34) pg MCHC (32-36) g/dL RDW Std Deviation (36.4-46.3) fL RDW Coeff of Jorge (11.5-14.5) % Plt Count (130-400) K/uL MPV (7.4-10.4) fL Immature Gran % (Auto) % Neut % (Auto) % Lymph % (Auto) % Tillman % (Auto) % Eos % (Auto) % Baso % (Auto) % Neut # (Auto) (1.4-6.5) K/uL Lymph # (Auto) (1.2-3.4) K/uL Tillman # (Auto) (0.11-0.59) K/uL Eos # (Auto) (0-0.5) K/uL Baso # (Auto) (0-0.2) K/uL Immature Gran # (Auto) (0.00-0.02) K/uL PT 9.6 (9.0-12.0) Seconds INR 0.9 (0.9-1.1) APTT 25.6 (21.0-31.0) Seconds PTT Ratio 1.0 Sodium 137 (136-145) mmol/L Potassium 4.0 (3.5-5.1) mmol/L Chloride 107 (98-107) mmol/L Carbon Dioxide 24 (21-32) mmol/L Anion Gap 6.0 (3-11) BUN 10 (7-18) mg/dl Creatinine 0.82 (0.6-1.2) mg/dl Est Cr Clr Drug Dosing Not Reportable Est GFR ( Amer) 116.9 ml/min Est GFR (Non-Af Amer) 100.9 ml/min BUN/Creatinine Ratio 12.4 (10-20) Glucose 92 (70-99) mg/dl POC Glucose (70-99) mg/dl Calcium 8.3 L (8.5-10.1) mg/dl Magnesium 2.2 (1.8-2.4) mg/dl Total Bilirubin 0.1 L (0.2-1) mg/dl AST 14 L (15-37) U/L ALT 24 (12-78) U/L Alkaline Phosphatase 55 (45-117) U/L Troponin I < 0.015 (0-0.045) ng/ml Total Protein 6.8 (6.4-8.2) gm/dl Albumin 3.4 (3.4-5.0) gm/dl Globulin 3.4 (2.5-4.0) gm/dl Albumin/Globulin Ratio 1.0 (0.9-2) HCG, Qual Negative (Negative) Salicylates (2.8-20) mg/dl Urine Opiates Screen (Neg) Ur Methadone, Qual (Neg) Acetaminophen (10-30) ug/ml Urine Barbiturates (Neg) Ur Phencyclidine (PCP) (Neg) U Amphetamin/Meth Scrn (Neg) MDMA (Ecstasy) Screen (Neg) U Benzodiazepines Scrn (Neg) Ur Cocaine Metabolite (Neg) U Marijuana (THC) Screen (Neg) COVID-19 Eval Order SARS-CoV-2, RNA, NAAT (NEGATIVE) Blood Type Antibody Screen 01/07/21 Range/Units 15:34 WBC 8.18 (4.8-10.8) K/uL RBC 4.25 (4.2-5.4) M/uL Hgb 11.9 L (12.0-16.0) g/dL Hct 37.1 (37-47) % MCV 87.3 (80-100) fL MCH 28.0 (25-34) pg MCHC 32.1 (32-36) g/dL RDW Std Deviation 43.9 (36.4-46.3) fL RDW Coeff of Jorge 13.7 (11.5-14.5) % Plt Count 232 (130-400) K/uL MPV 8.5 (7.4-10.4) fL Immature Gran % (Auto) 0.4 % Neut % (Auto) 64.5 % Lymph % (Auto) 22.9 % Tillman % (Auto) 7.5 % Eos % (Auto) 4.2 % Baso % (Auto) 0.5 % Neut # (Auto) 5.29 (1.4-6.5) K/uL Lymph # (Auto) 1.87 (1.2-3.4) K/uL Tillman # (Auto) 0.61 H (0.11-0.59) K/uL Eos # (Auto) 0.34 (0-0.5) K/uL Baso # (Auto) 0.04 (0-0.2) K/uL Immature Gran # (Auto) 0.03 H (0.00-0.02) K/uL PT (9.0-12.0) Seconds INR (0.9-1.1) APTT (21.0-31.0) Seconds PTT Ratio Sodium (136-145) mmol/L Potassium (3.5-5.1) mmol/L Chloride (98-107) mmol/L Carbon Dioxide (21-32) mmol/L Anion Gap (3-11) BUN (7-18) mg/dl Creatinine (0.6-1.2) mg/dl Est Cr Clr Drug Dosing Est GFR ( Amer) ml/min Est GFR (Non-Af Amer) ml/min BUN/Creatinine Ratio (10-20) Glucose (70-99) mg/dl POC Glucose (70-99) mg/dl Calcium (8.5-10.1) mg/dl Magnesium (1.8-2.4) mg/dl Total Bilirubin (0.2-1) mg/dl AST (15-37) U/L ALT (12-78) U/L Alkaline Phosphatase (45-117) U/L Troponin I (0-0.045) ng/ml Total Protein (6.4-8.2) gm/dl Albumin (3.4-5.0) gm/dl Globulin (2.5-4.0) gm/dl Albumin/Globulin Ratio (0.9-2) HCG, Qual (Negative) Salicylates (2.8-20) mg/dl Urine Opiates Screen (Neg) Ur Methadone, Qual (Neg) Acetaminophen (10-30) ug/ml Urine Barbiturates (Neg) Ur Phencyclidine (PCP) (Neg) U Amphetamin/Meth Scrn (Neg) MDMA (Ecstasy) Screen (Neg) U Benzodiazepines Scrn (Neg) Ur Cocaine Metabolite (Neg) U Marijuana (THC) Screen (Neg) COVID-19 Eval Order SARS-CoV-2, RNA, NAAT (NEGATIVE) Blood Type Antibody Screen Diagnostic Findings Head CT 01/07/21 15:15 CT OF THE HEAD WITHOUT CONTRAST CLINICAL HISTORY: Stroke Like Symptoms. Left-sided numbness and weakness. COMPARISON STUDY: Head CT July 15, 2020. MRI of the brain July 17, 2020. CT DOSE: 1078.05 mGy.cm TECHNIQUE: Helical axial images of the head were obtained without IV contrast. Automated exposure control was utilized for the study. A dose lowering technique was utilized adhering to the principles of ALARA. FINDINGS: No acute intracranial hemorrhage, midline shift or mass effect is pres ent. The ventricular system is unremarkable. The basal cisterns are patent. No extra-axial collections are present. There are no findings to suggest acute dural sinus thrombosis or acute territorial infarct. No significant calvarial abnormalities are present. There is minimal sinus mucosal thickening. Adenoids are enlarged. IMPRESSION: No acute intracranial findings. ACT 112: Negative or not required by law. Electronically signed by: Raul Dale M.D. 01/07/2021 3:28 PM Head CTA 01/07/21 15:15 CT angio head w con, CT angio neck with con CLINICAL HISTORY: 25 years-old Female with Stroke Like Symptoms. Acute strokelike symptoms COMPARISON STUDY: Head CT of same day TECHNIQUE: Following the IV administration of 103 cc of Optiray, CT angiogram of the head and neck was performed from the aortic arch to the skull apex. Images are reviewed in the axial, sagittal, and coronal planes. 3-D MIPS images are created and assessed. IV contrast was administered without complication. All measurements were obtained according to NASCET criteria. A dose lowering technique was utilized adhering to the principles of ALARA. FINDINGS: Three-vessel morphology of the thoracic aortic arch. Patency of the innominate and imaged subclavian arteries. The common and internal carotid arteries are patent. The middle and anterior cerebral arteries are patent. Dominant left vertebral artery. The vertebral arteries are codominant and widely patent. No aneurysm, dissection, high-grade stenosis or arterial occlusion. The basilar and posterior cerebral arteries are patent. The cerebral venous sinuses are patent. There is no abnormal intracranial enhancement. The lung apices are clear. There is no pneumothorax. 10 mm hypodense left thyroid nodule. Moderate enlargement of the adenoid tonsils with mild to moderate symmetric enlargement of the palatine tonsils. Patent airway. No acute fracture. IMPRESSION: 1. Unremarkable CTA of the head and neck. 2. Moderate adenoid with mild to moderate palatine tonsillar enlargement. Correlate clinically to exclude tonsillitis. ACT 112: Negative or not required by law. The above report was generated using voice recognition software. It may contain grammatical, syntax or spelling errors. Electronically signed by: Jordy Romero M.D. 01/07/2021 3:40 PM Neck CTA 01/07/21 15:15 CT angio head w con, CT angio neck with con CLINICAL HISTORY: 25 years-old Female with Stroke Like Symptoms. Acute strokelike symptoms COMPARISON STUDY: Head CT of same day TECHNIQUE: Following the IV administration of 103 cc of Optiray, CT angiogram of the head and neck was performed from the aortic arch to the skull apex. Images are reviewed in the axial, sagittal, and coronal planes. 3-D MIPS images are created and assessed. IV contrast was administered without complication. All measurements were obtained according to NASCET criteria. A dose lowering techn ique was utilized adhering to the principles of ALARA. FINDINGS: Three-vessel morphology of the thoracic aortic arch. Patency of the innominate and imaged subclavian arteries. The common and internal carotid arteries are patent. The middle and anterior cerebral arteries are patent. Dominant left vertebral artery. The vertebral arteries are codominant and widely patent. No aneurysm, dissection, high-grade stenosis or arterial occlusion. The basilar and posterior cerebral arteries are patent. The cerebral venous sinuses are patent. There is no abnormal intracranial enhancement. The lung apices are clear. There is no pneumothorax. 10 mm hypodense left thyroid nodule. Moderate enlargement of the adenoid tonsils with mild to moderate symmetric enlargement of the palatine tonsils. Patent airway. No acute fracture. IMPRESSION: 1. Unremarkable CTA of the head and neck. 2. Moderate adenoid with mild to moderate palatine tonsillar enlargement. Correlate clinically to exclude tonsillitis. ACT 112: Negative or not required by law. The above report was generated using voice recognition software. It may contain grammatical, syntax or spelling errors. Electronically signed by: Jordy Romero M.D. 01/07/2021 3:40 PM Supervising Physician Co-Signing Physician Notes During my face to face encounter, I performed a history and physical examination. I answered all of the patient's questions and discussed plan of care with patient and APC Favianoner. Patient will be admitted to the ICU for close monitoring as patient has had tPA for possible stroke PG Care Time/CCT Total # of Minutes Spent Total Time Spent with Patient: Total time spent is greater than 50% in coordination of care (as documented) at patient's floor/unit and/or counseling patient: Coding Level of Care Code 03586 Initial Inpt Care Lvl 3 Diagnoses Bipolar 2 disorder F31.81 Conversion disorder F44.9 COVID-19 U07.1 Adopted Z02.82 Iron deficiency anemia D50.9 Migraine G43.909 Hypothyroidism E03.9 Hypertension I10 Seizure disorder G40.909 Back pain M54.9 Left-sided weakness R53.1 Dysarthria R47.1 Visual changes H53.9 GERD (gastroesophageal reflux disease) K21.9 Anxiety and depression F41.9; F32.A Stroke-like symptoms R29.90
[2021-01-07] MEDS ORDERED: ICU PROTOCOL FOR HYPERGLYCEMIA PRN (20:22)
[2021-01-07] MEDS ORDERED: CYCLOBENZAPRINE HCL 10 MG TAB PO PRN (20:22)
[2021-01-07] MEDS ORDERED: ALBUTEROL HFA 8 GM INHALER INH PRN (20:22)
[2021-01-07] MEDS ORDERED: NARATRIPTAN 1 MG PO PRN (20:22)
[2021-01-07] MEDS ORDERED: MELATONIN 3 MG TAB PO PRN (21:00)
[2021-01-07] MEDS ORDERED: LORazepam 0.5 MG TAB PO PRN (21:09)
[2021-01-07] MEDS ORDERED: CALCIUM GLUCONATE 10% 1,000 MG in SODIUM CHLORIDE 0.9% 50 ML IV SCH (21:15)
--- NOTE | 2021-01-07 21:25 | Critical Care Consultation ---
Date of Consultation January 07, 2021 Assessment & Plan (1) Admitted to intensive care unit: Reason Critically Ill: 25-year-old female presented to the emergency department with strokelike symptoms who is status post TPA administration requiring close monitoring per unit protocol status post TPA administration. NEURO - * CAM ICU: NEGATIVE * Strokelike symptoms: * Patient reportedly developed migrating symptoms including bilateral lower extremity weakness with associated "total body" weakness. Her symptoms then isolated to the LEFT lower and upper extremities with some slurred speech and blurred vision. CT/CTA of the head and neck were unremarkable. The patient had been showing some improvement in the emergency department prior to TPA administration. Patient received TPA at the direction of teleneurology. Other than ongoing LEFT lower extremity subjective weakness, the patient's exam is otherwise unremarkable. She reports basically back to baseline at this point. * Negative CT/CTA of the head. * Close monitoring per post TPA unit protocol. * Question degree of organic findings versus patient's history of migrainous headaches, conversion disorder, pseudoseizures, etc. * Regardless, patient to undergo complete neuro evaluation to rule out underlying organic pathology. * Thankfully, patient appears to be at her baseline at this time. PSYCH - * Continue patient's home psychiatric medications as prescribed. CARDIAC/VASCULAR - * Hypertension: * Continue home medications. * EKG: Normal sinus rhythm at [address] or T wave changes noted. QTc 434 ms. Monitor on telemetry. RESPIRATORY - * No history of pulmonary disease. * Saturating well on room air. GI/NUTRITION - * Progress diet as tolerated. * Has passed swallow challenge at this point. RENAL/LYTES - * No significant electrolyte derangements - * Madrigal in place - Strict I&Os. ENDO - * BSGs per unit protocol. ISS --> gtt per unit policy. * Hypothyroidism: * Continue home outpatient medications HEME - * Stable H&H * Monitor for signs/symptoms bleeding status post TPA administration ID - * No concerns for infectious contribution at this time. LINES/IV ACCESS - * PIVs x2 * Madrigal DVT PROPHYLAXIS - * Hold on chemoprophylaxis status post TPA administration. * SCDs I have personally spent 33 minutes of critical care time in the direct management of this patient. This is a life/limb threatening event. This includes time spent evaluating patient, direct bedside care, chart review, placing orders, interpretation of diagnostic studies, discussion with consultants, patient, and family members, as well as other required patient management activities. This time is exclusive of all separately billable procedures, and teaching time and separate from and in addition to any other critical care service time. Thank you for allowing us to participate in the care of this patient. Please refer to my attending physician's documentation for any further recommendations. (2) Stroke-like symptoms: (3) Anxiety and depression: (4) Visual changes: (5) Left-sided weakness: (6) Hypertension: (7) Hypothyroidism: (8) Migraine: (9) Pseudoseizures: (10) Bipolar 2 disorder: (11) Conversion disorder: History of Present Illness Attending Physician: Edgar Nash History of Present Illness Patient is a 25-year-old female with a significant past medical history of migraine headaches, depression, anxiety, PNES, conversion disorder, bipolar 2 disorder, hypertension, hypothyroidism. She reports that earlier today after returning home from the grocery store she developed generalized total body weakness with focus and weakness to the bilateral lower extremities. She then noticed that her weakness appeared to migrate primarily to her LEFT side. She reports that she was having some slurred speech. She contacted her neighbor who is an EMT. He contacted EMS. Patient was made a stroke alert in the emergency department where she underwent emergent CT as well as CTA of the head and neck. Patient reports a possible history of TIA during in May 2019. She reports that during that episode she ended up in a rehabilitation center for 2 weeks to "relearn to walk." She does report a significant history of headaches, but states that she had no headache with this episode and she typically does not develop paresthesias or weakness with her headaches. Patient underwent teleneurology evaluation and patient opted for TPA administration. Patient had near complete resolve of symptoms with her symptoms improving just prior to TPA administration. Patient mid to the ICU for ongoing evaluation per post TPA protocol. Upon evaluation in the ICU, the patient is awake, alert, and oriented. She reports that she is nearly back to her baseline, but she complains of residual LEFT lower extremity weakness. Patient does report that she has been dealing with low back pain over the past several weeks. She has been seeing her primary care provider for this. She has a scheduled pain management appointment and is to receive an MRI of her lumbar spine as well. She states that movement of her lower extremities exacerbate this back pain, but weakness in the LEFT lower extremity is new. She reports she initially had numbness to the lower extremity, however she admits to regaining no sensation and only feels [id number] in the LEFT lower extremity. Otherwise, the patient reports that her symptoms are back to normal and she denies significant history of headaches, dizziness, lightheadedness, blurry vision, double vision, slurred speech, facial droop, chest pain, palpitations, shortness of breath, nausea, vomiting, or abdominal discomfort. Allergies Allergy/AdvReac Type Severity Reaction Status Date / Time No Known Allergies Allergy Verified 01/07/21 17:02 Home Medications Medication Instructions Recorded Confirmed Type Iron Transfusions 1 dose IV UD PRN 09/07/19 01/07/21 History albuterol sulfate 90 mcg/actuation 2 puff INHALATION QID PRN 03/14/20 01/07/21 History aerosol inhaler lorazepam 1 mg tablet (Ativan) 0.5 - 1 mg PO Q6 PRN 03/14/20 01/07/21 History ketorolac 10 mg tablet 10 mg PO TID PRN #12 tab 07/31/20 01/07/21 Rx melatonin 10 mg tablet 10 mg PO HS 07/31/20 01/07/21 History metoprolol succinate 25 mg 50 mg PO HS 07/31/20 01/07/21 History tablet,extended release 24 hr aripiprazole 30 mg tablet (Abilify) 30 mg PO HS 09/16/20 01/07/21 History lamotrigine 150 mg tablet 300 mg PO HS 09/16/20 01/07/21 History naratriptan 1 mg tablet 1 mg PO DIRECTED PRN 10/06/20 01/07/21 History omeprazole 40 mg capsule,delayed 40 mg PO QAM 10/06/20 01/07/21 History release cyclobenzaprine 10 mg tablet 10 mg PO TID PRN 01/07/21 01/07/21 History escitalopram oxalate 20 mg tablet 20 mg PO DAILY 01/07/21 01/07/21 History gabapentin 300 mg capsule 300 mg PO DIRECTED 01/07/21 01/07/21 History levothyroxine 50 mcg tablet 50 mcg PO QAM 01/07/21 01/07/21 History topiramate 100 mg tablet 100 mg PO HS 01/07/21 01/07/21 History Patient History Medical History Anemia CURRENT IRON TRANSFUSIONS Borderline high blood pressure PT REPORTS BLOOD PRESSURE RUNS ON HIGHER SIDE/NO MEDS Exercise-induced asthma Gestational hypertension HX OF History of anesthesia reaction WITH WISDOM TEETH: AGE 13-14 YR - HIGH FEVER AND VOMITING AFTER - NO FURTHER DETAILS, UNKNOWN FAMILY HX - PT ADOPTED Rapid heart beat PT REPORTS HEART RATE RUNS ON HIGHER SIDE / NO MEDS Seizure disorder during seizures began at 13 weeks of and had several through . Last seizure at 30 weeks. Was hospitalized for 1 week and went to rehab afterward for loss of movement on L side, ambulatory dysfunction. Brain MRI showed no evidence of CVA, symptoms of unknown etiology. Stable on lamictal. Surgical History History of colposcopy ULISSES 1 S/P wisdom tooth extraction Family History Other Adopted Family history unknown Social History Smoking Status: Never smoker Second Hand Exposure: No; Hx Alcohol Use: Yes Alcohol type: beer Hx Substance Use: No Preferred Language: Citizen Of [place] Communication Ability: Effective Bottling Line Attendant Required: No Beliefs That Will Affect Care: None marital status: marital status details: Abran Vargas (26) [phone] Current Living Situation: Spouse Current Living Situation Comment: has to live with parents due to seizure disorder at this time. 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 All else were negative. Physical Exam Physical Exam: VITAL SIGNS - Vital signs and nursing notes were reviewed. GENERAL - 25-year-old female appearing her stated age who is in no acute distress. Communicates well with provider and answers questions appropriately. HEAD - Normocephalic, Atraumatic. No Valdez's Sign or Raccoon's Eyes. No depressed skull fractures palpable. EYES - PERRL with EOMI bilaterally. Sclera anicteric. Palpebral conjunctiva pink and moist with no injection noted. EARS - No deformities of external structures noted on gross examination bilaterally. NOSE - Midline and without cyanosis. No epistaxis or purulent drainage noted. MOUTH/OROPHARYNX - Without perioral cyanosis. Buccal mucosa pink and moist and without leukoplakia. Tongue midline with equal elevation of palate bilaterally. No tonsillar hypertrophy, erythema, or exudates noted. Good dentition noted. NECK - Neck with FROM. Supple to palpation. No lymphadenopathy noted. No nuchal rigidity. LUNGS - Chest wall symmetric without accessory muscle use, intercostals retractions, or central cyanosis. Normal vesicular breath sounds CTA B/L. No wheezes, rales, or rhonchi appreciated. CARDIAC - RRR with S1/S2. No murmur, rubs, or gallops appreciated. ABDOMEN - Abdominal contour flat without pulsations or visible masses. BS normoactive all four quadrants. No tenderness, palpable masses, hepatosp lenomegaly, or ascites noted. EXTREMITIES - No pretibial edema present. +3/5 radial and dorsalis pedis pulses palpated throughout. FROM with no tremors, fasciculations, or clonus noted on PROM throughout. +5/5 strength noted in UE bilaterally. Patient has subjectively +3/5 strength in the LEFT lower extremity versus full strength in the RIGHT. NEUROLOGIC - Cranial nerves II through XII grossly intact. Sensory intact to light touch throughout. Patellar reflexes +2/4 bilaterally. Patient able to perform rapid alternating movements appropriately. Negative Pronator Drift. PSYCH - A&Ox3 and cooperates fully with examiner. Pt is very pleasant and interacts well with examiner. Results & Data Results & Data ([facility]) Vital Signs (Past 12 Hours) Vital Signs Temp Pulse Pulse Resp BP BP Pulse Ox 01/07/21 20:45 99 H 16 125/77 98 01/07/21 20:18 37.2 C 87 16 129/70 98 01/07/21 20:15 37.2 C 83 16 129/70 97 01/07/21 20:05 83 01/07/21 19:45 36.7 C 92 H 18 124/74 97 01/07/21 19:15 36.8 C 92 H 18 127/68 97 01/07/21 18:45 88 18 112/77 98 01/07/21 18:30 36.7 C 110 H 18 133/86 99 01/07/21 18:15 36.9 C 104 H 18 120/72 99 01/07/21 18:00 36.7 C 93 H 18 113/84 99 01/07/21 17:45 36.7 C 93 H 18 128/57 L 100 01/07/21 17:30 36.7 C 89 18 129/66 98 01/07/21 17:15 36.7 C 91 H 18 122/68 99 01/07/21 17:00 36.8 C 87 18 122/69 99 01/07/21 16:30 99 H 14 121/87 99 01/07/21 16:15 104 H 20 125/73 98 01/07/21 15:54 36.9 C 86 16 138/79 97 01/07/21 15:45 99 H 20 142/83 H 96 01/07/21 15:31 92 H 20 138/79 99 01/07/21 15:21 100 H 13 140/101 H 95 Coding Level of Care Code Critical Care 1st 30-74 mins Diagnoses Admitted to intensive care unit Z78.9 Stroke-like symptoms R29.90 Anxiety and depression F41.9; F32.A Visual changes H53.9 Left-sided weakness R53.1 Hypertension I10 Hypothyroidism E03.9 Migraine G43.909 Pseudoseizures F44.5 Bipolar 2 disorder F31.81 Conversion disorder F44.9 Time Spent (min) 33
[2021-01-07 23:07] LABS: Hematocrit (blood only) 37.5 % (37-47); Hemoglobin 12.2 g/dL (12.0-16.0); Mean Corpuscular Hemoglobin 28.2 pg (25-34); Mean Corpuscular Hgb Conc 32.5 g/dL (32-36); Mean Corpuscular Volume 86.6 fL (80-100); Mean Platelet Volume 8.5 fL (7.4-10.4); Platelet Count 228 K/uL (130-400); RDW Coefficient of Variation 13.7 % (11.5-14.5); RDW Standard Deviation 43.5 fL (36.4-46.3); Red Blood Count 4.33 M/uL (4.2-5.4); White Blood Count 8.42 K/uL (4.8-10.8)
[2021-01-07] MEDS: ARIPiprazole 15 MG TAB PO SCH (23:11)
[2021-01-07] MEDS: GABAPENTIN 300 MG CAP PO SCH (23:12)
[2021-01-07] MEDS: TOPIRAMATE 50 MG TAB PO SCH (23:13)
[2021-01-07] MEDS: lamoTRIgine 100 MG TAB PO SCH (23:13)
[2021-01-07] MEDS: METOPROLOL SUCC 50MG EXT REL TAB PO SCH (23:16)
[2021-01-07] MEDS ORDERED: ONDANSETRON 4 MG OD TAB ONE (23:19)
[2021-01-07] MEDS ORDERED: ONDANSETRON 4 MG OD TAB PO ONE (23:19)
[2021-01-07] MEDS ORDERED: ACETAMINOPHEN 500 MG TAB PO PRN (23:26)
[2021-01-07] MEDS ORDERED: ACETAMINOPHEN 325 MG TAB ONE (23:34)
[2021-01-08] MEDS: SODIUM CHLORIDE 0.9% 1000ML 1,000 ML IV SCH ×2 (04:09→08:16)
[2021-01-08] MEDS: LEVOTHYROXINE SODIUM 50 MCG TABLET PO SCH (04:55)
[2021-01-08 05:19] LABS: Hematocrit (blood only) 37.3 % (37-47); Mean Corpuscular Hemoglobin 28.2 pg (25-34); Mean Corpuscular Hgb Conc 32.2 g/dL (32-36); Mean Corpuscular Volume 87.6 fL (80-100); Mean Platelet Volume 8.7 fL (7.4-10.4); Platelet Count 224 K/uL (130-400); RDW Coefficient of Variation 13.8 % (11.5-14.5); RDW Standard Deviation 43.9 fL (36.4-46.3); Red Blood Count 4.26 M/uL (4.2-5.4); White Blood Count 7.13 K/uL (4.8-10.8)
[2021-01-08 05:55] LABS: Albumin Level 3.2 gm/dl (3.4-5.0); BUN Creatinine Ratio 12.3 (10-20); Calcium 8.5 mg/dl (8.5-10.1); Creatinine Clr Calc Pharmacy 134.7 ml/min; Est GFR (African American) 139.1 ml/min; Est GFR (Non-African American) 120.1 ml/min; Magnesium 2.1 mg/dl (1.8-2.4); Potassium 3.8 mmol/L (3.5-5.1)
[2021-01-08 06:03] LABS: Bilirubin,Total 0.3 mg/dl (0.2-1); Globulin 3.2 gm/dl (2.5-4.0); Phosphorus 4.1 mg/dl (2.5-4.9); Thyroid Stimulating Hormone 0.746 uIu/ml (0.300-4.500); Total Protein 6.4 gm/dl (6.4-8.2)
--- NOTE | 2021-01-08 06:54 | CT Scan Report ---
CT head/brain wo con CLINICAL HISTORY: 25 years-old Female with candelario s/p tpa. Acute severe headache TECHNIQUE: Multiple axial CT images of the head were obtained without contrast. A dose lowering tech nique was utilized adhering to the principles of ALARA. CT DOSE: 537.48 mGy.cm COMPARISON: Head CT of same day at 3:21 PM FINDINGS: No acute intracranial hemorrhage, midline shift, intracranial mass, hydrocephalus, territorial ischem ia or abnormal extra-axial collection. The calvarium is intact. Adenoid tonsillar enlargement redemonstrated. The paranasal sinuses, mastoid air cells, and middle ear cavities are clear. IMPRESSION: No acute intracranial abnormality. ACT 112: Negative or not required by law. The above report was generated using voice recognition software. It may contain grammatical, syntax o r spelling errors. Electronically signed by: Jordy Romero M.D. 01/08/2021 6:52 AM
--- NOTE | 2021-01-08 07:08 | Critical Care Progress Note ---
Date of Service January 08, 2021 Assessment & Plan (1) Admitted to intensive care unit: Plan: Reason Critically Ill: 25-year-old female presented to the emergency department with strokelike symptoms who is status post TPA administration (completed 1750 01/07/21) requiring close monitoring per unit protocol status post TPA administration. NEURO - * CAM ICU: NEGATIVE * Strokelike symptoms: Improved * Patient reportedly developed migrating symptoms including bilateral lower extremity weakness with associated "total body" weakness. Her symptoms then isolated to the LEFT lower and upper extremities with some slurred speech and blurred vision. CT/CTA of the head and neck were unremarkable. The patient had been showing some improvement in the emergency department prior to TPA administration. Patient received TPA at the direction of teleneurology. Other than ongoing LEFT lower extremity subjective weakness, the patient's exam is otherwise unremarkable. She reports basically back to baseline at this point. * Neuro consulted, recs appreciated * MRI of brain, C spine, and T spine per neuro; demyelinating disease on differential * result: no evidence of demyelinating lesion. minimal posterior disc bulge at C4-C5 with minimal associated canal stenosis. * ef 55-60. Normal LV systolic function. No interatrial shunt w/ injection of contrast. No significant valvular heart disease. low back pain: no saddle anesthesia. gabapentin 300 TID PO (home is BID). temporary continuing oxycodone 5mg q8h prn, w/ plans to discontinue. PSYCH - * Continue patient's home psychiatric medications as prescribed. CARDIAC/VASCULAR - * Hypertension: Well-controlled * Continue home medications. * EKG: Normal sinus rhythm at [address] or T wave changes noted. QTc 434 ms. * tachycardia, mild. 90s-100s. Monitor on telemetry. RESPIRATORY - * No history of pulmonary disease. * Saturating well on room air. GI/NUTRITION - * Progress diet as tolerated. * Has passed swallow challenge at this point. RENAL/LYTES - * No significant electrolyte derangements -Stop additional IV fluids - * Madrigal in place - Strict I&Os. -Discontinue Madrigal ENDO - * BSGs per unit protocol. ISS --> gtt per unit policy. * Hypothyroidism: * Continue home outpatient medications HEME - * Stable H&H * Monitor for signs/symptoms bleeding status post TPA administration ID - * No concerns for infectious contribution at this time. LINES/IV ACCESS - * PIVs x2 * Madrigal DVT PROPHYLAXIS - * Hold on chemoprophylaxis status post TPA administration. * SCDs dispo: will sign off 24 hours after after 24 hours s/p TPA administration (2) Stroke-like symptoms: (3) Anxiety and depression: (4) Visual changes: (5) Left-sided weakness: (6) Hypertension: (7) Hypothyroidism: (8) Migraine: (9) Pseudoseizures: (10) Bipolar 2 disorder: (11) Conversion disorder: Admission and Anticipated Discharge Date Admission Date: January 07, 2021 Subjective Patient states that most of the focal neuro symptoms have resolved. She felt that her left leg might have been slightly weaker than her usual baseline weakness. She endorses some low back pain. Denies all other sxs. update, ~noon. Patient's main complaint is her low back pain. There is some numbness/tingling going down her thighs. Denies saddle anesthesia symptoms. She is requesting pain medication. Review of Systems Review of Systems: All systems reviewed & are unremarkable except as noted in HPI & below Constitutional: Denies fever, chills Eyes: Denies blurry vision, vision changes Cardiovascular: Denies chest pain, palpitations Respiratory: Denies shortness of breath Gastrointestinal: Denies abdominal pain, nausea, vomiting, constipation, diarrhea Genitourinary: Denies urinary symptoms including dysuria Musculoskeletal: See HPI Neurological: Denies headache, See HPI. Physical Exam Physical Exam: General: Grossly A&O. NAD. Cooperative. HEENT: Atraumatic, normocephalic. EOMI. PERRL Pulm: CTAB. -wheezes, -rales, -rhonchi. No respiratory distress. Cardiac: RRR, -mrg. Radial pulses intact and symmetrical. Abdominal: Nontender, nondistended, soft. Neuro: CN II-XII intact. Moving all extremities, but lower extremities limited by pain from back. SLR to 15 degrees exacerbated back pain, but did not cause radiation down thighs or numbness/tingling. No facial droop. Results & Data Results & Data ([facility]) Vital Signs (Past 12 Hours) Vital Signs reviewed Temp Pulse Pulse Resp BP BP Pulse Ox 01/08/21 06:45 78 18 114/57 L 97 01/08/21 05:45 81 16 111/58 L 96 10/05/21 04:45 81 16 109/57 L 96 01/08/21 03:45 79 16 117/60 97 01/08/21 02:45 76 16 106/56 L 94 01/08/21 01:45 83 16 110/62 98 01/08/21 00:48 83 16 117/61 97 01/08/21 00:00 81 01/07/21 23:45 37.0 C 80 16 121/68 98 01/07/21 23:18 99 H 16 116/71 98 01/07/21 22:48 91 H 16 141/71 H 97 01/07/21 22:45 91 H 16 141/71 H 97 01/07/21 22:15 92 H 16 161/66 H 95 01/07/21 21:45 90 17 122/69 98 01/07/21 21:18 99 H 18 139/82 98 01/07/21 21:12 37.2 C 88 16 129/70 98 01/07/21 20:45 99 H 16 125/77 98 01/07/21 20:22 89 01/07/21 20:18 37.2 C 87 16 129/70 98 01/07/21 20:15 37.2 C 83 16 129/70 97 01/07/21 20:05 83 01/07/21 19:45 36.7 C 92 H 18 124/74 97 01/07/21 19:15 36.8 C 92 H 18 127/68 97 Laboratory Results H/H stable. Hb 12.0. pt/inr wnl. K 3.8. A1c pending. LDL 90. TSH 0.746. utox neg. 01/08/21 04:42 01/08/21 04:[address] 01/07/21 15:15 CT OF THE HEAD WITHOUT CONTRAST CLINICAL HISTORY: Stroke Like Symptoms. Left-sided numbness and weakness. COMPARISON STUDY: Head CT July 15, 2020. MRI of the brain July 17, 2020. CT DOSE: 1078.05 mGy.cm TECHNIQUE: Helical axial images of the head were obtained without IV contrast. Automated exposure control was utilized for the study. A dose lowering technique was utilized adhering to the principles of ALARA. FINDINGS: No acute intracranial hemorrhage, midline shift or mass effect is present. The ventricular system is unremarkable. The basal cisterns are patent. No extra-axial collections are present. There are no findings to suggest acute dural sinus thrombosis or acute territorial infarct. No significant calvarial abnormalities are present. There is minimal sinus mucosal thickening. Adenoids are enlarged. IMPRESSION: No acute intracranial findings. ACT 112: Negative or not required by law. Electronically signed by: Raul Dale M.D. 01/07/2021 3:28 PM Head CTA 01/07/21 15:15 CT angio head w con, CT angio neck with con CLINICAL HISTORY: 25 years-old Female with Stroke Like Symptoms. Acute strokelike symptoms COMPARISON STUDY: Head CT of same day TECHNIQUE: Following the IV administration of 103 cc of Optiray, CT angiogram of the head and neck was performed from the aortic arch to the skull apex. Images are reviewed in the axial, sagittal, and coronal planes. 3-D MIPS images are created and assessed. IV contrast was administered without complication. All measurements were obtained according to NASCET criteria. A dose lowering technique was utilized adhering to the principles of ALARA. FINDINGS: Three-vessel morphology of the thoracic aortic arch. Patency of the innominate and imaged subclavian arteries. The common and internal carotid arteries are patent. The middle and anterior cerebral arteries are patent. Dominant left vertebral artery. The vertebral arteries are codominant and widely patent. No aneurysm, dissection, high-grade stenosis or arterial occlusion. The basilar and posterior cerebral arteries are patent. The cerebral venous sinuses are patent. There is no abnormal intracranial enhancement. The lung apices are clear. There is no pneumothorax. 10 mm hypodense left thyroid nodule. Moderate enlargement of the adenoid tonsils with mild to moderate symmetric enlargement of the palatine tonsils. Patent airway. No acute fracture. IMPRESSION: 1. Unremarkable CTA of the head and neck. 2. Moderate adenoid with mild to moderate palatine tonsillar enlargement. Correlate clinically to exclude tonsillitis. ACT 112: Negative or not required by law. The above report was generated using voice recognition software. It may contain grammatical, syntax or spelling errors. Electronically signed by: Jordy Romero M.D. 01/07/2021 3:40 PM Neck CTA 01/07/21 15:15 CT angio head w con, CT angio neck with con CLINICAL HISTORY: 25 years-old Female with Stroke Like Symptoms. Acute strokelike symptoms COMPARISON STUDY: Head CT of same day TECHNIQUE: Following the IV administration of 103 cc of Optiray, CT angiogram of the head and neck was performed from the aortic arch to the skull apex. Images are reviewed in the axial, sagittal, and coronal planes. 3-D MIPS images are created and assessed. IV contrast was administered without complication. All measurements were obtained according to NASCET criteria. A dose lowering technique was utilized adhering to the principles of ALARA. FINDINGS: Three-vessel morphology of the thoracic aortic arch. Patency of the innominate and imaged subclavian arteries. The common and internal carotid arteries are patent. The middle and anterior cerebral arteries are patent. Dominant left vertebral artery. The vertebral arteries are codominant and widely patent. No aneurysm, dissection, high-grade stenosis or arterial occlusion. The basilar and posterior cerebral arteries are patent. The cerebral venous sinuses are patent. There is no abnormal intracranial enhancement. The lung apices are clear. There is no pneumothorax. 10 mm hypodense left thyroid nodule. Moderate enlargement of the adenoid tonsils with mild to moderate symmetric enlargement of the palatine tonsils. Patent airway. No acute fracture. IMPRESSION: 1. Unremarkable CTA of the head and neck. 2. Moderate adenoid with mild to moderate palatine tonsillar enlargement. Correlate clinically to exclude tonsillitis. ACT 112: Negative or not required by law. The above report was generated using voice recognition software. It may contain grammatical, syntax or spelling errors. Electronically signed by: Jordy Romero M.D. 01/07/2021 3:40 PM Lumbar Spine MRI 01/07/21 20:22 MR lumbar spine wo con: CLINICAL HISTORY: 25 years-old Female with LLE weakness, back pain. Acute low back pain with numbness and tingling of the left lower extremity. COMPARISON: CT abdomen and pelvis 09/17/2020. TECHNIQUE: Multiplanar, multi sequence MRI of the lumbar spine was performed without intravenous contrast. FINDINGS: The binding printer localizer images demonstrate no gross extraspinal abnormality. No a cute fracture, subluxation, endplate erosion, significant bone marrow or soft tissue edema. The conus medullaris terminates at T12-L1. Signal within the imaged thoracic spinal cord and cauda equina is unremarkable. The imaged intra- abdominal structures are within normal limits. There is mild intervertebral disc space narrowing with disc desiccation at T11-T12. No lumbar intervertebral disc space narrowing. T12-L1: No central canal or neural foraminal stenosis. L1-L2: No central canal or neural foraminal stenosis. L2-L3: No central canal or neural foraminal stenosis. L3-L4: No central canal or neural foraminal stenosis. L4-L5: Tiny posterior annular disc bulge with a small central disc protrusion with annular fissure. Flattening of the ventral thecal sac without significant c entral canal or neural foraminal stenosis. L5-S1: No central canal or neural foraminal stenosis. IMPRESSION: 1. Mild discogenic degeneration at T11-T12 and L4-L5 as above. 2. No significant central canal or neural foraminal narrowing. ACT 112: Negative or not required by law. The above report was generated using voice recognition software. It may contain grammatical, syntax or spelling errors. Dictated: 01/08/2021 8:37 AM Transcribed: 01/08/2021 9:10 AM Marycarmen [id number] [facility] Electronically signed by: Jordy Romero M.D. 01/08/2021 9:[address] 01/07/21 23:26 CT head/brain wo con CLINICAL HISTORY: 25 years-old Female with candelario s/p tpa. Acute severe headache TECHNIQUE: Multiple axial CT images of the head were obtained without contrast. A dose lowering technique was utilized adhering to the principles of ALARA. CT DOSE: 537.48 mGy.cm COMPARISON: Head CT of same day at 3:21 PM FINDINGS: No acute intracranial hemorrhage, midline shift, intracranial mass, hydrocephalus, territorial ischemia or abnormal extra-axial collection. The calvarium is intact. Adenoid tonsillar enlargement redemonstrated. The paranasal sinuses, mastoid air cells, and middle ear cavities are clear. IMPRESSION: No acute intracranial abnormality. ACT 112: Negative or not required by law. The above report was generated using voice recognition software. It may contain grammatical, syntax or spelling errors. Electronically signed by: Jordy Romero M.D. 01/08/2021 6:52 AM Brain MRI 01/08/21 09:57 MR brain MS wo/w con INDICATION: MN ^^stroke like episode, r/o demyelinating dz vs CVA TECHNIQUE: Multiplanar and multisequence MR images of the brain were obtained prior to and following administration of gadolinium contrast. Comparison: Comparison is made to MRI brain 07/07/2020 FINDINGS: No abnormal restricted diffusion is identified. The white matter is unremarkable . The ventricular system is normal in appearance. There is no evidence of acute intraparenchymal hemorrhage. No extra axial fluid collections are seen. There are no masses, mass effect, or midline shift. No abnormal enhancement is seen. The corpus callosum, pituitary gland, and cerebellar tonsils appear grossly unremarkable. Flow voids of the major intracranial arterial vessels are identified. The imaged portions of the paranasal sinuses, mastoid air cells, and orbits are unremarkable. IMPRESSION: No acute abnormality. No evidence of T2 hyperintense regions of demyelination, no abnormal restricted diffusion to suggest infarct. ACT 112: Negative or not required by law. Electronically signed by: Oral Hamm M.D. 01/08/2021 1:49 PM Cervical Spine MRI 01/08/21 09:57 MR OF THE CERVICAL SPINE WITHOUT IV CONTRAST INDICATION: MN ^^lumbar done 01/07 ^left arm/leg weak Comparison: None available at the time of this dictation. TECHNIQUE: MRI of the cervical spine is performed utilizing various T1 and T2 sequences in the axial and sagittal planes. IV contrast was administered for this examination. FINDINGS: Cervical spine: Vertebral body height and alignment are maintained throughout the cervical spine. The atlantodental articulation appears maintained. No destructive bony lesion is seen. Intervertebral discs: Mild degenerative changes are seen most prominent at C4-C5 and C5-C6 Spinal cord: The cervical spinal cord is normal in morphology and signal intensity. C2-C3: Unremarkable. C3-C4: Unremarkable. C4-C5: A minimal posterior midline disc bulge is seen with minimal associated canal stenosis. C5-C6: Unremarkable. C6-C7: Unremarkable. C7-T1: Unremarkable. Soft tissues: The paraspinous and prevertebral soft tissues are normal in appearance. Brain parenchyma: Partially imaged brain parenchyma at the skull base is within normal limits. IMPRESSION: No evidence of neuroforaminal stenosis bilaterally. There is a minimal posterior disc bulge at C4-C5 with minimal associated canal stenosis. No evidence of demyelinating disease or abnormal enhancing lesion. ACT 112: Negative or not required by law. Electronically signed by: Oral Hamm M.D. 01/08/2021 2:48 PM Thoracic Spine MRI 01/08/21 09:57 MR thoracic spine wo/w con INDICATION: MN ^^left arm/leg weak TECHNIQUE: 3 plane localizer images, sagittal T2, sagittal T1, sagittal STIR, axial T1, axial T2 along with postcontrast axial T1 and sagittal T1 fat- saturated sequences were obtained of the thoracic spine, before and after intravenous administration of 12 mL of MultiHance. Comparison: None available at the time of this dictation. FINDINGS: The alignment is anatomical. There is no significant disc bulge or herniation. The spinal canal and neural foramina are patent. The intervertebral discs are normal in height and signal. There is normal height and signal of the visualized vertebral bodies. The spinal cord is normal in signal intensity and there is no evidence of cord contusion. There is no evidence of an extradural, intradural, extramedullary or intramedullary lesion. The spinal ligaments are intact, without evidence of disruption or abnormal signal intensity. IMPRESSION: No evidence of cord compression or ligamentous injury. No abnormal enhancing lesions in the spine. ACT 112: Negative or not required by law. Electronically signed by: Oral Hamm M.D. 01/08/2021 2:47 PM Resident Activity Tracking Resident Involvement: Resident Care Provided Care Provided: Adult Hospital Medicine
[2021-01-08 07:34] LABS: Estimated Average Glucose 111 mg/dl; Hemoglobin A1C 5.5 % (4.5-5.6)
[2021-01-08] MEDS: PANTOprazole 40 MG TAB PO SCH (08:17)
[2021-01-08] MEDS: GABAPENTIN 300 MG CAP PO SCH ×3 (08:17→20:55)
[2021-01-08] MEDS: ESCITALOPRAM OXALATE 10 MG TAB PO SCH (08:17)
--- NOTE | 2021-01-08 08:54 | Electrocardiogram Report ---
Test Reason : Blood Pressure : / mmHG Vent. Rate : 084 BPM Atrial Rate : 084 BPM P-R Int : 146 ms QRS Dur : 082 ms QT Int : 368 ms P-R-T Axes : 049 056 044 degrees QTc Int : 434 ms Normal sinus rhythm Normal ECG When compared with ECG of 10-NOV-2020 18:24, No significant change was found Confirmed by Tre Gonzalez ([id number]) on 01/08/2021 8:53:29 AM Referred By: REFERRED SELF Confirmed By:Petr Gonzalez
[2021-01-08] MEDS ORDERED: FLUARIX QUADRIVALENT 0.5 ML SYR IM ONE (09:00)
--- NOTE | 2021-01-08 09:27 | Magnetic Resonance Report ---
MR lumbar spine wo con: CLINICAL HISTORY: 25 years-old Female with LLE weakness, back pain. Acute low back pain with numbnes s and tingling of the left lower extremity. COMPARISON: CT abdomen and pelvis 09/17/2020. TECHNIQUE: Multiplanar, multi sequence MRI of the lumbar spine was performed without intravenous cont rast. FINDINGS: The loop drier operator localizer images demonstrate no gross extraspinal abnormality. No acute fracture, subluxati on, endplate erosion, significant bone marrow or soft tissue edema. The conus medullaris terminates a t T12-L1. Signal within the imaged thoracic spinal cord and cauda equina is unremarkable. The imaged intra-abdominal structures are within normal limits. There is mild intervertebral disc space narrowin g with disc desiccation at T11-T12. No lumbar intervertebral disc space narrowing. T12-L1: No central canal or neural foraminal stenosis. L1-L2: No central canal or neural foraminal stenosis. L2-L3: No central canal or neural foraminal stenosis. L3-L4: No central canal or neural foraminal stenosis. L4-L5: Tiny posterior annular disc bulge with a small central disc protrusion with annular fissure. Flattening of the ventral thecal sac without significant central canal or neural foraminal stenosis. L5-S1: No central canal or neural foraminal stenosis. IMPRESSION: 1. Mild discogenic degeneration at T11-T12 and L4-L5 as above. 2. No significant central canal or neural foraminal narrowing. ACT 112: Negative or not required by law. The above report was generated using voice recognition software. It may contain grammatical, syntax o r spelling errors. Dictated: 01/08/2021 8:37 AM Transcribed: 01/08/2021 9:10 AM Marycarmen [id number] [facility] Electronically signed by: Jordy Romero M.D. 01/08/2021 9:26 AM
--- NOTE | 2021-01-08 09:38 | Billing Data ---
Date of Service January 08, 2021 Coding Level of Care Code 81071 Subseq Hosp Care Lvl 3
--- NOTE | 2021-01-08 09:57 | Neurology Consultation ---
Date of Consultation January 08, 2021 Assessment & Plan (1) Stroke-like symptoms: Unusual strokelike episode beginning with acute low back pain, bilateral leg weakness, left greater than right, evolving to left arm and face weakness and numbness with associated slurred speech and with associated left-sided headache. Gradual symptom resolution after administration of TPA beginning with improvement in left face and arm numbness and weakness, followed by near complete improvement of left lower extremity weakness several hours later. Resolution of headache. Patient has an intact neurological examination this morning. She has had unremarkable neuro imaging thus far including CT of the head x2 and CT angiography of the head and neck. Patient may have had a complicated migraine. Functional neurological disorder or weakness due to conversion disorder not completely excluded. History also notable for suspected psychogenic nonepileptic seizures. Interestingly, however, patient reports a 2- week episode of significant leg weakness following the of her second child 1-1/2 years ago. It looks like her second was complicated by seizures as well, possibly eclampsia. I would like this patient to have an up-to-date brain MRI completed. Would also recommend completion of an MRI of the cervical and thoracic spine as well. Demyelinating disease may not be completely excluded in this patient. I will make further recommendations pending completion of this imaging evaluation. I have not recommended any changes to her outpatient medication regimen at this time. Patient may continue with topiramate and metoprolol for migraine prevention. I believe her lamotrigine is primarily prescribed for her bipolar disorder as well as the Abilify and Lexapro. Would also recommend a hypercoagulable lab evaluation. History of Present Illness Reason for Consultation: Left-sided weakness, status post TPA Requesting Physician: Oriana Aguirre PA-C Attending Physician: Edgar Nash History of Present Illness The patient is a 25-year-old female with a chief complaint of left-sided weakness. Symptoms began yesterday. She had just picking up some groceries at [facility] and was in the parking lot at time of symptom onset, in her car. She reported experiencing acute low back pain with associated weakness of both legs, left much greater than right. She was unable to move her left leg. Several minutes later she developed weakness and numbness of the left arm and left side of the face and has some associated slurred speech as well. She reports that she called one of her friends and drove herself home. EMS was summoned who subsequently brought the patient from her home to the emergency department. Her left-sided weakness, sensory disturbance, and speech disturbance were persistent. She came in as a stroke alert and had a telestroke consultation and qualified for administration of TPA. tPA was administered. This morning, the patient reports near complete resolution of her symptoms. In fact, her symptoms began to improve after administration of TPA. She first noticed improvement for the face and arm weakness and numbness. The left leg weakness took several more hours before near complete symptom resolution. She does remark that she still has very mild weakness for the left leg this morning. She also recalls having a significant left-sided headache in association with symptom onset yesterday, this issue has resolved as well. No associated vision disturbance, nausea or light or sound sensitivity. She does have a history of recurrent headaches which have been problematic over the past year although this issue apparently resolved about 2 months ago. Past medical history also notable for an episode of bilateral leg weakness with inability to walk, lasting about 1 to 2 weeks, occurring after delivery of her second child, about 1-1/2 years ago. History also notable for suspected psychogenic nonepileptic seizures, bipolar 2 disorder, conversion disorder.. Patient has previously been evaluated by Dr. Ibarra. Last saw Dr. Ibarra July 31, 2020 primarily for psychogenic nonepileptic seizures and migraine without aura. Allergies Allergy/AdvReac Type Severity Reaction Status Date / Time No Known Allergies Allergy Verified 01/07/21 17:02 Home Medications Medication Instructions Recorded Confirmed Type Iron Transfusions 1 dose IV UD PRN 09/07/19 01/07/21 History albuterol sulfate 90 mcg/actuation 2 puff INHALATION QID PRN 03/14/20 01/07/21 History aerosol inhaler lorazepam 1 mg tablet (Ativan) 0.5 - 1 mg PO Q6 PRN 03/14/20 01/07/21 History ketorolac 10 mg tablet 10 mg PO TID PRN #12 tab 07/31/20 01/07/21 Rx melatonin 10 mg tablet 10 mg PO HS 07/31/20 01/07/21 History metoprolol succinate 25 mg 50 mg PO HS 07/31/20 01/07/21 History tablet,extended release 24 hr aripiprazole 30 mg tablet (Abilify) 30 mg PO HS 09/16/20 01/07/21 History lamotrigine 150 mg tablet 300 mg PO HS 09/16/20 01/07/21 History naratriptan 1 mg tablet 1 mg PO DIRECTED PRN 10/06/20 01/07/21 History omeprazole 40 mg capsule,delayed 40 mg PO QAM 10/06/20 01/07/21 History release cyclobenzaprine 10 mg tablet 10 mg PO TID PRN 01/07/21 01/07/21 History escitalopram oxalate 20 mg tablet 20 mg PO DAILY 01/07/21 01/07/21 History gabapentin 300 mg capsule 300 mg PO DIRECTED 01/07/21 01/07/21 History levothyroxine 50 mcg tablet 50 mcg PO QAM 01/07/21 01/07/21 History topiramate 100 mg tablet 100 mg PO HS 01/07/21 01/07/21 History Patient History Medical History Anemia CURRENT IRON TRANSFUSIONS Borderline high blood pressure PT REPORTS BLOOD PRESSURE RUNS ON HIGHER SIDE/NO MEDS Exercise-induced asthma Gestational hypertension HX OF History of anesthesia reaction WITH WISDOM TEETH: AGE 13-14 YR - HIGH FEVER AND VOMITING AFTER - NO FURTHER DETAILS, UNKNOWN FAMILY HX - PT ADOPTED Rapid heart beat PT REPORTS HEART RATE RUNS ON HIGHER SIDE / NO MEDS Seizure disorder during seizures began at 13 weeks of and had several through . Last seizure at 30 weeks. Was hospitalized for 1 week and went to rehab afterward for loss of movement on L side, ambulatory dysfunction. Brain MRI showed no evidence of CVA, symptoms of unknown etiology. Stable on lamictal. Surgical History History of colposcopy ULISSES 1 S/P wisdom tooth extraction Family History Other Adopted Family history unknown Social History Smoking Status: Never smoker Second Hand Exposure: No; Hx Alcohol Use: Yes Alcohol type: beer Hx Substance Use: No Preferred Language: Scottish Communication Ability: Effective Locomotive Firer Required: No Beliefs That Will Affect Care: None marital status: marital status details: Abran Vargas (26) [phone] Current Living Situation: Spouse Current Living Situation Comment: has to live with parents due to seizure disorder at this time. 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 How many Children do You have: 1 Other Information That Helps Us Care for You: No Feels Safe at Home: Yes Safety Concerns: Feels Safe At This Time Assistive Devices: None Review of Systems Constitutional: no fever and no chills Eyes: no blind spots and no diplopia Ear, Nose, Mouth, Throat: no ear pain and no hearing loss Respiratory: no cough and no dyspnea Cardiovascular: no chest pain and no palpitations Gastrointestinal: no constipation and no diarrhea/loose stools Genitourinary: no urinary urgency and no urinary incontinence Musculoskeletal: no muscle weakness and no muscle atrophy Integumentary: no rash and no lesions Neurologic: as per Subjective / HPI Psychiatric: no behavioral changes, no depression, no abnormal sleep pattern and no anxiety Hematologic / Lymphatic: no easy bruising and no lymphadenopathy Exam (Neuro) Constitutional: well developed and well nourished; no acute distress Eyes: normal visual brock by confrontation, PERRL, normal accommodation and EOM intact bilaterally; no fundoscopic abnormality, no nystagmus and no papilledema Cardiovascular: Vessels: normal carotid upstroke; no carotid bruit Neurologic: Oriented to:: Person, Place and Time Memory: Short Term Intact and Remote Intact Attention: Span Intact and Concentration Intact Language: Naming Objects and Repeating Phrases Speech Fluency: negative Dysarthria Speech Aphasia: negative Aphasia Fund of Knowledge: Current Events, Past History and Vocabulary Cranial Nerves: Normal II (Visual brock full to confrontation, visual acuity normal), III, IV, (Pupils equal round reactive to light and accommodation, eye movements normal), V (Facial sensation intact), VII (There is no facial droop or weakness), VIII (Hearing intact), IX, X (Palate elevates to midline), XI (Shoulder shrug intact) and XII (Tongue protrudes to midline) Motor Strength: Normal Lower Extremities and Normal Upper Extremities; negative Pronator Drift Motor Tone: Normal Lower Extremities and Normal Upper Extremities Muscle Bulk/Involuntary Movements: No Involuntary Movements; negative Muscle Atrophy Sensation: Light Touch Intact, Pain/Temperature Intact, Vibration Intact and Proprioception Intact Coordination: Normal; negative Limited Balance, Dysdiadochokinesia, Finger-Nose Abnormal or Heel-Rodriguez Abnormal Deep Tendon Reflexes: Rt Triceps: 2+, Lt Triceps: 2+, Rt Biceps: 2+, Lt Biceps: 2+, Rt Brachioradialis: 2+, Lt Brachioradialis: 2+, Rt Patellar: 2+, Lt Patellar: 2+, Rt Ankle: 2+ and Lt Ankle: 2+ Special Tests: negative Babinski Present Gait: Normal Station and Gait Details: Patient has the slightest degree of left lower extremity weakness characterized by decreased initiation of movement, giveaway weakness character. Wiggles the toes symmetrically. She does not orbit on the left with arm roll. No deficit of fine finger movements for the left hand. She does not have a facial droop. Speech is clear, nondysarthric. Results & Data ([facility]) Vital Signs (Past 12 Hours) Vital Signs Temp Pulse Pulse Resp BP BP Pulse Ox 01/08/21 08:50 36.8 C 88 17 111/58 L 96 01/08/21 08:04 93 H 20 105/54 L 97 01/08/21 08:00 94 H 01/08/21 07:49 36.7 C 93 H 19 104/59 L 100 01/08/21 06:45 78 18 114/57 L 97 01/08/21 05:45 81 16 111/58 L 96 01/08/21 04:45 81 16 109/57 L 96 01/08/21 03:45 79 16 117/60 97 01/08/21 02:45 76 16 106/56 L 94 01/08/21 01:45 83 16 110/62 98 01/08/21 00:48 83 16 117/61 97 01/08/21 00:00 81 01/07/21 23:45 37.0 C 80 16 121/68 98 01/07/21 23:18 99 H 16 116/71 98 01/07/21 22:48 91 H 16 141/71 H 97 01/07/21 22:45 91 H 16 141/71 H 97 01/07/21 22:15 92 H 16 161/66 H 95 01/07/21 21:45 90 17 122/69 98 Laboratory Results WBC 7.13, hemoglobin 12.0, hematocrit 37.3, platelet count 224, sodium 141, potassium 3.8, BUN 9, creatinine 0.71, glucose 95, hemoglobin A1c 5.5, calcium 8.5, magnesium 2.1, AST 14, ALT 23, troponin less than 0.015, triglycerides 153, cholesterol 159, LDL 90, VLDL 31, HDL 38, TSH 0.746, hCG negative Diagnostic Findings CT of the head including CT angiography of the head and neck completed yesterday.The studies were unremarkable, no evidence of hemorrhage or acute process. No evidence of chronic stroke. No evidence of vascular lesion. I reviewed the images as well as the radiologist interpretation of this test. Note of moderate adenoid and mild to moderate piloting tonsillar enlargement. Lumbar spine MRI completed yesterday revealed mild degenerative disc disease at T11-12 and L4-5. No significant central canal or neural foraminal narrowing. I reviewed the images as well as the radiologist interpretation of this test. Repeat CT of the head completed yesterday was unremarkable, no evidence of hemorrhage or acute process. The CT of the head was done status post administration of TPA. I reviewed the images as well as the radiologist interpretation of this test. Electrocardiogram reveals a normal sinus rhythm, 84 bpm. Patient had a 24-hour Holter monitor completed this past August which revealed isolated PVCs, no atrial fibrillation. No tachycardia. An echocardiogram completed this past July revealed normal left ventricular size and systolic function, ejection fraction 55 to 60%, no regional wall motion abnormalities. No significant valvular abnormalities. Normal left atrial size. No evidence of atrial septal defect. Coding Level of Care Code 58242 Initial Inpt Care Lvl 3 Diagnoses Stroke-like symptoms R29.90
[2021-01-08] MEDS ORDERED: PHARMACIST DISCHARGE MED REC CONSULT PRN (10:29)
--- NOTE | 2021-01-08 11:27 | XCELERA ---
[id number]
[2021-01-08] MEDS: oxyCODONE HCL IR 5 MG TAB (IMMEDIATE RELEASE) PO PRN (12:07)
[2021-01-08] MEDS ORDERED: GADOBUTROL 65ML VIAL IV ONE (14:13)
--- NOTE | 2021-01-08 14:33 | Magnetic Resonance Report ---
MR brain MS wo/w con INDICATION: MN ^stroke like episode, r/o demyelinating dz vs CVA TECHNIQUE: Multiplanar and multisequence MR images of the brain were obtained prior to and following administration of gadolinium contrast. Comparison: Comparison is made to MRI brain 07/07/2020 FINDINGS: No abnormal restricted diffusion is identified. The white matter is unremarkable. The ventricular sys tem is normal in appearance. There is no evidence of acute intraparenchymal hemorrhage. No extra axia l fluid collections are seen. There are no masses, mass effect, or midline shift. No abnormal enhance ment is seen. The corpus callosum, pituitary gland, and cerebellar tonsils appear grossly unremarkab le. Flow voids of the major intracranial arterial vessels are identified. The imaged portions of the para nasal sinuses, mastoid air cells, and orbits are unremarkable. IMPRESSION: No acute abnormality. No evidence of T2 hyperintense regions of demyelination, no abnormal restricted diffusion to suggest infarct. ACT 112: Negative or not required by law. Electronically signed by: Oral Hamm M.D. 01/08/2021 1:49 PM
--- NOTE | 2021-01-08 14:49 | Magnetic Resonance Report ---
MR thoracic spine wo/w con INDICATION: MN ^left arm/leg weak TECHNIQUE: 3 plane localizer images, sagittal T2, sagittal T1, sagittal STIR, axial T1, axial T2 scott g with postcontrast axial T1 and sagittal T1 fat-saturated sequences were obtained of the thoracic sp ine, before and after intravenous administration of 12 mL of MultiHance. Comparison: None available at the time of this dictation. FINDINGS: The alignment is anatomical. There is no significant disc bulge or herniation. The spinal canal and n eural foramina are patent. The intervertebral discs are normal in height and signal. There is normal height and signal of the visualized vertebral bodies. The spinal cord is normal in signal intensity and there is no evidence of cord contusion. There is no evidence of an extradural, intradural, extramedullary or intramedullary lesion. The spinal ligaments are intact, without evidence of disruption or abnormal signal intensity. IMPRESSION: No evidence of cord compression or ligamentous injury. No abnormal enhancing lesions in the spine. ACT 112: Negative or not required by law. Electronically signed by: Oral Hamm M.D. 01/08/2021 2:47 PM
--- NOTE | 2021-01-08 14:50 | Magnetic Resonance Report ---
MR OF THE CERVICAL SPINE WITHOUT IV CONTRAST INDICATION: MN ^lumbar done 01/07 ^left arm/leg weak Comparison: None available at the time of this dictation. TECHNIQUE: MRI of the cervical spine is performed utilizing various T1 and T2 sequences in the axial and sagittal planes. IV contrast was administered for this examination. FINDINGS: Cervical spine: Vertebral body height and alignment are maintained throughout the cervical spine. The atlantodental articulation appears maintained. No destructive bony lesion is seen. Intervertebral discs: Mild degenerative changes are seen most prominent at C4-C5 and C5-C6 Spinal cord: The cervical spinal cord is normal in morphology and signal intensity. C2-C3: Unremarkable. C3-C4: Unremarkable. C4-C5: A minimal posterior midline disc bulge is seen with minimal associated canal stenosis. C5-C6: Unremarkable. C6-C7: Unremarkable. C7-T1: Unremarkable. Soft tissues: The paraspinous and prevertebral soft tissues are normal in appearance. Brain parenchyma: Partially imaged brain parenchyma at the skull base is within normal limits. IMPRESSION: No evidence of neuroforaminal stenosis bilaterally. There is a minimal posterior disc bul ge at C4-C5 with minimal associated canal stenosis. No evidence of demyelinating disease or abnormal enhancing lesion. ACT 112: Negative or not required by law. Electronically signed by: Oral Hamm M.D. 01/08/2021 2:48 PM
[2021-01-08 19:42] LABS: Lyme Ab IgG w/WB Rflx Negative (Negative); Lyme Ab IgM w/WB Rflx Negative (Negative)
[2021-01-08] MEDS ORDERED: ONDANSETRON 4 MG OD TAB PO PRN (19:42)
[2021-01-08] MEDS ORDERED: ONDANSETRON INJ 2 MG/ML 2 ML VIAL ONE (19:43)
--- NOTE | 2021-01-08 20:09 | Hospitalist Progress Note ---
Date of Service January 08, 2021 Assessment & Plan (1) Stroke-like symptoms: Plan: 2pm this afternoon with left sided arm/leg weakness, visual changes and dysarthria Hx migraines ?complex migraine. Also with hx PNES and followed locally by Neurology with recent 5 day continuous EEG monitoring without seizure like activity by on Lamictal for hx bipolar Stroke alert called --> given TPA at recs from Dr Francis at [facility] Admit to ICU given TPA, monitor for bleeding (on end of her menses and increased bleeding reported --> if continues would repeat CBC this evening) Type/screen MRI of brain/ spine negative. No acute stroke. Perhaps complex migraine. Patient is transferred out of the ICU today. 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 Remains on lamictal 300mg by ONCE daily 300mg at night for her hx bipolar which she states has been well controlled Neuro on consult as above (7) Back pain: Plan: At baseline but with weakness +Straight leg raise MRI lumbar spine pending as above Ortho consult if needed (8) Hypertension: Plan: Chronic however patient and state patient take metoprolol 50mg at night rather than the complex directions in the system BP currently 127/68 Continue metoprolol Continue to monitor (9) Hypothyroidism: Plan: states on levothyroxine 25mg daily (10) Bipolar 2 disorder: Plan: as well as anxiety, depression Follows locally with Ophelia Toussaint PA-C Continue on abilify 30mg (attempting in future to switch to alternative me dication), lamictal 300mg HS, topamax 100mg HS D/c'd on sertaline recently and was started on lexapro which was continued Rec close f/u outpatient at discharge (11) GERD (gastroesophageal reflux disease): Plan: Continue PPI daily (12) Anxiety and depression: Plan: as above (13) COVID-19: Plan: in march 2020 repeat COVID 19 testing negative on admission (14) Iron deficiency anemia: Plan: Hx of and periodically receives transfusions Hgb 11.9 on admission, normocytic but on end of her period (expect worsening bleeding given TPA as above) (15) Conversion disorder: Plan: suspected given hx and above (16) Adopted: Plan: and as such no known hx of clotting disorders would rec f/u with her PCP for testing of these given reported similar episode during Plan: Admit to ICU given TPA administration Admission and Anticipated Discharge Date Admission Date: January 07, 2021 Subjective 25 yoferandy reports feeling better today. She states she has POTS. Review of Systems Review of Systems: All systems reviewed & are unremarkable except as noted in HPI & below Physical Exam Physical Exam: Constitutional: WD/WN, vitals as above cooperative and comfortable; no acute distress Eyes: PERRL and normal accommodation Neck: normal visual inspection and trachea midline; no tracheal deviation Respiratory: normal respiratory effort, lungs clear to auscultation Cardiovascular: RRR, no murmur, no edema Gastrointestinal (Abdomen): normal bowel sounds, soft, nontender, no hepatosplenomegaly Psychiatric: A+Ox3, euthymic affect Lymphatic: no cervical or axillary lymphadenopathy Results & Data Results & Data ([facility]) Vital Signs (Past 12 Hours) Vital Signs Temp Pulse Pulse Resp BP BP Pulse Ox 01/08/21 17:57 112 H 115/67 01/08/21 17:56 125 H 113/71 01/08/21 17:55 114 H 121/64 01/08/21 16:48 36.6 C 104 H 18 107/75 96 01/08/21 16:00 109 H 01/08/21 15:48 36.4 C L 112 H 12 111/61 97 01/08/21 14:48 36.4 C L 103 H 19 113/69 98 01/08/21 13:45 92 H 138/72 94 01/08/21 11:48 36.8 C 103 H 19 114/62 97 01/08/21 10:49 36.7 C 94 H 21 115/66 96 01/08/21 10:48 36.6 C 97 H 19 115/66 100 01/08/21 09:49 36.9 C 87 87 17 108/59 L 108/59 L 98 01/08/21 08:50 36.8 C 88 17 111/58 L 96 01/08/21 08:45 36.8 C 89 18 111/58 L 98 PG Care Time/CCT Total # of Minutes Spent Total Time Spent with Patient: Total time spent is greater than 50% in coordination of care (as documented) at patient's floor/unit and/or counseling patient: Coding Level of Care Code 83197 Subseq Hosp Care Lvl 2 Diagnoses Stroke-like symptoms R29.90 Left-sided weakness R53.1 Visual changes H53.9 Dysarthria R47.1 Migraine G43.909 Seizure disorder G40.909 Back pain M54.9 Hypertension I10 Hypothyroidism E03.9 Bipolar 2 disorder F31.81 GERD (gastroesophageal reflux disease) K21.9 Anxiety and depression F41.9; F32.A COVID-19 U07.1 Iron deficiency anemia D50.9 Conversion disorder F44.9 Adopted Z02.82
[2021-01-08] MEDS: TOPIRAMATE 50 MG TAB PO SCH (20:55)
[2021-01-08] MEDS: ARIPiprazole 15 MG TAB PO SCH (20:56)
[2021-01-08] MEDS: METOPROLOL SUCC 50MG EXT REL TAB PO SCH (20:56)
[2021-01-08] MEDS: lamoTRIgine 100 MG TAB PO SCH (20:57)
[2021-01-09] MEDS: LEVOTHYROXINE SODIUM 50 MCG TABLET PO SCH (05:46)
[2021-01-09 06:24] LABS: Hematocrit (blood only) 39.5 % (37-47); Hemoglobin 12.7 g/dL (12.0-16.0); Mean Corpuscular Hgb Conc 32.2 g/dL (32-36); Mean Corpuscular Volume 87.2 fL (80-100); Mean Platelet Volume 8.6 fL (7.4-10.4); Platelet Count 235 K/uL (130-400); RDW Coefficient of Variation 13.8 % (11.5-14.5); RDW Standard Deviation 43.9 fL (36.4-46.3); Red Blood Count 4.53 M/uL (4.2-5.4); White Blood Count 8.58 K/uL (4.8-10.8)
[2021-01-09 06:56] LABS: BUN Creatinine Ratio 12.2 (10-20); Calcium 8.8 mg/dl (8.5-10.1); Creatinine Clr Calc Pharmacy 113.5 ml/min; Est GFR (African American) 113.5 ml/min; Potassium 3.8 mmol/L (3.5-5.1)
[2021-01-09] MEDS: oxyCODONE HCL IR 5 MG TAB (IMMEDIATE RELEASE) PO PRN (08:00)
[2021-01-09] MEDS: PANTOprazole 40 MG TAB PO SCH (09:18)
[2021-01-09] MEDS: GABAPENTIN 300 MG CAP PO SCH (09:19)
[2021-01-09] MEDS: ESCITALOPRAM OXALATE 10 MG TAB PO SCH (09:19)
--- NOTE | 2021-01-09 09:23 | Neurology Progress Note ---
Date of Service January 09, 2021 Assessment & Plan (1) Stroke-like symptoms: (2) Back pain: Plan: Resolved strokelike episode. Imaging evaluation unremarkable. Patient did receive TPA during her initial assessment in the emergency department although patient's presentation may have been a stroke mimic. A hypercoagulable panel is pending. Patient has a history of confirmed psychogenic nonepileptic seizures with events captured on previous video EEG monitoring done earlier this year at [facility]. This issue has been stable. History also notable for bipolar disorder, reportedly stable. History also notable for intermittent low back pain with acute episode occurring earlier this morning. Patient does seem to be doing well at this time, in this regard, however. She has an intact neurological examination and is in no acute distress. She is able to move all 4 limbs equally, no focal deficits. Sensory exam intact as well. She does have mild lower lumbar disc degeneration although no significant stenosis or foraminal narrowing. She does have an appointment pending with pain management for later this month. She may continue with gabapentin at the current dosage. She also has an outpatient prescription for cyclobenzaprine which is reasonable as well. I have no further immediate recommendations for this patient's neurologic care at this time. She may follow-up with me or one of our advanced practice clinicians within the next 2 to 3 weeks. Admission and Anticipated Discharge Date Admission Date: January 07, 2021 Subjective Follow-up for strokelike episode The patient has not had any further episodes of left-sided weakness since her presentation and receiving TPA. Subsequent imaging including MRI of the brain, C-spine, and T-spine unremarkable. No evidence of acute or subacute stroke. No evidence of demyelinating disease. Lumbar spine MRI have been completed as well which reveals mild degenerative disc disease. Patient did have an episode of acute low back pain earlier this morning with an associated feeling of weakness affecting the legs. She informs me that she has an appointment pending with pain management for later this month. History notable for chronic intermittent low back pain. A hypercoagulable panel is pending at this time. Transthoracic echocardiography unremarkable. As described previously, patient's past medical history is notable for migraine, psychogenic nonepileptic seizures which were confirmed with video EEG monitoring done this past May at [facility]. History also notable for bipolar disorder, has been evaluated by psychiatry previously. Patient has denied any significant issue with mood or psychosocial stressors recently. Review of Systems Constitutional: no fever Musculoskeletal: + back pain Neurologic: as per Subjective / HPI; no headache(s) and no memory loss Results & Data ([facility]) Vital Signs (Past 12 Hours) Vital Signs Temp Pulse Pulse Resp BP BP Pulse Ox 01/09/21 08:00 36.9 C 01/09/21 07:30 103 H 17 107/72 96 01/09/21 00:33 36.8 C 95 H 17 105/64 97 Exam (Neuro) Constitutional: well developed, well nourished and healthy appearing; no acute distress Neurologic: Oriented to:: Person, Place and Time Memory: Short Term Intact and Remote Intact Attention: Span Intact and Concentration Intact Speech Fluency: negative Dysarthria or Dysfluency Fund of Knowledge: Current Events, Past History and Vocabulary Cranial Nerves: Normal II, III, IV, , V, VII, VIII, IX, X, XI and XII Motor Strength: Normal Lower Extremities and Normal Upper Extremities Muscle Bulk/Involuntary Movements: No Involuntary Mo vements; negative Muscle Atrophy Sensation: Light Touch Intact, Pain/Temperature Intact, Vibration Intact and Proprioception Intact Coordination: Normal; negative Dysdiadochokinesia, Finger-Nose Abnormal or Heel- Rodriguez Abnormal Coding Level of Care Code 55682 Subseq Hosp Care Lvl 2 Diagnoses Stroke-like symptoms R29.90 Back pain M54.9
[2021-01-09] MEDS ORDERED: STROKE PATIENT DISCHARGE STA (13:06)
--- NOTE | 2021-01-09 17:44 | Electrocardiogram Report ---
Test Reason : Blood Pressure : / mmHG Vent. Rate : 122 BPM Atrial Rate : 122 BPM P-R Int : 136 ms QRS Dur : 082 ms QT Int : 306 ms P-R-T Axes : 064 071 028 degrees QTc Int : 436 ms Sinus tachycardia Abnormal ECG When compared with ECG of 07-JAN-2021 15:34, No significant change was found Confirmed by Tre Gonzalez ([id number]) on 01/09/2021 5:44:23 PM Referred By: REFERRED SELF Confirmed By:Petr Gonzalez
--- NOTE | 2021-01-10 09:35 | Discharge Summary ---
Date of Service January 09, 2021 Admission HPI Per Admitting Provider 25 yo female with PMHx HTN, PNES, bipolar disorder, HTN, migraine with aura, depression, anxiety, had onset of left sided weakness/trouble speaking, then left leg/arm weakness followed by left eye visual loss and a headache starting around 2pm this afternoon. Stroke alert called in the field given known symptom onset and TPA administered at recommendations of Dr Francis. Reported prior stroke during but no source known and reported bilaterally leg weakness and needed to go to [facility] for a week to learn how to walk again. Denies any clotting disorders or known if lab panel drawn in past. No hx DVT. Is adopted and unsure of medical history. States chronic back pain and left leg pain/weakness and recently started on gabapentin for these symptoms and this symptom is the one most prominent still since the TPA. No hx kidney stones or urinary symptoms. Visual changes to her left eye improving and states only slightly blurry when before she was unable to see. Follows with Dr Ibarra but she is no longer here. Has been following locally with psychiatry, Ophelia Toussaint, and recently stopped the sertaline and started lexapro in past couple of months. Denied any prodromal syncope/lightheadedness. Also with hx thryoid nodule and recent biopsy without evidence of malignancy. Of note, currently on her period (at the end of the cycle) however after TPA has some increased bleeding. No fever, chills, chest pain, shortness of breath, abdominal pain, nausea, vomiting or dysuria. Had 5 day continuous EEG at [place] earlier this year which did not show any seizure activity. Review of medication list with adjustments as outlined in assessment and plan. To be admitted by hospitalist service for stroke work-up/observation to ICU as she received TPA. ICU lens finisher alerted. Prior COVID March 2020. Has been vaccinated x 2 since that time. ER Course: Head CT no acute intracranial findings, Head/Neck CTA unremarkable. Alteplase recombinant administered. On NSS @ 125cc/hr. CBC unremarkable except low hgb 11.9 (on period) Chemistry panel acceptable, slightly low calcium 8.3 with normal albumin. Principal Diagnosis stroke like symptoms. Discharge Exam Constitutional: WD/WN, vitals as above cooperative and comfortable; no acute distress Eyes: PERRL and normal accommodation Neck: normal visual inspection and trachea midline; no tracheal deviation Respiratory: normal respiratory effort, lungs clear to auscultation Cardiovascular: RRR, no murmur, no edema Gastrointestinal (Abdomen): normal bowel sounds, soft, nontender, no hepatosplenomegaly Psychiatric: A+Ox3, euthymic affect Lymphatic: no cervical or axillary lymphadenopathy Discharge Data Allergies Allergy/AdvReac Type Severity Reaction Status Date / Time No Known Allergies Allergy Verified 01/07/21 17:02 Consultations 01/07/21 18:53 ED Decision to Admit Stat 01/07/21 20:22 Consult Supervisor Press Room Routine Consult Neurology Routine Ordered Studies 01/07/21 15:15 CT angio head w con Stat CT angio neck with con Stat CT head/brain wo con Stat 01/07/21 20:22 MR lumbar spine wo con Urgent 01/07/21 23:26 CT head/brain wo con Stat 01/08/21 09:57 MR brain MS wo/w con Routine MR cervical spine wo/w con Routine MR thoracic spine wo/w con Routine Hospital Course (1) Stroke-like symptoms: 2pm this afternoon with left sided arm/leg weakness, visual changes and dysarthria Hx migraines ?complex migraine. Also with hx PNES and followed locally by Neurology with recent 5 day continuous EEG monitoring without seizure like activity by on Lamictal for hx bipolar Stroke alert called --> given TPA at [facility] from Dr Francis at [facility] Admit to ICU given TPA, monitor for bleeding (on end of her menses and increased bleeding reported --> if continues would repeat CBC this evening) Type/screen MRI of brain/ spine negative. No acute stroke. Perhaps complex migraine. Appreciate input from Neurology (BOLD) Resolved strokelike episode. Imaging evaluation unremarkable. Patient did receive TPA during her initial assessment in the emergency department although patient's presentation may have been a stroke mimic. A hypercoagulable panel is pending. Patient has a history of confirmed psychogenic nonepileptic seizures with events captured on previous video EEG monitoring done earlier this year at [facility]. This issue has been stable. History also notable for bipolar disorder, reportedly stable. History also notable for intermittent low back pain with acute episode occurring earlier this morning. Patient does seem to be doing well at this time, in this regard, however. She has an intact neurological examination and is in no acute distress. She is able to move all 4 limbs equally, no focal deficits. Sensory exam intact as well. She does have mild lower lumbar disc degeneration although no significant stenosis or foraminal narrowing. She does have an appointment pending with pain management for later this month. She may continue with gabapentin at the current dosage. She also has an outpatient prescription for cyclobenzaprine which is reasonable as well. (2) Left-sided weakness: Resolving with exceptiong of LLE in patient with chronic low back pain Holding toradol given the TPA given on admission (can utilize oxycodone prn) MRI lumbar spine pending given continued LLE weakness As above (3) Visual changes: Improving since administration of TPA Continue medications for migraine and prevention (4) Dysarthria: Resolved (5) Migraine: Hx of Continuing topamax 100mg HS, triptan prn (6) Seizure disorder: reported hx although continuous EEG earlier this year without seizure activity Hx PNES by most recent Neurology note Remains on lamictal 300mg by ONCE daily 300mg at night for her hx bipolar which she states has been well controlled Neuro on consult as above (7) Back pain: At baseline but with weakness +Straight leg raise MRI lumbar spine pending as above Ortho consult if needed (8) Hypertension: Chronic however patient and state patient take metoprolol 50mg at night rather than the complex directions in the system BP currently 127/68 Continue metoprolol Continue to monitor (9) Hypothyroidism: states on levothyroxine 25mg daily (10) Bipolar 2 disorder: as well as anxiety, depression Follows locally with Ophelia Toussaint PA-C Continue on abilify 30mg (attempting in future to switch to alternative medication), lamictal 300mg HS, topamax 100mg HS D/c'd on sertaline recently and was started on lexapro which was continued Rec close f/u outpatient at discharge (11) GERD (gastroesophageal reflux disease): Continue PPI daily (12) Anxiety and depression: as above (13) COVID-19: in march 2020 repeat COVID 19 testing negative on admission (14) Iron deficiency anemia: Hx of and periodically receives transfusions Hgb 11.9 on admission, normocytic but on end of her period (expect worsening bleeding given TPA as above) (15) Conversion disorder: Suggested by admitting APC. Will defer workup to PCP. (16) Adopted: and as such no known hx of clotting disorders would rec f/u with her PCP for testing of these given reported similar episode during Admit to ICU given TPA administration Total Time Total Time Spent Total Time Spent (In Minutes): 32 Discharge Plan Discharge Items Patient Disposition: Home - Self-Care Reason For Visit: CVA Discharge Diagnosis: CVA Activity: Resume your previous activity Non-emergency contact: Primary Care Provider Call non-emergency contact if: you have any medication questions Follow-up/Referrals: Danilo Dunaway MD [Physician] - Jas Vo Jr, DO [Primary Care Provider] - 01/15/21 2:30 pm Diet: Gluten Free and Heart Healthy Addtl Attending Provider Instructions: Recommend followup with PCP in 1-2 weeks Recommend followup with Neurology in 2-[address] Dunaway You may continue with gabapentin at the current dosage. You may continue with your outpatient prescription for cyclobenzaprine which is reasonable as well. Pending Studies at Discharge: No Stand-Alone Forms: [employer], Smoking Cessation Medications and DC Order Prescriptions: New gabapentin 300 mg Capsule 300 mg PO TID Qty: 90 RF: 0 Continued melatonin 10 mg tablet 10 mg PO HS RF: 0 metoprolol succinate 25 mg tablet extended release 24 hr 50 mg PO HS RF: 0 ketorolac 10 mg tablet 10 mg PO TID PRN (Reason: migraine headache) Qty: 12 RF: 3 lorazepam [Ativan] 1 mg tablet 0.5 - 1 mg PO Q6 PRN (Reason: Anxiety) RF: 0 albuterol sulfate 90 mcg/actuation HFA aerosol inhaler 2 puff INHALATION QID PRN (Reason: Shortness Of Breath Or Wheezing) RF: 0 Iron Transfusions 1 dose IV UD PRN (Reason: ANEMIA) RF: 0 lamotrigine 150 mg tablet 300 mg PO HS RF: 0 aripiprazole [Abilify] 30 mg tablet 30 mg PO HS RF: 0 omeprazole 40 mg capsule,delayed release(DR/EC) 40 mg PO QAM RF: 0 naratriptan 1 mg tablet 1 mg PO DIRECTED PRN (Reason: Migraine Headache) RF: 0 levothyroxine 50 mcg tablet 50 mcg PO QAM RF: 0 escitalopram oxalate 20 mg tablet 20 mg PO DAILY RF: 0 topiramate 100 mg tablet 100 mg PO HS RF: 0 cyclobenzaprine 10 mg tablet 10 mg PO TID PRN (Reason: MUSCLE SPASMS) Qty: 20 RF: 0 Discontinued gabapentin 300 mg capsule 300 mg PO DIRECTED RF: 0 Discharge Orders: Discharge Order (Routine); Ordered 01/09/21 Ordered By: Edgar Nash Admission Data Admit Date/Time: 01/07/21 18:44 Attending Provider: Edgar Nash Admit Provider: Edgar Nash Primary Care Provider: Jas Vo Jr Other Providers: Edgar Nash ; Danilo Patterson ; Colton Hastings Other Interventions: Discharge Summary Assessment (RN) Last Done: 01/09/21 13:13 Coding Level of Care Code D/C DAY MANAGEMENT >30 MINS Diagnoses Stroke-like symptoms R29.90 Left-sided weakness R53.1 Visual changes H53.9 Dysarthria R47.1 Migraine G43.909 Seizure disorder G40.909 Back pain M54.9 Hypertension I10 Hypothyroidism E03.9 Bipolar 2 disorder F31.81 GERD (gastroesophageal reflux disease) K21.9 Anxiety and depression F41.9; F32.A COVID-19 U07.1 Iron deficiency anemia D50.9 Conversion disorder F44.9 Adopted Z02.82 Time Spent (min) 32
[2021-01-12 23:56] LABS: Anti-Thrombin III Activity 111 % normal (80-135); B2 Glycoprotein IgG <2.0 U/mL (<20.0); B2 Glycoprotein IgM <2.0 U/mL (<20.0); Protein S Functional(Activity) 94 % (60-140)
[2021-01-14 18:21] LABS: Factor 5 Mutation NEGATIVE
[2021-01-15 06:16] LABS: Anti Cardiolipin Ab IgG <2.0 GPL-U/mL; Anti Cardiolipin Ab IgM <2.0 MPL-U/mL; PTT LA Screen 33 sec (<=40)
== END 2021-01-09 13:48 | disposition home or self-care (01) | DRG 92 ==
LOC: ED 15:15 → 1E 18:44